=== PATIENT | female | born 1940 | race Caucasian/White ===

== ENCOUNTER 2018-07-08 19:24 | Inpatient (IN) | payer MEDICARE, BC ==
[2018-07-08 20:25] LABS: Anisocytosis Slight; Basophils % (A) 0 %; Eosinophils # (A) 0.2 k/uL (0-0.7); Eosinophils % (A) 2 %; HCT 32.2 % (34.0-46.0); HGB 9.9 gm/dL (11.4-16.0); Hypochromasia Moderate; Lymphocytes # (A) 1.4 k/uL (1.0-4.8); Lymphocytes % (A) 12 %; MCH 24.7 pg (25.0-35.0); MCHC 30.8 g/dL (31.0-37.0); MCV 80.1 fL (80.0-100.0); Mean Platelet Volume 6.8; Microcytosis Slight; Monocytes # (A) 0.5 k/uL (0-1.0); Monocytes % (A) 4 %; Neutrophils # (A) 9.6 k/uL (1.3-7.7); Neutrophils % (A) 81 %; Platelet Count 276 k/uL (150-450); RBC 4.02 m/uL (3.80-5.40); RDW 19.3 % (11.5-15.5); WBC 11.9 k/uL (3.8-10.6)
[2018-07-08] MEDS ORDERED: MORPHINE SULFATE 4 MG/ML SYRINGE IV PRN (20:37)
[2018-07-08] MEDS ORDERED: ONDANSETRON 4 MG/2 ML VIAL IVP PRN (20:37)
[2018-07-08] MEDS ORDERED: NALOXONE 0.4 MG/ML 1 ML VIAL IV PRN (20:37)
[2018-07-08] MEDS ORDERED: ACETAMINOPHEN TAB 325 MG TAB PO PRN (20:37)
--- NOTE | 2018-07-08 20:44 | ED ---
General Adult HPI - General Chief complaint: GI Bleed Stated complaint: GI Bleed Source: patient Mode of arrival: ambulatory Limitations: no limitations - History of Present Illness Initial comments: Dictation was produced using Be[employer] dictation software. please excuse any grammatical, word or spelling errors. Chief Complaint: 78-year-old female with past medical history of CVA TIA presents via EMS as a transfer from [facility] for GI bleed and hypokalemia. History of Present Illness: Patient is a 78-year-old female who was at her primary care physician's office today. She was sent to the emergency room by her PCP for generalized weakness and laboratory evaluation. She was seen [facility] ED where she was guaiac positive with anemia and hemoglobin of 9.4. She is also found to have hypokalemia of 2.7. Patient otherwise feels well. She noted some blood in her stool today. She was admitted to [facility] for CVA and was discharge recently. She started taking Xarelto. The ROS documented in this emergency department record has been reviewed and confirmed by me. Those systems with pertinent positive or negative responses have been documented in the HPI. All other systems are other negative and/or noncontributory. - Related Data Home Medications Medication Instructions Recorded Confirmed ALPRAZolam [Xanax] 0.5 mg PO HS PRN 07/08/18 07/08/18 Allopurinol [Zyloprim] 300 mg PO DAILY 07/08/18 07/08/18 Atorvastatin [Lipitor] 20 mg PO HS 07/08/18 07/08/18 Cholecalciferol [Vitamin D3] 400 unit PO DAILY 07/08/18 07/08/18 Digoxin [Lanoxin] 125 mcg PO DAILY 07/08/18 07/08/18 Diltiazem HCl [Diltiazem ER] 240 mg PO BID 07/08/18 07/08/18 Furosemide [Lasix] 40 mg PO BID 07/08/18 07/08/18 Ipratropium-Albuterol Nebulize 3 ml INHALATION RT-DAILY 07/08/18 07/08/18 [Duoneb 0.5 mg-3 mg/3 ml Soln] Levothyroxine Sodium [Synthroid] 112 mcg PO DAILY 07/08/18 07/08/18 Magnesium Oxide [Mag-Oxide] 200 mg PO DAILY 07/08/18 07/08/18 Nitroglycerin Sl Tabs [Nitrostat] 0.4 mg SUBLINGUAL Q5M PRN 07/08/18 07/08/18 Potassium Chloride ER [K-Dur 20] 20 meq PO BID 07/08/18 07/08/18 Thiamine [Vitamin B-1] 50 mg PO DAILY 07/08/18 07/08/18 Xarelto Unknwon Dose 1 tab PO HS 07/08/18 07/08/18 traZODone HCL 50 - 100 mg PO HS 07/08/18 07/08/18 Allergies Allergy/AdvReac Type Severity Reaction Status Date / Time Penicillins AdvReac Unknown Verified 07/08/18 20:09 Review of Systems ROS Statement: Those systems with pertinent positive or pertinent negative responses have been documented in the HPI. ROS Other: All systems not noted in ROS Statement are negative. Past Medical History Past Medical History: CVA/TIA History of Any Multi-Drug Resistant Organisms: None Reported Additional Past Surgical History / Comment(s): vericose veins. Past Psychological History: No Psychological Hx Reported Smoking Status: Never smoker Past Alcohol Use History: None Reported Past Drug Use History: None Reported General Exam - General Exam Comments Initial Comments: PHYSICAL EXAM: General Impression: Alert and oriented x3, not in acute distress HEENT: Normocephalic atraumatic, extra-ocular movements intact, pupils equal and reactive to light bilaterally, mucous membranes moist. Cardiovascular: Heart regular rate and rhythm, S1&S2 audible, no murmurs, rubs or gallops Chest: Lungs clear to auscultation bilaterally, no rhonchi, no wheeze, no rales Abdomen: Bowel sounds present, abdomen soft, non-tender, non-distended, no organomegaly Musculoskeletal: Pulses present and equal in all extremities, no peripheral edema Motor: Power 5/5 bilaterally, no focal deficits noted Neurological: CN II-XII grossly intact, no focal motor or sensory deficits noted Skin: Intact with no visualized rashes Psych: Normal affect and mood Limitations: no limitations Course Vital Signs 07/08/18 19:42 Temperature 98.2 F Pulse Rate 85 Respiratory 16 Rate Blood Pressure 122/75 O2 Sat by Pulse 96 Oximetry Medical Decision Making - Medical Decision Making ED course: transferred for higher level of care. She did have potassium level II.7. She also had stool guaiac positive blood. Clinical presentation consistent with GI bleeding allegedly derangement. She is on Xarelto. At this point it is unclear whether patient symptoms are secondary to hypokalemia or GI bleed/anemia. We will hold Xarelto. Vital signs upon arrival are within normal limits. Patient next seemed was DC'd. She started on Protonix. We will plan to have patient admitted for potassium replacement and GI consult. - Lab Data Result diagrams: 07/08/18 20:06 Lab Results 07/08/18 Range/Units 20:06 WBC 11.9 H (3.8-10.6) k/uL RBC 4.02 (3.80-5.40) m/uL Hgb 9.9 L (11.4-16.0) gm/dL Hct 32.2 L (34.0-46.0) % MCV 80.1 (80.0-100.0) fL MCH 24.7 L (25.0-35.0) pg MCHC 30.8 L (31.0-37.0) g/dL RDW 19.3 H (11.5-15.5) % Plt Count 276 (150-450) k/uL Neutrophils % 81 % Lymphocytes % 12 % Monocytes % 4 % Eosinophils % 2 % Basophils % 0 % Neutrophils # 9.6 H (1.3-7.7) k/uL Lymphocytes # 1.4 (1.0-4.8) k/uL Monocytes # 0.5 (0-1.0) k/uL Eosinophils # 0.2 (0-0.7) k/uL Basophils # 0.0 (0-0.2) k/uL Hypochromasia Moderate Anisocytosis Slight Microcytosis Slight Disposition Referrals: Hailee Villar, NPC [Primary Care Provider] - 1-2 days
[2018-07-08] MEDS ORDERED: cloNIDine 0.1 MG/24HR PATCH TRANSDERM SCH (20:45)
[2018-07-08 21:10] LABS: Calcium 9.3 mg/dL (8.4-10.2); Potassium 2.9 mmol/L (3.5-5.1)
[2018-07-08 23:51] VITALS: BMI 26.5
[2018-07-09] MEDS: SODIUM CHLORIDE 0.9% 1,000 ML IV SCH ×2 (01:07→09:05)
[2018-07-09] MEDS: PANTOPRAZOLE 40 MG/10 ML VIAL IVP SCH ×3 (02:10→22:09)
[2018-07-09] MEDS: DILTIAZEM CD 240 MG CAP.ER.24H PO SCH ×2 (02:10→09:04)
[2018-07-09 07:17] LABS: Albumin 3.3 g/dL (3.5-5.0); Calcium 8.9 mg/dL (8.4-10.2); Total Bilirubin 0.7 mg/dL (0.2-1.3); Total Protein 6.6 g/dL (6.3-8.2)
[2018-07-09] MEDS: LEVOTHYROXINE 112 MCG TAB PO SCH (09:02)
[2018-07-09] MEDS: DIGOXIN 125 MCG TAB PO SCH (09:04)
[2018-07-09 09:30] LABS: Anisocytosis Slight; Basophils % (A) 0 %; Eosinophils # (A) 0.3 k/uL (0-0.7); Eosinophils % (A) 2 %; HCT 30.3 % (34.0-46.0); HGB 9.2 gm/dL (11.4-16.0); Hypochromasia Marked; Lymphocytes # (A) 1.7 k/uL (1.0-4.8); Lymphocytes % (A) 15 %; MCH 24.8 pg (25.0-35.0); MCHC 30.3 g/dL (31.0-37.0); MCV 81.7 fL (80.0-100.0); Mean Platelet Volume 7.9; Microcytosis Slight; Monocytes # (A) 0.5 k/uL (0-1.0); Monocytes % (A) 4 %; Neutrophils # (A) 8.8 k/uL (1.3-7.7); Neutrophils % (A) 77 %; Platelet Count 283 k/uL (150-450); RBC 3.71 m/uL (3.80-5.40); RDW 19.1 % (11.5-15.5); WBC 11.4 k/uL (3.8-10.6)
[2018-07-09] MEDS ORDERED: NITROGLYCERIN SL TABS 0.4 MG TAB SUBLINGUAL PRN (10:59)
[2018-07-09] MEDS ORDERED: POTASSIUM CHLORIDE ER 20 MEQ TAB.ER PO STA (11:00)
[2018-07-09] MEDS ORDERED: SENNOSIDES-DOCUSATE SODIUM 1 EACH TAB PO STA (11:03)
[2018-07-09] MEDS ORDERED: POLYETHYLENE GLYCOL 3350 17 GM POWD.PACK PO PRN (11:03)
--- NOTE | 2018-07-09 12:42 | XR ---
EXAMINATION TYPE: XR chest 1V DATE OF EXAM: 07/09/2018 COMPARISON: 11/07/2010 HISTORY: Shortness of breath TECHNIQUE: Single frontal view of the chest is obtained. FINDINGS: There is left-sided consolidation and pleural effusion in the heart is enlarged. Interstit ial pattern is noted and there is no pneumothorax. Arthropathy of the shoulders and diffuse osteopeni a. Atherosclerotic change of the aorta. Hyperinflation suggests COPD. IMPRESSION: 1. New left perihilar and lower lobe area of consolidation with pleural effusion. 2. Cardiomegaly with findings suggestive of chronic interstitial lung disease. Interstitial pneumonit is or congestion in the differential diagnosis. Correlate clinically.
--- NOTE | 2018-07-09 12:42 | P.HPIM ---
History of Present Illness 78-year-old pleasant female with history of atrial fibrillation on the anticoagulation with Xarelto came in with complaints of blood in the stools about 3-4 episodes yesterday. Patient had a normal bowel movement yesterday night and no bowel movement today. Patient is admitted for possible GI bleed patient is also found to be hypokalemic secondary to Lasix. Patient was never admitted for CHF exacerbation her ejection fraction is unknown but was told he may have CHF. Patient has mild crackles on exam because of which I'm obtaining a chest x-ray today and stents since Lasix is being held and patient is on IV fluids although one of the chest x-ray tomorrow morning make sure patient is not retaining fluid. Patient's hemoglobin yesterday was around 9.9 and now 9.2 does not appear to have any present active bleed. Patient's creatinine has went up from 1-1.2. Patient was recently started on anticoagulation for chronic atrial fibrillation. Which is being held at this time. Patient denied any hemoptysis.stools. Denied any abdominal pain diarrhea Review of Systems REVIEW OF SYSTEMS: CONSTITUTIONAL: No fever, no malaise, no fatigue. HEENT: No recent visual problems or hearing problems. Denied any sore throat. CARDIOVASCULAR: No chest pain, orthopnea, PND, no palpitations, no syncope. PULMONARY: No shortness of breath, no cough, no hemoptysis. GASTROINTESTINAL: No diarrhea, no nausea, no vomiting, no abdominal pain. NEUROLOGICAL: No headaches, no weakness, no numbness. HEMATOLOGICAL: Denies any bleeding or petechiae. GENITOURINARY: Denies any burning micturition, frequency, or urgency. MUSCULOSKELETAL/RHEUMATOLOGICAL: Denies any joint pain, swelling, or any muscle pain. ENDOCRINE: Denies any polyuria or polydipsia. The rest of the 14-point review of systems is negative. Past Medical History Past Medical History: CVA/TIA History of Any Multi-Drug Resistant Organisms: None Reported Additional Past Surgical History / Comment(s): vericose veins. Past Psychological History: No Psychological Hx Reported Smoking Status: Never smoker Past Alcohol Use History: None Reported Past Drug Use History: None Reported - Past Family History Father Family Medical History: Cancer Mother Additional Family Medical History / Comment(s): "heart problems" Medications and Allergies Home Medications Medication Instructions Recorded Confirmed Type ALPRAZolam [Xanax] 0.5 mg PO HS PRN 07/08/18 07/08/18 History Allopurinol [Zyloprim] 300 mg PO DAILY 07/08/18 07/08/18 History Atorvastatin [Lipitor] 20 mg PO HS 07/08/18 07/08/18 History Cholecalciferol [Vitamin D3] 400 unit PO DAILY 07/08/18 07/08/18 History Digoxin [Lanoxin] 125 mcg PO DAILY 07/08/18 07/08/18 History Diltiazem HCl [Diltiazem ER] 240 mg PO BID 07/08/18 07/08/18 History Furosemide [Lasix] 40 mg PO BID 07/08/18 07/08/18 History Ipratropium-Albuterol Nebulize 3 ml INHALATION RT-DAILY 07/08/18 07/08/18 History [Duoneb 0.5 mg-3 mg/3 ml Soln] Levothyroxine Sodium [Synthroid] 112 mcg PO DAILY 07/08/18 07/08/18 History Magnesium Oxide [Mag-Oxide] 200 mg PO DAILY 07/08/18 07/08/18 History Nitroglycerin Sl Tabs [Nitrostat] 0.4 mg SUBLINGUAL Q5M PRN 07/08/18 07/08/18 History Potassium Chloride ER [K-Dur 20] 20 meq PO BID 07/08/18 07/08/18 History Thiamine [Vitamin B-1] 50 mg PO DAILY 07/08/18 07/08/18 History Xarelto Unknwon Dose 1 tab PO HS 07/08/18 07/08/18 History traZODone HCL 50 - 100 mg PO HS 07/08/18 07/08/18 History Allergies Allergy/AdvReac Type Severity Reaction Status Date / Time Penicillins AdvReac Unknown Verified 07/08/18 20:09 Physical Exam Vitals: Vital Signs Temp Pulse Pulse Resp BP BP Pulse Ox 07/09/18 07:00 98.2 F 80 18 128/70 07/08/18 21:45 98.2 F 16 137/65 92 L 07/08/18 21:36 98.6 F 84 16 117/65 96 07/08/18 20:30 80 16 120/68 98 07/08/18 19:42 98.2 F 85 16 122/75 96 Intake and Output 07/08/18 07/09/18 07/09/18 22:59 06:59 14:59 Other: # Voids 1 3 Weight 68.039 kg 68.039 kg PHYSICAL EXAMINATION: GENERAL: The patient is alert and oriented x3, not in any acute distress. Well developed, well nourished. HEENT: Pupils are round and equally reacting to light. EOMI. No scleral icterus. No conjunctival pallor. Normocephalic, atraumatic. No pharyngeal erythema. No thyromegaly. CARDIOVASCULAR: S1 and S2 present. No murmurs, rubs, or gallops. PULMONARY: Chest is clear to auscultation, no wheezing or crackles. ABDOMEN: Soft, nontender, nondistended, normoactive bowel sounds. No palpable organomegaly. MUSCULOSKELETAL: No joint swelling or deformity. EXTREMITIES: No cyanosis, clubbing, or pedal edema. NEUROLOGICAL: Gross neurological examination did not reveal any focal deficits. SKIN: No rashes. Results CBC & Chem 7: 07/09/18 06:36 07/09/18 06:36 Labs: Abnormal Lab Results - Last 24 Hours (Table) 07/08/18 07/08/18 07/09/18 Range/Units 20:06 20:06 06:36 WBC 11.9 H (3.8-10.6) k/uL RBC (3.80-5.40) m/uL Hgb 9.9 L (11.4-16.0) gm/dL Hct 32.2 L (34.0-46.0) % MCH 24.7 L (25.0-35.0) pg MCHC 30.8 L (31.0-37.0) g/dL RDW 19.3 H (11.5-15.5) % Neutrophils # 9.6 H (1.3-7.7) k/uL Potassium 2.9 L 3.0 L (3.5-5.1) mmol/L Chloride 91 L 94 L (98-107) mmol/L Carbon Dioxide 34 H 37 H (22-30) mmol/L BUN 39 H 37 H (7-17) mg/dL Creatinine 1.21 H (0.52-1.04) mg/dL Glucose 145 H 172 H (74-99) mg/dL AST 44 H (14-36) U/L Alkaline Phosphatase 181 H (38-126) U/L Albumin 3.3 L (3.5-5.0) g/dL 07/09/18 Range/Units 06:36 WBC 11.4 H (3.8-10.6) k/uL RBC 3.71 L (3.80-5.40) m/uL Hgb 9.2 L (11.4-16.0) gm/dL Hct 30.3 L (34.0-46.0) % MCH 24.8 L (25.0-35.0) pg MCHC 30.3 L (31.0-37.0) g/dL RDW 19.1 H (11.5-15.5) % Neutrophils # 8.8 H (1.3-7.7) k/uL Potassium (3.5-5.1) mmol/L Chloride (98-107) mmol/L Carbon Dioxide (22-30) mmol/L BUN (7-17) mg/dL Creatinine (0.52-1.04) mg/dL Glucose (74-99) mg/dL AST (14-36) U/L Alkaline Phosphatase (38-126) U/L Albumin (3.5-5.0) g/dL Thrombosis Risk Factor Assmnt - Choose All That Apply Any of the Below Risk Factors Present?: No Assessment and Plan Plan: Possible lower GI bleed: Secondary to possibly hemorrhoids gastroenterology was consulted. Patient will be continued on IV fluids. -Mild acute renal failure: Secondary to diuretic therapy which will be held I don't have any evidence of CHF on her. She will be continued on IV fluids Lasix will be held -Hypokalemia secondary to diuretic therapy will be replaced -Atrial fibrillation chronic presently rate controlled anti-coagulation is on hold because of above-mentioned reasons -CVA TIA in the past -Hyperlipidemia -Hypothyroidism
[2018-07-09] MEDS ORDERED: PROPOFOL 10 MG/ML 20 ML VIAL IV ONE (19:36)
[2018-07-09] MEDS ORDERED: LIDOCAINE 1% INJ 10MG/ML (20 ML MDV) ONE (19:36)
[2018-07-09] MEDS ORDERED: IV FLUID CONTINUATION 300 ML IV ONE (19:37)
[2018-07-09] MEDS: ATORVASTATIN 20 MG TAB PO SCH (22:08)
[2018-07-09] MEDS: POTASSIUM CHLORIDE ER 20 MEQ TAB.ER PO SCH (22:08)
[2018-07-10] MEDS: DILTIAZEM CD 240 MG CAP.ER.24H PO SCH ×3 (00:02→21:30)
[2018-07-10] MEDS: traZODone HCL 50 MG TAB PO SCH ×2 (00:05→21:31)
--- NOTE | 2018-07-10 06:40 | XR ---
EXAMINATION TYPE: XR chest 1V DATE OF EXAM: 07/10/2018 HISTORY: CHF. REFERENCE: Previous study dated 07/09/2018. FINDINGS: Lung volumes are prominent. The heart is enlarged. There is vascular congestion and mild ed gian. There is a left-sided effusion. IMPRESSION: NO SIGNIFICANT INTERVAL CHANGE IN APPEARANCE OF THE CHEST.
[2018-07-10 08:06] LABS: Anisocytosis Slight; HCT 26.5 % (34.0-46.0); Hypochromasia Marked; MCH 24.8 pg (25.0-35.0); MCHC 30.2 g/dL (31.0-37.0); MCV 82.1 fL (80.0-100.0); Mean Platelet Volume 7.4; Microcytosis Slight; Platelet Count 224 k/uL (150-450); RBC 3.23 m/uL (3.80-5.40); RDW 19.4 % (11.5-15.5); WBC 8.3 k/uL (3.8-10.6)
[2018-07-10 08:32] LABS: Calcium 8.5 mg/dL (8.4-10.2); Potassium 3.3 mmol/L (3.5-5.1)
[2018-07-10] MEDS: IPRATROPIUM-ALBUTEROL 3 ML NEB INHALATION SCH (08:33)
[2018-07-10] MEDS: DIGOXIN 125 MCG TAB PO SCH (08:57)
[2018-07-10] MEDS: PANTOPRAZOLE 40 MG/10 ML VIAL IVP SCH ×2 (08:57→21:31)
[2018-07-10] MEDS: POTASSIUM CHLORIDE ER 20 MEQ TAB.ER PO SCH ×2 (08:58→21:31)
[2018-07-10] MEDS: LEVOTHYROXINE 112 MCG TAB PO SCH (09:43)
[2018-07-10] MEDS ORDERED: POTASSIUM CHLORIDE ER 20 MEQ TAB.ER PO STA (12:06)
[2018-07-10] MEDS: MAGNESIUM OXIDE 400 MG TAB PO SCH (12:27)
--- NOTE | 2018-07-10 14:18 | P.PN ---
Subjective 78-year-old pleasant female with history of atrial fibrillation on the anticoagulation with Xarelto came in with complaints of blood in the stools about 3-4 episodes yesterday. Patient had a normal bowel movement yesterday night and no bowel movement today. Patient is admitted for possible GI bleed patient is also found to be hypokalemic secondary to Lasix. Patient was never admitted for CHF exacerbation her ejection fraction is unknown but was told he may have CHF. Patient has mild crackles on exam because of which I'm obtaining a chest x-ray today and stents since Lasix is being held and patient is on IV fluids although one of the chest x-ray tomorrow morning make sure patient is not retaining fluid. Patient's hemoglobin yesterday was around 9.9 and now 9.2 does not appear to have any present active bleed. Patient's creatinine has went up from 1-1.2. Patient was recently started on anticoagulation for chronic atrial fibrillation. Which is being held at this time. Patient denied any hemoptysis.stools. Denied any abdominal pain diarrhea 07/10/2018 patient underwent upper GI endoscopy which showed gastric ulcer. Patient complained that she had couple.stools today because of which will monitor her overnight today continue to hold off on anticoagulation for now if she is not bleeding tomorrow patient will be discharged after resuming anticoagulation. Chest x-ray is read as pulmonary edema although clinically patient does not have any JVD clinically patient doesn't appear to be in CHF exacerbation BNP is marginally elevated IV fluids will be discontinued patient will remain off Lasix. Potassium is low which was supplemented. Mild leukocytosis which improved hemoglobin is 8.0 today compared to 9.9 on admission Constitutional: Denied any fatigue denied any fever. Cardio vascular: denied any chest pain, palpitations Gastrointestinal denied any nausea vomiting Pulmonary: Denied any shortness of breath cough Neurologic denied any new focal deficits Objective - Vital Signs Vital signs: Vital Signs Temp 97.9 F 07/10/18 07:00 Pulse 76 07/10/18 08:45 Resp 17 07/10/18 07:00 BP 94/57 07/10/18 07:00 Pulse Ox 90 L 07/10/18 08:40 Intake & Output 07/09/18 07/10/18 07/10/18 18:59 06:59 18:59 Intake Total 1640 1350 Balance 1640 1350 Weight 68.039 kg Intake: Intake, IV Titration 600 Amount Sodium Chloride 0.9% 1, 600 000 ml @ 80 mls/hr IV . [id number] COUNTS INCLUDE 234 BEDS AT THE [facility] Rx#:[id number] Oral 1040 1350 Other: Voiding Method Toilet # Voids 2 3 1 - Exam PHYSICAL EXAMINATION: GENERAL: The patient is alert and oriented x3, not in any acute distress. Well developed, well nourished. HEENT: Pupils are round and equally reacting to light. EOMI. No scleral icterus. No conjunctival pallor. Normocephalic, atraumatic. No pharyngeal erythema. No thyromegaly. CARDIOVASCULAR: S1 and S2 present. No murmurs, rubs, or gallops. PULMONARY: Chest is clear to auscultation, no wheezing or crackles. ABDOMEN: Soft, nontender, nondistended, normoactive bowel sounds. No palpable organomegaly. MUSCULOSKELETAL: No joint swelling or deformity. EXTREMITIES: No cyanosis, clubbing, or pedal edema. NEUROLOGICAL: Gross neurological examination did not reveal any focal deficits. SKIN: No rashes. - Labs CBC & Chem 7: 07/10/18 07:05 07/10/18 07:05 Labs: Abnormal Lab Results - Last 24 Hours (Table) 07/10/18 07/10/18 Range/Units 07:05 07:05 RBC 3.23 L (3.80-5.40) m/uL Hgb 8.0 L (11.4-16.0) gm/dL Hct 26.5 L (34.0-46.0) % MCH 24.8 L (25.0-35.0) pg MCHC 30.2 L (31.0-37.0) g/dL RDW 19.4 H (11.5-15.5) % Sodium 136 L (137-145) mmol/L Potassium 3.3 L (3.5-5.1) mmol/L BUN 27 H (7-17) mg/dL Glucose 139 H (74-99) mg/dL Assessment and Plan Plan: acute blood loss anemia: Secondary to upper GI bleed from peptic ulcer disease, continue to hold on anticoagulation. -Mild acute renal failure: Secondary to diuretic therapy which will be held I don't have any evidence of CHF on her. proved renal failure with IV fluids, which will be held continue to hold on diuretic therapy -Hypokalemia secondary to diuretic therapy will be replaced -Atrial fibrillation chronic presently rate controlled anti-coagulation is on hold because of above-mentioned reasons -CVA TIA in the past -Hyperlipidemia -Hypothyroidism
--- NOTE | 2018-07-10 17:12 | P.PCN ---
Date of Procedure: 07/09/18 Description of Procedure: Procedure performed on 07/09/2018 BRIEF HISTORY: Patient is a 78-year-old, pleasant, patient with a medical history significant for prior CVA/TIA who presented with complaints of weakness from her primary care physician's office and was found to be anemic at a hemoglobin of 9.4 which remained stable at 9.2 on repeat. The patient originally had reported some blood per rectum however on further discussion with the patient she had been having melanotic stool for approximate 4-5 days. On admission therapy given her medical history. She reports that her last colonoscopy was approximately 4-5 years ago and believes it was normal she does take Aleve daily and uses a generic PPI which she states is for gas. PROCEDURE PERFORMED: Esophagogastroduodenoscopy with biopsy. PREOPERATIVE DIAGNOSIS: Melena, anemia of acute blood loss. ESTIMATED BLOOD LOSS: Minimal. IV sedation per anesthesia. PROCEDURE: After informed consent was obtained, the patient was brought into the endoscopy unit. IV sedation was administered by Anesthesia under continuous monitoring. Initially the Olympus GIF-190 video endoscope was inserted into the mouth. Esophagus intubated without any difficulty. It was gradually advanced into the stomach and duodenum and carefully examined. The bulb and the second part of the duodenum appeared normal. The scope at this time was withdrawn to the stomach, adequately insufflated with air, and upon careful examination, mucosa of the antrum, body, cardia and the fundus appeared normal except for 2 superficial nonbleeding ulcers without any high risk stigmata or bleeding which were noted in the antrum. The scope was then withdrawn into the esophagus. The GE junction was located at 38 cm from the incisors. The esophagus appeared normal. There were no erosions or ulcerations seen and the patient tolerated the procedure well. IMPRESSION: 1. Nonbleeding gastric ulcers, biopsied. 2. No signs of active bleeding. RECOMMENDATIONS: The findings of this examination were discussed with the patient and her son. Continue Protonix twice daily. Okay for liquid and advance as tolerated. Continue to monitor hemoglobin and transfuse as needed.
--- NOTE | 2018-07-10 17:21 | P.CONS ---
History of Present Illness - Reason for Consult Consult date: 07/09/18 GI bleed Requesting physician: Brandon E Sheet - History of Present Illness 78-year-old female with a medical history significant for prior CVA and TIA, reflux disease on home PPI therapy and osteoarthritis for which she takes Aleve daily, who presented after being seen by her primary care physician for weakness and was found to be anemic for further evaluation. The patient initially reported bright red blood per rectum but upon questioning she reports dark black stool for 3-4 days. She reports that this previously happened in 2013 after she had a stroke and was at a nursing facility. She says at that time stool was black with coffee-ground appearance. She has been having similar dark stool 2-3 times a day for 3 days as mentioned. Her last colonoscopy was 4-5 years ago in [place] with a local provider and she believes it was normal at that time. She does use daily Aleve therapy for treatment of osteoarthritis and is on Xarelto therapy as well. She reports use of generic omeprazole for treatment of reflux symptoms and gas. She denies any abdominal pain at this time. No nausea or vomiting. Review of Systems REVIEW OF SYSTEMS: CONSTITUTIONAL: Denies any fevers, chills, weight change or fatigue. CARDIOVASCULAR: Denies any chest pain, palpitations high or low blood pressures RESPIRATORY: Denies any shortness of breath, hemoptysis or cough. GENITOURINARY: No dysuria or hematuria. MUSCULOSKELETAL: No weakness reported. SKIN: Denies any new rashes or lesions, jaundice or pallor. PSYCHIATRIC: Denies any depression or anxiety. NEUROLOGY: Denies headache, denies any new focal deficits. EARS/NOSE/THROAT: No recent hearing change, congestion, nasal discharge or sore throat. EYES: No pain in eyes, discharge or change in vision. GASTROINTESTINAL: As per HPI. Past Medical History Past Medical History: CVA/TIA History of Any Multi-Drug Resistant Organisms: None Reported Additional Past Surgical History / Comment(s): vericose veins. Past Psychological History: No Psychological Hx Reported Smoking Status: Never smoker Past Alcohol Use History: None Reported Past Drug Use History: None Reported - Past Family History Father Family Medical History: Cancer Mother Additional Family Medical History / Comment(s): "heart problems" Medications and Allergies Home Medications Medication Instructions Recorded Confirmed Type ALPRAZolam [Xanax] 0.5 mg PO HS PRN 07/08/18 07/08/18 History Allopurinol [Zyloprim] 300 mg PO DAILY 07/08/18 07/08/18 History Atorvastatin [Lipitor] 20 mg PO HS 07/08/18 07/08/18 History Cholecalciferol [Vitamin D3] 400 unit PO DAILY 07/08/18 07/08/18 History Digoxin [Lanoxin] 125 mcg PO DAILY 07/08/18 07/08/18 History Diltiazem HCl [Diltiazem ER] 240 mg PO BID 07/08/18 07/08/18 History Furosemide [Lasix] 40 mg PO BID 07/08/18 07/08/18 History Ipratropium-Albuterol Nebulize 3 ml INHALATION RT-DAILY 07/08/18 07/08/18 History [Duoneb 0.5 mg-3 mg/3 ml Soln] Levothyroxine Sodium [Synthroid] 112 mcg PO DAILY 07/08/18 07/08/18 History Magnesium Oxide [Mag-Oxide] 200 mg PO DAILY 07/08/18 07/08/18 History Nitroglycerin Sl Tabs [Nitrostat] 0.4 mg SUBLINGUAL Q5M PRN 07/08/18 07/08/18 History Potassium Chloride ER [K-Dur 20] 20 meq PO BID 07/08/18 07/08/18 History Thiamine [Vitamin B-1] 50 mg PO DAILY 07/08/18 07/08/18 History Xarelto Unknwon Dose 1 tab PO HS 07/08/18 07/08/18 History traZODone HCL 50 - 100 mg PO HS 07/08/18 07/08/18 History Allergies Allergy/AdvReac Type Severity Reaction Status Date / Time Penicillins AdvReac Unknown Verified 07/08/18 20:09 Physical Exam Vitals: Vital Signs Temp Pulse Pulse Resp BP BP Pulse Ox 07/09/18 22:30 61 98/66 07/09/18 22:15 71 95/42 07/09/18 22:00 66 96/53 07/09/18 21:45 93 18 106/68 07/09/18 21:30 93 18 79/46 07/09/18 21:15 92 18 80/52 07/09/18 20:28 98.0 F 65 18 105/57 11/02/18 20:15 98.0 F 91 18 102/57 07/09/18 15:00 97.7 F 75 16 128/51 92 L 07/09/18 07:00 98.2 F 80 18 128/70 Intake and Output 07/09/18 07/09/18 07/10/18 14:59 22:59 06:59 Other: # Voids 2 Weight 68.039 kg On physical examination, patient appears comfortable in no apparent distress. HEAD: Normocephalic, atraumatic. EYES: No scleral icterus. No conjunctival injection. MOUTH: No lesions, tongue midline. NECK: Trachea midline, no gross abnormalities. CHEST: Clear to auscultation with no wheezing or rhonchi appreciated. HEART: Regular rate and rhythm. ABDOMEN: Soft, obese. Bowel sounds are positive. No organomegaly. No guarding or rigidity. EXTREMITIES: No pedal edema. SKIN: No rashes, no jaundice. NEUROLOGIC: Alert and oriented x3. Results CBC & Chem 7: 07/10/18 07:05 07/10/18 07:05 Labs: Abnormal Lab Results - Last 24 Hours (Table) 07/09/18 07/09/18 Range/Units 06:36 06:36 WBC 11.4 H (3.8-10.6) k/uL RBC 3.71 L (3.80-5.40) m/uL Hgb 9.2 L (11.4-16.0) gm/dL Hct 30.3 L (34.0-46.0) % MCH 24.8 L (25.0-35.0) pg MCHC 30.3 L (31.0-37.0) g/dL RDW 19.1 H (11.5-15.5) % Neutrophils # 8.8 H (1.3-7.7) k/uL Potassium 3.0 L (3.5-5.1) mmol/L Chloride 94 L (98-107) mmol/L Carbon Dioxide 37 H (22-30) mmol/L BUN 37 H (7-17) mg/dL Creatinine 1.21 H (0.52-1.04) mg/dL Glucose 172 H (74-99) mg/dL AST 44 H (14-36) U/L Alkaline Phosphatase 181 H (38-126) U/L Albumin 3.3 L (3.5-5.0) g/dL Assessment and Plan (1) Gastrointestinal bleed Narrative/Plan: 78-year-old female on NSAID therapy as well as Xarelto who presented with complaints of weakness and dark stool and subsequently found to be anemic. Patient was taken for urgent EGD yesterday which was significant for 2 gastric ulcers without evidence of high risk stigmata. Current Visit: Yes Status: Acute Code(s): K92.2 - GASTROINTESTINAL HEMORRHAGE, UNSPECIFIED SNOMED Code(s): 93844543 (2) Anemia associated with acute blood loss Narrative/Plan: As above. Current Visit: Yes Status: Acute Code(s): D62 - ACUTE POSTHEMORRHAGIC ANEMIA SNOMED Code(s): 350607300 Plan: Supportive care Advance diet as tolerated Monitor hemoglobin and transfuse as needed Continue twice daily Protonix therapy If patient remains clinically stable and hemoglobin remained stable okay for discharge for follow-up with gastroenterology service in the outpatient setting and discussion over possible colonoscopy, if further signs or symptoms emerge or hemoglobin drops patient may benefit from inpatient colonoscopy Thank you for allowing us to participate in the care of this patient
[2018-07-10] MEDS: ATORVASTATIN 20 MG TAB PO SCH (21:31)
[2018-07-11 07:47] VITALS: BP 122/59; RESP 18; TEMP 97.5
[2018-07-11 07:50] LABS: Anisocytosis Slight; HCT 26.1 % (34.0-46.0); Hypochromasia Marked; MCH 25.7 pg (25.0-35.0); MCHC 30.6 g/dL (31.0-37.0); MCV 83.7 fL (80.0-100.0); Mean Platelet Volume 7.6; Platelet Count 192 k/uL (150-450); Poikilocytosis Slight; RBC 3.12 m/uL (3.80-5.40); RDW 19.3 % (11.5-15.5); WBC 8.9 k/uL (3.8-10.6)
[2018-07-11 08:08] LABS: Calcium 8.8 mg/dL (8.4-10.2)
[2018-07-11] MEDS: DIGOXIN 125 MCG TAB PO SCH ×2 (09:40→10:44)
[2018-07-11] MEDS: POTASSIUM CHLORIDE ER 20 MEQ TAB.ER PO SCH (09:40)
[2018-07-11] MEDS: PANTOPRAZOLE 40 MG/10 ML VIAL IVP SCH (09:40)
[2018-07-11] MEDS: DILTIAZEM CD 240 MG CAP.ER.24H PO SCH (09:40)
[2018-07-11] MEDS: MAGNESIUM OXIDE 400 MG TAB PO SCH (09:40)
[2018-07-11] MEDS: IPRATROPIUM-ALBUTEROL 3 ML NEB INHALATION SCH (11:17)
[2018-07-11 11:28] VITALS: PULSE 78
[2018-07-11] MEDS ORDERED: FUROSEMIDE 10 MG/ML 2 ML VIAL IV ONE (11:36)
--- NOTE | 2018-07-11 11:48 | P.DS ---
Providers Date of admission: 07/08/18 20:38 Attending physician: Brandon Veliz MD Consults: 07/08/18 19:41 Consult Physician Routine Consulting Provider: Annie Dang Consult Reason/Comments: GI bleed Do you want consulting provider notified?: Yes Primary care physician: Hailee Waterbury Hospital Course: 78-year-old pleasant female with history of atrial fibrillation on the anticoagulation with Xarelto came in with complaints of blood in the stools about 3-4 episodes yesterday. Patient had a normal bowel movement yesterday night and no bowel movement today. Patient is admitted for possible GI bleed patient is also found to be hypokalemic secondary to Lasix. Patient was never admitted for CHF exacerbation her ejection fraction is unknown but was told he may have CHF. Patient has mild crackles on exam because of which I'm obtaining a chest x-ray today and stents since Lasix is being held and patient is on IV fluids although one of the chest x-ray tomorrow morning make sure patient is not retaining fluid. Patient's hemoglobin yesterday was around 9.9 and now 9.2 does not appear to have any present active bleed. Patient's creatinine has went up from 1-1.2. Patient was recently started on anticoagulation for chronic atrial fibrillation. Which is being held at this time. Patient denied any hemoptysis.stools. Denied any abdominal pain diarrhea 07/10/2018 patient underwent upper GI endoscopy which showed gastric ulcer. Patient complained that she had couple.stools today because of which will monitor her overnight today continue to hold off on anticoagulation for now if she is not bleeding tomorrow patient will be discharged after resuming anticoagulation. Chest x-ray is read as pulmonary edema although clinically patient does not have any JVD clinically patient doesn't appear to be in CHF exacerbation BNP is marginally elevated IV fluids will be discontinued patient will remain off Lasix. Potassium is low which was supplemented. Mild leukocytosis which improved hemoglobin is 8.0 today compared to 9.9 on admission 07/11/2018 No more GI bleed and patient's hemoglobin remained stable patient will be resumed on anticoagulation for atrial fibrillation patient will be discharged today. Patient is euvolemic creatinine improved with discontinuation of Lasix. Lasix will be resumed at a lower dose and will also cut down the dose of potassium. PHYSICAL EXAMINATION: GENERAL: The patient is alert and oriented x3, not in any acute distress. Well developed, well nourished. HEENT: Pupils are round and equally reacting to light. EOMI. No scleral icterus. No conjunctival pallor. Normocephalic, atraumatic. No pharyngeal erythema. No thyromegaly. CARDIOVASCULAR: S1 and S2 present. No murmurs, rubs, or gallops. PULMONARY: Chest is clear to auscultation, no wheezing or crackles. ABDOMEN: Soft, nontender, nondistended, normoactive bowel sounds. No palpable organomegaly. MUSCULOSKELETAL: No joint swelling or deformity. EXTREMITIES: No cyanosis, clubbing, or pedal edema. NEUROLOGICAL: Gross neurological examination did not reveal any focal deficits. SKIN: No rashes. Assessment and Plan Plan: acute blood loss anemia: Secondary to upper GI bleed from peptic ulcer disease, patient can resume her anticoagulation, will be discharged on 14 days of Prilosec -Mild acute renal failure: Secondary to diuretic therapy which was held here improved creatinine cutting down the dose of potassium and diuretics. -Hypokalemia secondary to diuretic therapy was replaced -Atrial fibrillation chronic presently rate controlled -CVA TIA in the past -Hyperlipidemia -Hypothyroidism Plan - Discharge Summary Discharge Rx Participant: No New Discharge Prescriptions: New Omeprazole [PriLOSEC] 40 mg [facility] capsule. Continue traZODone HCL 50 - 100 mg PO HS Diltiazem HCl [Diltiazem 24Hr ER] 240 mg PO BID Thiamine [Vitamin B-1] 50 mg PO DAILY Levothyroxine Sodium [Synthroid] 112 mcg PO DAILY Cholecalciferol [Vitamin D3] 400 unit PO DAILY Nitroglycerin Sl Tabs [Nitrostat] 0.4 mg SUBLINGUAL Q5M PRN PRN Reason: Chest Pain Magnesium Oxide [Mag-Oxide] 200 mg PO DAILY Ipratropium-Albuterol Nebulize [Duoneb 0.5 mg-3 mg/3 ml Soln] 3 ml INHALATION RT-DAILY Digoxin [Lanoxin] 125 mcg PO DAILY Xarelto Unknwon Dose 1 tab PO HS Atorvastatin [Lipitor] 20 mg PO HS Allopurinol [Zyloprim] 300 mg PO DAILY Changed Furosemide [Lasix] 20 mg PO DAILY #0 Potassium Chloride ER [K-Dur 20] 10 meq PO DAILY #0 Discontinued ALPRAZolam [Xanax] 0.5 mg PO HS PRN PRN Reason: Insomnia Discharge Medication List Allopurinol [Zyloprim] 300 mg PO DAILY 07/08/18 [History] Atorvastatin [Lipitor] 20 mg PO HS 07/08/18 [History] Cholecalciferol [Vitamin D3] 400 unit PO DAILY 07/08/18 [History] Digoxin [Lanoxin] 125 mcg PO DAILY 07/08/18 [History] Diltiazem HCl [Diltiazem 24Hr ER] 240 mg PO BID 07/08/18 [History] Ipratropium-Albuterol Nebulize [Duoneb 0.5 mg-3 mg/3 ml Soln] 3 ml INHALATION RT -DAILY 07/08/18 [History] Levothyroxine Sodium [Synthroid] 112 mcg PO DAILY 07/08/18 [History] Magnesium Oxide [Mag-Oxide] 200 mg PO DAILY 07/08/18 [History] Nitroglycerin Sl Tabs [Nitrostat] 0.4 mg SUBLINGUAL Q5M PRN 07/08/18 [History] Thiamine [Vitamin B-1] 50 mg PO DAILY 07/08/18 [History] Xarelto Unknwon Dose 1 tab PO HS 07/08/18 [History] traZODone HCL 50 - 100 mg PO HS 07/08/18 [History] Furosemide [Lasix] 20 mg PO DAILY #0 07/11/18 [Rx] Omeprazole [PriLOSEC] 40 mg PO [id number] #14 capsule. 07/11/18 [Rx] Potassium Chloride ER [K-Dur 20] 10 meq PO DAILY #0 07/11/18 [Rx] Follow up Appointment(s)/Referral(s): Hailee Villar NPC [Primary Care Provider] - 3 Days Ahsan Carty MD [STAFF PHYSICIAN] - 2 Weeks Activity/Diet/Wound Care/Special Instructions: [facility]: #[phone] Discharge Disposition: HOME WITH HOME HEALTH SERVICES
[2018-07-11] MEDS: LEVOTHYROXINE 112 MCG TAB PO SCH (12:48)
== END 2018-07-11 13:35 | disposition home health service (06) | DRG 378 ==
LOC: EC 19:24 → 4SSUR 20:38
PROVIDERS: ADMIT Internal Medicine; ATTEND Internal Medicine
PROC: 0DB78ZX Excision of Stomach, Pylorus, Via Natural or Artificial Opening Endoscopic, Diagnostic (ICD-10-PCS; principal; 2018-07-09 19:00)
DX: K25.4 Chronic or unspecified gastric ulcer with hemorrhage (principal); D62 Acute posthemorrhagic anemia; N17.9 Acute kidney failure, unspecified; D72.829 Elevated white blood cell count, unspecified; E03.9 Hypothyroidism, unspecified; E78.5 Hyperlipidemia, unspecified; E87.6 Hypokalemia; I48.2 Chronic atrial fibrillation; I50.9 Heart failure, unspecified; K21.9 Gastro-esophageal reflux disease without esophagitis; M19.011 Primary osteoarthritis, right shoulder; M19.012 Primary osteoarthritis, left shoulder; T50.1X5A Adverse effect of loop [high-ceiling] diuretics, initial encounter; Z79.01 Long term (current) use of anticoagulants; Z86.73 Personal history of transient ischemic attack (TIA), and cerebral infarction without residual deficits; Z79.890 Hormone replacement therapy; Z79.899 Other long term (current) drug therapy; Z80.9 Family history of malignant neoplasm, unspecified; Z82.49 Family history of ischemic heart disease and other diseases of the circulatory system; Z88.0 Allergy status to penicillin
CPT/HCPCS: 36415; 43239; 71045; 80048; 80053; 83880; 85025; 85027; 88305; 94640; 94760; 99285

== ENCOUNTER 2020-07-31 00:10 | Inpatient (IN) | payer MEDICARE, BC ==
[2020-07-31] MEDS ORDERED: ONDANSETRON 4 MG/2 ML VIAL IVP PRN (00:23)
[2020-07-31] MEDS ORDERED: NALOXONE 0.4 MG/ML 1 ML VIAL IV PRN (00:23)
[2020-07-31] MEDS ORDERED: MORPHINE SULFATE 4 MG/ML SYRINGE IV PRN (00:23)
--- NOTE | 2020-07-31 00:27 | ED ---
Recheck HPI - General Stated Complaint: Weakness Time Seen by Provider: 07/31/20 00:12 Source: RN notes reviewed, old records reviewed Mode of arrival: EMS Limitations: no limitations - History of Present Illness Initial Comments: This is an 78-year-old female presented today for evaluation of anemia as accepted in transfer. Patient alsoin A. fib with RVR patient states otherwise she presents feels well she was given a bolus of fluid states that improved her symptoms. She has no pain no headache chest pain or shortness of breath. No recent fevers cough or congestion. No recent change in medications. Multiple hospital admissions as well as recent stent placement and lower leg. No active bleeding MD Complaint: abnormal lab (low Hgb) -: unknown Returns Today for: Called Because of Abnormal Lab/Test Symptoms Since Prior Visit: no new symptoms Context: called for abnormal lab result Associated Symptoms: shortness of breath, malaise Treatments Prior to Arrival: other (none) - Related Data Home Medications Medication Instructions Recorded Confirmed Atorvastatin [Lipitor] 20 mg PO HS 07/08/18 07/08/18 Cholecalciferol [Vitamin D3] 400 unit PO DAILY 07/08/18 07/08/18 Digoxin [Lanoxin] 125 mcg PO DAILY 07/08/18 07/08/18 Diltiazem HCl [Diltiazem HCl 24Hr 240 mg PO BID 07/08/18 07/08/18 ER] Ipratropium-Albuterol Nebulize 3 ml INHALATION RT-DAILY 07/08/18 07/08/18 [Duoneb 0.5 mg-3 mg/3 ml Soln] Levothyroxine Sodium [Synthroid] 112 mcg PO DAILY 07/08/18 07/08/18 Magnesium Oxide [Mag-Oxide] 200 mg PO DAILY 07/08/18 07/08/18 Nitroglycerin Sl Tabs [Nitrostat] 0.4 mg SUBLINGUAL Q5M PRN 07/08/18 07/08/18 Thiamine [Vitamin B-1] 50 mg PO DAILY 07/08/18 07/08/18 Xarelto Unknwon Dose 1 tab PO HS 07/08/18 07/08/18 allopurinoL [Zyloprim] 300 mg PO DAILY 07/08/18 07/08/18 traZODone HCL 50 - 100 mg PO HS 07/08/18 07/08/18 Previous Rx's Medication Instructions Recorded Furosemide [Lasix] 20 mg PO DAILY #0 07/11/18 Omeprazole [PriLOSEC] 40 mg PO [facility] #14 nathalie. 07/11/18 Potassium Chloride ER [K-Dur 20] 10 meq PO DAILY #0 07/11/18 Allergies Allergy/AdvReac Type Severity Reaction Status Date / Time Penicillins AdvReac Unknown Verified 07/08/18 20:09 Review of Systems ROS Statement: Those systems with pertinent positive or pertinent negative responses have been documented in the HPI. ROS Other: All systems not noted in ROS Statement are negative. Past Medical History Past Medical History: CVA/TIA History of Any Multi-Drug Resistant Organisms: None Reported Additional Past Surgical History / Comment(s): vericose veins. Past Psychological History: No Psychological Hx Reported Past Alcohol Use History: None Reported Past Drug Use History: None Reported - Past Family History Father Family Medical History: Cancer Mother Additional Family Medical History / Comment(s): "heart problems" General Exam General appearance: alert, in no apparent distress, anxious Head exam: Present: atraumatic, normocephalic, normal inspection Eye exam: Present: normal appearance, PERRL, EOMI. Absent: scleral icterus, conjunctival injection, periorbital swelling ENT exam: Present: normal exam, mucous membranes moist Neck exam: Present: normal inspection. Absent: tenderness, meningismus, ly mphadenopathy Respiratory exam: Present: normal lung sounds bilaterally. Absent: respiratory distress, wheezes, rales, rhonchi, stridor Cardiovascular Exam: Present: tachycardia, irregular rhythm, normal heart sounds. Absent: systolic murmur, diastolic murmur, rubs, gallop, clicks GI/Abdominal exam: Present: soft, normal bowel sounds. Absent: distended, tenderness, guarding, rebound, rigid Extremities exam: Present: normal inspection, full ROM, normal capillary refill. Absent: tenderness, pedal edema, joint swelling, calf tenderness Back exam: Present: normal inspection Neurological exam: Present: alert, oriented X3, CN II-XII intact Psychiatric exam: Present: normal affect, normal mood Skin exam: Present: warm, dry, intact, normal color. Absent: rash Course Vital Signs 07/31/20 07/31/20 07/31/20 00:28 00:30 00:54 Temperature 98.1 F Pulse Rate 122 H 138 H Pulse Rate [ 132 H Mainframe Software Developer ] Respiratory 17 16 Rate Blood Pressure 116/79 109/88 O2 Sat by Pulse 100 100 Oximetry 07/31/20 07/31/20 07/31/20 01:10 01:20 01:42 Temperature 98.0 F Pulse Rate 120 H 105 H 108 H Pulse Rate [ Mainframe Software Developer ] Respiratory 16 16 16 Rate Blood Pressure 91/62 98/70 83/63 O2 Sat by Pulse 96 97 96 Oximetry - Reevaluation(s) Reevaluation #1: 07/31/20 02:06 Medical records reviewed 07/31/20 02:06 of course transferring paperwork has been reviewed as well as taking the transferring physician, accepted transfer Reevaluation #2: 07/31/20 02:06 Patient showing mild heart rate improvement state hemodynamic stable despite A. fib with RVR and severe anemia Medical Decision Making - Medical Decision Making 78 female DF for evaluation patient resents today as a transfer for anemia with history of GI bleeding chronic anemia. Patient will be admitted for transfusion and monitoring. Patient also to be in A. fib with RVR - Lab Data Result diagrams: 07/31/20 00:31 - EKG Data -: EKG Interpreted by Me (EKG shows A. fib with RVR 133 QRS 142 QTC 473) Critical Care Time Critical Care Time: Yes Total Critical Care Time: 31 Disposition Clinical Impression: Weakness, Gastrointestinal bleed, Anemia associated with acute blood loss, Anemia Disposition: ADMITTED IP TO THIS HOSP Condition: Fair Is patient prescribed a controlled substance at d/c from ED?: No
[2020-07-31] MEDS ORDERED: DILTIAZEM DRIP BOLUS FROM BAG 1 MG SOLN IV ONE (00:33)
[2020-07-31] MEDS: SODIUM CHLORIDE 0.9% 1,000 ML IV SCH (00:54)
[2020-07-31 01:00] LABS: INR 1.2 (<1.2); Partial Thromboplastin Time 25.8 sec (22.0-30.0); Prothrombin Time 12.4 sec (9.0-12.0)
[2020-07-31] MEDS ORDERED: DILTIAZEM 125 MG in SODIUM CHLORIDE 0.9% 100 ML IV SCH (01:00)
[2020-07-31 01:05] LABS: Anisocytosis Slight; Basophils % (A) 1 %; Eosinophils # (A) 0.2 k/uL (0-0.7); Eosinophils % (A) 2 %; HCT 24.8 % (34.0-46.0); HGB 7.4 gm/dL (11.4-16.0); Hypochromasia Marked; Lymphocytes % (A) 13 %; MCH 24.3 pg (25.0-35.0); MCHC 29.7 g/dL (31.0-37.0); MCV 81.8 fL (80.0-100.0); Mean Platelet Volume 8.4; Microcytosis Slight; Monocytes # (A) 0.4 k/uL (0-1.0); Monocytes % (A) 6 %; Neutrophils % (A) 77 %; Platelet Count 281 k/uL (150-450); Poikilocytosis Slight; RBC 3.04 m/uL (3.80-5.40); RDW 19.6 % (11.5-15.5); WBC 7.8 k/uL (3.8-10.6)
[2020-07-31] MEDS ORDERED: METOPROLOL TARTRATE 25 MG TAB PO STA (04:18)
[2020-07-31 06:09] LABS: Glucose,Whole Blood 120 mg/dL (75-99)
[2020-07-31] MEDS: INSULIN ASPART (NovoLOG) 100 UNIT/ML VIAL SQ SCH ×4 (06:11→20:18)
[2020-07-31] MEDS: PANTOPRAZOLE 40 MG/10 ML VIAL IV SCH (08:23)
[2020-07-31] MEDS ORDERED: NITROGLYCERIN SL TABS 0.4 MG TAB SUBLINGUAL PRN (09:30)
--- NOTE | 2020-07-31 09:38 | P.HPIM ---
History of Present Illness 78-year-old pleasant female with history of atrial fibrillation on the anticoagulation with Xarelto, previous history of GI bleed and gastric ulcer, CVA/TIA. Patient follow-up with Dr. Birch who is recently retired at [place] and she is looking for a new PCP now. She went to [facility] for right leg pain were stent was placed, she was discharged home 3 days ago, last Thursday, at [facility] Hayes catheter was placed and states it was bloody at that time. She was sent home with a Hayes catheter, however she started feeling uncomfortable in her bladder where the Hayes felt like hurting but she denies any abdominal pain, she felt that she has to P old time and there was blood in the urine catheter so she decided to come to the hospital. She denies any nausea vomiting. No chest pain or dyspnea. She is on 2 L oxygen via nasal cannula at home, it was bumped up to 4 L at signal as per patient, she has chronic hypoxic respiratory failure related to her COPD. She denies chest pain or headache or weakness. Originally she was on aspirin daily however she states the last of added to her and [place]. Patient was noted to be on Plavix 75 mg and aspirin 81 mg at home. She denies smoking, she drinks couple cups of wine every week. No illicit drugs On admission her blood pressure was 101/88, this morning was 83/63. However repeat blood pressure went up to 101/59, heart rate on admission was 138, cu rrently is 108, she is saturating 95% on 4 L oxygen via nasal cannula Labs on admission showed hemoglobin of 7.4, rest of the CBC is unremarkable. INR is 1.2. EKG showing atrial fibrillation's with RVR at 133. Review of Systems CONSTITUTIONAL: No fever, no malaise, no fatigue. HEENT: No recent visual problems or hearing problems. Denied any sore throat. CARDIOVASCULAR: No orthopnea, PND, no palpitations, no syncope. PULMONARY: No shortness of breath, no cough, no hemoptysis. GASTROINTESTINAL: No diarrhea, no nausea, no vomiting, no abdominal pain. Normoactive bowel sounds. NEUROLOGICAL: No headaches, no weakness, no numbness. HEMATOLOGICAL: Denies any bleeding or petechiae. -GENITOURINARY: As above MUSCULOSKELETAL/RHEUMATOLOGICAL: Denies any joint pain, swelling, or any muscle pain. ENDOCRINE: Denies any polyuria or polydipsia. Past Medical History Past Medical History: CVA/TIA Additional Past Medical History / Comment(s): anemia History of Any Multi-Drug Resistant Organisms: None Reported Additional Past Surgical History / Comment(s): vericose veins. Past Anesthesia/Blood Transfusion Reactions: No Reported Reaction Past Psychological History: No Psychological Hx Reported Past Alcohol Use History: None Reported Past Drug Use History: None Reported - Past Family History Father Family Medical History: Cancer Additional Family Medical History / Comment(s): lung ca Mother Additional Family Medical History / Comment(s): "heart problems" Medications and Allergies Home Medications Medication Instructions Recorded Confirmed Type Cholecalciferol [Vitamin D3] 400 unit PO DAILY 07/08/18 07/31/20 History Levothyroxine Sodium [Synthroid] 112 mcg PO DAILY 07/08/18 07/31/20 History Magnesium Oxide [Mag-Oxide] 200 mg PO DAILY 07/08/18 07/31/20 History Nitroglycerin Sl Tabs [Nitrostat] 0.4 mg SUBLINGUAL Q5M PRN 07/08/18 07/31/20 History Thiamine [Vitamin B-1] 50 mg PO DAILY 07/08/18 07/31/20 History allopurinoL [Zyloprim] 300 mg PO DAILY 07/08/18 07/31/20 History traZODone HCL 50 mg PO HS PRN 07/08/18 07/31/20 History ALPRAZolam [Xanax] 0.5 mg PO BID 07/31/20 07/31/20 History Aspirin EC [Ecotrin Low Dose] 81 mg PO DAILY 07/31/20 07/31/20 History Atorvastatin [Lipitor] 40 mg PO HS 07/31/20 07/31/20 History Clopidogrel [Plavix] 75 mg PO DAILY 07/31/20 07/31/20 History Diltiazem HCl [Cartia Xt] 180 mg PO DAILY 07/31/20 07/31/20 History Furosemide [Lasix] 40 mg PO BID 07/31/20 07/31/20 History Omeprazole 20 mg PO DAILY 07/31/20 07/31/20 History Potassium Chloride ER [K-Dur 20] 20 meq PO DAILY 07/31/20 07/31/20 History Potassium Chloride ER [K-Dur 20] 40 meq PO HS 07/31/20 07/31/20 History metFORMIN HCL [metFORMIN HCL ER] 750 mg PO DAILY 07/31/20 07/31/20 History metOLazone [Zaroxolyn] 5 mg PO DAILY PRN 07/31/20 07/31/20 History Allergies Allergy/AdvReac Type Severity Reaction Status Date / Time Penicillins AdvReac Unknown Verified 07/08/18 20:09 Physical Exam Vitals: Vital Signs Temp Pulse Pulse Resp BP BP Pulse Ox 07/31/20 03:45 101/59 07/31/20 03:39 97.8 F 108 H 18 82/53 95 07/31/20 02:00 97.7 F 125 H 18 115/72 96 07/31/20 01:42 108 H 16 83/63 96 07/31/20 01:20 98.0 F 105 H 16 98/70 97 07/31/20 01:10 120 H 16 91/62 96 07/31/20 00:54 138 H 16 109/88 100 07/31/20 00:30 132 H 07/31/20 00:28 98.1 F 122 H 17 116/79 100 Intake and Output 07/30/20 07/31/20 07/31/20 22:59 06:59 14:59 Intake Total 544.917 Output Total 475 Balance 69.917 Intake: Intake, IV Titration 4.917 Amount Diltiazem 125 mg In 4.917 Sodium Chloride 0.9% 100 ml @ 5 MG/HR 5 mls/hr IV .Q24H [facility] Rx#:[id number] Oral 540 Output: Urine 475 Other: Voiding Method Indwelling Catheter Weight 72 kg GENERAL: The patient is alert and oriented x3, not in any acute distress. Well developed, well nourished. HEENT: Pupils are round and equally reacting to light. EOMI. No scleral icterus. No conjunctival pallor. Normocephalic, atraumatic. No pharyngeal erythema. No thyromegaly. CARDIOVASCULAR: S1 and S2 present. No murmurs, rubs, or gallops. PULMONARY: Chest is clear to auscultation, no wheezing or crackles. -ABDOMEN: Soft, nontender, nondistended, normoactive bowel sounds. No palpable organomegaly. Hayes catheter is in place with blood-colored urine MUSCULOSKELETAL: No joint swelling or deformity. EXTREMITIES: No cyanosis, clubbing, or pedal edema. NEUROLOGICAL: Gross neurological examination did not reveal any focal deficits. SKIN: No rashes. No petechiae Results CBC & Chem 7: 07/31/20 00:31 Labs: Abnormal Lab Results - Last 24 Hours (Table) 07/31/20 07/31/20 07/31/20 Range/Units 00:31 00:31 00:31 RBC 3.04 L (3.80-5.40) m/uL Hgb 7.4 L (11.4-16.0) gm/dL Hct 24.8 L (34.0-46.0) % MCH 24.3 L (25.0-35.0) pg MCHC 29.7 L (31.0-37.0) g/dL RDW 19.6 H (11.5-15.5) % PT 12.4 H (9.0-12.0) sec INR 1.2 H (<1.2) POC Glucose (mg/dL) (75-99) mg/dL Crossmatch See Detail 07/31/20 Range/Units 06:08 RBC (3.80-5.40) m/uL Hgb (11.4-16.0) gm/dL Hct (34.0-46.0) % MCH (25.0-35.0) pg MCHC (31.0-37.0) g/dL RDW (11.5-15.5) % PT (9.0-12.0) sec INR (<1.2) POC Glucose (mg/dL) 120 H (75-99) mg/dL Crossmatch Thrombosis Risk Factor Assmnt - Choose All That Apply Each Risk Factor Represents 3 Points: Age 75 years or older Thrombosis Risk Factor Assessment Total Risk Factor Score: 3 Thrombosis Risk Factor Assessment Level: Moderate Risk Assessment and Plan Assessment: Acute hematuria, could to be related to recent Hayes catheter Acute blood loss anemia Paroxysmal atrial fibrillation with RVR, was on Xarelto History of gastric ulcer in 2018 History of CVA/TIA Plan: This is a pleasant 80 years old female who presents with A. fib and low hemoglobin suspicious for blood in urine and Hayes catheter. Send urine analysis. Check renal ultrasound and consult urology service. Continue with Hayes catheter. Continue with Cardizem drip. Restart oral Cardizem. Continue with Protonix IV, monitor hemoglobin. Hold aspirin. Follow-up recommendation by urology and cardiology team. Pain management. Labs and medication were reviewed.. Continue same treatment. Continue with symptomatic treatment. Resume home medication. Monitor lytes and vitals. DVT and GI prophylaxis. Further recommendationsas per clinical course of the raymundo ent DVT prophylaxis: Hold anticoagulation in view of blood in urine GI Prophylaxis: Ppi PT/OT: Pending Prognosis is guarded
[2020-07-31] MEDS ORDERED: bisacodyL 10 MG SUPP RECTAL STA (09:42)
[2020-07-31 10:21] LABS: Calcium 8.3 mg/dL (8.4-10.2); Potassium 4.8 mmol/L (3.5-5.1)
[2020-07-31 10:24] LABS: Reticulocyte % 5.8 % (0.5-2.0)
[2020-07-31] MEDS: CLOPIDOGREL 75 MG TAB PO SCH (10:56)
--- NOTE | 2020-07-31 11:15 | XR ---
EXAMINATION TYPE: XR chest 1V portable DATE OF EXAM: 07/31/2020 CLINICAL HISTORY: sob. TECHNIQUE: Portable frontal view of the chest. COMPARISON: 07/10/2018 chest radiograph FINDINGS: Prominent lung volumes and interstitial coarsening. Cardiomegaly. Small left pleural effus ion redemonstrated. Patchy airspace opacities over the right lung base. No pneumothorax. IMPRESSION: 1. Patchy airspace opacity over the right lung base. 2. Small left pleural effusion redemonstrated. 3. Cardiomegaly and emphysematous changes. Coarsened interstitial lung markings may represent congest ion, pneumonitis, or chronic interstitial lung disease.
--- NOTE | 2020-07-31 11:48 | P.CRDCN ---
History of Present Illness History of present illness: HISTORY OF PRESENTING ILLNESS This is a pleasant 80-year-old female past medical history significant for coronary artery disease s/p PCI exact details unavailable, peripheral vascu lar disease s/p left iliac stenting July 26, chronic anemia, hypertension, chronic persistent atrial fibrillation, diabetes mellitus, chronic heart failure and dyslipidemia. She used to follow in the office with Dr. Correa until his fci and has not re-established care with a skiver counter. We have been asked to see in consultation for a-fib with RVR. According to the patient she initially presented to [facility] with symptoms of abdominal pain and blood in her catheter bag. She underwent stenting to the left iliac via the right femoral artery last week. Initially the concern was for possible retroperioneal bleed, however CT of the abdomen/pelvis at [place] was unremarkable. The patient is unsure why she has a Hayes catheter in place. She states she left the hospital last week with it. She complains of mild shortness of breath mostly with activity. She also states she had noticed 2 instances of bright red blood in her stool over the weekend. She has no symptoms of chest pain, dizziness or palpitations. On arrival she was initiated on IV Cardizem however through the night her blood pressures were not tolerating and it has been discontinued. DIAGNOSTICS EKG reveals atrial fibrillation heart rate of 133 with right bundle branch block. Chest xray patchy airspace opacity over the right lung base, emphysema, coarsened interstitial markings and cardiomegaly. Laboratory reviewed, WBC 7.8, hemoglobin 7.4, platelets 281, INR 1.2, sodium 130, potassium 4.8, creatinine 1.73, NTproBNP 2550. Current cardiac medications include aspirin 81 mg daily, atorvastatin 40 mg daily, diltiazem 180 mg daily, Lasix 40 mg twice a day and Plavix 75 mg daily. REVIEW OF SYSTEMS At the time of my exam: CONSTITUTIONAL: Denies fever or chills. CARDIOVASCULAR: Denies chest pain, shortness of breath, orthopnea, PND or palpitations. RESPIRATORY: Denies cough. GASTROINTESTINAL: Denies abdominal pain, diarrhea, constipation, nausea or vomiting. MUSCULOSKELETAL: Denies myalgias. NEUROLOGIC: Denies numbness, tingling or weakness. ENDOCRINE: Denies fatigue, weight change, polydipsia or polyurina. GENITOURINARY: Denies burning, hematuria or urgency with micturation. HEMATOLOGIC: Denies history of anemia or bleeding. PHYSICAL EXAMINATION Blood pressure 109/64 heart rate 90 afebrile and maintaining oxygen saturation on nasal cannula. CONSTITUTIONAL: No apparent distress. HEENT: Head is normocephalic. Pupils are equal, round. Sclerae anicteric. Mucous membranes of the mouth are moist. No JVD. No carotid bruit. CHEST EXAMINATION: Fine bibasilar rales, no wheezes or rhonchi. No chest wall tenderness is noted on palpation or with deep breathing. HEART EXAMINATION: Irregular rate and rhythm. S1, S2 heard. No murmurs, gallops or rub. ABDOMEN: Soft, mildly distended and mildly tender. Positive bowel sounds. Hayes catheter drainage bag with bright red blood. EXTREMITIES: 2+ peripheral pulses, no lower extremity edema and no calf tenderness. Right femoral access site with no bleeding, ecchymosis or tenderness. NEUROLOGIC EXAMINATION: Patient is awake, alert and oriented x3. ASSESSMENT Chronic persistent atrial fibrillation with rapid ventricular response. Not on anti-coagulation, unknown reason. Peripheral vascular disease s/p iliac stenting 07/26/2020 Chronic heart failure, unknown type. Echo pending. Hematuria Anemia Acute kidney injury Hypertension Dyslipidemia Diabetes mellitus Coronary artery disease PLAN Resume plavix and hold aspirin pending GI and urology evaluation. Discontinue cardizem infusion and resume oral if her blood pressure will tolerate. Obtain 2D echocardiogram and doppler study to assess cardiac structure and func tion. Further recommendations to follow based on clinical course. Thank you kindly for this consultation. Nurse Practitioner note has been reviewed, I agree with a documented findings and plan of care. Patient was seen and examined. Past Medical History Past Medical History: CVA/TIA Additional Past Medical History / Comment(s): anemia History of Any Multi-Drug Resistant Organisms: None Reported Additional Past Surgical History / Comment(s): vericose veins. Past Anesthesia/Blood Transfusion Reactions: No Reported Reaction Past Psychological History: No Psychological Hx Reported Past Alcohol Use History: None Reported Past Drug Use History: None Reported - Past Family History Father Family Medical History: Cancer Additional Family Medical History / Comment(s): lung ca Mother Additional Family Medical History / Comment(s): "heart problems" Medications and Allergies Home Medications Medication Instructions Recorded Confirmed Type Cholecalciferol [Vitamin D3] 400 unit PO DAILY 07/08/18 07/31/20 History Levothyroxine Sodium [Synthroid] 112 mcg PO DAILY 07/08/18 07/31/20 History Magnesium Oxide [Mag-Oxide] 200 mg PO DAILY 07/08/18 07/31/20 History Nitroglycerin Sl Tabs [Nitrostat] 0.4 mg SUBLINGUAL Q5M PRN 07/08/18 07/31/20 History Thiamine [Vitamin B-1] 50 mg PO DAILY 07/08/18 07/31/20 History allopurinoL [Zyloprim] 300 mg PO DAILY 07/08/18 07/31/20 History traZODone HCL 50 mg PO HS PRN 07/08/18 07/31/20 History ALPRAZolam [Xanax] 0.5 mg PO BID 07/31/20 07/31/20 History Aspirin EC [Ecotrin Low Dose] 81 mg PO DAILY 07/31/20 07/31/20 History Atorvastatin [Lipitor] 40 mg PO HS 07/31/20 07/31/20 History Clopidogrel [Plavix] 75 mg PO DAILY 07/31/20 07/31/20 History Diltiazem HCl [Cartia Xt] 180 mg PO DAILY 07/31/20 07/31/20 History Furosemide [Lasix] 40 mg PO BID 07/31/20 07/31/20 History Omeprazole 20 mg PO DAILY 07/31/20 07/31/20 History Potassium Chloride ER [K-Dur 20] 20 meq PO DAILY 07/31/20 07/31/20 History Potassium Chloride ER [K-Dur 20] 40 meq PO HS 07/31/20 07/31/20 History metFORMIN HCL [metFORMIN HCL ER] 750 mg PO DAILY 07/31/20 07/31/20 History metOLazone [Zaroxolyn] 5 mg PO DAILY PRN 07/31/20 07/31/20 History Allergies Allergy/AdvReac Type Severity Reaction Status Date / Time Penicillins AdvReac Unknown Verified 07/08/18 20:09 Physical Exam Vitals: Vital Signs Temp Pulse Pulse Resp BP BP Pulse Ox 07/31/20 08:20 98.1 F 96 16 91/60 97 07/31/20 03:45 101/59 07/31/20 03:39 97.8 F 108 H 18 82/53 95 07/31/20 02:00 97.7 F 125 H 18 115/72 96 07/31/20 01:42 108 H 16 83/63 96 07/31/20 01:20 98.0 F 105 H 16 98/70 97 07/31/20 01:10 120 H 16 91/62 96 07/31/20 00:54 138 H 16 109/88 100 07/31/20 00:30 132 H 07/31/20 00:28 98.1 F 122 H 17 116/79 100 Intake and Output 07/30/20 07/31/20 07/31/20 22:59 06:59 14:59 Intake Total 544.917 Output Total 475 Balance 69.917 Intake: Intake, IV Titration 4.917 Amount Diltiazem 125 mg In 4.917 Sodium Chloride 0.9% 100 ml @ 5 MG/HR 5 mls/hr IV .Q24H [facility] Rx#:[id number] Oral 540 Output: Urine 475 Other: Voiding Method Indwelling Catheter Weight 72 kg Results 07/31/20 00:31 07/31/20 09:10 Coagulation 07/31/20 Range/Units 00:31 PT 12.4 H (9.0-12.0) sec APTT 25.8 (22.0-30.0) sec CBC 07/31/20 Range/Units 00:31 WBC 7.8 (3.8-10.6) k/uL RBC 3.04 L (3.80-5.40) m/uL Hgb 7.4 L (11.4-16.0) gm/dL Hct 24.8 L (34.0-46.0) % Plt Count 281 (150-450) k/uL Current Medications Generic Name Dose Route Start Last Admin Trade Name Freq PRN Reason Stop Dose Admin Sodium Chloride 1,000 mls @ 20 mls/hr 07/31/20 00:30 07/31/20 00:54 Saline 0.9% IV 20 mls/hr .Q24H [facility] Administration Diltiazem HCl 125 mg/ Sodium 125 mls @ 5 mls/hr 07/31/20 01:00 07/31/20 01:55 Chloride IV 0 mg/hr .Q24H [facility] 0 mls/hr Infusion 5 MG/HR Insulin Aspart 0 unit 07/31/20 07:30 07/31/20 06:11 Insulin Aspart (Novolog) 100 Unit/Ml Vial SQ Not Given ACHS [facility] Protocol Morphine Sulfate 4 mg 07/31/20 00:23 Morphine Sulfate 4 Mg/Ml Syringe IV Q4HR PRN Severe Pain Naloxone HCl 0.2 mg 07/31/20 00:23 Naloxone 0.4 Mg/Ml 1 Ml Vial IV Q2M PRN Opioid Reversal Ondansetron HCl 4 mg 07/31/20 00:23 Ondansetron 4 Mg/2 Ml Vial IVP Q8HR PRN Nausea And Vomiting Pantoprazole Sodium 40 mg 07/31/20 09:00 07/31/20 08:23 Pantoprazole 40 Mg/10 Ml Vial IV 40 mg DAILY [facility] Administration Intake and Output 07/30/20 07/31/20 07/31/20 22:59 06:59 14:59 Intake Total 544.917 Output Total 475 Balance 69.917 Intake: Intake, IV Titration 4.917 Amount Diltiazem 125 mg In 4.917 Sodium Chloride 0.9% 100 ml @ 5 MG/HR 5 mls/hr IV .Q24H [facility] Rx#:[id number] Oral 540 Output: Urine 475 Other: Voiding Method Indwelling Catheter Weight 72 kg 07/31/20 00:31
[2020-07-31 12:03] LABS: Glucose,Whole Blood 105 mg/dL (75-99)
[2020-07-31] MEDS: polyethylene glycoL 3350 17 GM POWD.PACK PO SCH (12:17)
[2020-07-31] MEDS: metFORMIN 500 MG TAB PO SCH (12:17)
[2020-07-31] MEDS: DILTIAZEM CD 180 MG CAP.ER.24H PO SCH (12:17)
[2020-07-31] MEDS: allopurinoL 300 MG TAB PO SCH (12:18)
[2020-07-31] MEDS: CHOLECALCIFEROL 400 UNIT TAB PO SCH (12:18)
[2020-07-31] MEDS: ACETAMINOPHEN TAB 325 MG TAB PO PRN (13:52)
[2020-07-31] MEDS: ALPRAZolam 0.5 MG TAB PO PRN (13:52)
[2020-07-31] MEDS ORDERED: MAGNESIUM CITRATE 296 ML BOTTLE PO ONE (14:03)
--- NOTE | 2020-07-31 15:25 | US ---
EXAMINATION TYPE: US renals and bladder DATE OF EXAM: 07/31/2020 COMPARISON: NONE CLINICAL HISTORY: Hematuria. EXAM MEASUREMENTS: Right Kidney: 9.0 x 4.9 x 4.6 cm Left Kidney: 9.4 x 4.8 x 4.3 cm Right Kidney: Normal Left Kidney: Normal Bladder: Nondistended with Hayes catheter Trace amount of free fluid seen in Morison's pouch of right upper quadrant. IMPRESSION: 1. Normal appearance of the bilateral kidneys. 2. Nondistended urinary bladder with Hayes catheter.
--- NOTE | 2020-07-31 15:46 | P.GSCN ---
History of Present Illness Consult date: 07/31/20 History of present illness: This is an 80-year-old female in the hospital for anemia. He has a recent peripheral vascular history requiring stents in [place].The patient apparently has had multiple hospitalizations relating to this problem. His a history of a GI bleed. She was anemic in [place] and transferred here to [facility] because of this problem. Hemoglobin was 7.4. He has an indwelling catheter for bloody urine. For this reason I was asked to see the patient. I interviewed the patient in the bedside. Her history appears to be appropriate. According the nursing appears to be oriented. She states that she had a vascular stent procedure on her right leg up. Postoperatively in [place] the nursing staff placed a Hayes catheter with significant difficulty. She had bleeding and discomfort ever since. He denies previous problems urinating. She denies urologic issues. She denies hematuria in the past. She denies infections. There is no history kidney stones or other issues. She has been on anticoagulation prior to the hospital in the form of Plavix and aspirin. She had an Ultrasound of the bladder and kidneys were normal. that was normal. There is no urinalysis on the chart. Review of Systems All systems: negative - Constitutional Denies fever, Denies weight loss - EENT Eyes: denies blurred vision Ears, nose, mouth and throat: Denies dysphagia - Cardiovascular Denies chest pain, Denies shortness of breath - Respiratory Denies cough, Denies 7 - Gastrointestinal Reports as per HPI - Genitourinary Genitourinary: Denies dysuria, Denies hematuria - Integumentary Denies rash, Denies unusual bruising - Neurological Denies headaches, Denies syncope - Hematologic/Lymphatic Denies easy bleeding, Denies easy bruising Past Medical History Past Medical History: CVA/TIA Additional Past Medical History / Comment(s): anemia History of Any Multi-Drug Resistant Organisms: None Reported Additional Past Surgical History / Comment(s): vericose veins. Past Anesthesia/Blood Transfusion Reactions: No Reported Reaction Past Psychological History: No Psychological Hx Reported Past Alcohol Use History: None Reported Past Drug Use History: None Reported - Past Family History Father Family Medical History: Cancer Additional Family Medical History / Comment(s): lung ca Mother Additional Family Medical History / Comment(s): "heart problems" Medications and Allergies Home Medications Medication Instructions Recorded Confirmed Type Cholecalciferol [Vitamin D3] 400 unit PO DAILY 07/08/18 07/31/20 History Levothyroxine Sodium [Synthroid] 112 mcg PO DAILY 07/08/18 07/31/20 History Magnesium Oxide [Mag-Oxide] 200 mg PO DAILY 07/08/18 07/31/20 History Nitroglycerin Sl Tabs [Nitrostat] 0.4 mg SUBLINGUAL Q5M PRN 07/08/18 07/31/20 History Thiamine [Vitamin B-1] 50 mg PO DAILY 07/08/18 07/31/20 History allopurinoL [Zyloprim] 300 mg PO DAILY 07/08/18 07/31/20 History traZODone HCL 50 mg PO HS PRN 07/08/18 07/31/20 History ALPRAZolam [Xanax] 0.5 mg PO BID 07/31/20 07/31/20 History Aspirin EC [Ecotrin Low Dose] 81 mg PO DAILY 07/31/20 07/31/20 History Atorvastatin [Lipitor] 40 mg PO HS 07/31/20 07/31/20 History Clopidogrel [Plavix] 75 mg PO DAILY 07/31/20 07/31/20 History Diltiazem HCl [Cartia Xt] 180 mg PO DAILY 07/31/20 07/31/20 History Furosemide [Lasix] 40 mg PO BID 07/31/20 07/31/20 History Omeprazole 20 mg PO DAILY 07/31/20 07/31/20 History Potassium Chloride ER [K-Dur 20] 20 meq PO DAILY 07/31/20 07/31/20 History Potassium Chloride ER [K-Dur 20] 40 meq PO HS 07/31/20 07/31/20 History metFORMIN HCL [metFORMIN HCL ER] 750 mg PO DAILY 07/31/20 07/31/20 History metOLazone [Zaroxolyn] 5 mg PO DAILY PRN 07/31/20 07/31/20 History Allergies Allergy/AdvReac Type Severity Reaction Status Date / Time Penicillins AdvReac Unknown Verified 07/08/18 20:09 Surgical - Exam Vital Signs Temp Pulse Resp BP Pulse Ox 98.1 F 122 H 17 116/79 100 07/31/20 00:28 07/31/20 00:28 07/31/20 00:28 07/31/20 00:28 07/31/20 00:28 - General well developed, well nourished, no distress - Eyes PERRL - ENT no hearing loss - Neck trachea midline - Respiratory normal expansion, normal respiratory effort - Cardiovascular Rhythm: irregularly irregular - Abdomen Abdomen: soft, non tender - Genitourinary There is an indwelling catheter with old blood in the catheter. A bimanual examination does not identify any palpable abnormalities. The bladder catheter appears to be in appropriate place. - Integumentary no rash, no growths - Neurologic normal sensation - Musculoskeletal normal posture - Psychiatric oriented to time, oriented to person, oriented to place, speech is normal, memory intact Results - Labs 07/31/20 00:31 07/31/20 09:10 Abnormal Lab Results - Last 24 Hours (Table) 07/31/20 07/31/20 07/31/20 Range/Units 00:31 00:31 00:31 RBC 3.04 L (3.80-5.40) m/uL Hgb 7.4 L (11.4-16.0) gm/dL Hct 24.8 L (34.0-46.0) % MCH 24.3 L (25.0-35.0) pg MCHC 29.7 L (31.0-37.0) g/dL RDW 19.6 H (11.5-15.5) % Retic Count (0.5-2.0) % PT 12.4 H (9.0-12.0) sec INR 1.2 H (<1.2) Sodium (137-145) mmol/L Chloride (98-107) mmol/L Carbon Dioxide (22-30) mmol/L BUN (7-17) mg/dL Creatinine (0.52-1.04) mg/dL POC Glucose (mg/dL) (75-99) mg/dL Calcium (8.4-10.2) mg/dL Crossmatch See Detail 07/31/20 07/31/20 07/31/20 Range/Units 06:08 09:10 09:47 RBC (3.80-5.40) m/uL Hgb (11.4-16.0) gm/dL Hct (34.0-46.0) % MCH (25.0-35.0) pg MCHC (31.0-37.0) g/dL RDW (11.5-15.5) % Retic Count 5.8 H (0.5-2.0) % PT (9.0-12.0) sec INR (<1.2) Sodium 130 L (137-145) mmol/L Chloride 96 L (98-107) mmol/L Carbon Dioxide 20 L (22-30) mmol/L BUN 49 H (7-17) mg/dL Creatinine 1.73 H (0.52-1.04) mg/dL POC Glucose (mg/dL) 120 H (75-99) mg/dL Calcium 8.3 L (8.4-10.2) mg/dL Crossmatch 07/31/20 Range/Units 11:50 RBC (3.80-5.40) m/uL Hgb (11.4-16.0) gm/dL Hct (34.0-46.0) % MCH (25.0-35.0) pg MCHC (31.0-37.0) g/dL RDW (11.5-15.5) % Retic Count (0.5-2.0) % PT (9.0-12.0) sec INR (<1.2) Sodium (137-145) mmol/L Chloride (98-107) mmol/L Carbon Dioxide (22-30) mmol/L BUN (7-17) mg/dL Creatinine (0.52-1.04) mg/dL POC Glucose (mg/dL) 105 H (75-99) mg/dL Calcium (8.4-10.2) mg/dL Crossmatch Diabetes panel 07/31/20 Range/Units 09:10 Sodium 130 L (137-145) mmol/L Potassium 4.8 (3.5-5.1) mmol/L Chloride 96 L (98-107) mmol/L Carbon Dioxide 20 L (22-30) mmol/L BUN 49 H (7-17) mg/dL Creatinine 1.73 H (0.52-1.04) mg/dL Glucose 91 (74-99) mg/dL Calcium 8.3 L (8.4-10.2) mg/dL Calcium panel 07/31/20 Range/Units 09:10 Calcium 8.3 L (8.4-10.2) mg/dL Pituitary panel 07/31/20 Range/Units 09:10 Sodium 130 L (137-145) mmol/L Potassium 4.8 (3.5-5.1) mmol/L Chloride 96 L (98-107) mmol/L Carbon Dioxide 20 L (22-30) mmol/L BUN 49 H (7-17) mg/dL Creatinine 1.73 H (0.52-1.04) mg/dL Glucose 91 (74-99) mg/dL Calcium 8.3 L (8.4-10.2) mg/dL Adrenal panel 07/31/20 Range/Units 09:10 Sodium 130 L (137-145) mmol/L Potassium 4.8 (3.5-5.1) mmol/L Chloride 96 L (98-107) mmol/L Carbon Dioxide 20 L (22-30) mmol/L BUN 49 H (7-17) mg/dL Creatinine 1.73 H (0.52-1.04) mg/dL Glucose 91 (74-99) mg/dL Calcium 8.3 L (8.4-10.2) mg/dL - Imaging US - kidney/bladder: report reviewed, image reviewed Assessment and Plan Assessment: Impression: The patient has gross hematuria that appears to be traumatic hematuria. Cannot explain why the catheter is in. Sounds as if the hematuria came after the catheter. A urologic standpoint I would remove the Hayes catheter in the morning and see how she voids. A urinalysis should be obtained at some point in time. I'll follow this patient with you. She'll probably need an outpatient cystoscopy in the future.
[2020-07-31] MEDS ORDERED: FUROSEMIDE 40 MG TAB PO SCH (16:00)
[2020-07-31 16:25] LABS: Hemoglobin A1C 6.4 % (4.0-6.0)
[2020-07-31 16:51] LABS: Glucose,Whole Blood 119 mg/dL (75-99)
[2020-07-31 18:59] LABS: Ferritin 45.5 ng/mL (10.0-291.0)
[2020-07-31 19:05] LABS: % Iron Saturation 5.29 (12.00-45.00); Folate, Serum 22.1 ng/mL
[2020-07-31 20:13] LABS: Glucose,Whole Blood 157 mg/dL (75-99)
[2020-07-31] MEDS: ATORVASTATIN 40 MG TAB PO SCH (20:18)
[2020-07-31 22:53] LABS: Appearance,Urine Turbid (Clear); Color,Urine Dark Red
[2020-07-31 22:54] LABS: RBC,Urine >182 /hpf (0-5); WBC,Urine >182 /hpf (0-5)
[2020-08-01] MEDS: SODIUM CHLORIDE 0.9% 1,000 ML IV SCH (01:39)
[2020-08-01 06:56] LABS: Glucose,Whole Blood 122 mg/dL (75-99)
[2020-08-01] MEDS: INSULIN ASPART (NovoLOG) 100 UNIT/ML VIAL SQ SCH ×4 (06:58→20:45)
[2020-08-01] MEDS: LEVOTHYROXINE 112 MCG TAB PO SCH (06:59)
[2020-08-01] MEDS ORDERED: FUROSEMIDE 10 MG/ML 4 ML VIAL IV SCH (09:00)
--- NOTE | 2020-08-01 09:15 | P.PN ---
Subjective 78-year-old pleasant female with history of atrial fibrillation on the anticoagulation with Xarelto, previous history of GI bleed and gastric ulcer, CVA/TIA. Patient follow-up with Dr. Birch who is recently retired at [place] and she is looking for a new PCP now. She went to [facility] for right leg pain were stent was placed, she was discharged home 3 days ago, last Thursday, at [facility] Hayes catheter was placed and states it was bloody at that time. She was sent home with a Hayes catheter, however she started feeling uncomfortable in her bladder where the Hayes felt like hurting but she denies any abdominal pain, she felt that she has to P old time and there was blood in the urine catheter so she decided to come to the hospital. She denies any nausea vomiting. No chest pain or dyspnea. She is on 2 L oxygen via nasal cannula at home, it was bumped up to 4 L at [facility] as per patient, she has chronic hypoxic respiratory failure related to her COPD. She denies chest pain or headache or weakness. Originally she was on aspirin daily however she states the last of added to her and [place]. Patient was noted to be on Plavix 75 mg and aspirin 81 mg at home. She denies smoking, she drinks couple cups of wine every week. No illicit drugs On admission her blood pressure was 101/88, this morning was 83/63. However repeat blood pressure went up to 101/59, heart rate on admission was 138, currently is 108, she is saturating 95% on 4 L oxygen via nasal cannula Labs on admission showed hemoglobin of 7.4, rest of the CBC is unremarkable. INR is 1.2. EKG showing atrial fibrillation's with RVR at 133. 08/01/2020 Patient is lying in bed comfortable. No distress. She is not tachypneic. However she still on 4 L oxygen via nasal cannula compared to his doctor at home. No coughing or chest pain but she has bilateral basal crepitation.. Patient feels generally better today, she was admitted mainly for discomfort in her urinary bladder area which is improved today She is hemodynamically stable other than that. Labs from today are still pending. Sugars controlled. Iron study showing iron deficiency anemia with iron low at 21, normal TIBC at 397 and low iron saturation at 5.2%. And normal ferritin at 45. Patient was started on iron pills Although patient was admitted for possible GI bleed, patient denies any blood in stool, no vomiting blood, she had a bowel movement roller stainer which was brown as per patient. No abdominal pain. And she tolerates diet. She is on Protonix IV daily. Occult blood in stool still pending There is blood in the urine. Urinalysis showing urine RBC more than 182, urine WBC of more than 182. Urine culture is ordered and is pending, patient will be started on Levaquin empirically for possible UTI pending UC, patient is ALLERGIC to penicillin Dr. Elias evaluated the patient and recommended to discontinue Hayes catheter and check PVR. Also recommended to follow up as an outpatient for possible cystoscopy. Patient informed and she agrees. Risks including but not limited to cancer explained to him and she verbalized understanding. Also she has acute kidney injury from yesterday with creatinine 1.7, could be related to her CHF exacerbation in view of basal crepitation and more oxygen requirement. Chest x-ray also was abnormal. We changed her Lasix from 40 mg orally to intravenously today. Echocardiogram is still pending. Heart rate is controlled on oral medication. Xarelto is on hold for hematuria Review of Systems CONSTITUTIONAL: No fever, no malaise, no fatigue. HEENT: No recent visual problems or hearing problems. Denied any sore throat. CARDIOVASCULAR: No orthopnea, PND, no palpitations, no syncope. PULMONARY: No shortness of breath, no cough, no hemoptysis. GASTROINTESTINAL: No diarrhea, no nausea, no vomiting, no abdominal pain. Normoactive bowel sounds. NEUROLOGICAL: No headaches, no weakness, no numbness. HEMATOLOGICAL: Denies any bleeding or petechiae. Active Medications Generic Name Dose Route Start Last Admin Trade Name Freq PRN Reason Stop Dose Admin Acetaminophen 325 mg 07/31/20 09:28 07/31/20 13:52 Acetaminophen Tab 325 Mg Tab PO 325 mg Q6HR PRN Administration Fever and/ or Pain Allopurinol 300 mg 07/31/20 10:00 07/31/20 12:18 Allopurinol 300 Mg Tab PO 300 mg DAILY [facility]ERRICK Administration Alprazolam 0.25 mg 07/31/20 09:30 07/31/20 13:52 Alprazolam 0.5 Mg Tab PO 0.25 mg BID PRN Administration Anxiety Atorvastatin Calcium 40 mg 07/31/20 21:00 07/31/20 20:18 Atorvastatin 40 Mg Tab PO 40 mg HS MERRICK Administration Cholecalciferol 400 unit 07/31/20 10:00 07/31/20 12:18 Cholecalciferol 400 Unit Tab PO 400 unit DAILY [facility]ERRICK Administration Clopidogrel Bisulfate 75 mg 07/31/20 09:00 07/31/20 10:56 Clopidogrel 75 Mg Tab PO 75 mg DAILY [facility]ERRICK Administration Diltiazem HCl 180 mg 07/31/20 10:00 07/31/20 12:17 Diltiazem Cd 180 Mg Cap.Er.24h PO 180 mg DAILY [facility] Administration Ferrous Sulfate 325 mg 08/01/20 08:15 Ferrous Sulfate 325 Mg Tab PO BID-W/MEALS [facility]ERRICK Furosemide 40 mg 08/01/20 09:00 Furosemide 10 Mg/Ml 4 Ml Vial IV Q12HR [facility] Sodium Chloride 1,000 mls @ 20 mls/hr 07/31/20 00:30 08/01/20 01:39 Saline 0.9% IV Not Given .Q24H [facility] Insulin Aspart 0 unit 07/31/20 07:30 08/01/20 06:58 Insulin Aspart (Novolog) 100 Unit/Ml Vial SQ Not Given ACHS [facility] Protocol Levothyroxine Sodium 112 mcg 08/01/20 06:30 08/01/20 06:59 Levothyroxine 112 Mcg Tab PO 112 mcg 0630 [facility] Administration Metformin HCl 500 mg 07/31/20 10:00 07/31/20 12:17 Metformin 500 Mg Tab PO 500 mg BID [facility] Administration Morphine Sulfate 4 mg 07/31/20 00:23 07/31/20 15:41 Morphine Sulfate 4 Mg/Ml Syringe IV 4 mg Q4HR PRN Administration Severe Pain Naloxone HCl 0.2 mg 07/31/20 00:23 Naloxone 0.4 Mg/Ml 1 Ml Vial IV Q2M PRN Opioid Reversal Nitroglycerin 0.4 mg 07/31/20 09:30 Nitroglycerin Sl Tabs 0.4 Mg Tab SUBLINGUAL Q5M PRN Chest Pain Ondansetron HCl 4 mg 07/31/20 00:23 Ondansetron 4 Mg/2 Ml Vial IVP Q8HR PRN Nausea And Vomiting Pantoprazole Sodium 40 mg 07/31/20 09:00 07/31/20 08:23 Pantoprazole 40 Mg/10 Ml Vial IV 40 mg DAILY [facility] Administration Polyethylene Glycol 17 gm 07/31/20 09:45 07/31/20 12:17 Polyethylene Glycol 3350 17 Gm Powd.Pack PO 17 gm DAILY [facility] Administration Trazodone HCl 50 mg 07/31/20 09:30 Trazodone Hcl 50 Mg Tab PO HS PRN Insomnia Objective - Vital Signs Vital signs: Vital Signs Temp 97.6 F 08/01/20 03:57 Pulse 67 08/01/20 03:57 Resp 18 08/01/20 03:57 BP 113/66 08/01/20 03:57 Pulse Ox 93 L 08/01/20 03:57 Intake & Output 07/31/20 08/01/20 08/01/20 18:59 06:59 18:59 Intake Total 980 600 Output Total 80 Balance 980 520 Weight 71.5 kg Intake: Oral 360 600 Blood Product 620 Rc As-1 Unit 310 [id number] Rc Pheresis 2 As3 Unit 310 [id number] Output: Urine 80 Other: Voiding Method Indwelling Catheter Indwelling Catheter # Voids 0 1 # Bowel Movements 0 - Exam GENERAL: The patient is alert and oriented x3, not in any acute distress. Well developed, well nourished. HEENT: Pupils are round and equally reacting to light. EOMI. No scleral icterus. No conjunctival pallor. Normocephalic, atraumatic. No pharyngeal erythema. No thyromegaly. CARDIOVASCULAR: S1 and S2 present. No murmurs, rubs, or gallops. -PULMONARY: Chest is clear to auscultation, no wheezing or crackles. Bilateral basal crepitation -ABDOMEN: Soft, nontender, nondistended, normoactive bowel sounds. No palpable organomegaly. Hayes catheter is in place with blood-colored urine MUSCULOSKELETAL: No joint swelling or deformity. EXTREMITIES: No cyanosis, clubbing, or pedal edema. NEUROLOGICAL: Gross neurological examination did not reveal any focal deficits. SKIN: No rashes. No petechiae - Labs CBC & Chem 7: 07/31/20 00:31 07/31/20 09:10 Labs: Abnormal Lab Results - Last 24 Hours (Table) 07/31/20 07/31/20 07/31/20 Range/Units 00:31 06:46 09:10 Retic Count (0.5-2.0) % Sodium 130 L (137-145) mmol/L Chloride 96 L (98-107) mmol/L Carbon Dioxide 20 L (22-30) mmol/L BUN 49 H (7-17) mg/dL Creatinine 1.73 H (0.52-1.04) mg/dL POC Glucose (mg/dL) (75-99) mg/dL Hemoglobin A1c 6.4 H (4.0-6.0) % Calcium 8.3 L (8.4-10.2) mg/dL Iron 21 L (50-170) ug/dL % Saturation 5.29 L (12.00-45.00) Vitamin B12 1990.0 H (200.0-944.0) pg/mL Urine Appearance (Clear) Urine RBC (0-5) /hpf Urine WBC (0-5) /hpf Crossmatch See Detail 07/31/20 07/31/20 07/31/20 Range/Units 09:47 11:50 16:39 Retic Count 5.8 H (0.5-2.0) % Sodium (137-145) mmol/L Chloride (98-107) mmol/L Carbon Dioxide (22-30) mmol/L BUN (7-17) mg/dL Creatinine (0.52-1.04) mg/dL POC Glucose (mg/dL) 105 H 119 H (75-99) mg/dL Hemoglobin A1c (4.0-6.0) % Calcium (8.4-10.2) mg/dL Iron (50-170) ug/dL % Saturation (12.00-45.00) Vitamin B12 (200.0-944.0) pg/mL Urine Appearance (Clear) Urine RBC (0-5) /hpf Urine WBC (0-5) /hpf Crossmatch 07/31/20 07/31/20 08/01/20 Range/Units 20:12 22:15 06:55 Retic Count (0.5-2.0) % Sodium (137-145) mmol/L Chloride (98-107) mmol/L Carbon Dioxide (22-30) mmol/L BUN (7-17) mg/dL Creatinine (0.52-1.04) mg/dL POC Glucose (mg/dL) 157 H 122 H (75-99) mg/dL Hemoglobin A1c (4.0-6.0) % Calcium (8.4-10.2) mg/dL Iron (50-170) ug/dL % Saturation (12.00-45.00) Vitamin B12 (200.0-944.0) pg/mL Urine Appearance Turbid H (Clear) Urine RBC >182 H (0-5) /hpf Urine WBC >182 H (0-5) /hpf Crossmatch Assessment and Plan Assessment: Acute hematuria, could to be related to recent Hayes catheter. Rule out UTI, continue with Levaquin empirically Acute blood loss anemia Possible acute CHF, unknown ejection fraction Acute and chronic hypoxic respiratory failure secondary to above Paroxysmal atrial fibrillation with RVR, was on Xarelto Anemia, Rule out GI bleed History of gastric ulcer in 2018 History of CVA/TIA Plan: This is a pleasant 80 years old female who presents with A. fib and low hemoglobin suspicious for blood in urine and Hayes catheter. At [facility], follow-up urine culture. Follow-up recommendation by urologist who recommended to discontinue Hayes catheter. Check bladder scan. Check occult blood in stool. Continue with iron pills. Continue with Protonix. Continue holding aspirin and Xarelto Change Lasix 40 mg IV twice daily. Echocardiogram. Continue holding Xarelto and resume as per GI/urology services. Continue Cardizem and monitor heart rate. Continue with Plavix Follow-up recommendation by urology, GI team and cardiology team. Pain management. Labs and medication were reviewed.. Continue same treatment. Continue with symptomatic treatment. Resume home medication. Monitor lytes and vitals. DVT and GI prophylaxis. Further recommendationsas per clinical course of the patie nt DVT prophylaxis: Hold anticoagulation in view of blood in urine GI Prophylaxis: Ppi PT/OT: Pending Prognosis is guarded
[2020-08-01] MEDS: PANTOPRAZOLE 40 MG/10 ML VIAL IV SCH (09:27)
[2020-08-01] MEDS: polyethylene glycoL 3350 17 GM POWD.PACK PO SCH (09:28)
[2020-08-01] MEDS: allopurinoL 300 MG TAB PO SCH (09:28)
[2020-08-01] MEDS: DILTIAZEM CD 180 MG CAP.ER.24H PO SCH (09:28)
[2020-08-01] MEDS: CHOLECALCIFEROL 400 UNIT TAB PO SCH (09:28)
[2020-08-01 09:29] LABS: Anisocytosis Slight; Basophils # (A) 0.1 k/uL (0-0.2); Basophils % (A) 1 %; Eosinophils # (A) 0.1 k/uL (0-0.7); Eosinophils % (A) 1 %; Hypochromasia Marked; Lymphocytes # (A) 1.2 k/uL (1.0-4.8); Lymphocytes % (A) 17 %; MCH 25.7 pg (25.0-35.0); MCHC 30.9 g/dL (31.0-37.0); MCV 83.2 fL (80.0-100.0); Mean Platelet Volume 8.6; Microcytosis Slight; Monocytes # (A) 0.4 k/uL (0-1.0); Monocytes % (A) 5 %; Neutrophils # (A) 5.4 k/uL (1.3-7.7); Neutrophils % (A) 75 %; Platelet Count 299 k/uL (150-450); Poikilocytosis Moderate; RBC 3.73 m/uL (3.80-5.40); RDW 19.2 % (11.5-15.5); WBC 7.2 k/uL (3.8-10.6)
[2020-08-01] MEDS: FERROUS SULFATE 325 MG TAB PO SCH ×2 (09:29→17:06)
[2020-08-01 09:44] LABS: HGB 9.6 gm/dL (11.4-16.0)
[2020-08-01 09:48] LABS: Calcium 8.5 mg/dL (8.4-10.2); Magnesium 3.5 mg/dL (1.6-2.3); Phosphorus 5.9 mg/dL (2.5-4.5); Potassium 4.2 mmol/L (3.5-5.1)
[2020-08-01] MEDS ORDERED: LEVOFLOXACIN 750MG-D5W PMX 750 MG in DEXTROSE/WATER 1 150ML.BAG IVPB ONE (10:00)
[2020-08-01] MEDS: CLOPIDOGREL 75 MG TAB PO SCH (10:09)
--- NOTE | 2020-08-01 10:22 | ECHOF ---
Referral Reason:afib MEASUREMENTS -------- HEIGHT: 160.0 cm WEIGHT: 71.7 kg BP: 91/60 IVSd: 1.0 cm (0.6 - 1.1) LVIDd: 3.3 cm (3.9 - 5.3) LVPWd: 1.2 cm (0.6 - 1.1) EDV(Teich): 43 ml IVSs: 1.6 cm LVIDs: 2.1 cm LVPWs: 1.9 cm %IVS Thck: 70 % ESV(Teich): 15 ml EF(Teich): 65 % %FS: 35 % SV(Teich): 28 ml LA Diam: 4.2 cm (2.7 - 3.8) RVIDd: 4.0 cm (< 3.3) IVC: 30.07 mm LALs A4C: 6.3 cm LAAs A4C: 23.0 cm LAESV A-L A4C: 71 ml LAESV MOD A4C: 70 ml LALs A2C: 5.9 cm LAAs A2C: 18.6 cm LAESV A-L A2C: 50 ml LAESV MOD A2C: 47 ml LAESV(A-L): 61 ml LAESV Index (A-L): 35.08 ml/m Ao Diam: 3.0 cm (2.0 - 3.7) AV Cusp: 1.8 cm (1.5 - 2.6) EPSS: 0.3 cm MV DecT: 140 ms MV PHT: 47 ms MVA By PHT: 4.7 cm AV Vmax: 1.11 m/s AV maxP.95 mmHg TR Vmax: 2.88 m/s TR maxP.09 mmHg RAP: 15.00 mmHg RVSP: 48.09 mmHg MV EF SLOPE: 132.50 mm/s (70 - 150) MV EXCURSION: 21.15 mm (> 18.000) FINDINGS -------- Atrial fibrillation. This was a technically good study. The left ventricular size is normal. There is borderline concentric left ventricular hypertrophy. Overall left ventricular systolic function is mild-moderately impaired with, an EF between 40 - 45 % . There is septal flattening in diastole and systole which is consistent with right ventricular pre ssure and volume overload. Can not exclude mass in LA The right ventricle is moderately enlarged. LA is moderately dilated 34-39 ml/m2 The right atrium is normal in size. Interatrial and interventricular septum intact. There is mild aortic valve sclerosis. The mitral valve leaflets are mildly thickened. Mild mitral annular calcification present. Modera te mitral regurgitation is present. Severe tricuspid regurgitation present. There is moderate pulmonary hypertension. The right ventr icular systolic pressure, as measured by Doppler, is 48.09mmHg. Trace/mild (physiologic) pulmonic regurgitation. The aortic root size is normal. The inferior vena cava is dilated with no significant inspiratory collapse which is consistent estima alycia right atrial pressure of >15 mmHg. There is no pericardial effusion. CONCLUSIONS -------- 1. The left ventricular size is normal. 2. There is borderline concentric left ventricular hypertrophy. 3. Overall left ventricular systolic function is mild-moderately impaired with, an EF between 40 - 45 %. 4. There is septal flattening in diastole and systole which is consistent with right ventricular pres sure and volume overload. 5. Can not exclude mass in LA 6. The right ventricle is moderately enlarged. 7. LA is moderately dilated 34-39 ml/m2 8. There is mild aortic valve sclerosis. 9. The mitral valve leaflets are mildly thickened. 10. Mild mitral annular calcification present. 11. Moderate mitral regurgitation is present. 12. Severe tricuspid regurgitation present. 13. There is moderate pulmonary hypertension. 14. The right ventricular systolic pressure, as measured by Doppler, is 48.09mmHg. 15. Trace/mild (physiologic) pulmonic regurgitation. 16. The inferior vena cava is dilated with no significant inspiratory collapse which is consistent es timated right atrial pressure of >15 mmHg. 17. There is no pericardial effusion. DIRECTOR OF STRATEGIC PARTNERSHIPS: Hanny Mccord RDCS
--- NOTE | 2020-08-01 11:25 | P.CONS ---
History of Present Illness - Reason for Consult Consult date: 07/31/20 GI bleed Requesting physician: Brandon E Sheet - Chief Complaint Weakness - History of Present Illness 80-year-old female with a medical history significant for atrial fibrillation on anticoagulation therapy, prior history of peptic ulcer disease diagnosed in 07/2018, and prior CVA/TIA who presented to the hospital due to weakness and hematuria. Patient had been experiencing weakness with associated shortness of breath. Patient was noted to have bloody output from her Hayes catheter. Currently she is been seen by the urology service with plan for possible outpatient cystoscopy, hematuria is felt to be traumatic in nature. Patient previously had a GI bleed diagnosed in 08/06/2018 when EGD performed for GI bleed was significant for a nonbleeding gastric ulcer. No globin 7.4 on presentation. She denies any signs or symptoms of GI bleeding at this time with no hematemesis, hematochezia or melena. No abdominal pain reported. Review of Systems REVIEW OF SYSTEMS: CONSTITUTIONAL: Denies any fevers, chills, weight change but she does report fatigue. CARDIOVASCULAR: Denies any chest pain, palpitations high or low blood pressures RESPIRATORY: Denies any hemoptysis or cough but did report some shortness of b reath. GENITOURINARY: Patient did report dysuria and hematuria. MUSCULOSKELETAL: No focal weakness reported. SKIN: Denies any new rashes or lesions, jaundice or pallor. PSYCHIATRIC: Denies any depression or anxiety. NEUROLOGY: Denies headache, denies any new focal deficits. EARS/NOSE/THROAT: No recent hearing change, congestion, nasal discharge or sore throat. EYES: No pain in eyes, discharge or change in vision. GASTROINTESTINAL: As per HPI. Past Medical History Past Medical History: CVA/TIA Additional Past Medical History / Comment(s): anemia History of Any Multi-Drug Resistant Organisms: None Reported Additional Past Surgical History / Comment(s): vericose veins. Past Anesthesia/Blood Transfusion Reactions: No Reported Reaction Past Psychological History: No Psychological Hx Reported Past Alcohol Use History: None Reported Past Drug Use History: None Reported - Past Family History Father Family Medical History: Cancer Additional Family Medical History / Comment(s): lung ca Mother Additional Family Medical History / Comment(s): "heart problems" Medications and Allergies Home Medications Medication Instructions Recorded Confirmed Type Cholecalciferol [Vitamin D3] 400 unit PO DAILY 07/08/18 07/31/20 History Levothyroxine Sodium [Synthroid] 112 mcg PO DAILY 07/08/18 07/31/20 History Magnesium Oxide [Mag-Oxide] 200 mg PO DAILY 07/08/18 07/31/20 History Nitroglycerin Sl Tabs [Nitrostat] 0.4 mg SUBLINGUAL Q5M PRN 07/08/18 07/31/20 History Thiamine [Vitamin B-1] 50 mg PO DAILY 07/08/18 07/31/20 History allopurinoL [Zyloprim] 300 mg PO DAILY 07/08/18 07/31/20 History traZODone HCL 50 mg PO HS PRN 07/08/18 07/31/20 History ALPRAZolam [Xanax] 0.5 mg PO BID 07/31/20 07/31/20 History Aspirin EC [Ecotrin Low Dose] 81 mg PO DAILY 07/31/20 07/31/20 History Atorvastatin [Lipitor] 40 mg PO HS 07/31/20 07/31/20 History Clopidogrel [Plavix] 75 mg PO DAILY 07/31/20 07/31/20 History Diltiazem HCl [Cartia Xt] 180 mg PO DAILY 07/31/20 07/31/20 History Furosemide [Lasix] 40 mg PO BID 07/31/20 07/31/20 History Omeprazole 20 mg PO DAILY 07/31/20 07/31/20 History Potassium Chloride ER [K-Dur 20] 20 meq PO DAILY 07/31/20 07/31/20 History Potassium Chloride ER [K-Dur 20] 40 meq PO HS 07/31/20 07/31/20 History metFORMIN HCL [metFORMIN HCL ER] 750 mg PO DAILY 07/31/20 07/31/20 History metOLazone [Zaroxolyn] 5 mg PO DAILY PRN 07/31/20 07/31/20 History Allergies Allergy/AdvReac Type Severity Reaction Status Date / Time Penicillins AdvReac Unknown Verified 07/08/18 20:09 Physical Exam Vitals: Vital Signs Temp Pulse Pulse Resp BP BP Pulse Ox 07/31/20 11:23 97.4 F L 118 H 20 113/70 94 L 07/31/20 10:53 97.3 F L 90 88 18 109/64 109/64 97 07/31/20 10:43 97.7 F 96 20 101/55 92 L 07/31/20 08:20 98.1 F 96 20 91/60 97 07/31/20 03:45 101/59 07/31/20 03:39 97.8 F 108 H 18 82/53 95 07/31/20 02:00 97.7 F 125 H 18 115/72 96 07/31/20 01:42 108 H 16 83/63 96 07/31/20 01:20 98.0 F 105 H 16 98/70 97 07/31/20 01:10 120 H 16 91/62 96 07/31/20 00:54 138 H 16 109/88 100 07/31/20 00:30 132 H 07/31/20 00:28 98.1 F 122 H 17 116/79 100 Intake and Output 07/30/20 07/31/20 07/31/20 22:59 06:59 14:59 Intake Total 544.917 120 Output Total 475 Balance 69.917 120 Intake: Intake, IV Titration 4.917 Amount Diltiazem 125 mg In 4.917 Sodium Chloride 0.9% 100 ml @ 5 MG/HR 5 mls/hr IV .Q24H [facility] Rx#:[id number] Oral 540 120 Blood Product 0 Rc As-1 Unit 0 [id number] Output: Urine 475 Other: Voiding Method Indwelling Catheter Indwelling Catheter Weight 72 kg On physical examination, patient appears comfortable in no apparent distress. HEAD: Normocephalic, atraumatic. EYES: No scleral icterus. No conjunctival injection. MOUTH: No lesions, tongue midline. NECK: Trachea midline, no gross abnormalities. CHEST: Clear to auscultation with no wheezing or rhonchi appreciated. HEART: S1-S2 appreciated, regularly irregular. ABDOMEN: Soft, obese and nontender. Bowel sounds are positive. No organomegaly. No guarding or rigidity. EXTREMITIES: No pedal edema. SKIN: No rashes, no jaundice. NEUROLOGIC: Alert and oriented x3. No focal deficits. Results CBC & Chem 7: 08/01/20 07:18 08/01/20 07:18 Labs: Abnormal Lab Results - Last 24 Hours (Table) 07/31/20 07/31/20 07/31/20 Range/Units 00:31 00:31 00:31 RBC 3.04 L (3.80-5.40) m/uL Hgb 7.4 L (11.4-16.0) gm/dL Hct 24.8 L (34.0-46.0) % MCH 24.3 L (25.0-35.0) pg MCHC 29.7 L (31.0-37.0) g/dL RDW 19.6 H (11.5-15.5) % Retic Count (0.5-2.0) % PT 12.4 H (9.0-12.0) sec INR 1.2 H (<1.2) Sodium (137-145) mmol/L Chloride (98-107) mmol/L Carbon Dioxide (22-30) mmol/L BUN (7-17) mg/dL Creatinine (0.52-1.04) mg/dL POC Glucose (mg/dL) (75-99) mg/dL Calcium (8.4-10.2) mg/dL Crossmatch See Detail 07/31/20 07/31/20 07/31/20 Range/Units 06:08 09:10 09:47 RBC (3.80-5.40) m/uL Hgb (11.4-16.0) gm/dL Hct (34.0-46.0) % MCH (25.0-35.0) pg MCHC (31.0-37.0) g/dL RDW (11.5-15.5) % Retic Count 5.8 H (0.5-2.0) % PT (9.0-12.0) sec INR (<1.2) Sodium 130 L (137-145) mmol/L Chloride 96 L (98-107) mmol/L Carbon Dioxide 20 L (22-30) mmol/L BUN 49 H (7-17) mg/dL Creatinine 1.73 H (0.52-1.04) mg/dL POC Glucose (mg/dL) 120 H (75-99) mg/dL Calcium 8.3 L (8.4-10.2) mg/dL Crossmatch 07/31/20 Range/Units 11:50 RBC (3.80-5.40) m/uL Hgb (11.4-16.0) gm/dL Hct (34.0-46.0) % MCH (25.0-35.0) pg MCHC (31.0-37.0) g/dL RDW (11.5-15.5) % Retic Count (0.5-2.0) % PT (9.0-12.0) sec INR (<1.2) Sodium (137-145) mmol/L Chloride (98-107) mmol/L Carbon Dioxide (22-30) mmol/L BUN (7-17) mg/dL Creatinine (0.52-1.04) mg/dL POC Glucose (mg/dL) 105 H (75-99) mg/dL Calcium (8.4-10.2) mg/dL Crossmatch Chest x-ray: report reviewed Assessment and Plan (1) Anemia associated with acute blood loss Narrative/Plan: 80-year-old female with multiple medical comorbidities including atrial fibr illation on anticoagulation therapy as well as prior history of peptic ulcer disease. She presented to the hospital with weakness and hematuria. She has been evaluated by the urology service with suspected atraumatic hematuria and plan for possible outpatient cystoscopy. Previously patient had gastric ulcer in 2018 but denies any signs or symptoms of GI bleeding at this time. Current Visit: Yes Status: Acute Code(s): D62 - ACUTE POSTHEMORRHAGIC ANEMIA SNOMED Code(s): 893793357 (2) Weakness Current Visit: Yes Status: Acute Code(s): R53.1 - WEAKNESS SNOMED Code(s): 59794578 Plan: Supportive care Okay for diet No plans for endoscopy at this time Continue Protonix daily Continue to hold anticoagulation therapy as per recommendations by urology and primary team, from a GI perspective patient is okay to resume anticoagulation therapy when hematuria resolves as there is no evidence of a GI bleed at this time Thank you for allowing us to participate in the care of the patient, the GI service will stand by
[2020-08-01 12:12] LABS: Glucose,Whole Blood 164 mg/dL (75-99)
--- NOTE | 2020-08-01 13:14 | P.PN ---
Subjective Progress Note Date: 08/01/20 HISTORY OF PRESENT ILLNESS: 07/31/2020: This is a pleasant 80-year-old female past medical history significant for coronary artery disease s/p PCI exact details unavailable, peripheral vascular disease s/p left iliac stenting July 26, chronic anemia, hypertension, chronic persistent atrial fibrillation, diabetes mellitus, chronic heart failure and dyslipidemia. She used to follow in the office with Dr. Correa until his senior living and has not re-established care with a pulp grinder and blender. We have been asked to see in consultation for a-fib with RVR. According to the patient she initially presented to [facility] with symptoms of abdominal pain and blood in her catheter bag. She underwent stenting to the left iliac via the right femoral artery last week. Initially the concern was for possible retroperioneal bleed, however CT of the abdomen/pelvis at [facility] was unremarkable. The patient is unsure why she has a Hayes catheter in place. She states she left the hospital last week with it. She complains of mild shortness of breath mostly with activity. She also states she had noticed 2 instances of bright red blood in her stool over the weekend. She has no symptoms of chest pain, dizziness or palpitations. On arrival she was initiated on IV Cardizem however through the night her blood pressures were not tolerating and it has been discontinued. 08/01/2020: Patient examined this morning at the bedside. Patient continues to have hematuria. Her Hayes was discontinued this morning. She has been evaluated by urology. She remains on IV Lasix. Creatinine increased today to 2.28, up from 1.73 yesterday. She remains in atrial fibrillation with controlled ventricular rate. Echocardiogram reveals ejection fraction 40-45%, moderate mitral regurgitation, severe tricuspid regurgitation, moderate pulmonary hypertension. PHYSICAL EXAM: VITAL SIGNS: Reviewed. GENERAL: Well-developed in no acute distress. NECK: Supple. No JVD or thyromegaly LUNGS: Respirations even and unlabored. Lungs essentially clear to auscultation bilaterally. HEART: Irregular rate and rhythm. S1 and S2 heard. Systolic murmur. EXTREMITIES: Normal range of motion. No clubbing or cyanosis. Peripheral pulses intact. No lower extremity edema ASSESSMENT: Chronic persistent atrial fibrillation with rapid ventricular response. Not on anti-coagulation, unknown reason. Peripheral vascular disease s/p iliac stenting 07/26/2020 Chronic systolic heart failure, EF 40-45% Hematuria Anemia Acute kidney injury Hypertension Dyslipidemia Diabetes mellitus Coronary artery disease PLAN: Urology following for hematuria Transition patient to oral lasix secondary to worsening FLOYD Monitor kidney function Check post void residual to ensure urinary retention is not contributing to FLOYD Continue plavix. Aspirin remains on hold. Continue oral Cardizem. Continue telemetry monitoring Nurse practitioner note has been reviewed by physician. Signing provider agrees with the documented findings, assessment, and plan of care. Objective - Vital Signs Vital signs: Vital Signs Temp 97.7 F 08/01/20 09:29 Pulse 99 08/01/20 09:29 Resp 18 08/01/20 09:29 BP 104/66 08/01/20 09:29 Pulse Ox 92 L 08/01/20 09:29 Intake & Output 07/31/20 08/01/20 08/01/20 18:59 06:59 18:59 Intake Total 980 600 240 Output Total 80 600 Balance 980 520 -360 Weight 71.5 kg Intake: Oral 360 600 240 Blood Product 620 Rc As-1 Unit 310 [id number] Rc Pheresis 2 As3 Unit 310 [id number] Output: Urine 80 600 Other: Voiding Method Indwelling Catheter Indwelling Catheter Indwelling Catheter # Voids 0 1 0 # Bowel Movements 0 2 - Labs CBC & Chem 7: 08/01/20 07:18 08/01/20 07:18 Labs: Abnormal Lab Results - Last 24 Hours (Table) 07/31/20 07/31/20 07/31/20 Range/Units 00:31 06:46 09:10 RBC (3.80-5.40) m/uL Hgb (11.4-16.0) gm/dL Hct (34.0-46.0) % MCHC (31.0-37.0) g/dL RDW (11.5-15.5) % Sodium (137-145) mmol/L Chloride (98-107) mmol/L BUN (7-17) mg/dL Creatinine (0.52-1.04) mg/dL POC Glucose (mg/dL) (75-99) mg/dL Hemoglobin A1c 6.4 H (4.0-6.0) % Phosphorus (2.5-4.5) mg/dL Magnesium (1.6-2.3) mg/dL Iron 21 L (50-170) ug/dL % Saturation 5.29 L (12.00-45.00) Vitamin B12 1990.0 H (200.0-944.0) pg/mL Urine Appearance (Clear) Urine RBC (0-5) /hpf Urine WBC (0-5) /hpf Crossmatch See Detail 07/31/20 07/31/20 07/31/20 Range/Units 11:50 16:39 20:12 RBC (3.80-5.40) m/uL Hgb (11.4-16.0) gm/dL Hct (34.0-46.0) % MCHC (31.0-37.0) g/dL RDW (11.5-15.5) % Sodium (137-145) mmol/L Chloride (98-107) mmol/L BUN (7-17) mg/dL Creatinine (0.52-1.04) mg/dL POC Glucose (mg/dL) 105 H 119 H 157 H (75-99) mg/dL Hemoglobin A1c (4.0-6.0) % Phosphorus (2.5-4.5) mg/dL Magnesium (1.6-2.3) mg/dL Iron (50-170) ug/dL % Saturation (12.00-45.00) Vitamin B12 (200.0-944.0) pg/mL Urine Appearance (Clear) Urine RBC (0-5) /hpf Urine WBC (0-5) /hpf Crossmatch 07/31/20 08/01/20 08/01/20 Range/Units 22:15 06:55 07:18 RBC 3.73 L (3.80-5.40) m/uL Hgb 9.6 L D (11.4-16.0) gm/dL Hct 31.0 L (34.0-46.0) % MCHC 30.9 L (31.0-37.0) g/dL RDW 19.2 H (11.5-15.5) % Sodium (137-145) mmol/L Chloride (98-107) mmol/L BUN (7-17) mg/dL Creatinine (0.52-1.04) mg/dL POC Glucose (mg/dL) 122 H (75-99) mg/dL Hemoglobin A1c (4.0-6.0) % Phosphorus (2.5-4.5) mg/dL Magnesium (1.6-2.3) mg/dL Iron (50-170) ug/dL % Saturation (12.00-45.00) Vitamin B12 (200.0-944.0) pg/mL Urine Appearance Turbid H (Clear) Urine RBC >182 H (0-5) /hpf Urine WBC >182 H (0-5) /hpf Crossmatch 08/01/20 Range/Units 07:18 RBC (3.80-5.40) m/uL Hgb (11.4-16.0) gm/dL Hct (34.0-46.0) % MCHC (31.0-37.0) g/dL RDW (11.5-15.5) % Sodium 130 L (137-145) mmol/L Chloride 94 L (98-107) mmol/L BUN 60 H (7-17) mg/dL Creatinine 2.28 H (0.52-1.04) mg/dL POC Glucose (mg/dL) (75-99) mg/dL Hemoglobin A1c (4.0-6.0) % Phosphorus 5.9 H (2.5-4.5) mg/dL Magnesium 3.5 H (1.6-2.3) mg/dL Iron (50-170) ug/dL % Saturation (12.00-45.00) Vitamin B12 (200.0-944.0) pg/mL Urine Appearance (Clear) Urine RBC (0-5) /hpf Urine WBC (0-5) /hpf Crossmatch Microbiology - Last 24 Hours (Table) 07/31/20 22:15 Urine Culture - Preliminary Urine,Voided
[2020-08-01] MEDS: FUROSEMIDE 40 MG TAB PO SCH (15:28)
[2020-08-01 17:07] LABS: Glucose,Whole Blood 79 mg/dL (75-99)
[2020-08-01 17:51] LABS: Anisocytosis Slight; Hypochromasia Marked; MCH 26.4 pg (25.0-35.0); MCV 82.5 fL (80.0-100.0); Mean Platelet Volume 8.1; Microcytosis Slight; Platelet Count 250 k/uL (150-450); Poikilocytosis Moderate; RBC 3.39 m/uL (3.80-5.40); RDW 19.1 % (11.5-15.5); WBC 8.5 k/uL (3.8-10.6)
[2020-08-01 20:36] LABS: Glucose,Whole Blood 225 mg/dL (75-99)
[2020-08-01] MEDS: ATORVASTATIN 40 MG TAB PO SCH (20:45)
[2020-08-01] MEDS: traZODone HCL 50 MG TAB PO PRN (20:52)
[2020-08-01] MEDS: ALPRAZolam 0.5 MG TAB PO PRN (22:49)
[2020-08-02] MEDS: SODIUM CHLORIDE 0.9% 1,000 ML IV SCH ×2 (01:47→12:38)
[2020-08-02 06:24] LABS: Glucose,Whole Blood 151 mg/dL (75-99)
[2020-08-02] MEDS: LEVOTHYROXINE 112 MCG TAB PO SCH (06:40)
[2020-08-02] MEDS: FERROUS SULFATE 325 MG TAB PO SCH ×2 (06:40→18:56)
[2020-08-02] MEDS: INSULIN ASPART (NovoLOG) 100 UNIT/ML VIAL SQ SCH ×4 (06:40→20:31)
[2020-08-02] MEDS: PANTOPRAZOLE 40 MG TABLET PO SCH (06:40)
[2020-08-02] MEDS: FUROSEMIDE 40 MG TAB PO SCH (07:19)
[2020-08-02 08:08] LABS: Anisocytosis Slight; Basophils % (A) 1 %; Eosinophils # (A) 0.1 k/uL (0-0.7); Eosinophils % (A) 1 %; HCT 28.5 % (34.0-46.0); HGB 9.1 gm/dL (11.4-16.0); Hypochromasia Marked; Lymphocytes # (A) 0.8 k/uL (1.0-4.8); Lymphocytes % (A) 12 %; MCH 26.5 pg (25.0-35.0); MCHC 31.9 g/dL (31.0-37.0); Mean Platelet Volume 7.9; Microcytosis Slight; Monocytes # (A) 0.4 k/uL (0-1.0); Monocytes % (A) 6 %; Neutrophils # (A) 5.1 k/uL (1.3-7.7); Neutrophils % (A) 80 %; Platelet Count 255 k/uL (150-450); Poikilocytosis Moderate; RBC 3.43 m/uL (3.80-5.40); RDW 19.3 % (11.5-15.5); WBC 6.5 k/uL (3.8-10.6)
[2020-08-02 08:24] LABS: Calcium 8.3 mg/dL (8.4-10.2)
[2020-08-02 08:28] LABS: Potassium 2.4 mmol/L (3.5-5.1)
[2020-08-02] MEDS: CLOPIDOGREL 75 MG TAB PO SCH (09:06)
[2020-08-02] MEDS: polyethylene glycoL 3350 17 GM POWD.PACK PO SCH (09:06)
[2020-08-02] MEDS: CHOLECALCIFEROL 400 UNIT TAB PO SCH (09:06)
[2020-08-02] MEDS: DILTIAZEM CD 180 MG CAP.ER.24H PO SCH (09:06)
[2020-08-02] MEDS: allopurinoL 100 MG TAB PO SCH (09:06)
[2020-08-02] MEDS: POTASSIUM CHLORIDE ER 20 MEQ TAB.ER PO SCH ×4 (09:15→14:15)
--- NOTE | 2020-08-02 09:37 | P.PN ---
Subjective Progress Note Date: 08/02/20 The patient was given a voiding trial yesterday but was unable to urinate. She had clots in her bladder. Whether this was clot retention or a hypotonic bladder is indeterminate. The patient cannot clarify this for me. I will leave the catheter until urine is perfectly clear and then give her one more chance for a voiding trial. If she cannot void she'll need urodynamics and cystoscopy as an outpatient. If she can void she'll just need cystoscopy as outpatient. Objective - Vital Signs Vital signs: Vital Signs Temp 97.7 F 08/02/20 08:00 Pulse 90 08/02/20 08:00 Resp 16 08/02/20 08:00 BP 102/67 08/02/20 08:00 Pulse Ox 98 08/02/20 08:00 Intake & Output 08/01/20 08/02/20 08/02/20 18:59 06:59 18:59 Intake Total 970 Output Total 1425 2300 Balance -455 -2300 Weight 72 kg Intake: Intake, IV Titration 370 Amount Levofloxacin 750Mg-D5w 150 Pmx 750 mg In Dextrose/ Water 1 150ml.bag @ 100 mls/hr IVPB ONCE ONE Rx#: [id number] Sodium Chloride 0.9% 1, 220 000 ml @ 20 mls/hr IV . Q24H [facility] Rx#:[id number] Oral 600 Output: Urine 1425 2300 Other: Voiding Method Indwelling Catheter Indwelling Catheter # Voids 0 # Bowel Movements 0 - Labs CBC & Chem 7: 08/02/20 07:35 08/02/20 07:35 Labs: Abnormal Lab Results - Last 24 Hours (Table) 08/01/20 08/01/20 08/01/20 Range/Units 07:18 07:18 12:06 RBC 3.73 L (3.80-5.40) m/uL Hgb 9.6 L D (11.4-16.0) gm/dL Hct 31.0 L (34.0-46.0) % MCHC 30.9 L (31.0-37.0) g/dL RDW 19.2 H (11.5-15.5) % Lymphocytes # (1.0-4.8) k/uL Sodium 130 L (137-145) mmol/L Potassium (3.5-5.1) mmol/L Chloride 94 L (98-107) mmol/L BUN 60 H (7-17) mg/dL Creatinine 2.28 H (0.52-1.04) mg/dL Glucose (74-99) mg/dL POC Glucose (mg/dL) 164 H (75-99) mg/dL Calcium (8.4-10.2) mg/dL Phosphorus 5.9 H (2.5-4.5) mg/dL Magnesium 3.5 H (1.6-2.3) mg/dL 08/01/20 08/01/20 08/02/20 Range/Units 17:32 20:35 06:23 RBC 3.39 L (3.80-5.40) m/uL Hgb 9.0 L (11.4-16.0) gm/dL Hct 28.0 L (34.0-46.0) % MCHC (31.0-37.0) g/dL RDW 19.1 H (11.5-15.5) % Lymphocytes # (1.0-4.8) k/uL Sodium (137-145) mmol/L Potassium (3.5-5.1) mmol/L Chloride (98-107) mmol/L BUN (7-17) mg/dL Creatinine (0.52-1.04) mg/dL Glucose (74-99) mg/dL POC Glucose (mg/dL) 225 H 151 H (75-99) mg/dL Calcium (8.4-10.2) mg/dL Phosphorus (2.5-4.5) mg/dL Magnesium (1.6-2.3) mg/dL 08/02/20 08/02/20 Range/Units 07:35 07:35 RBC 3.43 L (3.80-5.40) m/uL Hgb 9.1 L (11.4-16.0) gm/dL Hct 28.5 L (34.0-46.0) % MCHC (31.0-37.0) g/dL RDW 19.3 H (11.5-15.5) % Lymphocytes # 0.8 L (1.0-4.8) k/uL Sodium 131 L (137-145) mmol/L Potassium 2.4 L* (3.5-5.1) mmol/L Chloride 93 L (98-107) mmol/L BUN 52 H (7-17) mg/dL Creatinine 1.87 H (0.52-1.04) mg/dL Glucose 100 H (74-99) mg/dL POC Glucose (mg/dL) (75-99) mg/dL Calcium 8.3 L (8.4-10.2) mg/dL Phosphorus (2.5-4.5) mg/dL Magnesium (1.6-2.3) mg/dL Microbiology - Last 24 Hours (Table) 07/31/20 22:15 Urine Culture - Preliminary Urine,Voided
[2020-08-02] MEDS ORDERED: Potassium Replacement Protocol 1 EACH MISC MISCELLANE PRN (09:47)
--- NOTE | 2020-08-02 09:53 | P.PN ---
Subjective 78-year-old pleasant female with history of atrial fibrillation on the anticoagulation with Xarelto, previous history of GI bleed and gastric ulcer, CVA/TIA. Patient follow-up with Dr. Birch who is recently retired at [employer] and she is looking for a new PCP now. She went to [facility] for right leg pain were stent was placed, she was discharged home 3 days ago, last Thursday, at [facility] Hayes catheter was placed and states it was bloody at that time. She was sent home with a Hayes catheter, however she started feeling uncomfortable in her bladder where the Hayes felt like hurting but she denies any abdominal pain, she felt that she has to P old time and there was blood in the urine catheter so she decided to come to the hospital. She denies any nausea vomiting. No chest pain or dyspnea. She is on 2 L oxygen via nasal cannula at home, it was bumped up to 4 L at [facility] as per patient, she has chronic hypoxic respiratory failure related to her COPD. She denies chest pain or headache or weakness. Originally she was on aspirin daily however she states the last of added to her and [place]. Patient was noted to be on Plavix 75 mg and aspirin 81 mg at home. She denies smoking, she drinks couple cups of wine every week. No illicit drugs On admission her blood pressure was 101/88, this morning was 83/63. However repeat blood pressure went up to 101/59, heart rate on admission was 138, currently is 108, she is saturating 95% on 4 L oxygen via nasal cannula Labs on admission showed hemoglobin of 7.4, rest of the CBC is unremarkable. INR is 1.2. EKG showing atrial fibrillation's with RVR at 133. 08/01/2020 Patient is lying in bed comfortable. No distress. She is not tachypneic. However she still on 4 L oxygen via nasal cannula compared to his doctor at home. No coughing or chest pain but she has bilateral basal crepitation.. Patient feels generally better today, she was admitted mainly for discomfort in her urinary bladder area which is improved today She is hemodynamically stable other than that. Labs from today are still pending. Sugars controlled. Iron study showing iron deficiency anemia with iron low at 21, normal TIBC at 397 and low iron saturation at 5.2%. And normal ferritin at 45. 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 No abdominal pain. And she tolerates diet. She is on Protonix IV daily. Occult blood in stool still pending There is blood in the urine. Urinalysis showing urine RBC more than 182, urine WBC of more than 182. Urine culture is ordered and is pending, patient will be started on Levaquin empirically for possible UTI pending UC, patient is ALLERGIC to penicillin Dr. Elias evaluated the patient and recommended to discontinue Hayes catheter and check PVR. Also recommended to follow up as an outpatient for possible cystoscopy. Patient informed and she agrees. Risks including but not limited to cancer explained to him and she verbalized understanding. Also she has acute kidney injury from yesterday with creatinine 1.7, could be related to her CHF exacerbation in view of basal crepitation and more oxygen requirement. Chest x-ray also was abnormal. We changed her Lasix from 40 mg orally to intravenously today. Echocardiogram is still pending. Heart rate is controlled on oral medication. Xarelto is on hold for hematuria 08/02/2020 Patient still feels generally weak. She still have hematuria through the Hayes catheter. No chest pain or significant dyspnea at rest. She saturating 98% 4 L oxygen via nasal cannula. Her creatinine is down to 1.8 today however her potassium is 2.4 and his been replaced, morning dose of Lasix is been held because of the significantly low potassium. Sodium 131. Blood pressure is a stable, is chronically low while the patient is asymptomatic.Occult blood in the stool is negative. Xarelto still on hold. Patient still on Plavix but aspirin is still on hold as well. Hemoglobin stable at 9.1 She continue on Levaquin for possible UTI, urine cultures pending. Review of Systems CONSTITUTIONAL: No fever, no malaise, no fatigue. HEENT: No recent visual problems or hearing problems. Denied any sore throat. CARDIOVASCULAR: No orthopnea, PND, no palpitations, no syncope. PULMONARY: No shortness of breath, no cough, no hemoptysis. GASTROINTESTINAL: No diarrhea, no nausea, no vomiting, no abdominal pain. Normoa ctive bowel sounds. NEUROLOGICAL: No headaches, no weakness, no numbness. HEMATOLOGICAL: Denies any bleeding or petechiae. Active Medications Generic Name Dose Route Start Last Admin Trade Name Freq PRN Reason Stop Dose Admin Acetaminophen 325 mg 07/31/20 09:28 07/31/20 13:52 Acetaminophen Tab 325 Mg Tab PO 325 mg Q6HR PRN Administration Fever and/ or Pain Allopurinol 100 mg 08/02/20 09:00 08/02/20 09:06 Allopurinol 100 Mg Tab PO 100 mg DAILY MERRICK Administration Alprazolam 0.25 mg 07/31/20 09:30 08/01/20 22:49 Alprazolam 0.5 Mg Tab PO 0.25 mg BID PRN Administration Anxiety Atorvastatin Calcium 40 mg 07/31/20 21:00 08/01/20 20:45 Atorvastatin 40 Mg Tab PO 40 mg HS MERRICK Administration Cholecalciferol 400 unit 07/31/20 10:00 08/02/20 09:06 Cholecalciferol 400 Unit Tab PO 400 unit DAILY MERRICK Administration Clopidogrel Bisulfate 75 mg 07/31/20 09:00 08/02/20 09:06 Clopidogrel 75 Mg Tab PO 75 mg DAILY MERRICK Administration Diltiazem HCl 180 mg 07/31/20 10:00 08/02/20 09:06 Diltiazem Cd 180 Mg Cap.Er.24h PO 180 mg DAILY MRERICK Administration Ferrous Sulfate 325 mg 08/01/20 08:15 08/02/20 06:40 Ferrous Sulfate 325 Mg Tab PO 325 mg BID-W/MEALS MERRICK Administration Furosemide 40 mg 08/01/20 16:00 08/02/20 07:19 Furosemide 40 Mg Tab PO Not Given BID@0900,1600 MERRICK Sodium Chloride 1,000 mls @ 20 mls/hr 07/31/20 00:30 08/02/20 01:47 Saline 0.9% IV Not Given .Q24H MERRICK Levofloxacin 500 mg/ IV 100 mls @ 100 mls/hr 08/03/20 10:00 Solution IVPB Q48H MERRICK Insulin Aspart 0 unit 07/31/20 07:30 08/02/20 06:40 Insulin Aspart (Novolog) 100 Unit/Ml Vial SQ 1 unit ACHS MERRICK Administration Protocol Levothyroxine Sodium 112 mcg 08/01/20 06:30 08/02/20 06:40 Levothyroxine 112 Mcg Tab PO 112 mcg 0630 MERRICK Administration Metformin HCl 500 mg 07/31/20 10:00 07/31/20 12:17 Metformin 500 Mg Tab PO 500 mg BID MERRICK Administration Miscellaneous Information 1 each 08/02/20 09:47 Potassium Replacement Protocol 1 Each Misc MISCELLANE DAILY PRN Per Protocol Protocol Morphine Sulfate 2 mg 08/01/20 17:29 Morphine Sulfate 2 Mg/Ml Syringe IV Q4HR PRN Severe Pain Naloxone HCl 0.2 mg 07/31/20 00:23 Naloxone 0.4 Mg/Ml 1 Ml Vial IV Q2M PRN Opioid Reversal Nitroglycerin 0.4 mg 07/31/20 09:30 Nitroglycerin Sl Tabs 0.4 Mg Tab SUBLINGUAL Q5M PRN Chest Pain Pantoprazole Sodium 40 mg 08/02/20 07:30 08/02/20 06:40 Pantoprazole 40 Mg Tablet PO 40 mg [id number] MERRICK Administration Polyethylene Glycol 17 gm 07/31/20 09:45 08/02/20 09:06 Polyethylene Glycol 3350 17 Gm Powd.Pack PO 17 gm DAILY MERRICK Administration Potassium Chloride 20 meq 08/02/20 10:00 08/02/20 09:15 Potassium Chloride Er 20 Meq Tab.Er PO 08/02/20 13:01 20 meq Q1HR MERRICK Administration Trazodone HCl 50 mg 07/31/20 09:30 08/01/20 20:52 Trazodone Hcl 50 Mg Tab PO 50 mg HS PRN Administration Insomnia Objective - Vital Signs Vital signs: Vital Signs Temp 97.7 F 08/02/20 08:00 Pulse 90 08/02/20 08:00 Resp 16 08/02/20 08:00 BP 102/67 08/02/20 08:00 Pulse Ox 98 08/02/20 08:00 Intake & Output 08/01/20 08/02/20 08/02/20 18:59 06:59 18:59 Intake Total 970 Output Total 1425 2300 Balance -455 -2300 Weight 72 kg Intake: Intake, IV Titration 370 Amount Levofloxacin 750Mg-D5w 150 Pmx 750 mg In Dextrose/ Water 1 150ml.bag @ 100 mls/hr IVPB ONCE ONE Rx#: [id number] Sodium Chloride 0.9% 1, 220 000 ml @ 20 mls/hr IV . Q24H MERRICK Rx#:[id number] Oral 600 Output: Urine 1425 2300 Other: Voiding Method Indwelling Catheter Indwelling Catheter Indwelling Catheter # Voids 0 # Bowel Movements 0 - Exam GENERAL: The patient is alert and oriented x3, not in any acute distress. Well developed, well nourished. HEENT: Pupils are round and equally reacting to light. EOMI. No scleral icterus. No conjunctival pallor. Normocephalic, atraumatic. No pharyngeal erythema. No thyromegaly. CARDIOVASCULAR: S1 and S2 present. No murmurs, rubs, or gallops. -PULMONARY: Chest is clear to auscultation, no wheezing or crackles. Bilateral basal crepitation -ABDOMEN: Soft, nontender, nondistended, normoactive bowel sounds. No palpable organomegaly. Hayes catheter is in place with blood-colored urine MUSCULOSKELETAL: No joint swelling or deformity. EXTREMITIES: No cyanosis, clubbing, or pedal edema. NEUROLOGICAL: Gross neurological examination did not reveal any focal deficits. SKIN: No rashes. No petechiae - Labs CBC & Chem 7: 08/02/20 07:35 08/02/20 07:35 Labs: Abnormal Lab Results - Last 24 Hours (Table) 08/01/20 08/01/20 08/01/20 Range/Units 07:18 12:06 17:32 RBC 3.39 L (3.80-5.40) m/uL Hgb 9.0 L (11.4-16.0) gm/dL Hct 28.0 L (34.0-46.0) % RDW 19.1 H (11.5-15.5) % Lymphocytes # (1.0-4.8) k/uL Sodium 130 L (137-145) mmol/L Potassium (3.5-5.1) mmol/L Chloride 94 L (98-107) mmol/L BUN 60 H (7-17) mg/dL Creatinine 2.28 H (0.52-1.04) mg/dL Glucose (74-99) mg/dL POC Glucose (mg/dL) 164 H (75-99) mg/dL Calcium (8.4-10.2) mg/dL Phosphorus 5.9 H (2.5-4.5) mg/dL Magnesium 3.5 H (1.6-2.3) mg/dL 08/01/20 08/02/20 08/02/20 Range/Units 20:35 06:23 07:35 RBC 3.43 L (3.80-5.40) m/uL Hgb 9.1 L (11.4-16.0) gm/dL Hct 28.5 L (34.0-46.0) % RDW 19.3 H (11.5-15.5) % Lymphocytes # 0.8 L (1.0-4.8) k/uL Sodium (137-145) mmol/L Potassium (3.5-5.1) mmol/L Chloride (98-107) mmol/L BUN (7-17) mg/dL Creatinine (0.52-1.04) mg/dL Glucose (74-99) mg/dL POC Glucose (mg/dL) 225 H 151 H (75-99) mg/dL Calcium (8.4-10.2) mg/dL Phosphorus (2.5-4.5) mg/dL Magnesium (1.6-2.3) mg/dL 08/02/20 Range/Units 07:35 RBC (3.80-5.40) m/uL Hgb (11.4-16.0) gm/dL Hct (34.0-46.0) % RDW (11.5-15.5) % Lymphocytes # (1.0-4.8) k/uL Sodium 131 L (137-145) mmol/L Potassium 2.4 L* (3.5-5.1) mmol/L Chloride 93 L (98-107) mmol/L BUN 52 H (7-17) mg/dL Creatinine 1.87 H (0.52-1.04) mg/dL Glucose 100 H (74-99) mg/dL POC Glucose (mg/dL) (75-99) mg/dL Calcium 8.3 L (8.4-10.2) mg/dL Phosphorus (2.5-4.5) mg/dL Magnesium (1.6-2.3) mg/dL Microbiology - Last 24 Hours (Table) 07/31/20 22:15 Urine Culture - Preliminary Urine,Voided Assessment and Plan Assessment: Acute hematuria, could to be related to recent Hayes catheter. Rule out UTI, continue with Levaquin empirically Acute blood loss anemia Possible acute systolic CHF, ejection fraction: 40-45% Acute and chronic hypoxic respiratory failure secondary to above Paroxysmal atrial fibrillation with RVR, was on Xarelto Anemia, Rule out GI bleed History of gastric ulcer in 2018 History of CVA/TIA Plan: This is a pleasant 80 years old female who presents with A. fib and low hemoglobin suspicious for blood in urine and Hayes catheter. At [facility], follow-up urine culture. Follow-up recommendation by urologist who recommended to discontinue Hayes catheter. However we will keep Hayes catheter as patient has persistent hematuria Continue with iron pills. Continue with Protonix. Continue holding aspirin and Xarelto Continue with Lasix. Continue holding Xarelto and resume as per GI/urology services. Continue Cardizem and monitor heart rate. Continue with Plavix Follow-up recommendation by urology, GI team and cardiology team. Pain management. Labs and medication were reviewed.. Continue same treatment. Continue with symptomatic treatment. Resume home medication. Monitor lytes and vitals. DVT and GI prophylaxis. Further recommendationsas per clinical course of the patient DVT prophylaxis: Hold anticoagulation in view of blood in urine GI Prophylaxis: Ppi PT/OT: Pending Prognosis is guarded
--- NOTE | 2020-08-02 10:00 | P.PN ---
Subjective Progress Note Date: 08/02/20 HISTORY OF PRESENT ILLNESS: 07/31/2020: This is a pleasant 80-year-old female past medical history significant for coronary artery disease s/p PCI exact details unavailable, peripheral vascular disease s/p left iliac stenting , July 26, chronic anemia, hypertension, chronic persistent atrial fibrillation, diabetes mellitus, chronic heart failure and dyslipidemia. She used to follow in the office with Dr. Correa until his long term and has not re-established care with a production clerk. We have been asked to see in consultation for a-fib with RVR. According to the patient she initially presented to [facility] with symptoms of abdominal pain and blood in her catheter bag. She underwent stenting to the left iliac via the right femoral artery last week. Initially the concern was for possible retroperioneal bleed, however CT of the abdomen/pelvis at [place] was unremarkable. The patient is unsure why she has a Hayes catheter in place. She states she left the hospital last week with it. She complains of mild shortness of breath mostly with activity. She also states she had noticed 2 instances of bright red blood in her stool over the weekend. She has no symptoms of chest pain, dizziness or palpitations. On arrival she was initiated on IV Cardizem however through the night her blood pressures were not tolerating and it has been discontinued. 08/01/2020: Patient examined this morning at the bedside. Patient continues to have hematuria. Her Hayes was discontinued this morning. She has been evaluated by urology. She remains on IV Lasix. Creatinine increased today to 2.28, up from 1.73 yesterday. She remains in atrial fibrillation with controlled ventricular rate. Echocardiogram reveals ejection fraction 40-45%, moderate mitral regurgitation, severe tricuspid regurgitation, moderate pulmonary hypertension. 08/02/2020 Patient examined this morning at the bedside. She denies chest pain or pressure. Denies shortness of breath. Patient was transitioned to oral Lasix yesterday. Her potassium this morning is 2.4. Creatinine has improved. 1.87 this morning. PHYSICAL EXAM: VITAL SIGNS: Reviewed. GENERAL: Well-developed in no acute distress. NECK: Supple. No JVD or thyromegaly LUNGS: Respirations even and unlabored. Lungs essentially clear to auscultation bilaterally. HEART: Irregular rate and rhythm. S1 and S2 heard. Systolic murmur. EXTREMITIES: Normal range of motion. No clubbing or cyanosis. Peripheral pulses intact. No lower extremity edema ASSESSMENT: Chronic persistent atrial fibrillation with rapid ventricular response. Not on anti-coagulation, unknown reason. Peripheral vascular disease s/p iliac stenting 07/26/2020 Chronic systolic heart failure, EF 40-45% Hematuria Anemia Acute kidney injury Hypertension Dyslipidemia Diabetes mellitus Coronary artery disease PLAN: Urology following for hematuria Monitor kidney function Check post void residual to ensure urinary retention is not contributing to FLOYD Continue plavix. Aspirin remains on hold. Continue oral Cardizem. Continue telemetry monitoring Replace potassium. 80meq of Kd[place]. Hold lasix until potassium has been corrected Nurse practitioner note has been reviewed by physician. Signing provider agrees with the documented findings, assessment, and plan of care. Objective - Vital Signs Vital signs: Vital Signs Temp 97.7 F 08/02/20 08:00 Pulse 90 08/02/20 08:00 Resp 16 08/02/20 08:00 BP 102/67 08/02/20 08:00 Pulse Ox 98 08/02/20 08:00 Intake & Output 08/01/20 08/02/20 08/02/20 18:59 06:59 18:59 Intake Total 970 Output Total 1425 2300 Balance -455 -2300 Weight 72 kg Intake: Intake, IV Titration 370 Amount Levofloxacin 750Mg-D5w 150 Pmx 750 mg In Dextrose/ Water 1 150ml.bag @ 100 mls/hr IVPB ONCE ONE Rx#: [id number] Sodium Chloride 0.9% 1, 220 000 ml @ 20 mls/hr IV . Q24H [facility] Rx#:[id number] Oral 600 Output: Urine 1425 2300 Other: Voiding Method Indwelling Catheter Indwelling Catheter Indwelling Catheter # Voids 0 # Bowel Movements 0 - Labs CBC & Chem 7: 08/02/20 07:35 08/02/20 07:35 Labs: Abnormal Lab Results - Last 24 Hours (Table) 08/01/20 08/01/20 08/01/20 Range/Units 12:06 17:32 20:35 RBC 3.39 L (3.80-5.40) m/uL Hgb 9.0 L (11.4-16.0) gm/dL Hct 28.0 L (34.0-46.0) % RDW 19.1 H (11.5-15.5) % Lymphocytes # (1.0-4.8) k/uL Sodium (137-145) mmol/L Potassium (3.5-5.1) mmol/L Chloride (98-107) mmol/L BUN (7-17) mg/dL Creatinine (0.52-1.04) mg/dL Glucose (74-99) mg/dL POC Glucose (mg/dL) 164 H 225 H (75-99) mg/dL Calcium (8.4-10.2) mg/dL 08/02/20 08/02/20 08/02/20 Range/Units 06:23 07:35 07:35 RBC 3.43 L (3.80-5.40) m/uL Hgb 9.1 L (11.4-16.0) gm/dL Hct 28.5 L (34.0-46.0) % RDW 19.3 H (11.5-15.5) % Lymphocytes # 0.8 L (1.0-4.8) k/uL Sodium 131 L (137-145) mmol/L Potassium 2.4 L* (3.5-5.1) mmol/L Chloride 93 L (98-107) mmol/L BUN 52 H (7-17) mg/dL Creatinine 1.87 H (0.52-1.04) mg/dL Glucose 100 H (74-99) mg/dL POC Glucose (mg/dL) 151 H (75-99) mg/dL Calcium 8.3 L (8.4-10.2) mg/dL Microbiology - Last 24 Hours (Table) 07/31/20 22:15 Urine Culture - Preliminary Urine,Voided
[2020-08-02 12:20] LABS: Glucose,Whole Blood 160 mg/dL (75-99)
--- NOTE | 2020-08-02 12:20 | P.NPCON ---
History of Present Illness - Reason for Consult Consult date: 08/02/20 acute renal failure - Chief Complaint Acute kidney injury - History of Present Illness Admitted to the hospital for hematuria. She was recently at [facility] where she had stents placed in her legs and Hayes was placed for urinary retention. She was discharged on Hayes, presented to the hospital with discomfort. Denies any fevers chills or rigors. No nausea vomiting or diarrhea. No NSAID use. She was hypotensive on admission, she was given fluid bolus and 95% on 4 L of oxygen by nasal cannula. Hemoglobin was 7.4. She denies having kidney problems in the past. Baseline creatinine unknown, 0.8 in 2018. She was admitted with a creatinine of 1.7. Increased to 2.2 yesterday and back to 1.8 today. Review of Systems Constitutional: Reports as per HPI Past Medical History Past Medical History: CVA/TIA Additional Past Medical History / Comment(s): anemia History of Any Multi-Drug Resistant Organisms: None Reported Additional Past Surgical History / Comment(s): vericose veins. Past Anesthesia/Blood Transfusion Reactions: No Reported Reaction Past Psychological History: No Psychological Hx Reported Past Alcohol Use History: None Reported Past Drug Use History: None Reported - Past Family History Father Family Medical History: Cancer Additional Family Medical History / Comment(s): lung ca Mother Additional Family Medical History / Comment(s): "heart problems" Medications and Allergies Home Medications Medication Instructions Recorded Confirmed Type Cholecalciferol [Vitamin D3] 400 unit PO DAILY 07/08/18 07/31/20 History Levothyroxine Sodium [Synthroid] 112 mcg PO DAILY 07/08/18 07/31/20 History Magnesium Oxide [Mag-Oxide] 200 mg PO DAILY 07/08/18 07/31/20 History Nitroglycerin Sl Tabs [Nitrostat] 0.4 mg SUBLINGUAL Q5M PRN 07/08/18 07/31/20 History Thiamine [Vitamin B-1] 50 mg PO DAILY 07/08/18 07/31/20 History allopurinoL [Zyloprim] 300 mg PO DAILY 07/08/18 07/31/20 History traZODone HCL 50 mg PO HS PRN 07/08/18 07/31/20 History ALPRAZolam [Xanax] 0.5 mg PO BID 07/31/20 07/31/20 History Aspirin EC [Ecotrin Low Dose] 81 mg PO DAILY 07/31/20 07/31/20 History Atorvastatin [Lipitor] 40 mg PO HS 07/31/20 07/31/20 History Clopidogrel [Plavix] 75 mg PO DAILY 07/31/20 07/31/20 History Diltiazem HCl [Cartia Xt] 180 mg PO DAILY 07/31/20 07/31/20 History Furosemide [Lasix] 40 mg PO BID 07/31/20 07/31/20 History Omeprazole 20 mg PO DAILY 07/31/20 07/31/20 History Potassium Chloride ER [K-Dur 20] 20 meq PO DAILY 07/31/20 07/31/20 History Potassium Chloride ER [K-Dur 20] 40 meq PO HS 07/31/20 07/31/20 History metFORMIN HCL [metFORMIN HCL ER] 750 mg PO DAILY 07/31/20 07/31/20 History metOLazone [Zaroxolyn] 5 mg PO DAILY PRN 07/31/20 07/31/20 History Allergies Allergy/AdvReac Type Severity Reaction Status Date / Time Penicillins AdvReac Unknown Verified 07/08/18 20:09 Physical Exam Vitals: Vital Signs Temp Pulse Resp BP Pulse Ox 08/02/20 11:03 97.5 F L 91 16 105/56 97 08/02/20 08:00 97.7 F 90 16 102/67 98 08/02/20 04:00 98.1 F 77 17 96/52 99 08/02/20 02:00 18 08/02/20 00:00 98.1 F 92 18 93/50 97 08/01/20 20:00 98.2 F 84 18 97/55 99 08/01/20 15:30 97.5 F L 92 16 98 Intake and Output 08/01/20 08/02/20 08/02/20 22:59 06:59 14:59 Intake Total 550 Output Total 825 2300 Balance -275 -2300 Intake: Intake, IV Titration 370 Amount Levofloxacin 750Mg-D5w 150 Pmx 750 mg In Dextrose/ Water 1 150ml.bag @ 100 mls/hr IVPB ONCE ONE Rx#: [id number] Sodium Chloride 0.9% 1, 220 000 ml @ 20 mls/hr IV . Q24H [facility] Rx#:[id number] Oral 180 Output: Urine 825 2300 Other: Voiding Method Indwelling Catheter Indwelling Catheter Indwelling Catheter # Voids 0 # Bowel Movements 0 Weight 72 kg No acute distress S1-S2 heard Diminished breath sounds abdomen soft No edema Results - Lab Results Most recent lab results Calcium 8.3 mg/dL (8.4-10.2) L 08/02/20 07:35 Phosphorus 5.9 mg/dL (2.5-4.5) H 08/01/20 07:18 Magnesium 3.5 mg/dL (1.6-2.3) H 08/01/20 07:18 08/02/20 07:35 08/02/20 07:35 Assessment and Plan Assessment: #1 nonoliguric acute kidney injury secondary to ischemic ATN with low blood pressures. #2 hematuria suspect complicated UTI #3 hyponatremia suspect hypovolemic #4 hypokalemia with alkalosis secondary to diuretics #5 atrial fibrillation #6 recent contrast use Plan: #1 stop Lasix and decrease Cardizem to 120 mg by mouth daily. #2 check urine analysis, urine electrolytes and osmolality including serum osmolality. #3 agree with replacing potassium, check magnesium in the morning #4 gentle hydration with normal saline at 50 ML's an hour. #5 avoid nephrotoxic agents and hypotensive episodes.
[2020-08-02 16:35] LABS: Glucose,Whole Blood 142 mg/dL (75-99)
[2020-08-02 20:28] LABS: Glucose,Whole Blood 216 mg/dL (75-99)
[2020-08-02] MEDS: ATORVASTATIN 40 MG TAB PO SCH (20:31)
[2020-08-02] MEDS: ALPRAZolam 0.5 MG TAB PO PRN (22:33)
[2020-08-03] MEDS: SODIUM CHLORIDE 0.9% 1,000 ML IV SCH ×2 (05:15→09:54)
[2020-08-03 06:07] LABS: Glucose,Whole Blood 155 mg/dL (75-99)
[2020-08-03] MEDS: LEVOTHYROXINE 112 MCG TAB PO SCH (06:24)
[2020-08-03] MEDS: PANTOPRAZOLE 40 MG TABLET PO SCH (06:24)
[2020-08-03] MEDS: FERROUS SULFATE 325 MG TAB PO SCH ×2 (06:24→17:13)
[2020-08-03] MEDS: INSULIN ASPART (NovoLOG) 100 UNIT/ML VIAL SQ SCH ×4 (06:24→20:22)
[2020-08-03 07:39] LABS: Appearance,Urine Cloudy (Clear); Bilirubin,Urine Negative (Negative); Blood,Urine Large (Negative); Color,Urine Light Red; Glucose,Urine (UA) Negative (Negative); Ketones,Urine Negative (Negative); Leukocyte Esterase,Urine Moderate (Negative); Mucus,Urine Rare /hpf; Nitrite,Urine Negative (Negative); Protein,Urine 1+ (Negative); RBC,Urine >182 /hpf (0-5); Specific Gravity,Urine 1.011 (1.001-1.035); Urobilinogen,Urine <2.0 mg/dL (<2.0); WBC,Urine 10 /hpf (0-5)
[2020-08-03 09:41] LABS: Anisocytosis Slight; Basophils % (A) 0 %; Eosinophils # (A) 0.1 k/uL (0-0.7); Eosinophils % (A) 1 %; HCT 28.1 % (34.0-46.0); HGB 8.8 gm/dL (11.4-16.0); Hypochromasia Marked; Lymphocytes # (A) 0.6 k/uL (1.0-4.8); Lymphocytes % (A) 9 %; MCH 26.1 pg (25.0-35.0); MCHC 31.4 g/dL (31.0-37.0); MCV 83.3 fL (80.0-100.0); Mean Platelet Volume 8.6; Microcytosis Slight; Monocytes # (A) 0.4 k/uL (0-1.0); Monocytes % (A) 6 %; Neutrophils # (A) 5.5 k/uL (1.3-7.7); Neutrophils % (A) 82 %; Platelet Count 227 k/uL (150-450); Poikilocytosis Moderate; RBC 3.37 m/uL (3.80-5.40); RDW 19.3 % (11.5-15.5); WBC 6.8 k/uL (3.8-10.6)
[2020-08-03 09:53] LABS: Calcium 8.1 mg/dL (8.4-10.2); Potassium 3.2 mmol/L (3.5-5.1)
[2020-08-03] MEDS: CHOLECALCIFEROL 400 UNIT TAB PO SCH (09:54)
[2020-08-03] MEDS: allopurinoL 100 MG TAB PO SCH (09:54)
[2020-08-03] MEDS: DILTIAZEM CD 120 MG CAP.ER.24H PO SCH (09:54)
[2020-08-03] MEDS: polyethylene glycoL 3350 17 GM POWD.PACK PO SCH (09:54)
[2020-08-03] MEDS: CLOPIDOGREL 75 MG TAB PO SCH (09:54)
[2020-08-03] MEDS ORDERED: LEVOFLOXACIN 500MG-D5W PMX 500 MG in DEXTROSE/WATER 1 100ML.BAG IVPB SCH (10:00)
--- NOTE | 2020-08-03 10:00 | P.PN ---
Subjective Progress Note Date: 08/03/20 This is a pleasant 80-year-old female with past medical history significant for coronary artery disease with prior PCI, prior TIA, peripheral vascular disease with prior left iliac stenting, chronic anemia, hypertension, chronic persistent atrial fibrillation, diabetes, chronic heart failure and hyperlipidemia. Cardiology was requested to see the patient because of atrial fibrillation with a rapid ventricular response. Initially patient presented to [facility] with symptoms of abdominal pain and blood in her catheter bag. She underwent stenting of the left iliac last week. Initially there was concern for possible retroperitoneal bleed however the CT of the abdomen and pelvis at [place] were unremarkable. Patient also had 2 instances of bright red blood in her stool over the weekend. Patient is not currently on oral anticoagulation, she will need to be initiated on oral anticoagulation for stroke prevention. Her Plavix has been resumed, aspirin continues to be on hold pending urology and GI evaluation. White blood cell count 6.8, hemoglobin 8.8, platelet count 227. BMP from this morning are pending. Patient continues to be in atrial fibrillation this morning, heart rate in the 80s. Objective - Vital Signs Vital signs: Vital Signs Temp 97.5 F L 08/03/20 04:00 Pulse 86 08/03/20 04:00 Resp 18 08/03/20 04:00 BP 112/56 08/03/20 04:00 Pulse Ox 95 08/03/20 04:00 Intake & Output 08/02/20 08/03/20 08/03/20 18:59 06:59 18:59 Intake Total 762 180 Output Total 900 800 225 Balance -138 -800 -45 Weight 71.441 kg Intake: IV 50 Sodium Chloride 0.9% 1, 50 000 ml @ 50 mls/hr IV . [facility] Rx#:[id number] Oral 712 180 Output: Urine 900 800 225 Other: Voiding Method Indwelling Catheter Indwelling Catheter # Voids 1 # Bowel Movements 1 0 - Exam PHYSICAL EXAMINATION: GENERAL: 80-year-old female in no acute distress at the time of my examination. HEENT: Head is atraumatic, normocephalic. Pupils equal, round. Sclera anicteric. Conjunctiva are clear. Mucous membranes of the mouth are moist. Neck is supple. There is no elevated jugular venous pressure. No carotid bruit is heard. HEART EXAMINATION: Heart S1, S2 irregularly irregular, systolic murmur heard . CHEST EXAMINATION: Lungs are clear to auscultation and precussion. No chest wall tenderness is noted on palpation or with deep breathing. ABDOMEN: Soft, obese, nontender. Bowel sounds are heard. No organomegaly noted. EXTREMITIES: 2+ peripheral pulses with no evidence of peripheral edema and no calf tenderness noted. NEUROLOGIC patient is awake, alert and oriented 3 . . - Labs CBC & Chem 7: 08/03/20 09:01 08/02/20 13:46 Labs: Abnormal Lab Results - Last 24 Hours (Table) 08/02/20 08/02/20 08/02/20 Range/Units 07:35 12:19 13:46 RBC (3.80-5.40) m/uL Hgb (11.4-16.0) gm/dL Hct (34.0-46.0) % RDW (11.5-15.5) % Lymphocytes # (1.0-4.8) k/uL Potassium 3.0 L (3.5-5.1) mmol/L POC Glucose (mg/dL) 160 H (75-99) mg/dL Procalcitonin 0.42 H (0.02-0.09) ng/mL Urine Appearance (Clear) Urine Protein (Negative) Urine Blood (Negative) Ur Leukocyte Esterase (Negative) Urine RBC (0-5) /hpf Urine WBC (0-5) /hpf Urine Mucus (None) /hpf 08/02/20 08/02/20 08/03/20 Range/Units 16:34 20:27 06:05 RBC (3.80-5.40) m/uL Hgb (11.4-16.0) gm/dL Hct (34.0-46.0) % RDW (11.5-15.5) % Lymphocytes # (1.0-4.8) k/uL Potassium (3.5-5.1) mmol/L POC Glucose (mg/dL) 142 H 216 H 155 H (75-99) mg/dL Procalcitonin (0.02-0.09) ng/mL Urine Appearance (Clear) Urine Protein (Negative) Urine Blood (Negative) Ur Leukocyte Esterase (Negative) Urine RBC (0-5) /hpf Urine WBC (0-5) /hpf Urine Mucus (None) /hpf 08/03/20 08/03/20 Range/Units 07:00 09:01 RBC 3.37 L (3.80-5.40) m/uL Hgb 8.8 L (11.4-16.0) gm/dL Hct 28.1 L (34.0-46.0) % RDW 19.3 H (11.5-15.5) % Lymphocytes # 0.6 L (1.0-4.8) k/uL Potassium (3.5-5.1) mmol/L POC Glucose (mg/dL) (75-99) mg/dL Procalcitonin (0.02-0.09) ng/mL Urine Appearance Cloudy H (Clear) Urine Protein 1+ H (Negative) Urine Blood Large H (Negative) Ur Leukocyte Esterase Moderate H (Negative) Urine RBC >182 H (0-5) /hpf Urine WBC 10 H (0-5) /hpf Urine Mucus Rare H (None) /hpf Microbiology - Last 24 Hours (Table) 07/31/20 22:15 Urine Culture - Final Urine,Voided Assessment and Plan Plan: Assessment and plan #1 chronic persistent atrial fibrillation, not currently on oral anticoagulation #2 peripheral vascular disease, status post iliac stenting in July of this year #3 chronic systolic congestive heart failure #4 hematuria, persistent #5 anemia #6 acute kidney injury #7 hypertension #8 hyperlipidemia #9 diabetes #10 coronary artery disease with prior PCI Plan Patient is currently on Plavix, aspirin remains on hold at this time. Patient will need to be initiated on oral anticoagulation, preferably in the form of Eliquis 2-1/2 mg one tablet by mouth twice a day. We await clearance for this from urology, patient is actually been cleared by GI service to resume oral anticoagulation per their note from August 01. DNP note has been reviewed, I agree with a documented findings and plan of care. Patient was seen and examined.
[2020-08-03] MEDS ORDERED: Potassium Replacement Protocol 1 EACH MISC MISCELLANE PRN ×2 (10:02→15:58)
[2020-08-03] MEDS: POTASSIUM CHLORIDE ER 20 MEQ TAB.ER PO SCH ×4 (10:10→18:35)
--- NOTE | 2020-08-03 10:22 | P.PN ---
Subjective Progress Note Date: 08/03/20 the patient is in the hospital multiple medical problems including blood per Hayes catheter. She had a catheter placed in [place] after vascular procedures. There is questionable urine retention. I remove the catheter yesterday for a voiding trial but she was unable to void probably due to clots as the nursing staff on January replaced it irrigated clot out of the bladder. I recommend leaving the catheter in place until it turns clear. Once it turns clear we'll try one more voiding trial. If she is unable to void then she'll need cystoscopy and urodynamics. This can be done as outpatient. Objective - Vital Signs Vital signs: Vital Signs Temp 97.5 F L 08/03/20 04:00 Pulse 86 08/03/20 04:00 Resp 18 08/03/20 04:00 BP 112/56 08/03/20 04:00 Pulse Ox 95 08/03/20 04:00 Intake & Output 08/02/20 08/03/20 08/03/20 18:59 06:59 18:59 Intake Total 762 180 Output Total 900 800 225 Balance -138 -800 -45 Weight 71.441 kg Intake: IV 50 Sodium Chloride 0.9% 1, 50 000 ml @ 50 mls/hr IV . Q20H [facility] Rx#:[id number] Oral 712 180 Output: Urine 900 800 225 Other: Voiding Method Indwelling Catheter Indwelling Catheter # Voids 1 # Bowel Movements 1 0 - Labs CBC & Chem 7: 08/03/20 09:01 08/03/20 09:19 Labs: Abnormal Lab Results - Last 24 Hours (Table) 08/02/20 08/02/20 08/02/20 Range/Units 07:35 12:19 13:46 RBC (3.80-5.40) m/uL Hgb (11.4-16.0) gm/dL Hct (34.0-46.0) % RDW (11.5-15.5) % Lymphocytes # (1.0-4.8) k/uL Sodium (137-145) mmol/L Potassium 3.0 L (3.5-5.1) mmol/L Chloride (98-107) mmol/L BUN (7-17) mg/dL Creatinine (0.52-1.04) mg/dL Glucose (74-99) mg/dL POC Glucose (mg/dL) 160 H (75-99) mg/dL Calcium (8.4-10.2) mg/dL Procalcitonin 0.42 H (0.02-0.09) ng/mL Urine Appearance (Clear) Urine Protein (Negative) Urine Blood (Negative) Ur Leukocyte Esterase (Negative) Urine RBC (0-5) /hpf Urine WBC (0-5) /hpf Urine Mucus (None) /hpf 08/02/20 08/02/20 08/03/20 Range/Units 16:34 20:27 06:05 RBC (3.80-5.40) m/uL Hgb (11.4-16.0) gm/dL Hct (34.0-46.0) % RDW (11.5-15.5) % Lymphocytes # (1.0-4.8) k/uL Sodium (137-145) mmol/L Potassium (3.5-5.1) mmol/L Chloride (98-107) mmol/L BUN (7-17) mg/dL Creatinine (0.52-1.04) mg/dL Glucose (74-99) mg/dL POC Glucose (mg/dL) 142 H 216 H 155 H (75-99) mg/dL Calcium (8.4-10.2) mg/dL Procalcitonin (0.02-0.09) ng/mL Urine Appearance (Clear) Urine Protein (Negative) Urine Blood (Negative) Ur Leukocyte Esterase (Negative) Urine RBC (0-5) /hpf Urine WBC (0-5) /hpf Urine Mucus (None) /hpf 08/03/20 08/03/20 08/03/20 Range/Units 07:00 09:01 09:19 RBC 3.37 L (3.80-5.40) m/uL Hgb 8.8 L (11.4-16.0) gm/dL Hct 28.1 L (34.0-46.0) % RDW 19.3 H (11.5-15.5) % Lymphocytes # 0.6 L (1.0-4.8) k/uL Sodium 133 L (137-145) mmol/L Potassium 3.2 L (3.5-5.1) mmol/L Chloride 97 L (98-107) mmol/L BUN 39 H (7-17) mg/dL Creatinine 1.60 H (0.52-1.04) mg/dL Glucose 182 H (74-99) mg/dL POC Glucose (mg/dL) (75-99) mg/dL Calcium 8.1 L (8.4-10.2) mg/dL Procalcitonin (0.02-0.09) ng/mL Urine Appearance Cloudy H (Clear) Urine Protein 1+ H (Negative) Urine Blood Large H (Negative) Ur Leukocyte Esterase Moderate H (Negative) Urine RBC >182 H (0-5) /hpf Urine WBC 10 H (0-5) /hpf Urine Mucus Rare H (None) /hpf Microbiology - Last 24 Hours (Table) 07/31/20 22:15 Urine Culture - Final Urine,Voided
--- NOTE | 2020-08-03 12:02 | P.PN ---
Subjective 78-year-old pleasant female with history of atrial fibrillation on the anticoagulation with Xarelto, previous history of GI bleed and gastric ulcer, CVA/TIA. Patient follow-up with Dr. Birch who is recently retired at [facility] and she is looking for a new PCP now. She went to [facility] for right leg pain were stent was placed, she was discharged home 3 days ago, last Thursday, at [facility] Hayes catheter was placed and states it was bloody at that time. She was sent home with a Hayes catheter, however she started feeling uncomfortable in her bladder where the Hayes felt like hurting but she denies any abdominal pain, she felt that she has to P old time and there was blood in the urine catheter so she decided to come to the hospital. She denies any nausea vomiting. No chest pain or dyspnea. She is on 2 L oxygen via nasal cannula at home, it was bumped up to 4 L at [facility] as per patient, she has chronic hypoxic respiratory failure related to her COPD. She denies chest pain or headache or weakness. Originally she was on aspirin daily however she states the last of added to her and [employer]. Patient was noted to be on Plavix 75 mg and aspirin 81 mg at home. She denies smoking, she drinks couple cups of wine every week. No illicit drugs On admission her blood pressure was 101/88, this morning was 83/63. However repeat blood pressure went up to 101/59, heart rate on admission was 138, currently is 108, she is saturating 95% on 4 L oxygen via nasal cannula Labs on admission showed hemoglobin of 7.4, rest of the CBC is unremarkable. INR is 1.2. EKG showing atrial fibrillation's with RVR at 133. 08/01/2020 Patient is lying in bed comfortable. No distress. She is not tachypneic. However she still on 4 L oxygen via nasal cannula compared to his doctor at home. No coughing or chest pain but she has bilateral basal crepitation.. Patient feels generally better today, she was admitted mainly for discomfort in her urinary bladder area which is improved today She is hemodynamically stable other than that. Labs from today are still pending. Sugars controlled. Iron study showing iron deficiency anemia with iron low at 21, normal TIBC at 397 and low iron saturation at 5.2%. And normal ferritin at 45. 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 No abdominal pain. And she tolerates diet. She is on Protonix IV daily. Occult blood in stool still pending There is blood in the urine. Urinalysis showing urine RBC more than 182, urine WBC of more than 182. Urine culture is ordered and is pending, patient will be started on Levaquin empirically for possible UTI pending UC, patient is ALLERGIC to penicillin Dr. Elias evaluated the patient and recommended to discontinue Hayes catheter and check PVR. Also recommended to follow up as an outpatient for possible cystoscopy. Patient informed and she agrees. Risks including but not limited to cancer explained to him and she verbalized understanding. Also she has acute kidney injury from yesterday with creatinine 1.7, could be related to her CHF exacerbation in view of basal crepitation and more oxygen requirement. Chest x-ray also was abnormal. We changed her Lasix from 40 mg orally to intravenously today. Echocardiogram is still pending. Heart rate is controlled on oral medication. Xarelto is on hold for hematuria 08/02/2020 Patient still feels generally weak. She still have hematuria through the Hayes catheter. No chest pain or significant dyspnea at rest. She saturating 98% 4 L oxygen via nasal cannula. Her creatinine is down to 1.8 today however her potassium is 2.4 and his been replaced, morning dose of Lasix is been held because of the significantly low potassium. Sodium 131. Blood pressure is a stable, is chronically low while the patient is asymptomatic.Occult blood in the stool is negative. Xarelto still on hold. Patient still on Plavix but aspirin is still on hold as well. Hemoglobin stable at 9.1 She continue on Levaquin for possible UTI, urine cultures pending. 08/03/2020 Today clinically the same, she feels generally weak, however she is breathing quietly and she saturating 99% and a 3 L oxygen via nasal cannula, no much basal crepitation after she was started on IV fluids. She still have the Hayes catheter with some blood in it although it's less severe compared to yesterday. Hemoglobin only slightly lower than yesterday from 9.1 down to 8.1. Patient is on iron panel added yesterday. Also she is on the Plavix however aspirin is on hold. Urine analysis is suspicious for infection, urine culture has been sent and the result is pending, first urine culture is negative but we are going to repeat it.o OxyContinnin is appreciated and they lowered dose of Cardizem from 180 down to 120. Blood pressure today slightly stable at 103/61. Heart rate is 88. Also normal saline at 50 mL per hour was added and creatinine slightly better today at 1.6. Objective - Vital Signs Vital signs: Vital Signs Temp 97.4 F L 08/03/20 08:00 Pulse 88 08/03/20 08:00 Resp 18 08/03/20 08:00 BP 103/61 08/03/20 08:00 Pulse Ox 99 08/03/20 08:00 Intake & Output 08/02/20 08/03/20 08/03/20 18:59 06:59 18:59 Intake Total 762 180 Output Total 900 800 225 Balance -138 -800 -45 Weight 71.441 kg Intake: IV 50 Sodium Chloride 0.9% 1, 50 000 ml @ 50 mls/hr IV . Q20H [facility] Rx#:[id number] Oral 712 180 Output: Urine 900 800 225 Other: Voiding Method Indwelling Catheter Indwelling Catheter # Voids 1 # Bowel Movements 1 0 - Exam GENERAL: The patient is alert and oriented x3, not in any acute distress. Well developed, well nourished. HEENT: Pupils are round and equally reacting to light. EOMI. No scleral icterus. No conjunctival pallor. Normocephalic, atraumatic. No pharyngeal erythema. No thyromegaly. CARDIOVASCULAR: S1 and S2 present. No murmurs, rubs, or gallops. -PULMONARY: Chest is clear to auscultation, no wheezing or crackles. Bilateral basal crepitation -ABDOMEN: Soft, nontender, nondistended, normoactive bowel sounds. No palpable organomegaly. Hayes catheter is in place with blood-colored urine MUSCULOSKELETAL: No joint swelling or deformity. EXTREMITIES: No cyanosis, clubbing, or pedal edema. NEUROLOGICAL: Gross neurological examination did not reveal any focal deficits. SKIN: No rashes. No petechiae - Labs CBC & Chem 7: 08/03/20 09:01 08/03/20 09:19 Labs: Abnormal Lab Results - Last 24 Hours (Table) 08/02/20 08/02/20 08/02/20 Range/Units 07:35 12:19 13:46 RBC (3.80-5.40) m/uL Hgb (11.4-16.0) gm/dL Hct (34.0-46.0) % RDW (11.5-15.5) % Lymphocytes # (1.0-4.8) k/uL Sodium (137-145) mmol/L Potassium 3.0 L (3.5-5.1) mmol/L Chloride (98-107) mmol/L BUN (7-17) mg/dL Creatinine (0.52-1.04) mg/dL Glucose (74-99) mg/dL POC Glucose (mg/dL) 160 H (75-99) mg/dL Calcium (8.4-10.2) mg/dL Procalcitonin 0.42 H (0.02-0.09) ng/mL Urine Appearance (Clear) Urine Protein (Negative) Urine Blood (Negative) Ur Leukocyte Esterase (Negative) Urine RBC (0-5) /hpf Urine WBC (0-5) /hpf Urine Mucus (None) /hpf 08/02/20 08/02/20 08/03/20 Range/Units 16:34 20:27 06:05 RBC (3.80-5.40) m/uL Hgb (11.4-16.0) gm/dL Hct (34.0-46.0) % RDW (11.5-15.5) % Lymphocytes # (1.0-4.8) k/uL Sodium (137-145) mmol/L Potassium (3.5-5.1) mmol/L Chloride (98-107) mmol/L BUN (7-17) mg/dL Creatinine (0.52-1.04) mg/dL Glucose (74-99) mg/dL POC Glucose (mg/dL) 142 H 216 H 155 H (75-99) mg/dL Calcium (8.4-10.2) mg/dL Procalcitonin (0.02-0.09) ng/mL Urine Appearance (Clear) Urine Protein (Negative) Urine Blood (Negative) Ur Leukocyte Esterase (Negative) Urine RBC (0-5) /hpf Urine WBC (0-5) /hpf Urine Mucus (None) /hpf 08/03/20 08/03/20 08/03/20 Range/Units 07:00 09:01 09:19 RBC 3.37 L (3.80-5.40) m/uL Hgb 8.8 L (11.4-16.0) gm/dL Hct 28.1 L (34.0-46.0) % RDW 19.3 H (11.5-15.5) % Lymphocytes # 0.6 L (1.0-4.8) k/uL Sodium 133 L (137-145) mmol/L Potassium 3.2 L (3.5-5.1) mmol/L Chloride 97 L (98-107) mmol/L BUN 39 H (7-17) mg/dL Creatinine 1.60 H (0.52-1.04) mg/dL Glucose 182 H (74-99) mg/dL POC Glucose (mg/dL) (75-99) mg/dL Calcium 8.1 L (8.4-10.2) mg/dL Procalcitonin (0.02-0.09) ng/mL Urine Appearance Cloudy H (Clear) Urine Protein 1+ H (Negative) Urine Blood Large H (Negative) Ur Leukocyte Esterase Moderate H (Negative) Urine RBC >182 H (0-5) /hpf Urine WBC 10 H (0-5) /hpf Urine Mucus Rare H (None) /hpf Microbiology - Last 24 Hours (Table) 07/31/20 22:15 Urine Culture - Final Urine,Voided Assessment and Plan Assessment: Acute hematuria, could to be related to recent Hayes catheter. Rule out UTI, continue with Levaquin empirically Acute blood loss anemia Possible acute systolic CHF, ejection fraction: 40-45% Acute and chronic hypoxic respiratory failure secondary to above Paroxysmal atrial fibrillation with RVR, was on Xarelto Anemia, Rule out GI bleed History of gastric ulcer in 2018 History of CVA/TIA Plan: This is a pleasant 80 years old female who presents with A. fib and low hemoglobin suspicious for blood in urine and Hayes catheter. At [facility], follow-up urine culture. Follow-up recommendation by urologist who recommended to discontinue Hayes catheter. However we will keep Hayes catheter as patient has persistent hematuria Continue with iron pills. Continue with Protonix. Continue holding aspirin and Xarelto Continue with Lasix. Continue holding Xarelto and resume as per GI/urology services. Continue Cardizem and monitor heart rate. Continue with Plavix Follow-up recommendation by urology, GI team and cardiology team. Pain management. Labs and medication were reviewed.. Continue same treatment. Continue with symptomatic treatment. Resume home medication. Monitor lytes and vitals. DVT and GI prophylaxis. Further recommendationsas per clinical course of the patient DVT prophylaxis: Hold anticoagulation in view of blood in urine GI Prophylaxis: Ppi PT/OT: Pending Prognosis is guarded
[2020-08-03 12:12] LABS: Glucose,Whole Blood 150 mg/dL (75-99)
[2020-08-03] MEDS: METOPROLOL TARTRATE 25 MG TAB PO SCH ×2 (15:18→20:16)
--- NOTE | 2020-08-03 16:31 | P.PN ---
Subjective Progress Note Date: 08/03/20 Follow-up for acute kidney injury. Objective - Vital Signs Vital signs: Vital Signs Temp 97.4 F L 08/03/20 15:13 Pulse 118 H 08/03/20 15:13 Resp 18 08/03/20 15:13 BP 110/69 08/03/20 15:13 Pulse Ox 95 08/03/20 15:13 Intake & Output 08/02/20 08/03/20 08/03/20 18:59 06:59 18:59 Intake Total 762 680 Output Total 900 800 225 Balance -138 -800 455 Weight 71.441 kg Intake: IV 50 500 Levofloxacin 500Mg-D5w 100 Pmx 500 mg In Dextrose/ Water 1 100ml.bag @ 100 mls/hr IVPB Q48H [facility] Rx#: [id number] Sodium Chloride 0.9% 1, 50 400 000 ml @ 50 mls/hr IV . Q20H [facility] Rx#:[id number] Oral 712 180 Output: Urine 900 800 225 Other: Voiding Method Indwelling Catheter Indwelling Catheter Indwelling Catheter # Voids 1 # Bowel Movements 1 0 - Exam No acute distress S1-S2 heard Lungs clear Abdomen soft Hayes, dark bloody urine Trace edema - Labs CBC & Chem 7: 08/03/20 09:01 08/03/20 15:01 Labs: Abnormal Lab Results - Last 24 Hours (Table) 08/02/20 08/02/20 08/03/20 Range/Units 16:34 20:27 06:05 RBC (3.80-5.40) m/uL Hgb (11.4-16.0) gm/dL Hct (34.0-46.0) % RDW (11.5-15.5) % Lymphocytes # (1.0-4.8) k/uL Sodium (137-145) mmol/L Potassium (3.5-5.1) mmol/L Chloride (98-107) mmol/L BUN (7-17) mg/dL Creatinine (0.52-1.04) mg/dL Glucose (74-99) mg/dL POC Glucose (mg/dL) 142 H 216 H 155 H (75-99) mg/dL Calcium (8.4-10.2) mg/dL Urine Appearance (Clear) Urine Protein (Negative) Urine Blood (Negative) Ur Leukocyte Esterase (Negative) Urine RBC (0-5) /hpf Urine WBC (0-5) /hpf Urine Mucus (None) /hpf 08/03/20 08/03/20 08/03/20 Range/Units 07:00 09:01 09:19 RBC 3.37 L (3.80-5.40) m/uL Hgb 8.8 L (11.4-16.0) gm/dL Hct 28.1 L (34.0-46.0) % RDW 19.3 H (11.5-15.5) % Lymphocytes # 0.6 L (1.0-4.8) k/uL Sodium 133 L (137-145) mmol/L Potassium 3.2 L (3.5-5.1) mmol/L Chloride 97 L (98-107) mmol/L BUN 39 H (7-17) mg/dL Creatinine 1.60 H (0.52-1.04) mg/dL Glucose 182 H (74-99) mg/dL POC Glucose (mg/dL) (75-99) mg/dL Calcium 8.1 L (8.4-10.2) mg/dL Urine Appearance Cloudy H (Clear) Urine Protein 1+ H (Negative) Urine Blood Large H (Negative) Ur Leukocyte Esterase Moderate H (Negative) Urine RBC >182 H (0-5) /hpf Urine WBC 10 H (0-5) /hpf Urine Mucus Rare H (None) /hpf 08/03/20 08/03/20 Range/Units 12:09 15:01 RBC (3.80-5.40) m/uL Hgb (11.4-16.0) gm/dL Hct (34.0-46.0) % RDW (11.5-15.5) % Lymphocytes # (1.0-4.8) k/uL Sodium (137-145) mmol/L Potassium 3.4 L (3.5-5.1) mmol/L Chloride (98-107) mmol/L BUN (7-17) mg/dL Creatinine (0.52-1.04) mg/dL Glucose (74-99) mg/dL POC Glucose (mg/dL) 150 H (75-99) mg/dL Calcium (8.4-10.2) mg/dL Urine Appearance (Clear) Urine Protein (Negative) Urine Blood (Negative) Ur Leukocyte Esterase (Negative) Urine RBC (0-5) /hpf Urine WBC (0-5) /hpf Urine Mucus (None) /hpf Microbiology - Last 24 Hours (Table) 08/03/20 10:06 Urine Culture - Preliminary Urine,Catheterized 07/31/20 22:15 Urine Culture - Final Urine,Voided Assessment and Plan Assessment: #1 nonoliguric acute kidney injury secondary to ischemic ATN with low blood pressures. #2 hematuria suspect complicated UTI #3 hyponatremia suspect hypovolemic #4 hypokalemia with alkalosis secondary to diuretics #5 atrial fibrillation #6 recent contrast use Plan: #1 renal function stable. Continue with fluids for today. #2 hypnotics for urinary tract infection. #3 agree with replacing potassium, check magnesium in the morning #4 gentle hydration with normal saline at 50 ML's an hour. #5 avoid nephrotoxic agents and hypotensive episodes.
[2020-08-03 17:00] LABS: Glucose,Whole Blood 116 mg/dL (75-99)
[2020-08-03] MEDS: POTASSIUM CHLORIDE ER 10 MEQ TAB.ER.PRT PO SCH (20:16)
[2020-08-03] MEDS: ATORVASTATIN 40 MG TAB PO SCH (20:16)
[2020-08-03 20:19] LABS: Glucose,Whole Blood 171 mg/dL (75-99)
[2020-08-03] MEDS: ALPRAZolam 0.5 MG TAB PO PRN (20:21)
[2020-08-04] MEDS: SODIUM CHLORIDE 0.9% 1,000 ML IV SCH ×2 (00:12→06:50)
[2020-08-04 06:08] LABS: Glucose,Whole Blood 131 mg/dL (75-99)
[2020-08-04] MEDS: LEVOTHYROXINE 112 MCG TAB PO SCH (06:45)
[2020-08-04] MEDS: FERROUS SULFATE 325 MG TAB PO SCH ×2 (06:45→17:32)
[2020-08-04] MEDS: PANTOPRAZOLE 40 MG TABLET PO SCH (06:45)
[2020-08-04] MEDS: INSULIN ASPART (NovoLOG) 100 UNIT/ML VIAL SQ SCH ×4 (06:46→21:09)
[2020-08-04] MEDS: METOPROLOL TARTRATE 25 MG TAB PO SCH ×2 (09:12→21:07)
[2020-08-04] MEDS: CLOPIDOGREL 75 MG TAB PO SCH (09:12)
[2020-08-04] MEDS: DILTIAZEM CD 120 MG CAP.ER.24H PO SCH (09:12)
[2020-08-04] MEDS: POTASSIUM CHLORIDE ER 10 MEQ TAB.ER.PRT PO SCH (09:12)
[2020-08-04] MEDS: allopurinoL 100 MG TAB PO SCH (09:12)
[2020-08-04] MEDS: polyethylene glycoL 3350 17 GM POWD.PACK PO SCH (09:13)
[2020-08-04 09:25] LABS: Anisocytosis Slight; Basophils % (A) 1 %; Eosinophils # (A) 0.1 k/uL (0-0.7); Eosinophils % (A) 1 %; HCT 30.7 % (34.0-46.0); Hypochromasia Marked; Lymphocytes # (A) 0.8 k/uL (1.0-4.8); Lymphocytes % (A) 12 %; MCH 25.1 pg (25.0-35.0); MCHC 29.5 g/dL (31.0-37.0); MCV 85.3 fL (80.0-100.0); Mean Platelet Volume 8.3; Monocytes # (A) 0.4 k/uL (0-1.0); Monocytes % (A) 5 %; Neutrophils # (A) 5.6 k/uL (1.3-7.7); Neutrophils % (A) 80 %; Platelet Count 266 k/uL (150-450); Poikilocytosis Moderate; RDW 19.1 % (11.5-15.5)
[2020-08-04 09:36] LABS: Calcium 8.2 mg/dL (8.4-10.2); Magnesium 3.2 mg/dL (1.6-2.3); Potassium 4.8 mmol/L (3.5-5.1)
--- NOTE | 2020-08-04 10:28 | P.PN ---
Subjective Progress Note Date: 08/04/20 The patient's hemoglobin remained stable. There is still some old blood dissolving in the bladder. I will not Hayes catheter until urine is perfectly clear signal in that all the old blood clot is gone. At that point in time a voiding trial be appropriate. Objective - Vital Signs Vital signs: Vital Signs Temp 97.7 F 08/04/20 09:12 Pulse 99 08/04/20 09:12 Resp 18 08/04/20 09:12 BP 101/72 08/04/20 09:12 Pulse Ox 97 08/04/20 09:12 Intake & Output 08/03/20 08/04/20 08/04/20 18:59 06:59 18:59 Intake Total 860 Output Total 1325 400 200 Balance -465 -400 -200 Weight 70.6 kg Intake: IV 500 Levofloxacin 500Mg-D5w 100 Pmx 500 mg In Dextrose/ Water 1 100ml.bag @ 100 mls/hr IVPB Q48H [facility] Rx#: [id number] Sodium Chloride 0.9% 1, 400 000 ml @ 50 mls/hr IV . Q20H [facility] Rx#:[id number] Oral 360 Output: Urine 1325 400 200 Uretheral (Hayes) 200 Other: Voiding Method Indwelling Catheter Indwelling Catheter Indwelling Catheter # Voids 1 2 # Bowel Movements 1 1 1 - Labs CBC & Chem 7: 08/04/20 07:55 08/04/20 07:55 Labs: Abnormal Lab Results - Last 24 Hours (Table) 08/03/20 08/03/20 08/03/20 Range/Units 12:09 15:01 16:56 RBC (3.80-5.40) m/uL Hgb (11.4-16.0) gm/dL Hct (34.0-46.0) % MCHC (31.0-37.0) g/dL RDW (11.5-15.5) % Lymphocytes # (1.0-4.8) k/uL Sodium (137-145) mmol/L Potassium 3.4 L (3.5-5.1) mmol/L BUN (7-17) mg/dL Creatinine (0.52-1.04) mg/dL Glucose (74-99) mg/dL POC Glucose (mg/dL) 150 H 116 H (75-99) mg/dL Calcium (8.4-10.2) mg/dL Magnesium (1.6-2.3) mg/dL 08/03/20 08/04/20 08/04/20 Range/Units 20:17 06:07 07:55 RBC 3.60 L (3.80-5.40) m/uL Hgb 9.0 L (11.4-16.0) gm/dL Hct 30.7 L (34.0-46.0) % MCHC 29.5 L (31.0-37.0) g/dL RDW 19.1 H (11.5-15.5) % Lymphocytes # 0.8 L (1.0-4.8) k/uL Sodium (137-145) mmol/L Potassium (3.5-5.1) mmol/L BUN (7-17) mg/dL Creatinine (0.52-1.04) mg/dL Glucose (74-99) mg/dL POC Glucose (mg/dL) 171 H 131 H (75-99) mg/dL Calcium (8.4-10.2) mg/dL Magnesium (1.6-2.3) mg/dL 08/04/20 Range/Units 07:55 RBC (3.80-5.40) m/uL Hgb (11.4-16.0) gm/dL Hct (34.0-46.0) % MCHC (31.0-37.0) g/dL RDW (11.5-15.5) % Lymphocytes # (1.0-4.8) k/uL Sodium 133 L (137-145) mmol/L Potassium (3.5-5.1) mmol/L BUN 37 H (7-17) mg/dL Creatinine 1.56 H (0.52-1.04) mg/dL Glucose 115 H (74-99) mg/dL POC Glucose (mg/dL) (75-99) mg/dL Calcium 8.2 L (8.4-10.2) mg/dL Magnesium 3.2 H (1.6-2.3) mg/dL Microbiology - Last 24 Hours (Table) 08/03/20 10:06 Urine Culture - Preliminary Urine,Catheterized
[2020-08-04] MEDS: CHOLECALCIFEROL 400 UNIT TAB PO SCH (11:16)
[2020-08-04 11:19] LABS: Glucose,Whole Blood 124 mg/dL (75-99)
--- NOTE | 2020-08-04 14:21 | P.PN ---
Subjective Progress Note Date: 08/04/20 Follow-up for acute kidney injury. Objective - Vital Signs Vital signs: Vital Signs Temp 97.4 F L 08/04/20 11:57 Pulse 78 08/04/20 11:57 Resp 16 08/04/20 13:55 BP 96/63 08/04/20 11:57 Pulse Ox 99 08/04/20 11:57 Intake & Output 08/03/20 08/04/20 08/04/20 18:59 06:59 18:59 Intake Total 860 60 Output Total 1325 400 260 Balance -465 -400 -200 Weight 70.6 kg Intake: IV 500 Levofloxacin 500Mg-D5w 100 Pmx 500 mg In Dextrose/ Water 1 100ml.bag @ 100 mls/hr IVPB Q48H [facility] Rx#: [id number] Sodium Chloride 0.9% 1, 400 000 ml @ 50 mls/hr IV . Q20H [facility] Rx#:[id number] Oral 360 60 Output: Urine 1325 400 260 Uretheral (Hayes) 260 Other: Voiding Method Indwelling Catheter Indwelling Catheter Indwelling Catheter # Voids 1 2 # Bowel Movements 1 1 1 - Exam No acute distress S1-S2 heard Lungs clear Abdomen soft Hayes, dark bloody urine Trace edema - Labs CBC & Chem 7: 08/04/20 07:55 08/04/20 07:55 Labs: Abnormal Lab Results - Last 24 Hours (Table) 08/03/20 08/03/20 08/03/20 Range/Units 15:01 16:56 20:17 RBC (3.80-5.40) m/uL Hgb (11.4-16.0) gm/dL Hct (34.0-46.0) % MCHC (31.0-37.0) g/dL RDW (11.5-15.5) % Lymphocytes # (1.0-4.8) k/uL Sodium (137-145) mmol/L Potassium 3.4 L (3.5-5.1) mmol/L BUN (7-17) mg/dL Creatinine (0.52-1.04) mg/dL Glucose (74-99) mg/dL POC Glucose (mg/dL) 116 H 171 H (75-99) mg/dL Calcium (8.4-10.2) mg/dL Magnesium (1.6-2.3) mg/dL 08/04/20 08/04/20 08/04/20 Range/Units 06:07 07:55 07:55 RBC 3.60 L (3.80-5.40) m/uL Hgb 9.0 L (11.4-16.0) gm/dL Hct 30.7 L (34.0-46.0) % MCHC 29.5 L (31.0-37.0) g/dL RDW 19.1 H (11.5-15.5) % Lymphocytes # 0.8 L (1.0-4.8) k/uL Sodium 133 L (137-145) mmol/L Potassium (3.5-5.1) mmol/L BUN 37 H (7-17) mg/dL Creatinine 1.56 H (0.52-1.04) mg/dL Glucose 115 H (74-99) mg/dL POC Glucose (mg/dL) 131 H (75-99) mg/dL Calcium 8.2 L (8.4-10.2) mg/dL Magnesium 3.2 H (1.6-2.3) mg/dL 08/04/20 Range/Units 11:18 RBC (3.80-5.40) m/uL Hgb (11.4-16.0) gm/dL Hct (34.0-46.0) % MCHC (31.0-37.0) g/dL RDW (11.5-15.5) % Lymphocytes # (1.0-4.8) k/uL Sodium (137-145) mmol/L Potassium (3.5-5.1) mmol/L BUN (7-17) mg/dL Creatinine (0.52-1.04) mg/dL Glucose (74-99) mg/dL POC Glucose (mg/dL) 124 H (75-99) mg/dL Calcium (8.4-10.2) mg/dL Magnesium (1.6-2.3) mg/dL Microbiology - Last 24 Hours (Table) 08/03/20 10:06 Urine Culture - Preliminary Urine,Catheterized Group D Enterococcus Assessment and Plan Assessment: #1 nonoliguric acute kidney injury secondary to ischemic ATN with low blood pressures. #2 hematuria suspect complicated UTI #3 hyponatremia suspect hypovolemic #4 hypokalemia with alkalosis secondary to diuretics #5 atrial fibrillation #6 recent contrast use Plan: #1 renal function stable. Stop fluids. #2 antibiotics for urinary tract infection. #3 stop potassium supplements #4 discontinue Hayes and monitor PVRs. #5 avoid nephrotoxic agents and hypotensive episodes.
--- NOTE | 2020-08-04 14:51 | P.PN ---
Subjective Progress Note Date: 08/04/20 HISTORY OF PRESENT ILLNESS: 07/31/2020: This is a pleasant 80-year-old female past medical history significant for coronary artery disease s/p PCI exact details unavailable, peripheral vascular disease s/p left iliac stenting , July 26, chronic anemia, hypertension, chronic persistent atrial fibrillation, diabetes mellitus, chronic heart failure and dyslipidemia. She used to follow in the office with Dr. Correa until his care home and has not re-established care with a threading machine feeder automatic. We have been asked to see in consultation for a-fib with RVR. According to the patient she initially presented to [facility] with symptoms of abdominal pain and blood in her catheter bag. She underwent stenting to the left iliac via the right femoral artery last week. Initially the concern was for possible retroperioneal bleed, however CT of the abdomen/pelvis at [facility] was unremarkable. The patient is unsure why she has a Hayes catheter in place. She states she left the hospital last week with it. She complains of mild shortness of breath mostly with activity. She also states she had noticed 2 instances of bright red blood in her stool over the weekend. She has no symptoms of chest pain, dizziness or palpitations. On arrival she was initiated on IV Cardizem however through the night her blood pressures were not tolerating and it has been discontinued. 08/01/2020: Patient examined this morning at the bedside. Patient continues to have hematuria. Her Hayes was discontinued this morning. She has been evaluated by urology. She remains on IV Lasix. Creatinine increased today to 2.28, up from 1.73 yesterday. She remains in atrial fibrillation with controlled ventricular rate. Echocardiogram reveals ejection fraction 40-45%, moderate mitral regurgitation, severe tricuspid regurgitation, moderate pulmonary hypertension. 08/02/2020 Patient examined this morning at the bedside. She denies chest pain or pressure. Denies shortness of breath. Patient was transitioned to oral Lasix yesterday. Her potassium this morning is 2.4. Creatinine has improved. 1.87 this morning. 08/04/2020 Patient examined this morning at the bedside. She denies chest pain or pressure. Denies shortness of breath. Hemoglobin remains stable. PHYSICAL EXAM: VITAL SIGNS: Reviewed. GENERAL: Well-developed in no acute distress. NECK: Supple. No JVD or thyromegaly LUNGS: Respirations even and unlabored. Lungs essentially clear to auscultation bilaterally. HEART: Irregular rate and rhythm. S1 and S2 heard. Systolic murmur. EXTREMITIES: Normal range of motion. No clubbing or cyanosis. Peripheral pulses intact. No lower extremity edema ASSESSMENT: Chronic persistent atrial fibrillation with rapid ventricular response Peripheral vascular disease s/p iliac stenting 07/26/2020 Chronic systolic heart failure, EF 40-45% Hematuria Anemia Acute kidney injury Hypertension Dyslipidemia Diabetes mellitus Coronary artery disease PLAN: Case discussed with urology. Okay to begin anticoagulation from their standpoint Will initiate Eliquis 2.5 mg twice a day Monitor hemoglobin Further recommendations pending patient's course Nurse practitioner note has been reviewed by physician. Signing provider agrees with the documented findings, assessment, and plan of care. Objective - Vital Signs Vital signs: Vital Signs Temp 97.4 F L 08/04/20 11:57 Pulse 78 08/04/20 11:57 Resp 16 08/04/20 13:55 BP 96/63 08/04/20 11:57 Pulse Ox 99 08/04/20 11:57 Intake & Output 08/03/20 08/04/20 08/04/20 18:59 06:59 18:59 Intake Total 860 60 Output Total 1325 400 260 Balance -465 -400 -200 Weight 70.6 kg Intake: IV 500 Levofloxacin 500Mg-D5w 100 Pmx 500 mg In Dextrose/ Water 1 100ml.bag @ 100 mls/hr IVPB Q48H [facility] Rx#: [id number] Sodium Chloride 0.9% 1, 400 000 ml @ 50 mls/hr IV . Q20H [facility] Rx#:[id number] Oral 360 60 Output: Urine 1325 400 260 Uretheral (Hayes) 260 Other: Voiding Method Indwelling Catheter Indwelling Catheter Indwelling Catheter # Voids 1 2 # Bowel Movements 1 1 1 - Labs CBC & Chem 7: 08/04/20 07:55 08/04/20 07:55 Labs: Abnormal Lab Results - Last 24 Hours (Table) 08/03/20 08/03/20 08/03/20 Range/Units 15:01 16:56 20:17 RBC (3.80-5.40) m/uL Hgb (11.4-16.0) gm/dL Hct (34.0-46.0) % MCHC (31.0-37.0) g/dL RDW (11.5-15.5) % Lymphocytes # (1.0-4.8) k/uL Sodium (137-145) mmol/L Potassium 3.4 L (3.5-5.1) mmol/L BUN (7-17) mg/dL Creatinine (0.52-1.04) mg/dL Glucose (74-99) mg/dL POC Glucose (mg/dL) 116 H 171 H (75-99) mg/dL Calcium (8.4-10.2) mg/dL Magnesium (1.6-2.3) mg/dL 08/04/20 08/04/20 08/04/20 Range/Units 06:07 07:55 07:55 RBC 3.60 L (3.80-5.40) m/uL Hgb 9.0 L (11.4-16.0) gm/dL Hct 30.7 L (34.0-46.0) % MCHC 29.5 L (31.0-37.0) g/dL RDW 19.1 H (11.5-15.5) % Lymphocytes # 0.8 L (1.0-4.8) k/uL Sodium 133 L (137-145) mmol/L Potassium (3.5-5.1) mmol/L BUN 37 H (7-17) mg/dL Creatinine 1.56 H (0.52-1.04) mg/dL Glucose 115 H (74-99) mg/dL POC Glucose (mg/dL) 131 H (75-99) mg/dL Calcium 8.2 L (8.4-10.2) mg/dL Magnesium 3.2 H (1.6-2.3) mg/dL 08/04/20 Range/Units 11:18 RBC (3.80-5.40) m/uL Hgb (11.4-16.0) gm/dL Hct (34.0-46.0) % MCHC (31.0-37.0) g/dL RDW (11.5-15.5) % Lymphocytes # (1.0-4.8) k/uL Sodium (137-145) mmol/L Potassium (3.5-5.1) mmol/L BUN (7-17) mg/dL Creatinine (0.52-1.04) mg/dL Glucose (74-99) mg/dL POC Glucose (mg/dL) 124 H (75-99) mg/dL Calcium (8.4-10.2) mg/dL Magnesium (1.6-2.3) mg/dL Microbiology - Last 24 Hours (Table) 08/03/20 10:06 Urine Culture - Preliminary Urine,Catheterized Group D Enterococcus
[2020-08-04 16:50] LABS: Glucose,Whole Blood 130 mg/dL (75-99)
--- NOTE | 2020-08-04 19:14 | P.PN ---
Subjective 78-year-old pleasant female with history of atrial fibrillation on the anticoagulation with Xarelto, previous history of GI bleed and gastric ulcer, CVA/TIA. Patient follow-up with Dr. Birch who is recently retired at [facility] and she is looking for a new PCP now. She went to [facility] for right leg pain were stent was placed, she was discharged home 3 days ago, last Thursday, at [facility] Hayes catheter was placed and states it was bloody at that time. She was sent home with a Hayes catheter, however she started feeling uncomfortable in her bladder where the Hayes felt like hurting but she denies any abdominal pain, she felt that she has to P old time and there was blood in the urine catheter so she decided to come to the hospital. She denies any nausea vomiting. No chest pain or dyspnea. She is on 2 L oxygen via nasal cannula at home, it was bumped up to 4 L at [facility] as per patient, she has chronic hypoxic respiratory failure related to her COPD. She denies chest pain or headache or weakness. Originally she was on aspirin daily however she states the last of added to her and [place]. Patient was noted to be on Plavix 75 mg and aspirin 81 mg at home. She denies smoking, she drinks couple cups of wine every week. No illicit drugs On admission her blood pressure was 101/88, this morning was 83/63. However repeat blood pressure went up to 101/59, heart rate on admission was 138, currently is 108, she is saturating 95% on 4 L oxygen via nasal cannula Labs on admission showed hemoglobin of 7.4, rest of the CBC is unremarkable. INR is 1.2. EKG showing atrial fibrillation's with RVR at 133. 08/01/2020 Patient is lying in bed comfortable. No distress. She is not tachypneic. However she still on 4 L oxygen via nasal cannula compared to his doctor at home. No coughing or chest pain but she has bilateral basal crepitation.. Patient feels generally better today, she was admitted mainly for discomfort in her urinary bladder area which is improved today She is hemodynamically stable other than that. Labs from today are still pending. Sugars controlled. Iron study showing iron deficiency anemia with iron low at 21, normal TIBC at 397 and low iron saturation at 5.2%. And normal ferritin at 45. 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 No abdominal pain. And she tolerates diet. She is on Protonix IV daily. Occult blood in stool still pending There is blood in the urine. Urinalysis showing urine RBC more than 182, urine WBC of more than 182. Urine culture is ordered and is pending, patient will be started on Levaquin empirically for possible UTI pending UC, patient is ALLERGIC to penicillin Dr. Elias evaluated the patient and recommended to discontinue Hayes catheter and check PVR. Also recommended to follow up as an outpatient for possible cystoscopy. Patient informed and she agrees. Risks including but not limited to cancer explained to him and she verbalized understanding. Also she has acute kidney injury from yesterday with creatinine 1.7, could be related to her CHF exacerbation in view of basal crepitation and more oxygen requirement. Chest x-ray also was abnormal. We changed her Lasix from 40 mg orally to intravenously today. Echocardiogram is still pending. Heart rate is controlled on oral medication. Xarelto is on hold for hematuria 08/02/2020 Patient still feels generally weak. She still have hematuria through the Hayes catheter. No chest pain or significant dyspnea at rest. She saturating 98% 4 L oxygen via nasal cannula. Her creatinine is down to 1.8 today however her potassium is 2.4 and his been replaced, morning dose of Lasix is been held because of the significantly low potassium. Sodium 131. Blood pressure is a stable, is chronically low while the patient is asymptomatic.Occult blood in the stool is negative. Xarelto still on hold. Patient still on Plavix but aspirin is still on hold as well. Hemoglobin stable at 9.1 She continue on Levaquin for possible UTI, urine cultures pending. 08/03/2020 Today clinically the same, she feels generally weak, however she is breathing quietly and she saturating 99% and a 3 L oxygen via nasal cannula, no much basal crepitation after she was started on IV fluids. She still have the Hayes catheter with some blood in it although it's less severe compared to yesterday. Hemoglobin only slightly lower than yesterday from 9.1 down to 8.1. Patient is on iron panel added yesterday. Also she is on the Plavix however aspirin is on hold. Urine analysis is suspicious for infection, urine culture has been sent and the result is pending, first urine culture is negative but we are going to repeat it.o OxyContinnin is appreciated and they lowered dose of Cardizem from 180 down to 120. Blood pressure today slightly stable at 103/61. Heart rate is 88. Also normal saline at 50 mL per hour was added and creatinine slightly better today at 1.6. 08/04/2020 Patient is awake, clinically the same. It looks like her blood pressure is stable and her sodium is improving gradually to 1.5 with initiation of normal saline, sewed it was also improved 133. Oxygen requirement and stabilized 3-4 L/m. No pulmonary congestion on examination. Heart rate is regular to be controlled while on metoprolol. Eliquis was initiated per neurology team recommendation and artist suspect team input. Also nephrology recommended to discontinue Hayes catheter and monitor PVR. Her urine was tea color today today showing improvement. Urine culture is growing group D enterococcus. She remains on Levaquin pending the final sensitivity. Objective - Vital Signs Vital signs: Vital Signs Temp 97.4 F L 08/04/20 11:57 Pulse 78 08/04/20 11:57 Resp 16 08/04/20 11:57 BP 96/63 08/04/20 11:57 Pulse Ox 99 08/04/20 11:57 Intake & Output 08/03/20 08/04/20 08/04/20 18:59 06:59 18:59 Intake Total 860 60 Output Total 1325 400 260 Balance -465 -400 -200 Weight 70.6 kg Intake: IV 500 Levofloxacin 500Mg-D5w 100 Pmx 500 mg In Dextrose/ Water 1 100ml.bag @ 100 mls/hr IVPB Q48H [facility]ICK Rx#: [id number] Sodium Chloride 0.9% 1, 400 000 ml @ 50 mls/hr IV . Q20H [facility]ERRICK Rx#:[id number] Oral 360 60 Output: Urine 1325 400 260 Uretheral (Hayes) 260 Other: Voiding Method Indwelling Catheter Indwelling Catheter Indwelling Catheter # Voids 1 2 # Bowel Movements 1 1 1 - Exam GENERAL: The patient is alert and oriented x3, not in any acute distress. Well developed, well nourished. HEENT: Pupils are round and equally reacting to light. EOMI. No scleral icterus. No conjunctival pallor. Normocephalic, atraumatic. No pharyngeal erythema. No thyromegaly. CARDIOVASCULAR: S1 and S2 present. No murmurs, rubs, or gallops. -PULMONARY: Chest is clear to auscultation, no wheezing or crackles. Bilateral basal crepitation -ABDOMEN: Soft, nontender, nondistended, normoactive bowel sounds. No palpable organomegaly. Hayes catheter is in place with blood-colored urine MUSCULOSKELETAL: No joint swelling or deformity. EXTREMITIES: No cyanosis, clubbing, or pedal edema. NEUROLOGICAL: Gross neurological examination did not reveal any focal deficits. SKIN: No rashes. No petechiae - Labs CBC & Chem 7: 08/04/20 07:55 08/04/20 07:55 Labs: Abnormal Lab Results - Last 24 Hours (Table) 08/03/20 08/03/20 08/03/20 Range/Units 15:01 16:56 20:17 RBC (3.80-5.40) m/uL Hgb (11.4-16.0) gm/dL Hct (34.0-46.0) % MCHC (31.0-37.0) g/dL RDW (11.5-15.5) % Lymphocytes # (1.0-4.8) k/uL Sodium (137-145) mmol/L Potassium 3.4 L (3.5-5.1) mmol/L BUN (7-17) mg/dL Creatinine (0.52-1.04) mg/dL Glucose (74-99) mg/dL POC Glucose (mg/dL) 116 H 171 H (75-99) mg/dL Calcium (8.4-10.2) mg/dL Magnesium (1.6-2.3) mg/dL 08/04/20 08/04/20 08/04/20 Range/Units 06:07 07:55 07:55 RBC 3.60 L (3.80-5.40) m/uL Hgb 9.0 L (11.4-16.0) gm/dL Hct 30.7 L (34.0-46.0) % MCHC 29.5 L (31.0-37.0) g/dL RDW 19.1 H (11.5-15.5) % Lymphocytes # 0.8 L (1.0-4.8) k/uL Sodium 133 L (137-145) mmol/L Potassium (3.5-5.1) mmol/L BUN 37 H (7-17) mg/dL Creatinine 1.56 H (0.52-1.04) mg/dL Glucose 115 H (74-99) mg/dL POC Glucose (mg/dL) 131 H (75-99) mg/dL Calcium 8.2 L (8.4-10.2) mg/dL Magnesium 3.2 H (1.6-2.3) mg/dL 08/04/20 Range/Units 11:18 RBC (3.80-5.40) m/uL Hgb (11.4-16.0) gm/dL Hct (34.0-46.0) % MCHC (31.0-37.0) g/dL RDW (11.5-15.5) % Lymphocytes # (1.0-4.8) k/uL Sodium (137-145) mmol/L Potassium (3.5-5.1) mmol/L BUN (7-17) mg/dL Creatinine (0.52-1.04) mg/dL Glucose (74-99) mg/dL POC Glucose (mg/dL) 124 H (75-99) mg/dL Calcium (8.4-10.2) mg/dL Magnesium (1.6-2.3) mg/dL Microbiology - Last 24 Hours (Table) 08/03/20 10:06 Urine Culture - Preliminary Urine,Catheterized Group D Enterococcus Assessment and Plan Assessment: Acute hematuria, could to be related to recent Hayes catheter. Rule out UTI, continue with Levaquin empirically. Culture growing group D enterococcus Acute blood loss anemia Dehydration, present on admission Patient with chronic rather than acute systolic CHF, ejection fraction: 40-45% Acute and chronic hypoxic respiratory failure secondary to above Paroxysmal atrial fibrillation with RVR, was on Xarelto Anemia, Rule out GI bleed History of gastric ulcer in 2018 History of CVA/TIA Plan: This is a pleasant 80 years old female who presents with A. fib and low hemoglobin suspicious for blood in urine and Hayes catheter. At [facility], follow-up urine culture. Follow-up recommendation by urologist who recommended to discontinue Ahyes catheter. Continue with iron pills. Continue with Protonix. Start Eliquis Continue with Lasix. Continue holding Xarelto and resume as per GI/urology services. Continue Cardizem and monitor heart rate. Continue with Plavix Follow-up recommendation by urology, GI team and cardiology team. Pain management. Labs and medication were reviewed.. Continue same treatment. Continue with symptomatic treatment. Resume home medication. Monitor lytes and vitals. DVT and GI prophylaxis. Further recommendationsas per clinical course of the patient DVT prophylaxis: Hold anticoagulation in view of blood in urine GI Prophylaxis: Ppi PT/OT: Pending Prognosis is guarded
[2020-08-04 20:31] LABS: Glucose,Whole Blood 181 mg/dL (75-99)
[2020-08-04] MEDS: traZODone HCL 50 MG TAB PO PRN (21:07)
[2020-08-04] MEDS: ATORVASTATIN 40 MG TAB PO SCH (21:07)
[2020-08-04] MEDS: APIXABAN 2.5 MG TABLET PO SCH (21:07)
[2020-08-04] MEDS: ALPRAZolam 0.5 MG TAB PO PRN (21:09)
[2020-08-05] MEDS: SODIUM CHLORIDE 0.9% 1,000 ML IV SCH (01:48)
[2020-08-05 06:10] LABS: Glucose,Whole Blood 121 mg/dL (75-99)
[2020-08-05] MEDS: INSULIN ASPART (NovoLOG) 100 UNIT/ML VIAL SQ SCH ×4 (06:25→19:58)
[2020-08-05] MEDS: LEVOTHYROXINE 112 MCG TAB PO SCH (06:28)
[2020-08-05] MEDS: DILTIAZEM CD 120 MG CAP.ER.24H PO SCH (06:28)
[2020-08-05] MEDS: FERROUS SULFATE 325 MG TAB PO SCH ×2 (06:28→17:43)
[2020-08-05] MEDS: METOPROLOL TARTRATE 25 MG TAB PO SCH ×3 (06:28→20:02)
[2020-08-05] MEDS: PANTOPRAZOLE 40 MG TABLET PO SCH (06:30)
[2020-08-05] MEDS ORDERED: METOPROLOL TARTRATE 25 MG TAB PO STA (08:10)
--- NOTE | 2020-08-05 08:21 | XR ---
EXAMINATION TYPE: XR chest 1V DATE OF EXAM: 08/05/2020 CLINICAL HISTORY: Difficulty breathing progress study. TECHNIQUE: Single AP portable upright view of the chest is obtained. COMPARISON: Chest x-ray from 5 days earlier and older studies. FINDINGS: Persistent cardiomegaly with atherosclerotic change aortic knob. Background chronic emphys ematous and pulmonary parenchymal changes with small left pleural effusion and left mid to basilar op acity. Patient remains rotated to the left, some underlying left-sided volume loss is not excluded. S mall right pleural effusion remains present. IMPRESSION: Cardiomegaly with small bilateral pleural effusions and mild interstitial edema. Correlat e for CHF exacerbation. There is background chronic emphysematous and pulmonary fibrotic changes rede monstrated. There is suggestion of more focal left mid to lower lung acute infiltrate and/or atelecta sis. No significant change from x-ray 5 days earlier.
[2020-08-05 08:25] LABS: Calcium 8.5 mg/dL (8.4-10.2); Potassium 4.6 mmol/L (3.5-5.1)
[2020-08-05] MEDS: CHOLECALCIFEROL 400 UNIT TAB PO SCH (08:32)
[2020-08-05] MEDS: polyethylene glycoL 3350 17 GM POWD.PACK PO SCH (08:33)
[2020-08-05] MEDS: APIXABAN 2.5 MG TABLET PO SCH ×2 (08:33→20:02)
[2020-08-05] MEDS: allopurinoL 100 MG TAB PO SCH (08:33)
[2020-08-05] MEDS: CLOPIDOGREL 75 MG TAB PO SCH (08:34)
[2020-08-05 08:36] LABS: Anisocytosis Slight; Basophils % (A) 1 %; Eosinophils # (A) 0.1 k/uL (0-0.7); Eosinophils % (A) 1 %; HCT 31.7 % (34.0-46.0); HGB 9.2 gm/dL (11.4-16.0); Hypochromasia Marked; Lymphocytes # (A) 1.1 k/uL (1.0-4.8); Lymphocytes % (A) 15 %; MCH 24.7 pg (25.0-35.0); MCV 85.1 fL (80.0-100.0); Mean Platelet Volume 8.5; Monocytes # (A) 0.5 k/uL (0-1.0); Monocytes % (A) 6 %; Neutrophils # (A) 5.5 k/uL (1.3-7.7); Neutrophils % (A) 76 %; Platelet Count 271 k/uL (150-450); Poikilocytosis Moderate; RBC 3.73 m/uL (3.80-5.40); RDW 19.1 % (11.5-15.5); WBC 7.2 k/uL (3.8-10.6)
[2020-08-05] MEDS ORDERED: LEVOFLOXACIN 750MG-D5W PMX 750 MG in DEXTROSE/WATER 1 150ML.BAG IVPB SCH (09:00)
[2020-08-05 11:48] LABS: Glucose,Whole Blood 198 mg/dL (75-99)
--- NOTE | 2020-08-05 14:31 | P.PN ---
Subjective Progress Note Date: 08/05/20 HISTORY OF PRESENT ILLNESS: 07/31/2020: This is a pleasant 80-year-old female past medical history significant for coronary artery disease s/p PCI exact details unavailable, peripheral vascular disease s/p left iliac stenting , July 26, chronic anemia, hypertension, chronic persistent atrial fibrillation, diabetes mellitus, chronic heart failure and dyslipidemia. She used to follow in the office with Dr. Correa until his snf and has not re-established care with a manufacturing controller. We have been asked to see in consultation for a-fib with RVR. According to the patient she initially presented to [facility] with symptoms of abdominal pain and blood in her catheter bag. She underwent stenting to the left iliac via the right femoral artery last week. Initially the concern was for possible retroperioneal bleed, however CT of the abdomen/pelvis at [place] was unremarkable. The patient is unsure why she has a Hayes catheter in place. She states she left the hospital last week with it. She complains of mild shortness of breath mostly with activity. She also states she had noticed 2 instances of bright red blood in her stool over the weekend. She has no symptoms of chest pain, dizziness or palpitations. On arrival she was initiated on IV Cardizem however through the night her blood pressures were not tolerating and it has been discontinued. 08/01/2020: Patient examined this morning at the bedside. Patient continues to have hematuria. Her Hayes was discontinued this morning. She has been evaluated by urology. She remains on IV Lasix. Creatinine increased today to 2.28, up from 1.73 yesterday. She remains in atrial fibrillation with controlled ventricular rate. Echocardiogram reveals ejection fraction 40-45%, moderate mitral regurgitation, severe tricuspid regurgitation, moderate pulmonary hypertension. 08/02/2020 Patient examined this morning at the bedside. She denies chest pain or pressure. Denies shortness of breath. Patient was transitioned to oral Lasix yesterday. Her potassium this morning is 2.4. Creatinine has improved. 1.87 this morning. 08/04/2020 Patient examined this morning at the bedside. She denies chest pain or pressure. Denies shortness of breath. Hemoglobin remains stable. 08/05/2020 Patient examined this morning at the bedside. She denies chest pain or pressure. Denies shortness of breath. Hemoglobin remains stable. Heart rate mildly uncontrolled this morning PHYSICAL EXAM: VITAL SIGNS: Reviewed. GENERAL: Well-developed in no acute distress. NECK: Supple. No JVD or thyromegaly LUNGS: Respirations even and unlabored. Lungs essentially clear to auscultation bilaterally. HEART: Irregular rate and rhythm. S1 and S2 heard. Systolic murmur. EXTREMITIES: Normal range of motion. No clubbing or cyanosis. Peripheral pulses intact. No lower extremity edema ASSESSMENT: Chronic persistent atrial fibrillation with rapid ventricular response Peripheral vascular disease s/p iliac stenting 07/26/2020 Chronic systolic heart failure, EF 40-45% Hematuria Anemia Acute kidney injury Hypertension Dyslipidemia Diabetes mellitus Coronary artery disease PLAN: Continue anticoagulation Monitor hemoglobin Increase metoprolol to 25 mg 3 times a day Further recommendations pending patient's course Nurse practitioner note has been reviewed by physician. Signing provider agrees with the documented findings, assessment, and plan of care. Objective - Vital Signs Vital signs: Vital Signs Temp 97.5 F L 08/05/20 12:00 Pulse 106 H 08/05/20 12:00 Resp 18 08/05/20 14:00 BP 105/66 08/05/20 12:00 Pulse Ox 95 08/05/20 12:00 Intake & Output 08/04/20 08/05/20 08/05/20 18:59 06:59 18:59 Intake Total 140 Output Total 340 450 Balance -200 -450 Weight 70.9 kg Intake: Oral 140 Output: Urine 340 450 Uretheral (Hayes) 340 200 Other: Voiding Method Indwelling Catheter Indwelling Catheter Indwelling Catheter # Voids 2 # Bowel Movements 6 3 - Labs CBC & Chem 7: 08/05/20 07:46 08/05/20 07:46 Labs: Abnormal Lab Results - Last 24 Hours (Table) 08/04/20 08/04/20 08/05/20 Range/Units 16:49 20:25 06:09 RBC (3.80-5.40) m/uL Hgb (11.4-16.0) gm/dL Hct (34.0-46.0) % MCH (25.0-35.0) pg MCHC (31.0-37.0) g/dL RDW (11.5-15.5) % Sodium (137-145) mmol/L BUN (7-17) mg/dL Creatinine (0.52-1.04) mg/dL Glucose (74-99) mg/dL POC Glucose (mg/dL) 130 H 181 H 121 H (75-99) mg/dL 08/05/20 08/05/20 08/05/20 Range/Units 07:46 07:46 11:47 RBC 3.73 L (3.80-5.40) m/uL Hgb 9.2 L (11.4-16.0) gm/dL Hct 31.7 L (34.0-46.0) % MCH 24.7 L (25.0-35.0) pg MCHC 29.0 L (31.0-37.0) g/dL RDW 19.1 H (11.5-15.5) % Sodium 132 L (137-145) mmol/L BUN 36 H (7-17) mg/dL Creatinine 1.57 H (0.52-1.04) mg/dL Glucose 118 H (74-99) mg/dL POC Glucose (mg/dL) 198 H (75-99) mg/dL Microbiology - Last 24 Hours (Table) 08/03/20 10:06 Urine Culture - Final Urine,Catheterized Enterococcus faecalis
--- NOTE | 2020-08-05 14:59 | P.PN ---
Subjective Progress Note Date: 08/05/20 Follow-up for acute kidney injury. Objective - Vital Signs Vital signs: Vital Signs Temp 97.5 F L 08/05/20 12:00 Pulse 106 H 08/05/20 12:00 Resp 18 08/05/20 14:00 BP 105/66 08/05/20 12:00 Pulse Ox 95 08/05/20 12:00 Intake & Output 08/04/20 08/05/20 08/05/20 18:59 06:59 18:59 Intake Total 140 Output Total 340 450 Balance -200 -450 Weight 70.9 kg 70.9 kg Intake: Oral 140 Output: Urine 340 450 Uretheral (Hayes) 340 200 Other: Voiding Method Indwelling Catheter Indwelling Catheter Indwelling Catheter # Voids 2 # Bowel Movements 6 3 - Exam No acute distress S1-S2 heard Lungs clear Abdomen soft Hayes, dark bloody urine Trace edema - Labs CBC & Chem 7: 08/05/20 07:46 08/05/20 07:46 Labs: Abnormal Lab Results - Last 24 Hours (Table) 08/04/20 08/04/20 08/05/20 Range/Units 16:49 20:25 06:09 RBC (3.80-5.40) m/uL Hgb (11.4-16.0) gm/dL Hct (34.0-46.0) % MCH (25.0-35.0) pg MCHC (31.0-37.0) g/dL RDW (11.5-15.5) % Sodium (137-145) mmol/L BUN (7-17) mg/dL Creatinine (0.52-1.04) mg/dL Glucose (74-99) mg/dL POC Glucose (mg/dL) 130 H 181 H 121 H (75-99) mg/dL 08/05/20 08/05/20 08/05/20 Range/Units 07:46 07:46 11:47 RBC 3.73 L (3.80-5.40) m/uL Hgb 9.2 L (11.4-16.0) gm/dL Hct 31.7 L (34.0-46.0) % MCH 24.7 L (25.0-35.0) pg MCHC 29.0 L (31.0-37.0) g/dL RDW 19.1 H (11.5-15.5) % Sodium 132 L (137-145) mmol/L BUN 36 H (7-17) mg/dL Creatinine 1.57 H (0.52-1.04) mg/dL Glucose 118 H (74-99) mg/dL POC Glucose (mg/dL) 198 H (75-99) mg/dL Microbiology - Last 24 Hours (Table) 08/03/20 10:06 Urine Culture - Final Urine,Catheterized Enterococcus faecalis Assessment and Plan Assessment: #1 nonoliguric acute kidney injury secondary to ischemic ATN with low blood pressures. #2 hematuria suspect complicated UTI #3 hyponatremia suspect hypovolemic #4 hypokalemia with alkalosis secondary to diuretics #5 atrial fibrillation #6 recent contrast use Plan: #1 renal function stable. #2 antibiotics for urinary tract infection. #3 discontinue Hayes and monitor PVRs. #4 avoid nephrotoxic agents and hypotensive episodes.
[2020-08-05 16:45] LABS: Glucose,Whole Blood 109 mg/dL (75-99)
--- NOTE | 2020-08-05 18:19 | P.PN ---
Subjective 78-year-old pleasant female with history of atrial fibrillation on the anticoagulation with Xarelto, previous history of GI bleed and gastric ulcer, CVA/TIA. Patient follow-up with Dr. Birch who is recently retired at [employer] and she is looking for a new PCP now. She went to [facility] for right leg pain were stent was placed, she was discharged home 3 days ago, last Thursday, at [facility] Zayas catheter was placed and states it was bloody at that time. She was sent home with a Zayas catheter, however she started feeling uncomfortable in her bladder where the Zayas felt like hurting but she denies any abdominal pain, she felt that she has to P old time and there was blood in the urine catheter so she decided to come to the hospital. She denies any nausea vomiting. No chest pain or dyspnea. She is on 2 L oxygen via nasal cannula at home, it was bumped up to 4 L at [facility] as per patient, she has chronic hypoxic respiratory failure related to her COPD. She denies chest pain or headache or weakness. Originally she was on aspirin daily however she states the last of added to her and [place]. Patient was noted to be on Plavix 75 mg and aspirin 81 mg at home. She denies smoking, she drinks couple cups of wine every week. No illicit drugs On admission her blood pressure was 101/88, this morning was 83/63. However repeat blood pressure went up to 101/59, heart rate on admission was 138, currently is 108, she is saturating 95% on 4 L oxygen via nasal cannula Labs on admission showed hemoglobin of 7.4, rest of the CBC is unremarkable. INR is 1.2. EKG showing atrial fibrillation's with RVR at 133. 08/01/2020 Patient is lying in bed comfortable. No distress. She is not tachypneic. However she still on 4 L oxygen via nasal cannula compared to his doctor at home. No coughing or chest pain but she has bilateral basal crepitation.. Patient feels generally better today, she was admitted mainly for discomfort in her urinary bladder area which is improved today She is hemodynamically stable other than that. Labs from today are still pending. Sugars controlled. Iron study showing iron deficiency anemia with iron low at 21, normal TIBC at 397 and low iron saturation at 5.2%. And normal ferritin at 45. 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 No abdominal pain. And she tolerates diet. She is on Protonix IV daily. Occult blood in stool still pending There is blood in the urine. Urinalysis showing urine RBC more than 182, urine WBC of more than 182. Urine culture is ordered and is pending, patient will be started on Levaquin empirically for possible UTI pending UC, patient is ALLERGIC to penicillin Dr. Elias evaluated the patient and recommended to discontinue Zayas catheter and check PVR. Also recommended to follow up as an outpatient for possible cystoscopy. Patient informed and she agrees. Risks including but not limited to cancer explained to him and she verbalized understanding. Also she has acute kidney injury from yesterday with creatinine 1.7, could be related to her CHF exacerbation in view of basal crepitation and more oxygen requirement. Chest x-ray also was abnormal. We changed her Lasix from 40 mg orally to intravenously today. Echocardiogram is still pending. Heart rate is controlled on oral medication. Xarelto is on hold for hematuria 08/02/2020 Patient still feels generally weak. She still have hematuria through the Zayas catheter. No chest pain or significant dyspnea at rest. She saturating 98% 4 L oxygen via nasal cannula. Her creatinine is down to 1.8 today however her potassium is 2.4 and his been replaced, morning dose of Lasix is been held because of the significantly low potassium. Sodium 131. Blood pressure is a stable, is chronically low while the patient is asymptomatic.Occult blood in the stool is negative. Xarelto still on hold. Patient still on Plavix but aspirin is still on hold as well. Hemoglobin stable at 9.1 She continue on Levaquin for possible UTI, urine cultures pending. 08/03/2020 Today clinically the same, she feels generally weak, however she is breathing quietly and she saturating 99% and a 3 L oxygen via nasal cannula, no much basal crepitation after she was started on IV fluids. She still have the Zayas catheter with some blood in it although it's less severe compared to yesterday. Hemoglobin only slightly lower than yesterday from 9.1 down to 8.1. Patient is on iron panel added yesterday. Also she is on the Plavix however aspirin is on hold. Urine analysis is suspicious for infection, urine culture has been sent and the result is pending, first urine culture is negative but we are going to repeat it.o OxyContinnin is appreciated and they lowered dose of Cardizem from 180 down to 120. Blood pressure today slightly stable at 103/61. Heart rate is 88. Also normal saline at 50 mL per hour was added and creatinine slightly better today at 1.6. 08/04/2020 Patient is awake, clinically the same. It looks like her blood pressure is stable and her sodium is improving gradually to 1.5 with initiation of normal saline, sewed it was also improved 133. Oxygen requirement and stabilized 3-4 L/m. No pulmonary congestion on examination. Heart rate is regular to be controlled while on metoprolol. Eliquis was initiated per neurology team recommendation and railway switchman team input. Also nephrology recommended to discontinue Zayas catheter and monitor PVR. Her urine was tea color today today showing improvement. Urine culture is growing group D enterococcus. She remains on Levaquin pending the final sensitivity. 08/05/2020 pt is still clinically with weakness, zayas catheter is in place with tea colored urine, urine culture is growing enterococcus resistant to Levaquin which is a stopped, it is sensitive to vancomycin, linezolid and other medication. Patient was started on linezolid and lipase are consult for infectious disease team for further recommendation. Nephrology team recommended to discontinue Zayas catheter however due to resistant bacteria and undergoing infection we will keep it for now total sensitive to antibiotic is started. Chest x-ray is suspicious for CHF versus some chronic or fibrotic changes (similar to 5 days ago ) with no worsening despite IV fluids for more than 48 hours but clinically patient does not behave slightly CHF however she stated bed most of the time. Director Of Collections recommended to increase metoprolol to 3 times a day. Creatinine is stable at 1.5, blood pressure is a stable Objective - Vital Signs Vital signs: Vital Signs Temp 98 F 08/05/20 15:45 Pulse 112 H 08/05/20 15:45 Resp 18 08/05/20 15:45 BP 109/70 08/05/20 15:45 Pulse Ox 98 08/05/20 15:45 Intake & Output 08/04/20 08/05/20 08/05/20 18:59 06:59 18:59 Intake Total 140 790 Output Total 340 450 Balance -200 -450 790 Weight 70.9 kg 70.9 kg Intake: Intake, IV Titration 250 Amount Levofloxacin 750Mg-D5w 250 Pmx 750 mg In Dextrose/ Water 1 150ml.bag @ 100 mls/hr IVPB Q48H [facility] Rx#: [id number] Oral 140 540 Output: Urine 340 450 Uretheral (Zayas) 340 200 Other: Voiding Method Indwelling Catheter Indwelling Catheter Indwelling Catheter # Voids 2 6 # Bowel Movements 6 3 10 - Exam GENERAL: The patient is alert and oriented x3, not in any acute distress. Well developed, well nourished. HEENT: Pupils are round and equally reacting to light. EOMI. No scleral icterus. No conjunctival pallor. Normocephalic, atraumatic. No pharyngeal erythema. No thyromegaly. CARDIOVASCULAR: S1 and S2 present. No murmurs, rubs, or gallops. -PULMONARY: Chest is clear to auscultation, no wheezing or crackles. Bilateral basal crepitation -ABDOMEN: Soft, nontender, nondistended, normoactive bowel sounds. No palpable organomegaly. Zayas catheter is in place with blood-colored urine MUSCULOSKELETAL: No joint swelling or deformity. EXTREMITIES: No cyanosis, clubbing, or pedal edema. NEUROLOGICAL: Gross neurological examination did not reveal any focal deficits. SKIN: No rashes. No petechiae - Labs CBC & Chem 7: 08/05/20 07:46 08/05/20 07:46 Labs: Abnormal Lab Results - Last 24 Hours (Table) 08/04/20 08/05/20 08/05/20 Range/Units 20:25 06:09 07:46 RBC 3.73 L (3.80-5.40) m/uL Hgb 9.2 L (11.4-16.0) gm/dL Hct 31.7 L (34.0-46.0) % MCH 24.7 L (25.0-35.0) pg MCHC 29.0 L (31.0-37.0) g/dL RDW 19.1 H (11.5-15.5) % Sodium (137-145) mmol/L BUN (7-17) mg/dL Creatinine (0.52-1.04) mg/dL Glucose (74-99) mg/dL POC Glucose (mg/dL) 181 H 121 H (75-99) mg/dL 08/05/20 08/05/20 08/05/20 Range/Units 07:46 11:47 16:44 RBC (3.80-5.40) m/uL Hgb (11.4-16.0) gm/dL Hct (34.0-46.0) % MCH (25.0-35.0) pg MCHC (31.0-37.0) g/dL RDW (11.5-15.5) % Sodium 132 L (137-145) mmol/L BUN 36 H (7-17) mg/dL Creatinine 1.57 H (0.52-1.04) mg/dL Glucose 118 H (74-99) mg/dL POC Glucose (mg/dL) 198 H 109 H (75-99) mg/dL Microbiology - Last 24 Hours (Table) 08/03/20 10:06 Urine Culture - Final Urine,Catheterized Enterococcus faecalis Assessment and Plan Assessment: Acute hematuria, could to be related to recent Zayas catheter. Rule out UTI, continue with Levaquin empirically. Culture growing group D enterococcus Acute blood loss anemia Dehydration, present on admission Patient with chronic rather than acute systolic CHF, ejection fraction: 40-45% Acute and chronic hypoxic respiratory failure secondary to above Paroxysmal atrial fibrillation with RVR, was on Xarelto Anemia, Rule out GI bleed History of gastric ulcer in 2018 History of CVA/TIA Plan: This is a pleasant 80 years old female who presents with A. fib and low hemoglobin suspicious for blood in urine and Zayas catheter. At [facility], follow-up urine culture. Follow-up recommendation by urologist who recommended to discontinue Zayas catheter. Continue with iron pills. Continue with Protonix. Start Eliquis Continue with Lasix. Continue holding Xarelto and resume as per GI/urology services. Continue Cardizem and monitor heart rate. Continue with Plavix Follow-up recommendation by urology, GI team and cardiology team. Pain management. Labs and medication were reviewed.. Continue same treatment. Continue with symptomatic treatment. Resume home medication. Monitor lytes and vitals. DVT and GI prophylaxis. Further recommendationsas per clinical course of the patient DVT prophylaxis: Hold anticoagulation in view of blood in urine GI Prophylaxis: Ppi PT/OT: Pending Prognosis is guarded
[2020-08-05 19:57] LABS: Glucose,Whole Blood 127 mg/dL (75-99)
[2020-08-05] MEDS: ATORVASTATIN 40 MG TAB PO SCH (20:02)
[2020-08-05] MEDS: ALPRAZolam 0.5 MG TAB PO PRN (20:02)
[2020-08-05] MEDS: traZODone HCL 50 MG TAB PO PRN (20:02)
[2020-08-05] MEDS: metFORMIN 500 MG TAB PO SCH (20:07)
[2020-08-05] MEDS ORDERED: LINEZOLID 600 MG in DEXTROSE/WATER 1 300ML.BAG IVPB SCH (21:00)
[2020-08-05] MEDS ORDERED: METOPROLOL TARTRATE 50 MG TAB PO SCH (21:00)
[2020-08-05] MEDS: ACETAMINOPHEN TAB 325 MG TAB PO PRN (23:05)
[2020-08-06 06:31] LABS: Glucose,Whole Blood 203 mg/dL (75-99)
[2020-08-06] MEDS: FERROUS SULFATE 325 MG TAB PO SCH ×2 (06:50→17:02)
[2020-08-06] MEDS: PANTOPRAZOLE 40 MG TABLET PO SCH (06:50)
[2020-08-06] MEDS: INSULIN ASPART (NovoLOG) 100 UNIT/ML VIAL SQ SCH ×4 (06:51→21:02)
[2020-08-06] MEDS: SODIUM CHLORIDE 0.9% 1,000 ML IV SCH (06:52)
[2020-08-06] MEDS: DILTIAZEM CD 120 MG CAP.ER.24H PO SCH (08:17)
[2020-08-06] MEDS: CLOPIDOGREL 75 MG TAB PO SCH (08:18)
[2020-08-06] MEDS: metFORMIN 500 MG TAB PO SCH (08:18)
[2020-08-06] MEDS: METOPROLOL TARTRATE 25 MG TAB PO SCH ×3 (08:18→19:59)
[2020-08-06] MEDS: allopurinoL 100 MG TAB PO SCH (08:18)
[2020-08-06] MEDS: polyethylene glycoL 3350 17 GM POWD.PACK PO SCH (08:18)
[2020-08-06] MEDS: APIXABAN 2.5 MG TABLET PO SCH ×2 (08:18→19:59)
[2020-08-06 09:09] LABS: Anisocytosis Slight; Basophils # (A) 0.1 k/uL (0-0.2); Basophils % (A) 1 %; Eosinophils # (A) 0.1 k/uL (0-0.7); Eosinophils % (A) 1 %; HCT 28.2 % (34.0-46.0); HGB 8.7 gm/dL (11.4-16.0); Hypochromasia Marked; Lymphocytes % (A) 14 %; MCH 26.1 pg (25.0-35.0); MCHC 30.8 g/dL (31.0-37.0); MCV 84.8 fL (80.0-100.0); Mean Platelet Volume 8.6; Monocytes # (A) 0.5 k/uL (0-1.0); Monocytes % (A) 7 %; Neutrophils # (A) 5.4 k/uL (1.3-7.7); Neutrophils % (A) 76 %; Platelet Count 238 k/uL (150-450); Poikilocytosis Slight; RBC 3.32 m/uL (3.80-5.40); RDW 19.3 % (11.5-15.5); WBC 7.1 k/uL (3.8-10.6)
[2020-08-06 09:29] LABS: Calcium 8.3 mg/dL (8.4-10.2); Potassium 4.4 mmol/L (3.5-5.1)
[2020-08-06 12:08] LABS: Glucose,Whole Blood 113 mg/dL (75-99)
[2020-08-06] MEDS: CHOLECALCIFEROL 400 UNIT TAB PO SCH (13:29)
--- NOTE | 2020-08-06 14:43 | P.CONS ---
History of Present Illness - Reason for Consult Consult date: 08/06/20 Resistant enterococcus with, complicated UTI - History of Present Illness History of present illness: This is an 80-year-old female that gives history that she was recently in [facility] and had iliac stent placed on the right lower extremity. During that hospitalization, a Hayes catheter was placed on June 25. Patient states she does not know why it was placed and states that she was able to urinate on her own. She stated that she had significant pressure since the Hayes catheter was placed and also that there was blood in the catheter. She was discharged home with Hayes catheter in place. She states that she was so weak and she continued to have bladder pressure and her brought her in the hospital and she was subsequently transferred to [facility] and admitted on July 31 at which time she's been treated for acute kidney injury, acute hematuria acute blood loss anemia, dehydration. Regarding concerns for UTI, patient was placed on Levaquin and subsequently once culture was resulted, switched to Zyvox yesterday at 600 mg IV piggyback twice daily. Patient has been afebrile since admission, initial mild leukocytosis of 11.9 currently at 7.1. BUN 37 creatinine 1.74. She has been seen by urology and Hayes catheter was removed this morning and as of the time of this evaluation, patient had not voided on her own. Urine culture is positive for Enterococcus faecalis susceptible to vancomycin, Zyvox and daptomycin. Patient denies having previous urinary tract infections. Review Of Systems: Constitutional: No fever, no chills. Reports weakness, reports fatigue. EENT: No headache. No dizziness. Lungs: No shortness of breath, cough, no sputum production. No wheezing. Cardiovascular: No chest pain, no lower extremity edema. No palpitations. No paroxysmal nocturnal dyspnea. No orthopnea. No lightheadedness or dizziness. No syncopal episodes. Abdominal: No abdominal pain. No nausea, vomiting. No diarrhea. No constipation. No bloody or tarry stools. No loss of appetite. Genitourinary: No dysuria. No urinary retention-patient denies. Positive hematuria, resolved Musculoskeletal: No myalgias. Reports muscle weakness, no gait dysfunction, no frequent falls. No back pain. No neck pain. Integumentary: No wounds, no lesions. No rash or pruritus. No unusual bruising. Neurologic: No aphasia. No facial droop. No change in mentation. No head injury. No headache. No paralysis. No paresthesia. Psychiatric: No depression. No anxiety. Endocrine: No abnormal blood sugars. Physical examination: Gen: This is an 80-year-old female. Patient is resting bed and appears to be comfortable and in no acute distress. HEENT: Head is atraumatic, normocephalic. Pupils equal, round. Sclerae is anicteric. Oral mucous members slightly dry. NECK: Supple. No JVD. No lymphadenopathy. No thyromegaly. LUNGS: Clear to auscultation. No wheezes or rhonchi. No intercostal retractions. HEART: Irregular rate and rhythm. Systolic murmur. ABDOMEN: Soft. Bowel sounds are present. No masses. No tenderness. EXTREMITIES: No pedal edema. No calf tenderness. Dorsalis pedis +1 bilaterally. NEUROLOGICAL: Patient is awake, alert and oriented x3. Cranial nerves 2 through 12 are grossly intact. Assessment: Acute enterococcus Hayes catheter associated urinary tract infection Hematuria secondary to traumatic Hayes insertion Acute kidney injury secondary to ischemic ATN from low blood pressure Chronic atrial fibrillation, started on eliquis Plan: Patient is currently on Zyvox Oral Zyvox coverage checked with pharmacy for 2 week course- $69 co-pay Monitor for urinary retention Further recommendations to follow based upon clinical course Thank you kindly for this consultation. The above dictated assessment and findings were discussed with Dr. Shafer. The impression and plan of care have been directed as dictated. Coreen Dorsey nurse practitioner acting as scribe for Dr. Shafer. Past Medical History Past Medical History: CVA/TIA Additional Past Medical History / Comment(s): anemia History of Any Multi-Drug Resistant Organisms: None Reported Additional Past Surgical History / Comment(s): vericose veins. Past Anesthesia/Blood Transfusion Reactions: No Reported Reaction Past Psychological History: No Psychological Hx Reported Past Alcohol Use History: None Reported Past Drug Use History: None Reported - Past Family History Father Family Medical History: Cancer Additional Family Medical History / Comment(s): lung ca Mother Additional Family Medical History / Comment(s): "heart problems" Medications and Allergies Home Medications Medication Instructions Recorded Confirmed Type Cholecalciferol [Vitamin D3] 400 unit PO DAILY 07/08/18 07/31/20 History Levothyroxine Sodium [Synthroid] 112 mcg PO DAILY 07/08/18 07/31/20 History Magnesium Oxide [Mag-Oxide] 200 mg PO DAILY 07/08/18 07/31/20 History Nitroglycerin Sl Tabs [Nitrostat] 0.4 mg SUBLINGUAL Q5M PRN 07/08/18 07/31/20 History Thiamine [Vitamin B-1] 50 mg PO DAILY 07/08/18 07/31/20 History allopurinoL [Zyloprim] 300 mg PO DAILY 07/08/18 07/31/20 History traZODone HCL 50 mg PO HS PRN 07/08/18 07/31/20 History ALPRAZolam [Xanax] 0.5 mg PO BID 07/31/20 07/31/20 History Aspirin EC [Ecotrin Low Dose] 81 mg PO DAILY 07/31/20 07/31/20 History Atorvastatin [Lipitor] 40 mg PO HS 07/31/20 07/31/20 History Clopidogrel [Plavix] 75 mg PO DAILY 07/31/20 07/31/20 History Diltiazem HCl [Cartia Xt] 180 mg PO DAILY 07/31/20 07/31/20 History Furosemide [Lasix] 40 mg PO BID 07/31/20 07/31/20 History Omeprazole 20 mg PO DAILY 07/31/20 07/31/20 History Potassium Chloride ER [K-Dur 20] 20 meq PO DAILY 07/31/20 07/31/20 History Potassium Chloride ER [K-Dur 20] 40 meq PO HS 07/31/20 07/31/20 History metFORMIN HCL [metFORMIN HCL ER] 750 mg PO DAILY 07/31/20 07/31/20 History metOLazone [Zaroxolyn] 5 mg PO DAILY PRN 07/31/20 07/31/20 History Allergies Allergy/AdvReac Type Severity Reaction Status Date / Time Penicillins AdvReac Unknown Verified 07/08/18 20:09 Physical Exam Vitals: Vital Signs Temp Pulse Resp BP BP Pulse Ox 08/06/20 12:10 92 18 08/06/20 11:48 97.6 F 92 18 105/67 93 L 08/06/20 08:09 97.4 F L 85 18 97/60 96 08/06/20 08:00 85 18 08/06/20 04:00 97.3 F L 70 18 88/52 96 08/06/20 02:00 70 18 08/06/20 00:00 95 18 93/62 94 L 08/05/20 20:00 98.1 F 101 H 18 86/62 97 08/05/20 15:45 98 F 112 H 18 109/70 98 Intake and Output 08/05/20 08/06/20 08/06/20 22:59 06:59 14:59 Intake Total 0 Output Total 520 310 200 Balance -520 -310 -200 Intake: Oral 0 Output: Urine 520 310 200 Uretheral (Hayes) 200 200 Other: Voiding Method Indwelling Catheter Indwelling Catheter Toilet # Voids 10 Weight 72.3 kg Results CBC & Chem 7: 08/06/20 08:11 08/06/20 08:11 Labs: Abnormal Lab Results - Last 24 Hours (Table) 08/05/20 08/05/20 08/06/20 Range/Units 16:44 19:55 06:29 RBC (3.80-5.40) m/uL Hgb (11.4-16.0) gm/dL Hct (34.0-46.0) % MCHC (31.0-37.0) g/dL RDW (11.5-15.5) % Sodium (137-145) mmol/L Chloride (98-107) mmol/L BUN (7-17) mg/dL Creatinine (0.52-1.04) mg/dL Glucose (74-99) mg/dL POC Glucose (mg/dL) 109 H 127 H 203 H (75-99) mg/dL Calcium (8.4-10.2) mg/dL 08/06/20 08/06/20 08/06/20 Range/Units 08:11 08:11 12:01 RBC 3.32 L (3.80-5.40) m/uL Hgb 8.7 L (11.4-16.0) gm/dL Hct 28.2 L (34.0-46.0) % MCHC 30.8 L (31.0-37.0) g/dL RDW 19.3 H (11.5-15.5) % Sodium 130 L (137-145) mmol/L Chloride 97 L (98-107) mmol/L BUN 37 H (7-17) mg/dL Creatinine 1.74 H (0.52-1.04) mg/dL Glucose 161 H (74-99) mg/dL POC Glucose (mg/dL) 113 H (75-99) mg/dL Calcium 8.3 L (8.4-10.2) mg/dL Microbiology - Last 24 Hours (Table) 08/03/20 10:06 Urine Culture - Final Urine,Catheterized Enterococcus faecalis
--- NOTE | 2020-08-06 15:03 | P.PN ---
Subjective Patient is seen in follow-up for acute kidney injury. Renal function slightly worse. Hayes catheter removed this morning. She hasn't voided yet on her own. No chest pain or shortness of breath. No edema. Vital signs are stable. General: The patient appeared well nourished and normally developed. HEENT: Head exam is unremarkable. Neck is without jugular venous distension. LUNGS: Breath sounds decreased. HEART: Rate and Rhythm are regular. ABDOMEN: Soft, nontender. EXTREMITITES: No edema. Objective - Vital Signs Vital signs: Vital Signs Temp 97.6 F 08/06/20 11:48 Pulse 92 08/06/20 12:10 Resp 18 08/06/20 12:10 BP 105/67 08/06/20 11:48 Pulse Ox 93 L 08/06/20 11:48 Intake & Output 08/05/20 08/06/20 08/06/20 18:59 06:59 18:59 Intake Total 790 0 Output Total 200 630 200 Balance 590 -630 -200 Weight 70.9 kg 72.3 kg Intake: Intake, IV Titration 250 Amount Levofloxacin 750Mg-D5w 250 Pmx 750 mg In Dextrose/ Water 1 150ml.bag @ 100 mls/hr IVPB Q48H [facility] Rx#: [id number] Oral 540 0 Output: Urine 200 630 200 Uretheral (Hayes) 200 200 Other: Voiding Method Indwelling Catheter Indwelling Catheter Toilet # Voids 10 # Bowel Movements 10 - Labs CBC & Chem 7: 08/06/20 08:11 08/06/20 08:11 Labs: Abnormal Lab Results - Last 24 Hours (Table) 08/05/20 08/05/20 08/06/20 Range/Units 16:44 19:55 06:29 RBC (3.80-5.40) m/uL Hgb (11.4-16.0) gm/dL Hct (34.0-46.0) % MCHC (31.0-37.0) g/dL RDW (11.5-15.5) % Sodium (137-145) mmol/L Chloride (98-107) mmol/L BUN (7-17) mg/dL Creatinine (0.52-1.04) mg/dL Glucose (74-99) mg/dL POC Glucose (mg/dL) 109 H 127 H 203 H (75-99) mg/dL Calcium (8.4-10.2) mg/dL 08/06/20 08/06/20 08/06/20 Range/Units 08:11 08:11 12:01 RBC 3.32 L (3.80-5.40) m/uL Hgb 8.7 L (11.4-16.0) gm/dL Hct 28.2 L (34.0-46.0) % MCHC 30.8 L (31.0-37.0) g/dL RDW 19.3 H (11.5-15.5) % Sodium 130 L (137-145) mmol/L Chloride 97 L (98-107) mmol/L BUN 37 H (7-17) mg/dL Creatinine 1.74 H (0.52-1.04) mg/dL Glucose 161 H (74-99) mg/dL POC Glucose (mg/dL) 113 H (75-99) mg/dL Calcium 8.3 L (8.4-10.2) mg/dL Microbiology - Last 24 Hours (Table) 08/03/20 10:06 Urine Culture - Final Urine,Catheterized Enterococcus faecalis Assessment and Plan Plan: Assessment: 1. Acute kidney injury secondary to ATN secondary to hypotension. Monitor for urinary retention. Creatinine 1.74 today. No hydronephrosis noted on kidney ultrasound. 2. Enterococcus UTI maintained on antibiotics. 3. Hyponatremia secondary to acute kidney injury and poor solute intake. 4. A. fib maintained on Cardizem and anticoagulation. Plan: Monitor bladder scans closely to make sure no urinary retention. Encourage oral intake, particularly protein. 1500 mL fluid restriction. Repeat electrolytes in the morning.
[2020-08-06] MEDS: LINEZOLID 600 MG in DEXTROSE/WATER 1 300ML.BAG IVPB SCH (16:17)
[2020-08-06 16:37] LABS: Glucose,Whole Blood 167 mg/dL (75-99)
[2020-08-06] MEDS: traZODone HCL 50 MG TAB PO PRN (19:59)
[2020-08-06] MEDS: ALPRAZolam 0.5 MG TAB PO PRN (19:59)
[2020-08-06] MEDS: ATORVASTATIN 40 MG TAB PO SCH (19:59)
--- NOTE | 2020-08-06 20:14 | P.PN ---
Subjective 78-year-old pleasant female with history of atrial fibrillation on the anticoagulation with Xarelto, previous history of GI bleed and gastric ulcer, CVA/TIA. Patient follow-up with Dr. Birch who is recently retired at [employer] and she is looking for a new PCP now. She went to [facility] for right leg pain were stent was placed, she was discharged home 3 days ago, last Thursday, at [facility] Zayas catheter was placed and states it was bloody at that time. She was sent home with a Zayas catheter, however she started feeling uncomfortable in her bladder where the Zayas felt like hurting but she denies any abdominal pain, she felt that she has to P old time and there was blood in the urine catheter so she decided to come to the hospital. She denies any nausea vomiting. No chest pain or dyspnea. She is on 2 L oxygen via nasal cannula at home, it was bumped up to 4 L at [facility] as per patient, she has chronic hypoxic respiratory failure related to her COPD. She denies chest pain or headache or weakness. Originally she was on aspirin daily however she states the last of added to her and [facility]. Patient was noted to be on Plavix 75 mg and aspirin 81 mg at home. She denies smoking, she drinks couple cups of wine every week. No illicit drugs On admission her blood pressure was 101/88, this morning was 83/63. However repeat blood pressure went up to 101/59, heart rate on admission was 138, currently is 108, she is saturating 95% on 4 L oxygen via nasal cannula Labs on admission showed hemoglobin of 7.4, rest of the CBC is unremarkable. INR is 1.2. EKG showing atrial fibrillation's with RVR at 133. 08/01/2020 Patient is lying in bed comfortable. No distress. She is not tachypneic. However she still on 4 L oxygen via nasal cannula compared to his doctor at home. No coughing or chest pain but she has bilateral basal crepitation.. Patient feels generally better today, she was admitted mainly for discomfort in her urinary bladder area which is improved today She is hemodynamically stable other than that. Labs from today are still pending. Sugars controlled. Iron study showing iron deficiency anemia with iron low at 21, normal TIBC at 397 and low iron saturation at 5.2%. And normal ferritin at 45. Patient was started on iron pills Although patient was admitted for possible GI bleed, patient denies any blood in stool, no vomiting blood, she had a bowel movement pharmacy specialist which was brown as per patient. No abdominal pain. And she tolerates diet. She is on Protonix IV daily. Occult blood in stool still pending There is blood in the urine. Urinalysis showing urine RBC more than 182, urine WBC of more than 182. Urine culture is ordered and is pending, patient will be started on Levaquin empirically for possible UTI pending UC, patient is ALLERGIC to penicillin Dr. Elias evaluated the patient and recommended to discontinue Zayas catheter and check PVR. Also recommended to follow up as an outpatient for possible cystoscopy. Patient informed and she agrees. Risks including but not limited to cancer explained to him and she verbalized understanding. Also she has acute kidney injury from yesterday with creatinine 1.7, could be related to her CHF exacerbation in view of basal crepitation and more oxygen requirement. Chest x-ray also was abnormal. We changed her Lasix from 40 mg orally to intravenously today. Echocardiogram is still pending. Heart rate is controlled on oral medication. Xarelto is on hold for hematuria 08/02/2020 Patient still feels generally weak. She still have hematuria through the Zayas catheter. No chest pain or significant dyspnea at rest. She saturating 98% 4 L oxygen via nasal cannula. Her creatinine is down to 1.8 today however her potassium is 2.4 and his been replaced, morning dose of Lasix is been held because of the significantly low potassium. Sodium 131. Blood pressure is a stable, is chronically low while the patient is asymptomatic.Occult blood in the stool is negative. Xarelto still on hold. Patient still on Plavix but aspirin is still on hold as well. Hemoglobin stable at 9.1 She continue on Levaquin for possible UTI, urine cultures pending. 08/03/2020 Today clinically the same, she feels generally weak, however she is breathing quietly and she saturating 99% and a 3 L oxygen via nasal cannula, no much basal crepitation after she was started on IV fluids. She still have the Zayas catheter with some blood in it although it's less severe compared to yesterday. Hemoglobin only slightly lower than yesterday from 9.1 down to 8.1. Patient is on iron panel added yesterday. Also she is on the Plavix however aspirin is on hold. Urine analysis is suspicious for infection, urine culture has been sent and the result is pending, first urine culture is negative but we are going to repeat it.o OxyContinnin is appreciated and they lowered dose of Cardizem from 180 down to 120. Blood pressure today slightly stable at 103/61. Heart rate is 88. Also normal saline at 50 mL per hour was added and creatinine slightly better today at 1.6. 08/04/2020 Patient is awake, clinically the same. It looks like her blood pressure is stable and her sodium is improving gradually to 1.5 with initiation of normal saline, sewed it was also improved 133. Oxygen requirement and stabilized 3-4 L/m. No pulmonary congestion on examination. Heart rate is regular to be controlled while on metoprolol. Eliquis was initiated per neurology team recommendation and land mobile radio technician team input. Also nephrology recommended to discontinue Zayas catheter and monitor PVR. Her urine was tea color today today showing improvement. Urine culture is growing group D enterococcus. She remains on Levaquin pending the final sensitivity. 08/05/2020 pt is still clinically with weakness, zayas catheter is in place with tea colored urine, urine culture is growing enterococcus resistant to Levaquin which is a stopped, it is sensitive to vancomycin, linezolid and other medication. Patient was started on linezolid and lipase are consult for infectious disease team for further recommendation. Nephrology team recommended to discontinue Zayas catheter however due to resistant bacteria and undergoing infection we will keep it for now total sensitive to antibiotic is started. Chest x-ray is suspicious for CHF versus some chronic or fibrotic changes (similar to 5 days ago ) with no worsening despite IV fluids for more than 48 hours but clinically patient does not behave slightly CHF however she stated bed most of the time. [employer] [employer] recommended to increase metoprolol to 3 times a day. Creatinine is stable at 1.5, blood pressure is a stable 08/06/2020 Patient is generally weak, yesterday patient was started on Zyvox for enterococcus in the urine based on culture and sensitivity. Vancomycin is try to be avoided cause of her hematuria and risk of nephrotoxicity. Infectious disease were consulted and they recommended to continue with Zyvox for 2 weeks upon discharge. Zayas catheter was removed today, we will keep monitoring for bladder scan. Patient is on fluid restriction 1500 mL per day. Patient creatinine is slightly up to 1.7, sodium is stable at 1:30, oxygen requirement came down to 50 L/m which is her baseline, blood pressure slightly on the low normal side at 90/52 after metoprolol was increased to 3 times daily per cardiology recommendation. Patient remains on Eliquis for her history of A. fib with RVR, currently her heart rate is controlled. She remains on Zyvox and Eliquis as above Prognosis is guarded PT/OT recommended home health care Objective - Vital Signs Vital signs: Vital Signs Temp 97.6 F 08/06/20 15:47 Pulse 107 H 08/06/20 15:47 Resp 18 08/06/20 15:47 BP 90/52 08/06/20 15:47 Pulse Ox 94 L 08/06/20 15:47 Intake & Output 08/06/20 08/06/20 08/07/20 06:59 18:59 06:59 Intake Total 236 120 Output Total 630 200 Balance -630 36 120 Weight 72.3 kg Intake: Oral 236 120 Output: Urine 630 200 Uretheral (Zayas) 200 Other: Voiding Method Indwelling Catheter Toilet # Voids 0 # Bowel Movements 1 - Exam GENERAL: The patient is alert and oriented x3, not in any acute distress. Well d eveloped, well nourished. HEENT: Pupils are round and equally reacting to light. EOMI. No scleral icterus. No conjunctival pallor. Normocephalic, atraumatic. No pharyngeal erythema. No thyromegaly. CARDIOVASCULAR: S1 and S2 present. No murmurs, rubs, or gallops. -PULMONARY: Chest is clear to auscultation, no wheezing or crackles. Bilateral basal crepitation -ABDOMEN: Soft, nontender, nondistended, normoactive bowel sounds. No palpable organomegaly. Zayas catheter is in place with blood-colored urine MUSCULOSKELETAL: No joint swelling or deformity. EXTREMITIES: No cyanosis, clubbing, or pedal edema. NEUROLOGICAL: Gross neurological examination did not reveal any focal deficits. SKIN: No rashes. No petechiae - Labs CBC & Chem 7: 08/06/20 08:11 08/06/20 08:11 Labs: Abnormal Lab Results - Last 24 Hours (Table) 08/05/20 08/06/20 08/06/20 Range/Units 19:55 06:29 08:11 RBC 3.32 L (3.80-5.40) m/uL Hgb 8.7 L (11.4-16.0) gm/dL Hct 28.2 L (34.0-46.0) % MCHC 30.8 L (31.0-37.0) g/dL RDW 19.3 H (11.5-15.5) % Sodium (137-145) mmol/L Chloride (98-107) mmol/L BUN (7-17) mg/dL Creatinine (0.52-1.04) mg/dL Glucose (74-99) mg/dL POC Glucose (mg/dL) 127 H 203 H (75-99) mg/dL Calcium (8.4-10.2) mg/dL 08/06/20 08/06/20 08/06/20 Range/Units 08:11 12:01 16:36 RBC (3.80-5.40) m/uL Hgb (11.4-16.0) gm/dL Hct (34.0-46.0) % MCHC (31.0-37.0) g/dL RDW (11.5-15.5) % Sodium 130 L (137-145) mmol/L Chloride 97 L (98-107) mmol/L BUN 37 H (7-17) mg/dL Creatinine 1.74 H (0.52-1.04) mg/dL Glucose 161 H (74-99) mg/dL POC Glucose (mg/dL) 113 H 167 H (75-99) mg/dL Calcium 8.3 L (8.4-10.2) mg/dL Assessment and Plan Assessment: Acute hematuria, could to be related to recent Zayas catheter. Rule out UTI, c ontinue with Levaquin empirically. Culture growing group D enterococcus Acute blood loss anemia Dehydration, present on admission Patient with chronic rather than acute systolic CHF, ejection fraction: 40-45% Acute and chronic hypoxic respiratory failure secondary to above Paroxysmal atrial fibrillation with RVR, was on Xarelto Anemia, Rule out GI bleed History of gastric ulcer in 2018 History of CVA/TIA Plan: This is a pleasant 80 years old female who presents with A. fib and low hemoglobin suspicious for blood in urine and Zayas catheter. At [facility] w-up urine culture. Follow-up recommendation by urologist who recommended to discontinue Zayas catheter. Continue with iron pills. Continue with Protonix. Start Eliquis Continue with Lasix. Continue holding Xarelto and resume as per GI/urology services. Continue Cardizem and monitor heart rate. Continue with Plavix Follow-up recommendation by urology, GI team and cardiology team. Pain management. Labs and medication were reviewed.. Continue same treatment. Continue with symptomatic treatment. Resume home medication. Monitor lytes and vitals. DVT and GI prophylaxis. Further recommendationsas per clinical course of the patient DVT prophylaxis: Hold anticoagulation in view of blood in urine GI Prophylaxis: Ppi PT/OT: Pending Prognosis is guarded
[2020-08-06 20:29] LABS: Glucose,Whole Blood 137 mg/dL (75-99)
[2020-08-06] MEDS: ACETAMINOPHEN TAB 325 MG TAB PO PRN (23:13)
[2020-08-07 00:10] LABS: Appearance,Urine Cloudy (Clear); Bacteria,Urine Rare /hpf; Bilirubin,Urine Negative (Negative); Blood,Urine Large (Negative); Budding Yeast,Urine Many /hpf; Color,Urine Red; Glucose,Urine (UA) Negative (Negative); Ketones,Urine Negative (Negative); Leukocyte Esterase,Urine Small (Negative); Nitrite,Urine Negative (Negative); Protein,Urine 3+ (Negative); RBC,Urine >182 /hpf (0-5); Specific Gravity,Urine 1.019 (1.001-1.035); Urobilinogen,Urine <2.0 mg/dL (<2.0); WBC,Urine 17 /hpf (0-5)
[2020-08-07] MEDS: SODIUM CHLORIDE 0.9% 1,000 ML IV SCH (01:51)
[2020-08-07] MEDS: LINEZOLID 600 MG in DEXTROSE/WATER 1 300ML.BAG IVPB SCH (04:16)
[2020-08-07 06:20] LABS: Glucose,Whole Blood 108 mg/dL (75-99)
[2020-08-07] MEDS: INSULIN ASPART (NovoLOG) 100 UNIT/ML VIAL SQ SCH ×4 (06:45→20:33)
[2020-08-07] MEDS: PANTOPRAZOLE 40 MG TABLET PO SCH (06:50)
[2020-08-07] MEDS: FERROUS SULFATE 325 MG TAB PO SCH ×2 (06:50→17:00)
[2020-08-07 07:59] LABS: Anisocytosis Slight; Basophils # (A) 0.1 k/uL (0-0.2); Basophils % (A) 1 %; Eosinophils # (A) 0.1 k/uL (0-0.7); Eosinophils % (A) 1 %; HCT 28.3 % (34.0-46.0); HGB 8.5 gm/dL (11.4-16.0); Hypochromasia Marked; Lymphocytes % (A) 16 %; MCH 25.5 pg (25.0-35.0); MCHC 30.2 g/dL (31.0-37.0); MCV 84.6 fL (80.0-100.0); Mean Platelet Volume 8.8; Monocytes # (A) 0.5 k/uL (0-1.0); Monocytes % (A) 8 %; Neutrophils # (A) 4.8 k/uL (1.3-7.7); Neutrophils % (A) 73 %; Platelet Count 218 k/uL (150-450); Poikilocytosis Slight; RBC 3.34 m/uL (3.80-5.40); RDW 19.3 % (11.5-15.5); WBC 6.5 k/uL (3.8-10.6)
[2020-08-07] MEDS: METOPROLOL TARTRATE 25 MG TAB PO SCH ×3 (08:07→20:27)
[2020-08-07] MEDS: CHOLECALCIFEROL 400 UNIT TAB PO SCH (08:07)
[2020-08-07] MEDS: allopurinoL 100 MG TAB PO SCH (08:07)
[2020-08-07] MEDS: APIXABAN 2.5 MG TABLET PO SCH ×2 (08:07→20:27)
[2020-08-07] MEDS: DILTIAZEM CD 120 MG CAP.ER.24H PO SCH (08:08)
[2020-08-07] MEDS: CLOPIDOGREL 75 MG TAB PO SCH (08:08)
[2020-08-07] MEDS: polyethylene glycoL 3350 17 GM POWD.PACK PO SCH (08:08)
[2020-08-07 08:16] LABS: Calcium 8.2 mg/dL (8.4-10.2); Magnesium 2.8 mg/dL (1.6-2.3); Potassium 4.6 mmol/L (3.5-5.1)
[2020-08-07] MEDS ORDERED: LEVOFLOXACIN 750 MG TAB PO SCH (09:00)
[2020-08-07] MEDS: ACETAMINOPHEN TAB 325 MG TAB PO PRN (09:02)
--- NOTE | 2020-08-07 11:27 | P.PN ---
Subjective Progress Note Date: 08/07/20 This is a pleasant 80-year-old female with past medical history significant for coronary artery disease with prior PCI, prior TIA, peripheral vascular disease with prior left iliac stenting, chronic anemia, hypertension, chronic persistent atrial fibrillation, diabetes, chronic heart failure and hyperlipidemia. Cardiology was requested to see the patient because of atrial fibrillation with a rapid ventricular response. Initially patient presented to [facility] with symptoms of abdominal pain and blood in her catheter bag. She underwent stenting of the left iliac last week. Initially there was concern for possible retroperitoneal bleed however the CT of the abdomen and pelvis at [facility] were unremarkable. Patient also had 2 instances of bright red blood in her stool over the weekend. Patient is not currently on oral anticoagulation, she will need to be initiated on oral anticoagulation for stroke prevention. Her Plavix has been resumed, aspirin continues to be on hold pending urology and GI evaluation. White blood cell count 6.8, hemoglobin 8.8, platelet count 227. BMP from this morning are pending. Patient continues to be in atrial fibrillation this morning, heart rate in the 80s. 08/07/2020 Patient was seen and examined this morning, blood pressure 93/60 with a heart rate of 90, continues to be in atrial fibrillation. We will discontinue the by mouth Cardizem and continue with the beta stacie. White blood cell count 6.5, hemoglobin 8.5, platelet count 218. Sodium 126, potassium 4.6, BUN 37, creatinine 1.9. Objective - Vital Signs Vital signs: Vital Signs Temp 97.6 F 08/07/20 08:05 Pulse 92 08/07/20 08:05 Resp 18 08/07/20 08:05 BP 93/62 08/07/20 08:05 Pulse Ox 100 08/07/20 08:05 Intake & Output 08/06/20 08/07/20 08/07/20 18:59 06:59 18:59 Intake Total 236 420 Output Total 200 275 Balance 36 145 Weight 73.4 kg Intake: Oral 236 420 Output: Urine 200 275 Straight 275 Other: Voiding Method Toilet Toilet Toilet # Voids 0 # Bowel Movements 1 - Exam PHYSICAL EXAMINATION: GENERAL: 80-year-old female in no acute distress at the time of my examination. HEENT: Head is atraumatic, normocephalic. Pupils equal, round. Sclera anicteric. Conjunctiva are clear. Mucous membranes of the mouth are moist. Neck is supple. There is no elevated jugular venous pressure. No carotid bruit is heard. HEART EXAMINATION: Heart S1, S2 irregularly irregular, systolic murmur heard . CHEST EXAMINATION: Lungs are clear to auscultation and precussion. No chest wall tenderness is noted on palpation or with deep breathing. ABDOMEN: Soft, obese, nontender. Bowel sounds are heard. No organomegaly noted. EXTREMITIES: 2+ peripheral pulses with no evidence of peripheral edema and no calf tenderness noted. NEUROLOGIC patient is awake, alert and oriented 3 . . - Labs CBC & Chem 7: 08/07/20 06:53 08/07/20 06:53 Labs: Abnormal Lab Results - Last 24 Hours (Table) 08/06/20 08/06/20 08/06/20 Range/Units 12: 16:36 20:28 RBC (3.80-5.40) m/uL Hgb (11.4-16.0) gm/dL Hct (34.0-46.0) % MCHC (31.0-37.0) g/dL RDW (11.5-15.5) % Sodium (137-145) mmol/L Chloride (98-107) mmol/L BUN (7-17) mg/dL Creatinine (0.52-1.04) mg/dL Glucose (74-99) mg/dL POC Glucose (mg/dL) 113 H 167 H 137 H (75-99) mg/dL Calcium (8.4-10.2) mg/dL Magnesium (1.6-2.3) mg/dL Urine Appearance (Clear) Urine Protein (Negative) Urine Blood (Negative) Ur Leukocyte Esterase (Negative) Urine RBC (0-5) /hpf Urine WBC (0-5) /hpf Urine Bacteria (None) /hpf Urine Yeast (Budding) (None) /hpf 08/06/20 08/07/20 08/07/20 Range/Units 23:25 06:19 06:53 RBC 3.34 L (3.80-5.40) m/uL Hgb 8.5 L (11.4-16.0) gm/dL Hct 28.3 L (34.0-46.0) % MCHC 30.2 L (31.0-37.0) g/dL RDW 19.3 H (11.5-15.5) % Sodium (137-145) mmol/L Chloride (98-107) mmol/L BUN (7-17) mg/dL Creatinine (0.52-1.04) mg/dL Glucose (74-99) mg/dL POC Glucose (mg/dL) 108 H (75-99) mg/dL Calcium (8.4-10.2) mg/dL Magnesium (1.6-2.3) mg/dL Urine Appearance Cloudy H (Clear) Urine Protein 3+ H (Negative) Urine Blood Large H (Negative) Ur Leukocyte Esterase Small H (Negative) Urine RBC >182 H (0-5) /hpf Urine WBC 17 H (0-5) /hpf Urine Bacteria Rare H (None) /hpf Urine Yeast (Budding) Many H (None) /hpf 08/07/20 Range/Units 06:53 RBC (3.80-5.40) m/uL Hgb (11.4-16.0) gm/dL Hct (34.0-46.0) % MCHC (31.0-37.0) g/dL RDW (11.5-15.5) % Sodium 126 L (137-145) mmol/L Chloride 95 L (98-107) mmol/L BUN 37 H (7-17) mg/dL Creatinine 1.91 H (0.52-1.04) mg/dL Glucose 157 H (74-99) mg/dL POC Glucose (mg/dL) (75-99) mg/dL Calcium 8.2 L (8.4-10.2) mg/dL Magnesium 2.8 H (1.6-2.3) mg/dL Urine Appearance (Clear) Urine Protein (Negative) Urine Blood (Negative) Ur Leukocyte Esterase (Negative) Urine RBC (0-5) /hpf Urine WBC (0-5) /hpf Urine Bacteria (None) /hpf Urine Yeast (Budding) (None) /hpf Microbiology - Last 24 Hours (Table) 08/06/20 23:25 Urine Culture - Preliminary Urine,Voided Assessment and Plan Plan: Assessment and plan #1 chronic persistent atrial fibrillation, not currently on oral anticoagulation #2 peripheral vascular disease, status post iliac stenting in July of this year #3 chronic systolic congestive heart failure #4 hematuria, persistent #5 anemia #6 acute kidney injury #7 hypertension #8 hyperlipidemia #9 diabetes #10 coronary artery disease with prior PCI Plan From cardiology perspective, we will discontinue the Cardizem and continue current dose of beta stacie. We will follow this patient along with you on an as-needed basis only, please of hesitate to call with any questions. DNP note has been reviewed, I agree with a documented findings and plan of care. Patient was seen and examined.
[2020-08-07 11:45] LABS: Glucose,Whole Blood 132 mg/dL (75-99)
[2020-08-07] MEDS ORDERED: FUROSEMIDE 10 MG/ML 4 ML VIAL IV STA (12:31)
--- NOTE | 2020-08-07 12:32 | P.PN ---
Subjective Patient is seen in follow-up for acute kidney injury. Renal function worsening. Required straight catheterization last night but didn't have significant retention. Currently on 2 L nasal cannula. Denies chest pain or shortness of breath. Vital signs are stable. General: The patient appeared well nourished and normally developed. HEENT: Head exam is unremarkable. Neck is without jugular venous distension. LUNGS: Breath sounds decreased. HEART: Rate and Rhythm are regular. ABDOMEN: Soft, nontender. EXTREMITITES: 1+ edema. Objective - Vital Signs Vital signs: Vital Signs Temp 97.6 F 08/07/20 11:36 Pulse 102 H 08/07/20 11:36 Resp 20 08/07/20 11:36 BP 90/54 08/07/20 11:36 Pulse Ox 94 L 08/07/20 11:36 Intake & Output 08/06/20 08/07/20 08/07/20 18:59 06:59 18:59 Intake Total 236 420 Output Total 200 275 500 Balance 36 145 -500 Weight 73.4 kg Intake: Oral 236 420 Output: Urine 200 275 250 Straight 275 250 Post Void Residual 250 Other: Voiding Method Toilet Toilet Toilet # Voids 0 # Bowel Movements 1 - Labs CBC & Chem 7: 08/07/20 06:53 08/07/20 06:53 Labs: Abnormal Lab Results - Last 24 Hours (Table) 08/06/20 08/06/20 08/06/20 Range/Units 16:36 20:28 23:25 RBC (3.80-5.40) m/uL Hgb (11.4-16.0) gm/dL Hct (34.0-46.0) % MCHC (31.0-37.0) g/dL RDW (11.5-15.5) % Sodium (137-145) mmol/L Chloride (98-107) mmol/L BUN (7-17) mg/dL Creatinine (0.52-1.04) mg/dL Glucose (74-99) mg/dL POC Glucose (mg/dL) 167 H 137 H (75-99) mg/dL Calcium (8.4-10.2) mg/dL Magnesium (1.6-2.3) mg/dL Urine Appearance Cloudy H (Clear) Urine Protein 3+ H (Negative) Urine Blood Large H (Negative) Ur Leukocyte Esterase Small H (Negative) Urine RBC >182 H (0-5) /hpf Urine WBC 17 H (0-5) /hpf Urine Bacteria Rare H (None) /hpf Urine Yeast (Budding) Many H (None) /hpf 08/07/20 08/07/20 08/07/20 Range/Units 06:19 06:53 06:53 RBC 3.34 L (3.80-5.40) m/uL Hgb 8.5 L (11.4-16.0) gm/dL Hct 28.3 L (34.0-46.0) % MCHC 30.2 L (31.0-37.0) g/dL RDW 19.3 H (11.5-15.5) % Sodium 126 L (137-145) mmol/L Chloride 95 L (98-107) mmol/L BUN 37 H (7-17) mg/dL Creatinine 1.91 H (0.52-1.04) mg/dL Glucose 157 H (74-99) mg/dL POC Glucose (mg/dL) 108 H (75-99) mg/dL Calcium 8.2 L (8.4-10.2) mg/dL Magnesium 2.8 H (1.6-2.3) mg/dL Urine Appearance (Clear) Urine Protein (Negative) Urine Blood (Negative) Ur Leukocyte Esterase (Negative) Urine RBC (0-5) /hpf Urine WBC (0-5) /hpf Urine Bacteria (None) /hpf Urine Yeast (Budding) (None) /hpf 08/07/20 Range/Units 11:41 RBC (3.80-5.40) m/uL Hgb (11.4-16.0) gm/dL Hct (34.0-46.0) % MCHC (31.0-37.0) g/dL RDW (11.5-15.5) % Sodium (137-145) mmol/L Chloride (98-107) mmol/L BUN (7-17) mg/dL Creatinine (0.52-1.04) mg/dL Glucose (74-99) mg/dL POC Glucose (mg/dL) 132 H (75-99) mg/dL Calcium (8.4-10.2) mg/dL Magnesium (1.6-2.3) mg/dL Urine Appearance (Clear) Urine Protein (Negative) Urine Blood (Negative) Ur Leukocyte Esterase (Negative) Urine RBC (0-5) /hpf Urine WBC (0-5) /hpf Urine Bacteria (None) /hpf Urine Yeast (Budding) (None) /hpf Microbiology - Last 24 Hours (Table) 08/06/20 23:25 Urine Culture - Preliminary Urine,Voided Assessment and Plan Plan: Assessment: 1. Acute kidney injury secondary to ATN secondary to hypotension. No significant urinary retention. Renal function worsening. Creatinine 1.91 today. No hydronephrosis noted on kidney ultrasound. 2. Enterococcus UTI maintained on antibiotics. 3. Hyponatremia secondary to acute kidney injury and poor solute intake. Hypervolemic. 4. A. fib maintained on Cardizem and anticoagulation. 5. Volume overload. Plan: Monitor bladder scans closely to make sure no urinary retention. Encourage oral intake, particularly protein. Add ensure 3 times daily. 1500 mL fluid restriction. Check chest x-ray today. Check urine sodium and urine osmolality. Lasix 40 mg IV once now. Check a.m. cortisol level. Continue to monitor renal function and urine output closely.
--- NOTE | 2020-08-07 13:16 | XR ---
EXAMINATION TYPE: XR chest 1V DATE OF EXAM: 08/07/2020 COMPARISON: Prior chest x-ray 08/05/2020 HISTORY: Shortness of breath TECHNIQUE: Single frontal view of the chest is obtained. FINDINGS: There is some improvement in the interstitium, prominence and central vascularity. Bilater al pleural effusions persist. There is no evident pneumothorax. Cardiac mediastinal silhouette shows a stable abnormal appearance, is likely prominence of the pulmonary artery. Aorta is dense. IMPRESSION: Improvement in patient's volume status, aeration. Persistent bilateral pleural effusions , abnormal cardiomediastinal silhouette
[2020-08-07] MEDS: LINEZOLID 600 MG TAB PO SCH (17:00)
[2020-08-07 17:04] LABS: Glucose,Whole Blood 162 mg/dL (75-99)
--- NOTE | 2020-08-07 18:14 | P.PN ---
Progress Note - Text Progress Note Date: 08/07/20 The patients catheter is out SHe is voiding. I need to see her in the office in two weeks for cystoscopy
--- NOTE | 2020-08-07 20:08 | P.PN ---
Subjective 78-year-old pleasant female with history of atrial fibrillation on the anticoagulation with Xarelto, previous history of GI bleed and gastric ulcer, CVA/TIA. Patient follow-up with Dr. Birch who is recently retired at [employer] and she is looking for a new PCP now. She went to [facility] for right leg pain were stent was placed, she was discharged home 3 days ago, last Thursday, at [facility] Zayas catheter was placed and states it was bloody at that time. She was sent home with a Zayas catheter, however she started feeling uncomfortable in her bladder where the Zayas felt like hurting but she denies any abdominal pain, she felt that she has to P old time and there was blood in the urine catheter so she decided to come to the hospital. She denies any nausea vomiting. No chest pain or dyspnea. She is on 2 L oxygen via nasal cannula at home, it was bumped up to 4 L at [facility] as per patient, she has chronic hypoxic respiratory failure related to her COPD. She denies chest pain or headache or weakness. Originally she was on aspirin daily however she states the last of added to her and [place]. Patient was noted to be on Plavix 75 mg and aspirin 81 mg at home. She denies smoking, she drinks couple cups of wine every week. No illicit drugs On admission her blood pressure was 101/88, this morning was 83/63. However repeat blood pressure went up to 101/59, heart rate on admission was 138, currently is 108, she is saturating 95% on 4 L oxygen via nasal cannula Labs on admission showed hemoglobin of 7.4, rest of the CBC is unremarkable. INR is 1.2. EKG showing atrial fibrillation's with RVR at 133. 08/01/2020 Patient is lying in bed comfortable. No distress. She is not tachypneic. However she still on 4 L oxygen via nasal cannula compared to his doctor at home. No coughing or chest pain but she has bilateral basal crepitation.. Patient feels generally better today, she was admitted mainly for discomfort in her urinary bladder area which is improved today She is hemodynamically stable other than that. Labs from today are still pending. Sugars controlled. Iron study showing iron deficiency anemia with iron low at 21, normal TIBC at 397 and low iron saturation at 5.2%. And normal ferritin at 45. 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 No abdominal pain. And she tolerates diet. She is on Protonix IV daily. Occult blood in stool still pending There is blood in the urine. Urinalysis showing urine RBC more than 182, urine WBC of more than 182. Urine culture is ordered and is pending, patient will be started on Levaquin empirically for possible UTI pending UC, patient is ALLERGIC to penicillin Dr. Elias evaluated the patient and recommended to discontinue Zayas catheter and check PVR. Also recommended to follow up as an outpatient for possible cystoscopy. Patient informed and she agrees. Risks including but not limited to cancer explained to him and she verbalized understanding. Also she has acute kidney injury from yesterday with creatinine 1.7, could be related to her CHF exacerbation in view of basal crepitation and more oxygen requirement. Chest x-ray also was abnormal. We changed her Lasix from 40 mg orally to intravenously today. Echocardiogram is still pending. Heart rate is controlled on oral medication. Xarelto is on hold for hematuria 08/02/2020 Patient still feels generally weak. She still have hematuria through the Zayas catheter. No chest pain or significant dyspnea at rest. She saturating 98% 4 L oxygen via nasal cannula. Her creatinine is down to 1.8 today however her potassium is 2.4 and his been replaced, morning dose of Lasix is been held because of the significantly low potassium. Sodium 131. Blood pressure is a stable, is chronically low while the patient is asymptomatic.Occult blood in the stool is negative. Xarelto still on hold. Patient still on Plavix but aspirin is still on hold as well. Hemoglobin stable at 9.1 She continue on Levaquin for possible UTI, urine cultures pending. 08/03/2020 Today clinically the same, she feels generally weak, however she is breathing quietly and she saturating 99% and a 3 L oxygen via nasal cannula, no much basal crepitation after she was started on IV fluids. She still have the Zayas catheter with some blood in it although it's less severe compared to yesterday. Hemoglobin only slightly lower than yesterday from 9.1 down to 8.1. Patient is on iron panel added yesterday. Also she is on the Plavix however aspirin is on hold. Urine analysis is suspicious for infection, urine culture has been sent and the result is pending, first urine culture is negative but we are going to repeat it.o OxyContinnin is appreciated and they lowered dose of Cardizem from 180 down to 120. Blood pressure today slightly stable at 103/61. Heart rate is 88. Also normal saline at 50 mL per hour was added and creatinine slightly better today at 1.6. 08/04/2020 Patient is awake, clinically the same. It looks like her blood pressure is stable and her sodium is improving gradually to 1.5 with initiation of normal saline, sewed it was also improved 133. Oxygen requirement and stabilized 3-4 L/m. No pulmonary congestion on examination. Heart rate is regular to be controlled while on metoprolol. Eliquis was initiated per neurology team recommendation and animal science professor team input. Also nephrology recommended to discontinue Zayas catheter and monitor PVR. Her urine was tea color today today showing improvement. Urine culture is growing group D enterococcus. She remains on Levaquin pending the final sensitivity. 08/05/2020 pt is still clinically with weakness, zayas catheter is in place with tea colored urine, urine culture is growing enterococcus resistant to Levaquin which is a stopped, it is sensitive to vancomycin, linezolid and other medication. Patient was started on linezolid and lipase are consult for infectious disease team for further recommendation. Nephrology team recommended to discontinue Zayas catheter however due to resistant bacteria and undergoing infection we will keep it for now total sensitive to antibiotic is started. Chest x-ray is suspicious for CHF versus some chronic or fibrotic changes (similar to 5 days ago ) with no worsening despite IV fluids for more than 48 hours but clinically patient does not behave slightly CHF however she stated bed most of the time. Intravenous Therapy Nurse recommended to increase metoprolol to 3 times a day. Creatinine is stable at 1.5, blood pressure is a stable 08/06/2020 Patient is generally weak, yesterday patient was started on Zyvox for enterococcus in the urine based on culture and sensitivity. Vancomycin is try to be avoided cause of her hematuria and risk of nephrotoxicity. Infectious disease were consulted and they recommended to continue with Zyvox for 2 weeks upon discharge. Zayas catheter was removed today, we will keep monitoring for bladder scan. Patient is on fluid restriction 1500 mL per day. Patient creatinine is slightly up to 1.7, sodium is stable at 1:30, oxygen requirement came down to 50 L/m which is her baseline, blood pressure slightly on the low normal side at 90/52 after metoprolol was increased to 3 times daily per cardiology recommendation. Patient remains on Eliquis for her history of A. fib with RVR, currently her heart rate is controlled. She remains on Zyvox and Eliquis as above Prognosis is guarded PT/OT recommended home health care 08/07/2020 Patient weakness improving, this is the first day we see her sitting in the chair. She is being treated in currently with Zyvox for her to deal cocci UTI, his hematuria significantly improved, Zayas catheter was discontinued. We will monitor her PVR very closely. As per documentation of a copy for Zyvox is 69 and I discussed with the patient and she agrees with taking it for up to 2 weeks. Patient instructed to follow up with Dr. Elias in 2 weeks to check for cystoscopy at his office for the patient. Patient also informed and she agrees also showing heparin sodium 2126 and decrease in creatinine to 1.9. 1 dose of Lasix is provided for the patient. Iv fluids are on hold Objective - Vital Signs Vital signs: Vital Signs Temp 96.8 F L 08/07/20 15:56 Pulse 116 H 08/07/20 15:56 Resp 18 08/07/20 15:56 BP 94/72 08/07/20 15:56 Pulse Ox 100 08/07/20 15:56 Intake & Output 08/06/20 08/07/20 08/07/20 18:59 06:59 18:59 Intake Total 236 420 890 Output Total 200 275 860 Balance 36 145 30 Weight 73.4 kg Intake: Oral 236 420 890 Output: Urine 200 275 610 Straight 275 250 Post Void Residual 250 Other: Voiding Method Toilet Toilet Toilet # Voids 0 # Bowel Movements 1 0 - Exam GENERAL: The patient is alert and oriented x3, not in any acute distress. Well developed, well nourished. HEENT: Pupils are round and equally reacting to light. EOMI. No scleral icterus. No conjunctival pallor. Normocephalic, atraumatic. No pharyngeal erythema. No thyromegaly. CARDIOVASCULAR: S1 and S2 present. No murmurs, rubs, or gallops. -PULMONARY: Chest is clear to auscultation, no wheezing or crackles. Bilateral basal crepitation -ABDOMEN: Soft, nontender, nondistended, normoactive bowel sounds. No palpable organomegaly. Zayas catheter is in place with blood-colored urine MUSCULOSKELETAL: No joint swelling or deformity. EXTREMITIES: No cyanosis, clubbing, or pedal edema. NEUROLOGICAL: Gross neurological examination did not reveal any focal deficits. SKIN: No rashes. No petechiae - Labs CBC & Chem 7: 08/07/20 06:53 08/07/20 06:53 Labs: Abnormal Lab Results - Last 24 Hours (Table) 08/06/20 08/06/20 08/07/20 Range/Units 20:28 23:25 06:19 RBC (3.80-5.40) m/uL Hgb (11.4-16.0) gm/dL Hct (34.0-46.0) % MCHC (31.0-37.0) g/dL RDW (11.5-15.5) % Sodium (137-145) mmol/L Chloride (98-107) mmol/L BUN (7-17) mg/dL Creatinine (0.52-1.04) mg/dL Glucose (74-99) mg/dL POC Glucose (mg/dL) 137 H 108 H (75-99) mg/dL Calcium (8.4-10.2) mg/dL Magnesium (1.6-2.3) mg/dL Urine Appearance Cloudy H (Clear) Urine Protein 3+ H (Negative) Urine Blood Large H (Negative) Ur Leukocyte Esterase Small H (Negative) Urine RBC >182 H (0-5) /hpf Urine WBC 17 H (0-5) /hpf Urine Bacteria Rare H (None) /hpf Urine Yeast (Budding) Many H (None) /hpf 08/07/20 08/07/20 08/07/20 Range/Units 06:53 06:53 11:41 RBC 3.34 L (3.80-5.40) m/uL Hgb 8.5 L (11.4-16.0) gm/dL Hct 28.3 L (34.0-46.0) % MCHC 30.2 L (31.0-37.0) g/dL RDW 19.3 H (11.5-15.5) % Sodium 126 L (137-145) mmol/L Chloride 95 L (98-107) mmol/L BUN 37 H (7-17) mg/dL Creatinine 1.91 H (0.52-1.04) mg/dL Glucose 157 H (74-99) mg/dL POC Glucose (mg/dL) 132 H (75-99) mg/dL Calcium 8.2 L (8.4-10.2) mg/dL Magnesium 2.8 H (1.6-2.3) mg/dL Urine Appearance (Clear) Urine Protein (Negative) Urine Blood (Negative) Ur Leukocyte Esterase (Negative) Urine RBC (0-5) /hpf Urine WBC (0-5) /hpf Urine Bacteria (None) /hpf Urine Yeast (Budding) (None) /hpf 08/07/20 Range/Units 16:57 RBC (3.80-5.40) m/uL Hgb (11.4-16.0) gm/dL Hct (34.0-46.0) % MCHC (31.0-37.0) g/dL RDW (11.5-15.5) % Sodium (137-145) mmol/L Chloride (98-107) mmol/L BUN (7-17) mg/dL Creatinine (0.52-1.04) mg/dL Glucose (74-99) mg/dL POC Glucose (mg/dL) 162 H (75-99) mg/dL Calcium (8.4-10.2) mg/dL Magnesium (1.6-2.3) mg/dL Urine Appearance (Clear) Urine Protein (Negative) Urine Blood (Negative) Ur Leukocyte Esterase (Negative) Urine RBC (0-5) /hpf Urine WBC (0-5) /hpf Urine Bacteria (None) /hpf Urine Yeast (Budding) (None) /hpf Microbiology - Last 24 Hours (Table) 08/06/20 23:25 Urine Culture - Preliminary Urine,Voided Assessment and Plan Assessment: Acute hematuria, could to be related to recent Zayas catheter. Rule out UTI, continue with Levaquin empirically. Culture growing group D enterococcus Acute blood loss anemia Dehydration, present on admission Patient with chronic rather than acute systolic CHF, ejection fraction: 40-45% Acute and chronic hypoxic respiratory failure secondary to above Paroxysmal atrial fibrillation with RVR, was on Xarelto Anemia, Rule out GI bleed History of gastric ulcer in 2018 History of CVA/TIA Plan: This is a pleasant 80 years old female who presents with A. fib and low hem oglobin suspicious for blood in urine and Zayas catheter. At [facility], follow- up urine culture. Follow-up recommendation by urologist who recommended to discontinue Zayas catheter. Continue with iron pills. Continue with Protonix. Start Eliquis Continue with Lasix. Continue holding Xarelto and resume as per GI/urology services. Continue Cardizem and monitor heart rate. Continue with Plavix Follow-up recommendation by urology, GI team and cardiology team. Pain management. Labs and medication were reviewed.. Continue same treatment. Continue with symptomatic treatment. Resume home medication. Monitor lytes and vitals. DVT and GI prophylaxis. Further recommendationsas per clinical course of the patient DVT prophylaxis: Hold anticoagulation in view of blood in urine GI Prophylaxis: Ppi PT/OT: Pending Prognosis is guarded
[2020-08-07] MEDS: ATORVASTATIN 40 MG TAB PO SCH (20:27)
[2020-08-07] MEDS: traZODone HCL 50 MG TAB PO PRN (20:29)
[2020-08-07] MEDS: ALPRAZolam 0.5 MG TAB PO PRN (20:29)
[2020-08-07 20:40] LABS: Glucose,Whole Blood 97 mg/dL (75-99)
--- NOTE | 2020-08-08 01:30 | PN ---
PROGRESS NOTE DATE OF SERVICE: 08/07/2020 REASON FOR FOLLOWUP: Enterococcus faecalis urinary tract infection with PENICILLIN allergy. INTERVAL HISTORY: The patient is currently afebrile. The patient is breathing comfortably. Patient denies having any chest pain. No shortness of breath or cough. Did have urinary retention and Hayes catheter has been inserted. No diarrhea. PHYSICAL EXAMINATION: Blood pressure 102/59, pulse of 107, temperature 97.2. She is 96% on 2 L nasal cannula. General description is an elderly female lying in bed in no distress. RESPIRATORY SYSTEM: Unlabored breathing, clear to auscultation anteriorly. HEART: S1, S2. Regular rate and rhythm. ABDOMEN: Soft, no tenderness. LABS: Hemoglobin 8.5, white count 6.5, BUN of 37, creatinine 1.91. DIAGNOSTIC IMPRESSION AND PLAN: Patient with Enterococcus faecalis urinary tract infection in this patient who did have a PENICILLIN allergy. Currently covered with oral Zyvox, continue for a short course and monitor her clinical course closely. MMODL / IJN: [id number] /
[2020-08-08] MEDS: SODIUM CHLORIDE 0.9% 1,000 ML IV SCH (03:20)
[2020-08-08 06:07] LABS: Glucose,Whole Blood 185 mg/dL (75-99)
[2020-08-08] MEDS: INSULIN ASPART (NovoLOG) 100 UNIT/ML VIAL SQ SCH ×4 (06:35→21:52)
[2020-08-08] MEDS: FERROUS SULFATE 325 MG TAB PO SCH ×2 (06:35→17:19)
[2020-08-08] MEDS: PANTOPRAZOLE 40 MG TABLET PO SCH (06:35)
[2020-08-08] MEDS: LINEZOLID 600 MG TAB PO SCH ×2 (06:35→17:20)
[2020-08-08 08:22] LABS: Calcium 8.7 mg/dL (8.4-10.2); Magnesium 2.8 mg/dL (1.6-2.3); Potassium 4.9 mmol/L (3.5-5.1)
[2020-08-08] MEDS: CHOLECALCIFEROL 400 UNIT TAB PO SCH (08:59)
[2020-08-08] MEDS: allopurinoL 100 MG TAB PO SCH (09:00)
[2020-08-08] MEDS: polyethylene glycoL 3350 17 GM POWD.PACK PO SCH (09:00)
[2020-08-08] MEDS: CLOPIDOGREL 75 MG TAB PO SCH (09:00)
[2020-08-08] MEDS: METOPROLOL TARTRATE 25 MG TAB PO SCH ×2 (09:00→20:15)
[2020-08-08] MEDS: APIXABAN 2.5 MG TABLET PO SCH (09:00)
[2020-08-08] MEDS ORDERED: FUROSEMIDE 10 MG/ML 4 ML VIAL IV STA (09:21)
[2020-08-08 09:49] LABS: Anisocytosis Slight; Basophils % (A) 1 %; Eosinophils # (A) 0.1 k/uL (0-0.7); Eosinophils % (A) 1 %; HCT 29.7 % (34.0-46.0); HGB 8.8 gm/dL (11.4-16.0); Hypochromasia Marked; Lymphocytes % (A) 16 %; MCH 25.1 pg (25.0-35.0); MCHC 29.7 g/dL (31.0-37.0); MCV 84.6 fL (80.0-100.0); Mean Platelet Volume 9.6; Monocytes # (A) 0.4 k/uL (0-1.0); Monocytes % (A) 7 %; Neutrophils # (A) 4.7 k/uL (1.3-7.7); Neutrophils % (A) 74 %; Platelet Count 241 k/uL (150-450); Poikilocytosis Slight; RBC 3.51 m/uL (3.80-5.40); RDW 19.5 % (11.5-15.5); WBC 6.3 k/uL (3.8-10.6)
[2020-08-08] MEDS: MIDODRINE 5 MG TAB PO SCH ×3 (09:51→17:19)
--- NOTE | 2020-08-08 10:12 | P.PN ---
Subjective Patient is seen in follow-up for acute kidney injury. Renal function worsening. Required straight catheterization last night but didn't have significant retention. Currently on 2 L nasal cannula. Denies chest pain or shortness of breath. Very weak. Wasn't able to stand for orthostatic vital signs. Blood pressure low. Vital signs: Blood pressure low. Afebrile. Tachycardic. General: The patient appeared well nourished and normally developed. HEENT: Head exam is unremarkable. Neck is without jugular venous distension. LUNGS: Breath sounds decreased. HEART: Rate and Rhythm are regular. ABDOMEN: Soft, nontender. EXTREMITITES: 1+ edema. Objective - Vital Signs Vital signs: Vital Signs Temp 97.3 F L 08/08/20 08:00 Pulse 77 08/08/20 08:00 Resp 18 08/08/20 08:00 BP 89/56 08/08/20 08:00 Pulse Ox 96 08/08/20 08:00 Intake & Output 08/07/20 08/08/20 08/08/20 18:59 06:59 18:59 Intake Total 890 Output Total 860 300 Balance 30 -300 Weight 80.5 kg Intake: Oral 890 Output: Urine 610 300 Straight 250 Post Void Residual 250 Other: Voiding Method Toilet Toilet # Voids 3 # Bowel Movements 0 - Labs CBC & Chem 7: 08/08/20 07:10 08/08/20 07:10 Labs: Abnormal Lab Results - Last 24 Hours (Table) 08/07/20 08/07/20 08/08/20 Range/Units 11:41 16:57 06:06 RBC (3.80-5.40) m/uL Hgb (11.4-16.0) gm/dL Hct (34.0-46.0) % MCHC (31.0-37.0) g/dL RDW (11.5-15.5) % Sodium (137-145) mmol/L Chloride (98-107) mmol/L BUN (7-17) mg/dL Creatinine (0.52-1.04) mg/dL Glucose (74-99) mg/dL POC Glucose (mg/dL) 132 H 162 H 185 H (75-99) mg/dL Magnesium (1.6-2.3) mg/dL 08/08/20 08/08/20 Range/Units 07:10 07:10 RBC 3.51 L (3.80-5.40) m/uL Hgb 8.8 L (11.4-16.0) gm/dL Hct 29.7 L (34.0-46.0) % MCHC 29.7 L (31.0-37.0) g/dL RDW 19.5 H (11.5-15.5) % Sodium 127 L (137-145) mmol/L Chloride 95 L (98-107) mmol/L BUN 44 H (7-17) mg/dL Creatinine 2.22 H (0.52-1.04) mg/dL Glucose 138 H (74-99) mg/dL POC Glucose (mg/dL) (75-99) mg/dL Magnesium 2.8 H (1.6-2.3) mg/dL Microbiology - Last 24 Hours (Table) 08/06/20 23:25 Urine Culture - Preliminary Urine,Voided Assessment and Plan Plan: Assessment: 1. Acute kidney injury secondary to ATN secondary to hypotension. No sign ificant urinary retention. Renal function worsening. Creatinine 2.2 today. No hydronephrosis noted on kidney ultrasound. Urine output about 1 L in the last 24 hours. 2. Enterococcus UTI maintained on antibiotics. 3. Hyponatremia secondary to acute kidney injury and poor solute intake. Hypervolemic. Urine sodium less than 10 and urine osmolality 408 consistent with cardiorenal syndrome. 4. A. fib maintained on Lopressor and anticoagulation. 5. Volume overload. 6. Acute on chronic systolic CHF with ejection fraction of 40-45% with moderate mitral regurgitation and pulmonary hypertension. 7. Hypotension related to underlying cardiac status. Plan: Monitor bladder scans closely to make sure no urinary retention. Encourage oral intake, particularly protein. Ensure 3 times daily. 1500 mL fluid restriction. Check cortisol level. Add midodrine 10 mg 3 times daily. Repeat Lasix 40 mg IV once systolic blood pressure above 110. Cardizem was stopped and Lopressor was decreased by cardiology. Strict I's and O's.
[2020-08-08 10:59] LABS: Polychromasia Present
[2020-08-08 11:43] LABS: Glucose,Whole Blood 123 mg/dL (75-99)
[2020-08-08 15:42] LABS: INR 1.4 (<1.2); Prothrombin Time 14.1 sec (9.0-12.0)
--- NOTE | 2020-08-08 15:58 | PN ---
PROGRESS NOTE DATE OF SERVICE: 08/08/2020 REASON FOR FOLLOWUP: Enterococcus urinary tract infection with PENICILLIN allergy. INTERVAL HISTORY: The patient is currently afebrile. Patient is feeling better, she is complaining of diarrhea after she was given prune juice yesterday. No chest pain. No cough. No abdominal pain. Hayes catheter has been discontinued. PHYSICAL EXAMINATION: Blood pressure 101/69, pulse of 50. temperature 97.3. She is 95% on 2 L nasal cannula. General description is an elderly female, lying in bed in no distress. RESPIRATORY SYSTEM: Unlabored breathing, clear to auscultation anteriorly. HEART S1, S2. Regular rate and rhythm. ABDOMEN: Soft, no tenderness. LABS: Hemoglobin 8.8, white count 6.3, BUN of 44, creatinine is 2.22. DIAGNOSTIC IMPRESSION AND PLAN: Patient with urinary tract infection with PENICILLIN allergy and borderline kidney function, high risk of nephrotoxicity from vancomycin. Patient is currently covered with Levaquin to continue for another day or two. Continue supportive care. MMODL / IJN: [id number] /
[2020-08-08 16:30] LABS: Glucose,Whole Blood 110 mg/dL (75-99)
[2020-08-08] MEDS: ENOXAPARIN 80 MG/0.8 ML SYRINGE SQ SCH (17:21)
[2020-08-08] MEDS ORDERED: WARFARIN 2.5 MG TAB PO SCH (18:00)
--- NOTE | 2020-08-08 18:59 | P.PN ---
Subjective 78-year-old pleasant female with history of atrial fibrillation on the anticoagulation with Xarelto, previous history of GI bleed and gastric ulcer, CVA/TIA. Patient follow-up with Dr. Birch who is recently retired at [employer] and she is looking for a new PCP now. She went to [facility] for right leg pain were stent was placed, she was discharged home 3 days ago, last Thursday, at [facility] Zayas catheter was placed and states it was bloody at that time. She was sent home with a Zayas catheter, however she started feeling uncomfortable in her bladder where the Zayas felt like hurting but she denies any abdominal pain, she felt that she has to P old time and there was blood in the urine catheter so she decided to come to the hospital. She denies any nausea vomiting. No chest pain or dyspnea. She is on 2 L oxygen via nasal cannula at home, it was bumped up to 4 L at [facility] as per patient, she has chronic hypoxic respiratory failure related to her COPD. She denies chest pain or headache or weakness. Originally she was on aspirin daily however she states the last of added to her and [place]. Patient was noted to be on Plavix 75 mg and aspirin 81 mg at home. She denies smoking, she drinks couple cups of wine every week. No illicit drugs On admission her blood pressure was 101/88, this morning was 83/63. However repeat blood pressure went up to 101/59, heart rate on admission was 138, currently is 108, she is saturating 95% on 4 L oxygen via nasal cannula Labs on admission showed hemoglobin of 7.4, rest of the CBC is unremarkable. INR is 1.2. EKG showing atrial fibrillation's with RVR at 133. 08/01/2020 Patient is lying in bed comfortable. No distress. She is not tachypneic. However she still on 4 L oxygen via nasal cannula compared to his doctor at home. No coughing or chest pain but she has bilateral basal crepitation.. Patient feels generally better today, she was admitted mainly for discomfort in her urinary bladder area which is improved today She is hemodynamically stable other than that. Labs from today are still pending. Sugars controlled. Iron study showing iron deficiency anemia with iron low at 21, normal TIBC at 397 and low iron saturation at 5.2%. And normal ferritin at 45. 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 No abdominal pain. And she tolerates diet. She is on Protonix IV daily. Occult blood in stool still pending There is blood in the urine. Urinalysis showing urine RBC more than 182, urine WBC of more than 182. Urine culture is ordered and is pending, patient will be started on Levaquin empirically for possible UTI pending UC, patient is ALLERGIC to penicillin Dr. Elias evaluated the patient and recommended to discontinue Zayas catheter and check PVR. Also recommended to follow up as an outpatient for possible cystoscopy. Patient informed and she agrees. Risks including but not limited to cancer explained to him and she verbalized understanding. Also she has acute kidney injury from yesterday with creatinine 1.7, could be related to her CHF exacerbation in view of basal crepitation and more oxygen requirement. Chest x-ray also was abnormal. We changed her Lasix from 40 mg orally to intravenously today. Echocardiogram is still pending. Heart rate is controlled on oral medication. Xarelto is on hold for hematuria 08/02/2020 Patient still feels generally weak. She still have hematuria through the Zayas catheter. No chest pain or significant dyspnea at rest. She saturating 98% 4 L oxygen via nasal cannula. Her creatinine is down to 1.8 today however her potassium is 2.4 and his been replaced, morning dose of Lasix is been held because of the significantly low potassium. Sodium 131. Blood pressure is a stable, is chronically low while the patient is asymptomatic.Occult blood in the stool is negative. Xarelto still on hold. Patient still on Plavix but aspirin is still on hold as well. Hemoglobin stable at 9.1 She continue on Levaquin for possible UTI, urine cultures pending. 08/03/2020 Today clinically the same, she feels generally weak, however she is breathing quietly and she saturating 99% and a 3 L oxygen via nasal cannula, no much basal crepitation after she was started on IV fluids. She still have the Zayas catheter with some blood in it although it's less severe compared to yesterday. Hemoglobin only slightly lower than yesterday from 9.1 down to 8.1. Patient is on iron panel added yesterday. Also she is on the Plavix however aspirin is on hold. Urine analysis is suspicious for infection, urine culture has been sent and the result is pending, first urine culture is negative but we are going to repeat it.o OxyContinnin is appreciated and they lowered dose of Cardizem from 180 down to 120. Blood pressure today slightly stable at 103/61. Heart rate is 88. Also normal saline at 50 mL per hour was added and creatinine slightly better today at 1.6. 08/04/2020 Patient is awake, clinically the same. It looks like her blood pressure is stable and her sodium is improving gradually to 1.5 with initiation of normal saline, sewed it was also improved 133. Oxygen requirement and stabilized 3-4 L/m. No pulmonary congestion on examination. Heart rate is regular to be controlled while on metoprolol. Eliquis was initiated per neurology team recommendation and tank house operator team input. Also nephrology recommended to discontinue Zayas catheter and monitor PVR. Her urine was tea color today today showing improvement. Urine culture is growing group D enterococcus. She remains on Levaquin pending the final sensitivity. 08/05/2020 pt is still clinically with weakness, zayas catheter is in place with tea colored urine, urine culture is growing enterococcus resistant to Levaquin which is a stopped, it is sensitive to vancomycin, linezolid and other medication. Patient was started on linezolid and lipase are consult for infectious disease team for further recommendation. Nephrology team recommended to discontinue Zayas catheter however due to resistant bacteria and undergoing infection we will keep it for now total sensitive to antibiotic is started. Chest x-ray is suspicious for CHF versus some chronic or fibrotic changes (similar to 5 days ago ) with no worsening despite IV fluids for more than 48 hours but clinically patient does not behave slightly CHF however she stated bed most of the time. Binder Chainstitch recommended to increase metoprolol to 3 times a day. Creatinine is stable at 1.5, blood pressure is a stable 08/06/2020 Patient is generally weak, yesterday patient was started on Zyvox for enterococcus in the urine based on culture and sensitivity. Vancomycin is try to be avoided cause of her hematuria and risk of nephrotoxicity. Infectious disease were consulted and they recommended to continue with Zyvox for 2 weeks upon discharge. Zayas catheter was removed today, we will keep monitoring for bladder scan. Patient is on fluid restriction 1500 mL per day. Patient creatinine is slightly up to 1.7, sodium is stable at 1:30, oxygen requirement came down to 50 L/m which is her baseline, blood pressure slightly on the low normal side at 90/52 after metoprolol was increased to 3 times daily per cardiology recommendation. Patient remains on Eliquis for her history of A. fib with RVR, currently her heart rate is controlled. She remains on Zyvox and Eliquis as above Prognosis is guarded PT/OT recommended home health care 08/07/2020 Patient weakness improving, this is the first day we see her sitting in the chair. She is being treated in currently with Zyvox for her to deal cocci UTI, his hematuria significantly improved, Zayas catheter was discontinued. We will monitor her PVR very closely. As per documentation of a copy for Zyvox is 69 and I discussed with the patient and she agrees with taking it for up to 2 weeks. Patient instructed to follow up with Dr. Elias in 2 weeks to check for cystoscopy at his office for the patient. Patient also informed and she agrees also showing heparin sodium 2126 and decrease in creatinine to 1.9. 1 dose of Lasix is provided for the patient. Iv fluids are on hold 08/08/2020 Patient feels generally more week today with no specific symptoms. She still have difficulty urination. Zayas catheter is out and we checked a bladder scan. Her creatinine trended up to 2.2 today and she was hypotensive last night, metoprolol which was recently increased by cardiology team to 25 mg 3 times a day was lowered back again to twice daily Daycare Director on the case and recommended 1 dose of Lasix. Blood pressure still borderline so we'll keep her in telemetry bed and selective unit Today the Eliquis co-pay was found to be over $450, Eliquis was stopped and started on Coumadin with Lovenox bridgi per pharmacy to dose Prognosis remains guarded Objective - Vital Signs Vital signs: Vital Signs Temp 97.5 F L 08/08/20 16:25 Pulse 65 08/08/20 16:25 Resp 16 08/08/20 16:25 BP 92/59 08/08/20 16:25 Pulse Ox 98 08/08/20 16:25 Intake & Output 08/07/20 08/08/20 08/08/20 18:59 06:59 18:59 Intake Total 890 310 Output Total 860 300 200 Balance 30 -300 110 Weight 80.5 kg Intake: Oral 890 310 Output: Urine 610 300 200 Straight 250 Post Void Residual 250 Other: Voiding Method Toilet Toilet Bedpan # Voids 3 0 # Bowel Movements 0 5 - Exam GENERAL: The patient is alert and oriented x3, not in any acute distress. Well developed, well nourished. HEENT: Pupils are round and equally reacting to light. EOMI. No scleral icterus. No conjunctival pallor. Normocephalic, atraumatic. No pharyngeal erythema. No thyromegaly. CARDIOVASCULAR: S1 and S2 present. No murmurs, rubs, or gallops. -PULMONARY: Chest is clear to auscultation, no wheezing or crackles. Bilateral basal crepitation -ABDOMEN: Soft, nontender, nondistended, normoactive bowel sounds. No palpable organomegaly. Zayas catheter is in place with blood-colored urine MUSCULOSKELETAL: No joint swelling or deformity. EXTREMITIES: No cyanosis, clubbing, or pedal edema. NEUROLOGICAL: Gross neurological examination did not reveal any focal deficits. SKIN: No rashes. No petechiae - Labs CBC & Chem 7: 08/08/20 07:10 08/08/20 07:10 Labs: Abnormal Lab Results - Last 24 Hours (Table) 08/08/20 08/08/20 08/08/20 Range/Units 06:06 07:10 07:10 RBC 3.51 L (3.80-5.40) m/uL Hgb 8.8 L (11.4-16.0) gm/dL Hct 29.7 L (34.0-46.0) % MCHC 29.7 L (31.0-37.0) g/dL RDW 19.5 H (11.5-15.5) % PT (9.0-12.0) sec INR (<1.2) Sodium 127 L (137-145) mmol/L Chloride 95 L (98-107) mmol/L BUN 44 H (7-17) mg/dL Creatinine 2.22 H (0.52-1.04) mg/dL Glucose 138 H (74-99) mg/dL POC Glucose (mg/dL) 185 H (75-99) mg/dL Magnesium 2.8 H (1.6-2.3) mg/dL 08/08/20 08/08/20 08/08/20 Range/Units 07:10 11:42 16:28 RBC (3.80-5.40) m/uL Hgb (11.4-16.0) gm/dL Hct (34.0-46.0) % MCHC (31.0-37.0) g/dL RDW (11.5-15.5) % PT 14.1 H (9.0-12.0) sec INR 1.4 H (<1.2) Sodium (137-145) mmol/L Chloride (98-107) mmol/L BUN (7-17) mg/dL Creatinine (0.52-1.04) mg/dL Glucose (74-99) mg/dL POC Glucose (mg/dL) 123 H 110 H (75-99) mg/dL Magnesium (1.6-2.3) mg/dL Microbiology - Last 24 Hours (Table) 08/06/20 23:25 Urine Culture - Final Urine,Voided Assessment and Plan Assessment: Acute hematuria, could to be related to recent Zayas catheter. Rule out UTI, continue with Levaquin empirically. Culture growing group D enterococcus Acute blood loss anemia Dehydration, present on admission Patient with chronic rather than acute systolic CHF, ejection fraction: 40-45% Acute and chronic hypoxic respiratory failure secondary to above Paroxysmal atrial fibrillation with RVR, was on Xarelto Anemia, Rule out GI bleed History of gastric ulcer in 2018 History of CVA/TIA Plan: This is a pleasant 80 years old female who presents with A. fib and low hemoglobin suspicious for blood in urine and Zayas catheter. At [facility], follow-up urine culture. Follow-up recommendation by urologist who recommended to discontinue Zayas catheter. Continue with iron pills. Continue with Protonix. Start Eliquis Continue with Lasix. Continue holding Xarelto and resume as per GI/urology services. Continue Cardizem and monitor heart rate. Continue with Plavix Follow-up recommendation by urology, GI team and cardiology team. Pain management. Labs and medication were reviewed.. Continue same treatment. Continue with s ymptomatic treatment. Resume home medication. Monitor lytes and vitals. DVT and GI prophylaxis. Further recommendationsas per clinical course of the patient DVT prophylaxis: Hold anticoagulation in view of blood in urine GI Prophylaxis: Ppi PT/OT: Pending Prognosis is guarded
[2020-08-08] MEDS: ATORVASTATIN 40 MG TAB PO SCH (20:15)
[2020-08-08] MEDS: ACETAMINOPHEN TAB 325 MG TAB PO PRN (20:16)
[2020-08-08 20:31] LABS: Glucose,Whole Blood 138 mg/dL (75-99)
[2020-08-09] MEDS: SODIUM CHLORIDE 0.9% 1,000 ML IV SCH (03:42)
[2020-08-09 06:17] LABS: Glucose,Whole Blood 86 mg/dL (75-99)
[2020-08-09] MEDS: INSULIN ASPART (NovoLOG) 100 UNIT/ML VIAL SQ SCH ×4 (06:18→20:23)
[2020-08-09] MEDS: MIDODRINE 5 MG TAB PO SCH ×3 (06:21→17:37)
[2020-08-09] MEDS: LINEZOLID 600 MG TAB PO SCH ×2 (06:21→18:36)
[2020-08-09] MEDS: FERROUS SULFATE 325 MG TAB PO SCH ×2 (06:21→17:37)
[2020-08-09] MEDS: PANTOPRAZOLE 40 MG TABLET PO SCH (06:22)
[2020-08-09] MEDS: METOPROLOL TARTRATE 25 MG TAB PO SCH ×2 (09:40→20:22)
[2020-08-09] MEDS: CHOLECALCIFEROL 400 UNIT TAB PO SCH (09:40)
[2020-08-09] MEDS: allopurinoL 100 MG TAB PO SCH (09:40)
[2020-08-09] MEDS: ENOXAPARIN 80 MG/0.8 ML SYRINGE SQ SCH (09:40)
[2020-08-09] MEDS: polyethylene glycoL 3350 17 GM POWD.PACK PO SCH (09:40)
[2020-08-09] MEDS: CLOPIDOGREL 75 MG TAB PO SCH (09:40)
[2020-08-09 11:11] LABS: INR 1.5 (<1.2); Prothrombin Time 14.9 sec (9.0-12.0)
[2020-08-09 11:24] LABS: Calcium 8.5 mg/dL (8.4-10.2); Magnesium 2.7 mg/dL (1.6-2.3); Potassium 4.6 mmol/L (3.5-5.1)
[2020-08-09 11:47] LABS: Glucose,Whole Blood 98 mg/dL (75-99)
[2020-08-09] MEDS ORDERED: FUROSEMIDE 10 MG/ML 4 ML VIAL IV STA (13:33)
--- NOTE | 2020-08-09 13:33 | P.PN ---
Subjective Patient is seen in follow-up for acute kidney injury. Renal function slightly worsened today. Urine output 700 mL so far today. Blood pressure is improved with Midodrine. Currently on 2 L nasal cannula. No vomiting or diarrhea. Vital signs: Stable. General: The patient appeared well nourished and normally developed. HEENT: Head exam is unremarkable. Neck is without jugular venous distension. LUNGS: Breath sounds decreased. HEART: Rate and Rhythm are regular. ABDOMEN: Soft, nontender. EXTREMITITES: 1+ edema. Objective - Vital Signs Vital signs: Vital Signs Temp 97.3 F L 08/09/20 12:00 Pulse 105 H 08/09/20 12:00 Resp 16 08/09/20 12:00 BP 105/51 08/09/20 12:00 Pulse Ox 98 08/09/20 12:00 Intake & Output 08/08/20 08/09/20 08/09/20 18:59 06:59 18:59 Intake Total 310 240 Output Total 200 500 400 Balance 110 -500 -160 Weight 86.5 kg Intake: Oral 310 240 Output: Urine 200 500 400 Other: Voiding Method Bedpan Bedpan Bedpan # Voids 0 4 0 # Bowel Movements 5 0 - Labs CBC & Chem 7: 08/08/20 07:10 08/09/20 09:02 Labs: Abnormal Lab Results - Last 24 Hours (Table) 08/08/20 08/08/20 08/08/20 Range/Units 07:10 16:28 20:30 PT 14.1 H (9.0-12.0) sec INR 1.4 H (<1.2) Sodium (137-145) mmol/L Chloride (98-107) mmol/L BUN (7-17) mg/dL Creatinine (0.52-1.04) mg/dL POC Glucose (mg/dL) 110 H 138 H (75-99) mg/dL Magnesium (1.6-2.3) mg/dL 08/09/20 08/09/20 Range/Units 09:02 09:02 PT 14.9 H (9.0-12.0) sec INR 1.5 H (<1.2) Sodium 129 L (137-145) mmol/L Chloride 97 L (98-107) mmol/L BUN 42 H (7-17) mg/dL Creatinine 2.37 H (0.52-1.04) mg/dL POC Glucose (mg/dL) (75-99) mg/dL Magnesium 2.7 H (1.6-2.3) mg/dL Microbiology - Last 24 Hours (Table) 08/06/20 23:25 Urine Culture - Final Urine,Voided Assessment and Plan Plan: Assessment: 1. Acute kidney injury secondary to ATN secondary to hypotension. No significant urinary retention. Renal function a little worse today - creatinine 2.37 today. No hydronephrosis noted on kidney ultrasound. Nonoliguric. 2. Enterococcus UTI maintained on antibiotics. 3. Hyponatremia secondary to acute kidney injury and poor solute intake. Hypervolemic. Urine sodium less than 10 and urine osmolality 408 consistent with cardiorenal syndrome. 4. A. fib maintained on Lopressor and anticoagulation. 5. Volume overload. 6. Acute on chronic systolic CHF with ejection fraction of 40-45% with moderate mitral regurgitation and pulmonary hypertension. 7. Hypotension related to underlying cardiac status. Cortisol level normal. 8. Rule out chronic kidney disease. Creatinine in July 2018 was near 1. 9. Diabetes mellitus. Plan: Monitor bladder scans closely to make sure no urinary retention. Encourage oral intake, particularly protein. Ensure 3 times daily. 1500 mL fluid restriction. Maintain midodrine 10 mg 3 times daily. Lasix 40 mg IV once today. Continue to monitor renal function and urine output. Repeat electrolytes in the morning.
[2020-08-09 17:07] LABS: Glucose,Whole Blood 116 mg/dL (75-99)
[2020-08-09] MEDS ORDERED: WARFARIN 2.5 MG TAB PO ONE (18:00)
[2020-08-09 20:17] LABS: Glucose,Whole Blood 148 mg/dL (75-99)
[2020-08-09] MEDS: ATORVASTATIN 40 MG TAB PO SCH (20:22)
--- NOTE | 2020-08-09 22:02 | PN ---
PROGRESS NOTE DATE OF SERVICE: 08/09/2020 REASON FOR FOLLOWUP: Enterococcus faecalis urinary tract infection. INTERVAL HISTORY: The patient is currently afebrile. The patient is breathing comfortably. The patient's Hayes has been discontinued. She is able to urinate. No chest pain or cough. No abdominal pain or diarrhea. PHYSICAL EXAMINATION: Blood pressure 105/51 with a pulse of 105, temperature 97.3. She is 98% on 2 L nasal cannula. General description is an elderly female up in the bed in no distress. RESPIRATORY SYSTEM: Unlabored breathing. Clear to auscultation. HEART: S1, S2. Regular rate and rhythm. ABDOMEN: Soft. No tenderness. LABS: BUN of 42, creatinine 2.37. Repeat urine has been negative so far. DIAGNOSTIC IMPRESSION AND PLAN: Patient with Enterococcus faecalis urinary tract infection, adequately treated. Zyvox can be discontinued on discharge after 5 days of therapy. Continue with supportive care. MMODL / IJN: [id number] /
--- NOTE | 2020-08-09 22:48 | P.PN ---
Subjective 78-year-old pleasant female with history of atrial fibrillation on the anticoagulation with Xarelto, previous history of GI bleed and gastric ulcer, CVA/TIA. Patient follow-up with Dr. Birch who is recently retired at [place] and she is looking for a new PCP now. She went to [facility] for right leg pain were stent was placed, she was discharged home 3 days ago, last Thursday, at [facility] Zayas catheter was placed and states it was bloody at that time. She was sent home with a Zayas catheter, however she started feeling uncomfortable in her bladder where the Zayas felt like hurting but she denies any abdominal pain, she felt that she has to P old time and there was blood in the urine catheter so she decided to come to the hospital. She denies any nausea vomiting. No chest pain or dyspnea. She is on 2 L oxygen via nasal cannula at home, it was bumped up to 4 L at [facility] as per patient, she has chronic hypoxic respiratory failure related to her COPD. She denies chest pain or headache or weakness. Originally she was on aspirin daily however she states the last of added to her and [place]. Patient was noted to be on Plavix 75 mg and aspirin 81 mg at home. She denies smoking, she drinks couple cups of wine every week. No illicit drugs On admission her blood pressure was 101/88, this morning was 83/63. However repeat blood pressure went up to 101/59, heart rate on admission was 138, currently is 108, she is saturating 95% on 4 L oxygen via nasal cannula Labs on admission showed hemoglobin of 7.4, rest of the CBC is unremarkable. INR is 1.2. EKG showing atrial fibrillation's with RVR at 133. 08/01/2020 Patient is lying in bed comfortable. No distress. She is not tachypneic. However she still on 4 L oxygen via nasal cannula compared to his doctor at home. No coughing or chest pain but she has bilateral basal crepitation.. Patient feels generally better today, she was admitted mainly for discomfort in her urinary bladder area which is improved today She is hemodynamically stable other than that. Labs from today are still pending. Sugars controlled. Iron study showing iron deficiency anemia with iron low at 21, normal TIBC at 397 and low iron saturation at 5.2%. And normal ferritin at 45. 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 No abdominal pain. And she tolerates diet. She is on Protonix IV daily. Occult blood in stool still pending There is blood in the urine. Urinalysis showing urine RBC more than 182, urine WBC of more than 182. Urine culture is ordered and is pending, patient will be started on Levaquin empirically for possible UTI pending UC, patient is ALLERGIC to penicillin Dr. Elias evaluated the patient and recommended to discontinue Zayas catheter and check PVR. Also recommended to follow up as an outpatient for possible cystoscopy. Patient informed and she agrees. Risks including but not limited to cancer explained to him and she verbalized understanding. Also she has acute kidney injury from yesterday with creatinine 1.7, could be related to her CHF exacerbation in view of basal crepitation and more oxygen requirement. Chest x-ray also was abnormal. We changed her Lasix from 40 mg orally to intravenously today. Echocardiogram is still pending. Heart rate is controlled on oral medication. Xarelto is on hold for hematuria 08/02/2020 Patient still feels generally weak. She still have hematuria through the Zayas catheter. No chest pain or significant dyspnea at rest. She saturating 98% 4 L oxygen via nasal cannula. Her creatinine is down to 1.8 today however her potassium is 2.4 and his been replaced, morning dose of Lasix is been held because of the significantly low potassium. Sodium 131. Blood pressure is a stable, is chronically low while the patient is asymptomatic.Occult blood in the stool is negative. Xarelto still on hold. Patient still on Plavix but aspirin is still on hold as well. Hemoglobin stable at 9.1 She continue on Levaquin for possible UTI, urine cultures pending. 08/03/2020 Today clinically the same, she feels generally weak, however she is breathing quietly and she saturating 99% and a 3 L oxygen via nasal cannula, no much basal crepitation after she was started on IV fluids. She still have the Zayas catheter with some blood in it although it's less severe compared to yesterday. Hemoglobin only slightly lower than yesterday from 9.1 down to 8.1. Patient is on iron panel added yesterday. Also she is on the Plavix however aspirin is on hold. Urine analysis is suspicious for infection, urine culture has been sent and the result is pending, first urine culture is negative but we are going to repeat it.o OxyContinnin is appreciated and they lowered dose of Cardizem from 180 down to 120. Blood pressure today slightly stable at 103/61. Heart rate is 88. Also normal saline at 50 mL per hour was added and creatinine slightly better today at 1.6. 08/04/2020 Patient is awake, clinically the same. It looks like her blood pressure is stable and her sodium is improving gradually to 1.5 with initiation of normal saline, sewed it was also improved 133. Oxygen requirement and stabilized 3-4 L/m. No pulmonary congestion on examination. Heart rate is regular to be controlled while on metoprolol. Eliquis was initiated per neurology team recommendation and drive worker team input. Also nephrology recommended to discontinue Zayas catheter and monitor PVR. Her urine was tea color today today showing improvement. Urine culture is growing group D enterococcus. She remains on Levaquin pending the final sensitivity. 08/05/2020 pt is still clinically with weakness, zayas catheter is in place with tea colored urine, urine culture is growing enterococcus resistant to Levaquin which is a stopped, it is sensitive to vancomycin, linezolid and other medication. Patient was started on linezolid and lipase are consult for infectious disease team for further recommendation. Nephrology team recommended to discontinue Zayas catheter however due to resistant bacteria and undergoing infection we will keep it for now total sensitive to antibiotic is started. Chest x-ray is suspicious for CHF versus some chronic or fibrotic changes (similar to 5 days ago ) with no worsening despite IV fluids for more than 48 hours but clinically patient does not behave slightly CHF however she stated bed most of the time. Dance Professor recommended to increase metoprolol to 3 times a day. Creatinine is stable at 1.5, blood pressure is a stable 08/06/2020 Patient is generally weak, yesterday patient was started on Zyvox for enterococcus in the urine based on culture and sensitivity. Vancomycin is try to be avoided cause of her hematuria and risk of nephrotoxicity. Infectious disease were consulted and they recommended to continue with Zyvox for 2 weeks upon discharge. Zayas catheter was removed today, we will keep monitoring for bladder scan. Patient is on fluid restriction 1500 mL per day. Patient creatinine is slightly up to 1.7, sodium is stable at 1:30, oxygen requirement came down to 50 L/m which is her baseline, blood pressure slightly on the low normal side at 90/52 after metoprolol was increased to 3 times daily per cardiology recommendation. Patient remains on Eliquis for her history of A. fib with RVR, currently her heart rate is controlled. She remains on Zyvox and Eliquis as above Prognosis is guarded PT/OT recommended home health care 08/07/2020 Patient weakness improving, this is the first day we see her sitting in the chair. She is being treated in currently with Zyvox for her to deal cocci UTI, his hematuria significantly improved, Zayas catheter was discontinued. We will monitor her PVR very closely. As per documentation of a copy for Zyvox is 69 and I discussed with the patient and she agrees with taking it for up to 2 weeks. Patient instructed to follow up with Dr. Elias in 2 weeks to check for cystoscopy at his office for the patient. Patient also informed and she agrees also showing heparin sodium 2126 and decrease in creatinine to 1.9. 1 dose of Lasix is provided for the patient. Iv fluids are on hold 08/08/2020 Patient feels generally more week today with no specific symptoms. She still have difficulty urination. Zayas catheter is out and we checked a bladder scan. Her creatinine trended up to 2.2 today and she was hypotensive last night, metoprolol which was recently increased by cardiology team to 25 mg 3 times a day was lowered back again to twice daily Corn Cutter on the case and recommended 1 dose of Lasix. Blood pressure still borderline so we'll keep her in telemetry bed and selective unit Today the Eliquis co-pay was found to be over $450, Eliquis was stopped and started on Coumadin with Lovenox bridgi per pharmacy to dose Prognosis remains guarded 08/09/2020 Patient feels better today, she states that she is voiding easier than yesterday although she still have some difficulty. No abdominal pain and no other sym ptoms. Her blood pressure is better today, after medial drain has been added. Systolic blood pressure is ranging between 100-105 She has worsening creatinine today to 2.3. Sodium slightly improved at 129. INR is 1.5 after Coumadin started with Lovenox bridging. She remains on Zyvox for enterococcus UTI, also on Coumadin with Lovenox bridging. She continued medial drain and metoprolol 25 mg twice daily. Metformin as an hold and sugars controlled. Objective - Vital Signs Vital signs: Vital Signs Temp 97.3 F L 08/09/20 12:00 Pulse 105 H 08/09/20 12:00 Resp 16 08/09/20 12:00 BP 105/51 08/09/20 12:00 Pulse Ox 98 08/09/20 12:00 Intake & Output 08/08/20 08/09/20 08/09/20 18:59 06:59 18:59 Intake Total 310 240 Output Total 200 500 400 Balance 110 -500 -160 Weight 86.5 kg Intake: Oral 310 240 Output: Urine 200 500 400 Other: Voiding Method Bedpan Bedpan Bedpan # Voids 0 4 0 # Bowel Movements 5 0 - Exam GENERAL: The patient is alert and oriented x3, not in any acute distress. Well developed, well nourished. HEENT: Pupils are round and equally reacting to light. EOMI. No scleral icterus. No conjunctival pallor. Normocephalic, atraumatic. No pharyngeal erythema. No thyromegaly. CARDIOVASCULAR: S1 and S2 present. No murmurs, rubs, or gallops. -PULMONARY: Chest is clear to auscultation, no wheezing or crackles. Bilateral basal crepitation -ABDOMEN: Soft, nontender, nondistended, normoactive bowel sounds. No palpable organomegaly. Zayas catheter is in place with blood-colored urine MUSCULOSKELETAL: No joint swelling or deformity. EXTREMITIES: No cyanosis, clubbing, or pedal edema. NEUROLOGICAL: Gross neurological examination did not reveal any focal deficits. SKIN: No rashes. No petechiae - Labs CBC & Chem 7: 08/08/20 07:10 08/09/20 09:02 Labs: Abnormal Lab Results - Last 24 Hours (Table) 08/08/20 08/08/20 08/08/20 Range/Units 07:10 16:28 20:30 PT 14.1 H (9.0-12.0) sec INR 1.4 H (<1.2) Sodium (137-145) mmol/L Chloride (98-107) mmol/L BUN (7-17) mg/dL Creatinine (0.52-1.04) mg/dL POC Glucose (mg/dL) 110 H 138 H (75-99) mg/dL Magnesium (1.6-2.3) mg/dL 08/09/20 08/09/20 Range/Units 09:02 09:02 PT 14.9 H (9.0-12.0) sec INR 1.5 H (<1.2) Sodium 129 L (137-145) mmol/L Chloride 97 L (98-107) mmol/L BUN 42 H (7-17) mg/dL Creatinine 2.37 H (0.52-1.04) mg/dL POC Glucose (mg/dL) (75-99) mg/dL Magnesium 2.7 H (1.6-2.3) mg/dL Microbiology - Last 24 Hours (Table) 08/06/20 23:25 Urine Culture - Final Urine,Voided Assessment and Plan Assessment: Acute hematuria, secondary to UTI. Culture growing group D enterococcus Acute blood loss anemia Acute kidney injury Hyponatremia Paroxysmal atrial fibrillation with RVR, was on Coumadin Patient with chronic rather than acute systolic CHF, ejection fraction: 40-45% Acute and chronic hypoxic respiratory failure secondary to above. Improved Anemia, Rule out GI bleed History of gastric ulcer in 2018 History of CVA/TIA Plan: This is a pleasant 80 years old female who presents with A. fib and low hemoglobin suspicious for blood in urine and Zayas catheter. Continue with Zyvox, coumadine. Hold metformin. Continue with medodrine and metoprolol. 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 Also drive worker on the case Follow-up recommendation by urology, GI team and cardiology team. Pain management. Labs and medication were reviewed.. Continue same treatment. Continue with symptomatic treatment. Resume home medication. Monitor lytes and vitals. DVT and GI prophylaxis. Further recommendationsas per clinical course of the patient DVT prophylaxis: Coumadine GI Prophylaxis: Ppi PT/OT: Home with home health care
[2020-08-10 06:11] LABS: Glucose,Whole Blood 113 mg/dL (75-99)
[2020-08-10] MEDS: LINEZOLID 600 MG TAB PO SCH ×2 (06:25→17:36)
[2020-08-10] MEDS: MIDODRINE 5 MG TAB PO SCH ×3 (06:25→15:55)
[2020-08-10] MEDS: FERROUS SULFATE 325 MG TAB PO SCH ×2 (06:25→17:33)
[2020-08-10] MEDS: INSULIN ASPART (NovoLOG) 100 UNIT/ML VIAL SQ SCH ×4 (06:25→20:54)
[2020-08-10] MEDS: PANTOPRAZOLE 40 MG TABLET PO SCH (06:25)
[2020-08-10] MEDS: SODIUM CHLORIDE 0.9% 1,000 ML IV SCH (06:27)
[2020-08-10] MEDS: ENOXAPARIN 80 MG/0.8 ML SYRINGE SQ SCH (08:32)
[2020-08-10 09:50] LABS: INR 1.6 (<1.2); Prothrombin Time 15.7 sec (9.0-12.0)
[2020-08-10 10:00] LABS: Albumin 3.5 g/dL (3.5-5.0); Calcium 8.8 mg/dL (8.4-10.2); Magnesium 2.4 mg/dL (1.6-2.3); Potassium 4.4 mmol/L (3.5-5.1); Total Bilirubin 1.6 mg/dL (0.2-1.3); Total Protein 6.8 g/dL (6.3-8.2)
[2020-08-10] MEDS: polyethylene glycoL 3350 17 GM POWD.PACK PO SCH (10:31)
[2020-08-10] MEDS: CLOPIDOGREL 75 MG TAB PO SCH (10:52)
[2020-08-10] MEDS: METOPROLOL TARTRATE 25 MG TAB PO SCH ×2 (10:55→21:19)
[2020-08-10] MEDS: allopurinoL 100 MG TAB PO SCH (10:58)
[2020-08-10] MEDS: CHOLECALCIFEROL 400 UNIT TAB PO SCH (10:58)
--- NOTE | 2020-08-10 10:58 | P.PN ---
Subjective Patient is seen in follow-up for acute kidney injury. Renal function fairly stable. Urine output near 1 L in the last 24 hours. Blood pressure is improved with Midodrine but remains on the lower side. Currently on 2 L nasal cannula. No vomiting or diarrhea. Wants to go home. Vital signs: Stable. General: The patient appeared well nourished and normally developed. HEENT: Head exam is unremarkable. Neck is without jugular venous distension. LUNGS: Breath sounds decreased. HEART: Rate and Rhythm are regular. ABDOMEN: Soft, nontender. EXTREMITITES: 2+ edema. Objective - Vital Signs Vital signs: Vital Signs Temp 97.8 F 08/10/20 08:10 Pulse 100 08/10/20 08:10 Resp 17 08/10/20 08:10 BP 92/66 08/10/20 08:10 Pulse Ox 98 08/10/20 08:10 Intake & Output 08/09/20 08/10/20 08/10/20 18:59 06:59 18:59 Intake Total 480 450 Output Total 400 250 100 Balance 80 200 -100 Weight 85.3 kg Intake: Oral 480 450 Output: Urine 400 250 100 Other: Voiding Method Bedpan Bedpan Diaper Incontinent # Voids 0 1 # Bowel Movements 1 1 - Labs CBC & Chem 7: 08/08/20 07:10 08/10/20 08:54 Labs: Abnormal Lab Results - Last 24 Hours (Table) 08/09/20 08/09/20 08/09/20 Range/Units 09:02 09:02 17:02 PT 14.9 H (9.0-12.0) sec INR 1.5 H (<1.2) Sodium 129 L (137-145) mmol/L Chloride 97 L (98-107) mmol/L Carbon Dioxide (22-30) mmol/L BUN 42 H (7-17) mg/dL Creatinine 2.37 H (0.52-1.04) mg/dL POC Glucose (mg/dL) 116 H (75-99) mg/dL Magnesium 2.7 H (1.6-2.3) mg/dL Total Bilirubin (0.2-1.3) mg/dL AST (14-36) U/L Alkaline Phosphatase (38-126) U/L 08/09/20 08/10/20 08/10/20 Range/Units 20:16 06:10 08:54 PT 15.7 H (9.0-12.0) sec INR 1.6 H (<1.2) Sodium (137-145) mmol/L Chloride (98-107) mmol/L Carbon Dioxide (22-30) mmol/L BUN (7-17) mg/dL Creatinine (0.52-1.04) mg/dL POC Glucose (mg/dL) 148 H 113 H (75-99) mg/dL Magnesium (1.6-2.3) mg/dL Total Bilirubin (0.2-1.3) mg/dL AST (14-36) U/L Alkaline Phosphatase (38-126) U/L 08/10/20 Range/Units 08:54 PT (9.0-12.0) sec INR (<1.2) Sodium 129 L (137-145) mmol/L Chloride (98-107) mmol/L Carbon Dioxide 20 L (22-30) mmol/L BUN 41 H (7-17) mg/dL Creatinine 2.17 H (0.52-1.04) mg/dL POC Glucose (mg/dL) (75-99) mg/dL Magnesium 2.4 H (1.6-2.3) mg/dL Total Bilirubin 1.6 H (0.2-1.3) mg/dL AST 46 H (14-36) U/L Alkaline Phosphatase 259 H (38-126) U/L Assessment and Plan Plan: Assessment: 1. Acute kidney injury secondary to ATN secondary to hypotension. No significant urinary retention. Renal function fairly stable - creatinine 2.17 today. No hydronephrosis noted on kidney ultrasound. Nonoliguric. 2. Enterococcus UTI maintained on antibiotics. 3. Hyponatremia secondary to acute kidney injury and poor solute intake. Hypervolemic. Urine sodium less than 10 and urine osmolality 408 consistent with cardiorenal syndrome. 4. A. fib maintained on Lopressor and anticoagulation. 5. Volume overload. 6. Acute on chronic systolic CHF with ejection fraction of 40-45% with moderate mitral regurgitation and pulmonary hypertension. 7. Hypotension related to underlying cardiac status. Cortisol level normal. 8. Rule out chronic kidney disease. Creatinine in July 2018 was near 1. 9. Diabetes mellitus. Plan: Monitor bladder scans closely to make sure no urinary retention. Encourage oral intake, particularly protein. Ensure 3 times daily. 1500 mL fluid restriction. Maintain midodrine 10 mg 3 times daily. Add Lasix 40 mg IV twice daily. Will transition to oral Demadex upon discharge. Continue to monitor renal function and urine output. Repeat electrolytes in the morning.
[2020-08-10] MEDS: FUROSEMIDE 10 MG/ML 4 ML VIAL IV SCH ×2 (11:09→21:19)
[2020-08-10 12:02] LABS: Glucose,Whole Blood 129 mg/dL (75-99)
[2020-08-10] MEDS: ACETAMINOPHEN TAB 325 MG TAB PO PRN ×2 (15:54→22:17)
[2020-08-10 16:35] LABS: Glucose,Whole Blood 111 mg/dL (75-99)
[2020-08-10] MEDS ORDERED: WARFARIN 5 MG TAB PO ONE (18:00)
[2020-08-10] MEDS: ATORVASTATIN 40 MG TAB PO SCH (20:11)
[2020-08-10 20:30] LABS: Glucose,Whole Blood 129 mg/dL (75-99)
[2020-08-10] MEDS ORDERED: SODIUM CHLORIDE 0.9% 500 ML 200 ML IV ONE (21:20)
[2020-08-10 22:37] LABS: Anisocytosis Slight; Basophils # (A) 0.1 k/uL (0-0.2); Basophils % (A) 2 %; Eosinophils % (A) 0 %; HCT 28.8 % (34.0-46.0); HGB 8.8 gm/dL (11.4-16.0); Hypochromasia Marked; Lymphocytes # (A) 0.5 k/uL (1.0-4.8); Lymphocytes % (A) 14 %; MCH 25.9 pg (25.0-35.0); MCHC 30.5 g/dL (31.0-37.0); MCV 84.9 fL (80.0-100.0); Microcytosis Slight; Monocytes # (A) 0.4 k/uL (0-1.0); Monocytes % (A) 11 %; Neutrophils # (A) 2.5 k/uL (1.3-7.7); Neutrophils % (A) 70 %; Platelet Count 145 k/uL (150-450); Poikilocytosis Slight; RDW 19.9 % (11.5-15.5); WBC 3.6 k/uL (3.8-10.6)
--- NOTE | 2020-08-10 22:52 | PN ---
PROGRESS NOTE DATE OF SERVICE: 08/10/2020 REASON FOR FOLLOWUP: Enterococcus UTI infection. INTERVAL HISTORY: Patient is currently afebrile. The patient is breathing comfortably. Denies any chest pain, shortness of breath. Occasional cough. No abdominal pain. No diarrhea. PHYSICAL EXAMINATION: Blood pressure 198/50. Blood pressure 105/72 with a pulse of 123, temp 97.7. She is 96% on 2 L nasal cannula. General description is an elderly female lying in bed in no distress. Respiratory system: Unlabored breathing. Clear to auscultation anteriorly. Heart S1, S2. Regular rate and rhythm. ABDOMEN: Soft, no tenderness. LABS: BUN of 41, creatinine is 2.17. DIAGNOSTIC IMPRESSION AND PLAN: Patient with Enterococcus secondary to urinary tract infection, adequately treated. The patient had repeat culture came back negative. Zyvox can be safely discontinued. Continue supportive care. MMODL / IJN: [id number] /
[2020-08-11] MEDS: ALPRAZolam 0.5 MG TAB PO PRN (00:56)
[2020-08-11] MEDS: SODIUM CHLORIDE 0.9% 1,000 ML IV SCH (01:02)
[2020-08-11] MEDS: MIDODRINE 5 MG TAB PO SCH ×3 (06:26→18:35)
[2020-08-11] MEDS: LINEZOLID 600 MG TAB PO SCH ×2 (06:26→18:35)
[2020-08-11] MEDS: FERROUS SULFATE 325 MG TAB PO SCH ×3 (06:26→17:08)
[2020-08-11] MEDS: PANTOPRAZOLE 40 MG TABLET PO SCH (06:28)
[2020-08-11] MEDS: INSULIN ASPART (NovoLOG) 100 UNIT/ML VIAL SQ SCH ×4 (06:53→20:27)
[2020-08-11 06:54] LABS: Glucose,Whole Blood 91 mg/dL (75-99)
--- NOTE | 2020-08-11 08:32 | P.PN ---
Subjective 78-year-old pleasant female with history of atrial fibrillation on the anticoagulation with Xarelto, previous history of GI bleed and gastric ulcer, CVA/TIA. Patient follow-up with Dr. Birch who is recently retired at [facility] and she is looking for a new PCP now. She went to [facility] for right leg pain were stent was placed, she was discharged home 3 days ago, last Thursday, at [facility] Zayas catheter was placed and states it was bloody at that time. She was sent home with a Zayas catheter, however she started feeling uncomfortable in her bladder where the Zayas felt like hurting but she denies any abdominal pain, she felt that she has to P old time and there was blood in the urine catheter so she decided to come to the hospital. She denies any nausea vomiting. No chest pain or dyspnea. She is on 2 L oxygen via nasal cannula at home, it was bumped up to 4 L at [facility] as per patient, she has chronic hypoxic respiratory failure related to her COPD. She denies chest pain or headache or weakness. Originally she was on aspirin daily however she states the last of added to her and [place]. Patient was noted to be on Plavix 75 mg and aspirin 81 mg at home. She denies smoking, she drinks couple cups of wine every week. No illicit drugs On admission her blood pressure was 101/88, this morning was 83/63. However repeat blood pressure went up to 101/59, heart rate on admission was 138, currently is 108, she is saturating 95% on 4 L oxygen via nasal cannula Labs on admission showed hemoglobin of 7.4, rest of the CBC is unremarkable. INR is 1.2. EKG showing atrial fibrillation's with RVR at 133. 08/01/2020 Patient is lying in bed comfortable. No distress. She is not tachypneic. However she still on 4 L oxygen via nasal cannula compared to his doctor at home. No coughing or chest pain but she has bilateral basal crepitation.. Patient feels generally better today, she was admitted mainly for discomfort in her urinary bladder area which is improved today She is hemodynamically stable other than that. Labs from today are still pending. Sugars controlled. Iron study showing iron deficiency anemia with iron low at 21, normal TIBC at 397 and low iron saturation at 5.2%. And normal ferritin at 45. Patient was started on iron pills Although patient was admitted for possible GI bleed, patient denies any blood in stool, no vomiting blood, she had a bowel movement toolmaker which was brown as per patient. No abdominal pain. And she tolerates diet. She is on Protonix IV daily. Occult blood in stool still pending There is blood in the urine. Urinalysis showing urine RBC more than 182, urine WBC of more than 182. Urine culture is ordered and is pending, patient will be started on Levaquin empirically for possible UTI pending UC, patient is ALLERGIC to penicillin Dr. Elias evaluated the patient and recommended to discontinue Zayas catheter and check PVR. Also recommended to follow up as an outpatient for possible cystoscopy. Patient informed and she agrees. Risks including but not limited to cancer explained to him and she verbalized understanding. Also she has acute kidney injury from yesterday with creatinine 1.7, could be related to her CHF exacerbation in view of basal crepitation and more oxygen requirement. Chest x-ray also was abnormal. We changed her Lasix from 40 mg orally to intravenously today. Echocardiogram is still pending. Heart rate is controlled on oral medication. Xarelto is on hold for hematuria 08/02/2020 Patient still feels generally weak. She still have hematuria through the Zyaas catheter. No chest pain or significant dyspnea at rest. She saturating 98% 4 L oxygen via nasal cannula. Her creatinine is down to 1.8 today however her potassium is 2.4 and his been replaced, morning dose of Lasix is been held because of the significantly low potassium. Sodium 131. Blood pressure is a stable, is chronically low while the patient is asymptomatic.Occult blood in the stool is negative. Xarelto still on hold. Patient still on Plavix but aspirin is still on hold as well. Hemoglobin stable at 9.1 She continue on Levaquin for possible UTI, urine cultures pending. 08/03/2020 Today clinically the same, she feels generally weak, however she is breathing quietly and she saturating 99% and a 3 L oxygen via nasal cannula, no much basal crepitation after she was started on IV fluids. She still have the Zayas catheter with some blood in it although it's less severe compared to yesterday. Hemoglobin only slightly lower than yesterday from 9.1 down to 8.1. Patient is on iron panel added yesterday. Also she is on the Plavix however aspirin is on hold. Urine analysis is suspicious for infection, urine culture has been sent and the result is pending, first urine culture is negative but we are going to repeat it.o OxyContinnin is appreciated and they lowered dose of Cardizem from 180 down to 120. Blood pressure today slightly stable at 103/61. Heart rate is 88. Also normal saline at 50 mL per hour was added and creatinine slightly better today at 1.6. 08/04/2020 Patient is awake, clinically the same. It looks like her blood pressure is stable and her sodium is improving gradually to 1.5 with initiation of normal saline, sewed it was also improved 133. Oxygen requirement and stabilized 3-4 L/m. No pulmonary congestion on examination. Heart rate is regular to be controlled while on metoprolol. Eliquis was initiated per neurology team recommendation and inclusion special education teacher team input. Also nephrology recommended to discontinue Zayas catheter and monitor PVR. Her urine was tea color today today showing improvement. Urine culture is growing group D enterococcus. She remains on Levaquin pending the final sensitivity. 08/05/2020 pt is still clinically with weakness, zayas catheter is in place with tea colored urine, urine culture is growing enterococcus resistant to Levaquin which is a stopped, it is sensitive to vancomycin, linezolid and other medication. Patient was started on linezolid and lipase are consult for infectious disease team for further recommendation. Nephrology team recommended to discontinue Zayas catheter however due to resistant bacteria and undergoing infection we will keep it for now total sensitive to antibiotic is started. Chest x-ray is suspicious for CHF versus some chronic or fibrotic changes (similar to 5 days ago ) with no worsening despite IV fluids for more than 48 hours but clinically patient does not behave slightly CHF however she stated bed most of the time. County Historian recommended to increase metoprolol to 3 times a day. Creatinine is stable at 1.5, blood pressure is a stable 08/06/2020 Patient is generally weak, yesterday patient was started on Zyvox for enterococcus in the urine based on culture and sensitivity. Vancomycin is try to be avoided cause of her hematuria and risk of nephrotoxicity. Infectious disease were consulted and they recommended to continue with Zyvox for 2 weeks upon discharge. Zayas catheter was removed today, we will keep monitoring for bladder scan. Patient is on fluid restriction 1500 mL per day. Patient creatinine is slightly up to 1.7, sodium is stable at 1:30, oxygen requirement came down to 50 L/m which is her baseline, blood pressure slightly on the low normal side at 90/52 after metoprolol was increased to 3 times daily per cardiology recommendation. Patient remains on Eliquis for her history of A. fib with RVR, currently her heart rate is controlled. She remains on Zyvox and Eliquis as above Prognosis is guarded PT/OT recommended home health care 08/07/2020 Patient weakness improving, this is the first day we see her sitting in the chair. She is being treated in currently with Zyvox for her to deal cocci UTI, his hematuria significantly improved, Zayas catheter was discontinued. We will monitor her PVR very closely. As per documentation of a copy for Zyvox is 69 and I discussed with the patient and she agrees with taking it for up to 2 weeks. Patient instructed to follow up with Dr. Elias in 2 weeks to check for cystoscopy at his office for the patient. Patient also informed and she agrees also showing heparin sodium 2126 and decrease in creatinine to 1.9. 1 dose of Lasix is provided for the patient. Iv fluids are on hold 08/08/2020 Patient feels generally more week today with no specific symptoms. She still have difficulty urination. Zayas catheter is out and we checked a bladder scan. Her creatinine trended up to 2.2 today and she was hypotensive last night, metoprolol which was recently increased by cardiology team to 25 mg 3 times a day was lowered back again to twice daily Rail Engineer on the case and recommended 1 dose of Lasix. Blood pressure still borderline so we'll keep her in telemetry bed and selective unit Today the Eliquis co-pay was found to be over $450, Eliquis was stopped and started on Coumadin with Lovenox bridgi per pharmacy to dose Prognosis remains guarded 08/09/2020 Patient feels better today, she states that she is voiding easier than yesterday although she still have some difficulty. No abdominal pain and no other sym ptoms. Her blood pressure is better today, after medial drain has been added. Systolic blood pressure is ranging between 100-105 She has worsening creatinine today to 2.3. Sodium slightly improved at 129. INR is 1.5 after Coumadin started with Lovenox bridging. She remains on Zyvox for enterococcus UTI, also on Coumadin with Lovenox bridging. She continued medial drain and metoprolol 25 mg twice daily. Metformin as an hold and sugars controlled. 08/10/2020 This is a pleasant 80 years old female who was originally admitted for hematuria and A. fib with RVR. Hematuria secondary to UTI with enterococcus on Zyvox was started, his urinary symptoms were improving, she had a Zayas catheter and Dr. Elias was following her, eventually Zayas catheter was removed and patient continued with bladder scan monitoring. On admission her creatinine was 1.7 start worsening with continuation of home Lasix to 2.2, then IV fluid was started gently and her creatinine started improving to 1.5. At that point cardiology team increased metoprolol dose to 3 times daily for better control of A. fib, with creatinines start trending up again. Then IV fluids were stopped and patient was getting Lasix intravenously for the last few days however creatinine only showing slight improved today to 2.1, also today patient clinically she is in acute CHF as she has more leg swelling more short of breath. Her metoprolol is currently twice daily , medodrain was admitted for better blood pressure control. Metformin is on hold.Her blood pressure this morning was 92/66-110/66. Heart rate around 100. Oxygen saturation 97% on 2 L oxygen nasal cannula. Patient Eliquis co-pay was more than $450, so patient was started on Coumadin with Lovenox bridging. Echocardiogram: Ejection fraction 40-45%. Severe tricuspid regurgitation, moderate pulmonary hypertension, moderate mitral regurgitation Labs showing WBC 3.6K, hemoglobin 8.8, platelets 145k, sodium 129, creatinine 2.1, glucose control.INR is 1.6 all she is on Coumadin reView of systems CONSTITUTIONAL: No fever, no malaise, no fatigue. HEENT: No recent visual problems or hearing problems. Denied any sore throat. CARDIOVASCULAR: No chest pain, no palpitations, no syncope. PULMONARY: No chest wall tenderness, no hemoptysis. GASTROINTESTINAL: No diarrhea, no nausea, no vomiting, no abdominal pain. Normoactive bowel sounds. NEUROLOGICAL: No headaches, no weakness, no numbness. Active Medications Generic Name Dose Route Start Last Admin Trade Name Freq PRN Reason Stop Dose Admin Acetaminophen 325 mg 07/31/20 09:28 08/10/20 22:17 Acetaminophen Tab 325 Mg Tab PO 325 mg Q6HR PRN Administration Fever and/ or Pain Allopurinol 100 mg 08/02/20 09:00 08/10/20 10:58 Allopurinol 100 Mg Tab PO Not Given DAILY [facility] Alprazolam 0.5 mg 08/04/20 20:59 08/11/20 00:56 Alprazolam 0.5 Mg Tab PO 0.5 mg BID PRN Administration Anxiety Atorvastatin Calcium 40 mg 07/31/20 21:00 08/10/20 20:11 Atorvastatin 40 Mg Tab PO 40 mg HS [facility] Administration Cholecalciferol 400 unit 07/31/20 10:00 08/10/20 10:58 Cholecalciferol 400 Unit Tab PO Not Given DAILY [facility] Clopidogrel Bisulfate 75 mg 07/31/20 09:00 08/10/20 10:52 Clopidogrel 75 Mg Tab PO 75 mg DAILY [facility] Administration Enoxaparin Sodium 80 mg 08/08/20 18:00 08/10/20 08:32 Enoxaparin 80 Mg/0.8 Ml Syringe SQ 80 mg DAILY [facility] Administration Ferrous Sulfate 325 mg 08/01/20 08:15 08/11/20 06:37 Ferrous Sulfate 325 Mg Tab PO Not Given BID-W/MEALS [facility] Furosemide 40 mg 08/10/20 11:15 08/10/20 21:19 Furosemide 10 Mg/Ml 4 Ml Vial IV Not Given Q12HR [facility] Sodium Chloride 1,000 mls @ 20 mls/hr 07/31/20 00:30 08/11/20 01:02 Saline 0.9% IV Not Given .Q24H [facility] Insulin Aspart 0 unit 07/31/20 07:30 08/11/20 06:53 Insulin Aspart (Novolog) 100 Unit/Ml Vial SQ Not Given ACHS [facility] Protocol Linezolid 600 mg 08/07/20 18:00 08/11/20 06:26 Linezolid 600 Mg Tab PO 600 mg Q12H [facility] Administration Metformin HCl 500 mg 07/31/20 10:00 08/06/20 08:18 Metformin 500 Mg Tab PO 500 mg BID [facility] Administration Metoprolol Tartrate 25 mg 08/08/20 09:00 08/10/20 21:19 Metoprolol Tartrate 25 Mg Tab PO Not Given BID [facility] Midodrine 10 mg 08/08/20 09:21 08/11/20 06:26 Midodrine 5 Mg Tab PO 10 mg AC-TID MERRICK Administration Miscellaneous Information 1 each 08/03/20 15:58 Potassium Replacement Protocol 1 Each [facility] [place] MISCELLANE DAILY PRN Per Protocol Protocol Miscellaneous Information 0 each 08/08/20 15:05 Warfarin Per Pharmacy MISCELLANE DIRECTED PRN Per protocol Morphine Sulfate 2 mg 08/01/20 17:29 Morphine Sulfate 2 Mg/Ml Syringe IV Q4HR PRN Severe Pain Naloxone HCl 0.2 mg 07/31/20 00:23 Naloxone 0.4 Mg/Ml 1 Ml Vial IV Q2M PRN Opioid Reversal Nitroglycerin 0.4 mg 07/31/20 09:30 Nitroglycerin Sl Tabs 0.4 Mg Tab SUBLINGUAL Q5M PRN Chest Pain Pantoprazole Sodium 40 mg 08/02/20 07:30 08/11/20 06:28 Pantoprazole 40 Mg Tablet PO 40 mg AC-BRKFST MERRICK Administration Polyethylene Glycol 17 gm 07/31/20 09:45 08/10/20 10:31 Polyethylene Glycol 3350 17 Gm Powd.Pack PO Not Given DAILY MERRICK Trazodone HCl 50 mg 07/31/20 09:30 08/07/20 20:29 Trazodone Hcl 50 Mg Tab PO 50 mg HS PRN Administration Insomnia Objective - Vital Signs Vital signs: Vital Signs Temp 97.8 F 08/10/20 08:10 Pulse 123 H 08/10/20 12:10 Resp 17 08/10/20 12:10 BP 105/72 08/10/20 12:10 Pulse Ox 98 08/10/20 12:10 Intake & Output 08/09/20 08/10/20 08/10/20 18:59 06:59 18:59 Intake Total 480 450 210 Output Total 400 250 200 Balance 80 200 10 Weight 85.3 kg Intake: Oral 480 450 210 Output: Urine 400 250 200 Other: Voiding Method Bedpan Bedpan Diaper Incontinent # Voids 0 1 1 # Bowel Movements 1 1 - Exam GENERAL: The patient is alert and oriented x3, not in any acute distress. Well developed, well nourished. HEENT: Pupils are round and equally reacting to light. EOMI. No scleral icterus. No conjunctival pallor. Normocephalic, atraumatic. No pharyngeal erythema. No thyromegaly. CARDIOVASCULAR: S1 and S2 present. No murmurs, rubs, or gallops. -PULMONARY: Chest is clear to auscultation, no wheezing or crackles. Bilateral basal crepitation -ABDOMEN: Soft, nontender, nondistended, normoactive bowel sounds. No palpable organomegaly. Zayas catheter is in place with blood-colored urine MUSCULOSKELETAL: No joint swelling or deformity. -EXTREMITIES: No cyanosis, clubbing, bilateral leg edema. NEUROLOGICAL: Gross neurological examination did not reveal any focal deficits. SKIN: No rashes. No petechiae - Labs CBC & Chem 7: 08/10/20 22:10 08/10/20 08:54 Labs: Abnormal Lab Results - Last 24 Hours (Table) 08/09/20 08/09/20 08/10/20 Range/Units 17:02 20:16 06:10 PT (9.0-12.0) sec INR (<1.2) Sodium (137-145) mmol/L Carbon Dioxide (22-30) mmol/L BUN (7-17) mg/dL Creatinine (0.52-1.04) mg/dL POC Glucose (mg/dL) 116 H 148 H 113 H (75-99) mg/dL Magnesium (1.6-2.3) mg/dL Total Bilirubin (0.2-1.3) mg/dL AST (14-36) U/L Alkaline Phosphatase (38-126) U/L 08/10/20 08/10/20 08/10/20 Range/Units 08:54 08:54 11:52 PT 15.7 H (9.0-12.0) sec INR 1.6 H (<1.2) Sodium 129 L (137-145) mmol/L Carbon Dioxide 20 L (22-30) mmol/L BUN 41 H (7-17) mg/dL Creatinine 2.17 H (0.52-1.04) mg/dL POC Glucose (mg/dL) 129 H (75-99) mg/dL Magnesium 2.4 H (1.6-2.3) mg/dL Total Bilirubin 1.6 H (0.2-1.3) mg/dL AST 46 H (14-36) U/L Alkaline Phosphatase 259 H (38-126) U/L Assessment and Plan Assessment: Acute systolic on chronic CHF with ejection fraction 40-45% Acute hematuria, secondary to UTI. Culture growing group D enterococcus Acute blood loss anemia Acute kidney injury, could be a combination of infection, cardiorenal syndrome, hypotension Hyponatremia Paroxysmal atrial fibrillation with RVR, was on Coumadin Valvular heart disease with severe tricuspid regurgitation and moderate mitral regurgitation Moderate pulmonary hypertension Acute and chronic hypoxic respiratory failure secondary to above. Improved Anemia, Rule out GI bleed History of gastric ulcer in 2018 History of CVA/TIA Plan: This is a pleasant 80 years old female who presents with A. fib and low hemoglobin suspicious for blood in urine and Zayas catheter. Continue with Lasix as per recommended by metal coater and inclusion special education teacher, Continue with Zyvox with infectious disease team on the case , also on coumadine With Lovenox bridging for her A. fib . Hold metformin. Continue with medodrine and metoprolol. Follow-up recommendation by urologist, metal coater and infectious disease. Also continue with heart medication as per inclusion special education teacher on the case and follow the recommendations. Urologist following the patient as well. Labs and medication were reviewed.. Continue same treatment. Continue with symptomatic treatment. Resume home medication. Monitor lytes and vitals. DVT and GI prophylaxis. Further recommendations as per clinical course of the patient DVT prophylaxis: Coumadine GI Prophylaxis: Ppi PT/OT: Home with home health care Prognosis is guarded
[2020-08-11] MEDS: polyethylene glycoL 3350 17 GM POWD.PACK PO SCH (08:45)
[2020-08-11] MEDS: allopurinoL 100 MG TAB PO SCH (08:46)
[2020-08-11] MEDS: CHOLECALCIFEROL 400 UNIT TAB PO SCH (08:46)
[2020-08-11] MEDS: CLOPIDOGREL 75 MG TAB PO SCH (08:46)
[2020-08-11] MEDS: ENOXAPARIN 80 MG/0.8 ML SYRINGE SQ SCH (08:46)
[2020-08-11 09:03] LABS: INR 2.5 (<1.2); Prothrombin Time 24.4 sec (9.0-12.0)
[2020-08-11 09:17] LABS: Calcium 8.5 mg/dL (8.4-10.2); Magnesium 2.3 mg/dL (1.6-2.3); Potassium 4.1 mmol/L (3.5-5.1)
--- NOTE | 2020-08-11 11:01 | P.PN ---
Subjective Patient is seen in follow-up for acute kidney injury. Renal function is a little worse. Urine output not documented accurately. Patient states her urine output has been good. Per the nurse she has already voided twice this morning. No vomiting or diarrhea. She did not receive IV Lasix last night due to low blood pressure. She received 200 mL bolus of normal saline. This morning her blood pressure was 93/63. Vital signs: Stable. General: The patient appeared well nourished and normally developed. HEENT: Head exam is unremarkable. Neck is without jugular venous distension. LUNGS: Breath sounds decreased. HEART: Rate and Rhythm are regular. ABDOMEN: Soft, nontender. EXTREMITITES: 2+ edema. Objective - Vital Signs Vital signs: Vital Signs Temp 97.9 F 08/11/20 08:10 Pulse 121 H 08/11/20 08:10 Resp 19 08/11/20 08:10 BP 93/63 08/11/20 08:10 Pulse Ox 94 L 08/11/20 08:10 Intake & Output 08/10/20 08/11/20 08/11/20 18:59 06:59 18:59 Intake Total 450 1100 Output Total 200 100 Balance 250 1100 -100 Weight 73.2 kg Intake: Intake, IV Titration 200 Amount Sodium Chloride 0.9% 500 200 ml 200 ml @ 999 mls/hr IV .Q13M ONE Rx#:[id number] Oral 450 900 Output: Urine 200 100 Other: Voiding Method Diaper Diaper Bedside Commode Incontinent Incontinent Diaper Incontinent # Voids 1 1 1 # Bowel Movements 1 1 - Labs CBC & Chem 7: 08/10/20 22:10 08/11/20 08:19 Labs: Abnormal Lab Results - Last 24 Hours (Table) 08/10/20 08/10/20 08/10/20 Range/Units 11:52 16:27 20:28 WBC (3.8-10.6) k/uL RBC (3.80-5.40) m/uL Hgb (11.4-16.0) gm/dL Hct (34.0-46.0) % MCHC (31.0-37.0) g/dL RDW (11.5-15.5) % Plt Count (150-450) k/uL Lymphocytes # (1.0-4.8) k/uL PT (9.0-12.0) sec INR (<1.2) Sodium (137-145) mmol/L Chloride (98-107) mmol/L Carbon Dioxide (22-30) mmol/L BUN (7-17) mg/dL Creatinine (0.52-1.04) mg/dL Glucose (74-99) mg/dL POC Glucose (mg/dL) 129 H 111 H 129 H (75-99) mg/dL 08/10/20 08/11/20 08/11/20 Range/Units 22:10 08:19 08:19 WBC 3.6 L (3.8-10.6) k/uL RBC 3.40 L (3.80-5.40) m/uL Hgb 8.8 L (11.4-16.0) gm/dL Hct 28.8 L (34.0-46.0) % MCHC 30.5 L (31.0-37.0) g/dL RDW 19.9 H (11.5-15.5) % Plt Count 145 L (150-450) k/uL Lymphocytes # 0.5 L (1.0-4.8) k/uL PT 24.4 H (9.0-12.0) sec INR 2.5 H (<1.2) Sodium 131 L (137-145) mmol/L Chloride 97 L (98-107) mmol/L Carbon Dioxide 20 L (22-30) mmol/L BUN 43 H (7-17) mg/dL Creatinine 2.42 H (0.52-1.04) mg/dL Glucose 107 H (74-99) mg/dL POC Glucose (mg/dL) (75-99) mg/dL Assessment and Plan Plan: Assessment: 1. Acute kidney injury secondary to ATN secondary to hypotension. No significant urinary retention. Renal function little worse today - creatinine 2.42. No hydronephrosis noted on kidney ultrasound. Nonoliguric. 2. Enterococcus UTI maintained on antibiotics. 3. Hyponatremia secondary to acute kidney injury and poor solute intake. Hypervolemic. Urine sodium less than 10 and urine osmolality 408 consistent with cardiorenal syndrome. 4. A. fib maintained on Lopressor and anticoagulation. 5. Volume overload. 6. Acute on chronic systolic CHF with ejection fraction of 40-45% with moderate mitral regurgitation and pulmonary hypertension. 7. Hypotension related to underlying cardiac status. Cortisol level normal. 8. Rule out chronic kidney disease. Creatinine in July 2018 was near 1. 9. Diabetes mellitus. 10. Metabolic acidosis secondary to acute kidney injury. Plan: Monitor bladder scans closely to make sure no urinary retention. Encourage oral intake, particularly protein. Ensure 3 times daily. 1500 mL fluid restriction. Maintain midodrine 10 mg 3 times daily. Maintain IV Lasix as long as long as systolic blood pressure greater than 90. Transitioned to oral Demadex upon discharge. Continue to monitor renal function and urine output. Repeat electrolytes in the morning. Add oral bicarb. I will also add IV steroids for a day to see if it helps with her blood pressure.
[2020-08-11 11:53] LABS: Glucose,Whole Blood 114 mg/dL (75-99)
[2020-08-11] MEDS: FUROSEMIDE 10 MG/ML 4 ML VIAL IV SCH ×2 (13:26→20:27)
[2020-08-11] MEDS: METOPROLOL TARTRATE 25 MG TAB PO SCH ×2 (13:26→20:27)
[2020-08-11] MEDS: HYDROCORTISONE SUCCINATE 100 MG/2 ML VIAL IV SCH ×2 (14:09→20:27)
[2020-08-11] MEDS: SODIUM BICARBONATE TAB 650 MG TAB PO SCH ×2 (14:09→20:28)
[2020-08-11 16:55] LABS: Glucose,Whole Blood 113 mg/dL (75-99)
[2020-08-11] MEDS ORDERED: WARFARIN 2.5 MG TAB PO ONE (18:00)
[2020-08-11 20:17] LABS: Glucose,Whole Blood 151 mg/dL (75-99)
[2020-08-11] MEDS: ATORVASTATIN 40 MG TAB PO SCH (20:27)
--- NOTE | 2020-08-11 22:05 | PN ---
PROGRESS NOTE DATE OF SERVICE: 08/11/2020 REASON FOR FOLLOWUP: Enterococcus faecalis urinary tract infection. INTERVAL HISTORY: The patient is currently afebrile. The patient is breathing comfortably. The patient denies having any chest pain. No shortness of breath or cough. No nausea, no vomiting. No abdominal pain, no diarrhea. PHYSICAL EXAMINATION: Blood pressure 98/63 with a pulse of 90, temperature 98.4. She is 92% on 2 L nasal cannula. General description is an elderly female up in the chair in no distress. Respiratory system: Unlabored breathing with decreased breath sounds in the base, no wheeze. Heart S1, S2. Regular rate and rhythm. Abdomen soft, no tenderness. LABS: BUN of 43, creatinine is 2.4. DIAGNOSTIC IMPRESSION AND PLAN: Patient with Enterococcus faecalis urinary tract infection, adequately treated. Patient did have antibiotic allergies, treated with Zyvox. Urine culture negative. Antibiotic discontinued/ MMODL / IJN: [id number] /
--- NOTE | 2020-08-11 22:14 | P.PN ---
Subjective Progress Note Date: 08/11/20 Principal diagnosis: UTI, FLOYD, CHF This patient was cared for during of federal and state declared state of emergency secondary to COVID 19. Ms. Hull is an 78-year-old female with a past medical history of atrial fibrillation CVA/TIA, atrial fibrillation on anticoagulation with Xarelto admitted for hematuria. Urology has been consulted. In the interim patient developed acute kidney injury along with CHF exacerbation. Patient's hemoglobin trended down as well, so her aspirin and Plavix were on hold. Patient's urine analysis was suspicious for infection and a urine culture was positive for Enterococcus for which she is on Zyvox as per ID recommendations. Today as per the nursing staff report patient's blood pressure has been running on the lower side, patient was also complaining of generalized weakness. She started to have diarrhea, with 3 watery bowel movements since this morning. Patient denied having any fevers chills or rigors. She states that she feels very weak and tired. She denies having any chest pain or difficulty breathing. No abdominal pain nausea vomiting. She denies having any dysuria or hematuria. On reviewing the patient's vitals blood pressures 80- 90s/ 50 - 60s. Saturating at 92% on 2 L of nasal cannula. Afebrile. On reviewing her labs INR of 2.5. Sodium 131, potassium 4.1, chloride BUN 43, creatinine 2.42. Active Medications Acetaminophen (Acetaminophen Tab 325 Mg Tab) 325 mg PO Q6HR PRN PRN Reason: Fever and/ or Pain Last Admin: 08/10/20 22:17 Dose: 325 mg Documented by: Allopurinol (Allopurinol 100 Mg Tab) 100 mg PO DAILY [facility] Last Admin: 08/11/20 08:46 Dose: 100 mg Documented by: Alprazolam (Alprazolam 0.5 Mg Tab) 0.5 mg PO BID PRN PRN Reason: Anxiety Last Admin: 08/11/20 00:56 Dose: 0.5 mg Documented by: Atorvastatin Calcium (Atorvastatin 40 Mg Tab) 40 mg PO HS [facility] Last Admin: 08/10/20 20:11 Dose: 40 mg Documented by: Cholecalciferol (Cholecalciferol 400 Unit Tab) 400 unit PO DAILY [facility] Last Admin: 08/11/20 08:46 Dose: 400 unit Documented by: Clopidogrel Bisulfate (Clopidogrel 75 Mg Tab) 75 mg PO DAILY [facility] Last Admin: 08/11/20 08:46 Dose: 75 mg Documented by: Enoxaparin Sodium (Enoxaparin 80 Mg/0.8 Ml Syringe) 80 mg SQ DAILY [facility] Last Admin: 08/11/20 08:46 Dose: 80 mg Documented by: Ferrous Sulfate (Ferrous Sulfate 325 Mg Tab) 325 mg PO BID-W/MEALS [facility] Last Admin: 08/11/20 06:37 Dose: Not Given Documented by: Furosemide (Furosemide 10 Mg/Ml 4 Ml Vial) 40 mg IV Q12HR [facility] Last Admin: 08/11/20 13:26 Dose: Not Given Documented by: Hydrocortisone Sodium Succinate (Hydrocortisone Succinate 100 Mg/2 Ml Vial) 50 mg IV Q12HR [facility] Last Admin: 08/11/20 14:09 Dose: 50 mg Documented by: Sodium Chloride (Saline 0.9%) 1,000 mls @ 20 mls/hr IV .Q24H [facility] Last Admin: 08/11/20 01:02 Dose: Not Given Documented by: Insulin Aspart (Insulin Aspart (Novolog) 100 Unit/Ml Vial) 0 unit SQ ACHS [facility]; Protocol Last Admin: 08/11/20 13:27 Dose: Not Given Documented by: Linezolid (Linezolid 600 Mg Tab) 600 mg PO Q12H [facility] Last Admin: 08/11/20 06:26 Dose: 600 mg Documented by: Metformin HCl (Metformin 500 Mg Tab) 500 mg PO BID [facility] Last Admin: 08/06/20 08:18 Dose: 500 mg Documented by: Metoprolol Tartrate (Metoprolol Tartrate 25 Mg Tab) 25 mg PO BID [facility] Last Admin: 08/11/20 13:26 Dose: Not Given Documented by: Midodrine (Midodrine 5 Mg Tab) 10 mg PO AC-TID [facility] Last Admin: 08/11/20 14:09 Dose: 10 mg Documented by: Miscellaneous Information (Potassium Replacement Protocol 1 Each Misc) 1 each MISCELLANE DAILY PRN; Protocol PRN Reason: Per Protocol Miscellaneous Information (Warfarin Per Pharmacy) 0 each MISCELLANE DIRECTED PRN PRN Reason: Per protocol Morphine Sulfate (Morphine Sulfate 2 Mg/Ml Syringe) 2 mg IV Q4HR PRN PRN Reason: Severe Pain Naloxone HCl (Naloxone 0.4 Mg/Ml 1 Ml Vial) 0.2 mg IV Q2M PRN PRN Reason: Opioid Reversal Nitroglycerin (Nitroglycerin Sl Tabs 0.4 Mg Tab) 0.4 mg SUBLINGUAL Q5M PRN PRN Reason: Chest Pain Pantoprazole Sodium (Pantoprazole 40 Mg Tablet) 40 mg PO AC-BRKFST [facility] Last Admin: 08/11/20 06:28 Dose: 40 mg Documented by: Polyethylene Glycol (Polyethylene Glycol 3350 17 Gm Powd.Pack) 17 gm PO DAILY [facility] Last Admin: 08/11/20 08:45 Dose: Not Given Documented by: Sodium Bicarbonate (Sodium Bicarbonate Tab 650 Mg Tab) 650 mg PO BID [facility] Last Admin: 08/11/20 14:09 Dose: 650 mg Documented by: Trazodone HCl (Trazodone Hcl 50 Mg Tab) 50 mg PO HS PRN PRN Reason: Insomnia Last Admin: 08/07/20 20:29 Dose: 50 mg Documented by: Warfarin Sodium (Warfarin 2.5 Mg Tab) 2.5 mg PO ONCE ONE Stop: 08/11/20 18:01 Objective - Vital Signs Vital signs: Vital Signs Temp 97.9 F 08/11/20 08:10 Pulse 121 H 08/11/20 08:10 Resp 19 08/11/20 08:10 BP 93/63 08/11/20 08:10 Pulse Ox 94 L 08/11/20 08:10 Intake & Output 08/10/20 08/11/20 08/11/20 18:59 06:59 18:59 Intake Total 450 1100 Output Total 200 200 Balance 250 1100 -200 Weight 73.2 kg Intake: Intake, IV Titration 200 Amount Sodium Chloride 0.9% 500 200 ml 200 ml @ 999 mls/hr IV .Q13M ONE Rx#:[id number] Oral 450 900 Output: Urine 200 200 Other: Voiding Method Diaper Diaper Bedside Commode Incontinent Incontinent Diaper Incontinent # Voids 1 1 1 # Bowel Movements 1 1 - Exam GENERAL: She appears to be weak , no acute distress HEENT: Pupils are round and equally reacting to light. EOMI. No scleral icterus. No conjunctival pallor. Normocephalic, atraumatic. CARDIOVASCULAR: S1 and S2 present. No murmurs, rubs, or gallops. -PULMONARY: Chest is clear to auscultation, no wheezing or crackles. Bilateral basal crepitation -ABDOMEN: Soft, nontender, nondistended, normoactive bowel sounds. No palpable organomegaly. MUSCULOSKELETAL: No joint swelling or deformity. -EXTREMITIES: No cyanosis, clubbing, bilateral leg edema. NEUROLOGICAL: Gross neurological examination did not reveal any focal deficits. SKIN: No rashes. No petechiae - Labs CBC & Chem 7: 08/10/20 22:10 08/11/20 08:19 Labs: Abnormal Lab Results - Last 24 Hours (Table) 08/10/20 08/10/20 08/10/20 Range/Units 16:27 20:28 22:10 WBC 3.6 L (3.8-10.6) k/uL RBC 3.40 L (3.80-5.40) m/uL Hgb 8.8 L (11.4-16.0) gm/dL Hct 28.8 L (34.0-46.0) % MCHC 30.5 L (31.0-37.0) g/dL RDW 19.9 H (11.5-15.5) % Plt Count 145 L (150-450) k/uL Lymphocytes # 0.5 L (1.0-4.8) k/uL PT (9.0-12.0) sec INR (<1.2) Sodium (137-145) mmol/L Chloride (98-107) mmol/L Carbon Dioxide (22-30) mmol/L BUN (7-17) mg/dL Creatinine (0.52-1.04) mg/dL Glucose (74-99) mg/dL POC Glucose (mg/dL) 111 H 129 H (75-99) mg/dL 08/11/20 08/11/20 08/11/20 Range/Units 08:19 08:19 11:51 WBC (3.8-10.6) k/uL RBC (3.80-5.40) m/uL Hgb (11.4-16.0) gm/dL Hct (34.0-46.0) % MCHC (31.0-37.0) g/dL RDW (11.5-15.5) % Plt Count (150-450) k/uL Lymphocytes # (1.0-4.8) k/uL PT 24.4 H (9.0-12.0) sec INR 2.5 H (<1.2) Sodium 131 L (137-145) mmol/L Chloride 97 L (98-107) mmol/L Carbon Dioxide 20 L (22-30) mmol/L BUN 43 H (7-17) mg/dL Creatinine 2.42 H (0.52-1.04) mg/dL Glucose 107 H (74-99) mg/dL POC Glucose (mg/dL) 114 H (75-99) mg/dL Assessment and Plan Assessment: Assessment: Acute systolic on chronic CHF with ejection fraction 40-45% Acute hematuria, secondary to UTI. Culture growing group D enterococcus- completed Zyvox Acute Diarrhea Acute blood loss anemia Acute kidney injury, could be a combination of infection, cardiorenal syndrome, hypotension Hyponatremia - resolving Paroxysmal atrial fibrillation with RVR, was on Coumadin Valvular heart disease with severe tricuspid regurgitation and moderate mitral regurgitation Moderate pulmonary hypertension Acute and chronic hypoxic respiratory failure secondary to above. Improved Chronic Anemia History of gastric ulcer in 2018 History of CVA/TIA Plan: Patient received 2 units of PRBCs and her hemoglobin has been stable for the past 2 days. Due to her history of atrial fibrillation she is on anticoagulation, being started on Coumadin and bridging with Lovenox. Her INR is 2.5 today. Her Lovenox is discontinued. As per ID Dr. Shafer, Zyvox to be stopped today. Patient's blood pressure has been running on the lower side continue with midodrine. For her acute kidney injury, nephrology Dr. Herbert following the patient. As the patient has diarrhea we will check for C. diffici le and also will get Covid PCR. Overall prognosis is poor. Further recommendations depending on the progress of the patient. Multiple consultants including urology, nephrology, cardiology, ID following the patient closely.
[2020-08-12] MEDS: ACETAMINOPHEN TAB 325 MG TAB PO PRN (00:01)
[2020-08-12] MEDS: ALPRAZolam 0.5 MG TAB PO PRN (00:02)
[2020-08-12] MEDS: MORPHINE SULFATE 2 MG/ML SYRINGE IV PRN (00:40)
[2020-08-12] MEDS: SODIUM CHLORIDE 0.9% 1,000 ML IV SCH ×2 (00:46→20:38)
[2020-08-12] MEDS: FERROUS SULFATE 325 MG TAB PO SCH ×2 (05:28→17:11)
[2020-08-12 06:04] LABS: Glucose,Whole Blood 142 mg/dL (75-99)
[2020-08-12] MEDS: INSULIN ASPART (NovoLOG) 100 UNIT/ML VIAL SQ SCH ×4 (06:14→20:31)
[2020-08-12] MEDS: MIDODRINE 5 MG TAB PO SCH ×3 (06:14→17:40)
[2020-08-12] MEDS: PANTOPRAZOLE 40 MG TABLET PO SCH (06:14)
[2020-08-12 08:31] LABS: Anisocytosis Slight; Basophils % (A) 1 %; Eosinophils % (A) 0 %; HCT 29.7 % (34.0-46.0); HGB 8.8 gm/dL (11.4-16.0); Hypochromasia Marked; Lymphocytes # (A) 0.5 k/uL (1.0-4.8); Lymphocytes % (A) 25 %; MCH 25.5 pg (25.0-35.0); MCHC 29.6 g/dL (31.0-37.0); MCV 85.9 fL (80.0-100.0); Mean Platelet Volume 8.1; Monocytes # (A) 0.1 k/uL (0-1.0); Monocytes % (A) 3 %; Neutrophils # (A) 1.4 k/uL (1.3-7.7); Neutrophils % (A) 70 %; Platelet Count 131 k/uL (150-450); Poikilocytosis Slight; RBC 3.45 m/uL (3.80-5.40); RDW 19.7 % (11.5-15.5)
[2020-08-12 08:46] LABS: Albumin 3.3 g/dL (3.5-5.0); Calcium 8.3 mg/dL (8.4-10.2); Magnesium 2.4 mg/dL (1.6-2.3); Potassium 4.4 mmol/L (3.5-5.1); Total Bilirubin 1.3 mg/dL (0.2-1.3); Total Protein 6.4 g/dL (6.3-8.2)
[2020-08-12 08:53] LABS: Prothrombin Time 72.1 sec (9.0-12.0)
[2020-08-12] MEDS ORDERED: PHYTONADIONE ORAL 5 MG/5 ML ORAL.SYRG PO STA (09:11)
[2020-08-12] MEDS: polyethylene glycoL 3350 17 GM POWD.PACK PO SCH (09:31)
[2020-08-12] MEDS: HYDROCORTISONE SUCCINATE 100 MG/2 ML VIAL IV SCH (09:33)
[2020-08-12] MEDS: METOPROLOL TARTRATE 25 MG TAB PO SCH ×2 (09:34→20:31)
[2020-08-12] MEDS: FUROSEMIDE 10 MG/ML 4 ML VIAL IV SCH (09:34)
[2020-08-12] MEDS: allopurinoL 100 MG TAB PO SCH (09:34)
[2020-08-12] MEDS: CHOLECALCIFEROL 400 UNIT TAB PO SCH (09:34)
[2020-08-12] MEDS: SODIUM BICARBONATE TAB 650 MG TAB PO SCH ×2 (09:34→20:31)
[2020-08-12] MEDS: CLOPIDOGREL 75 MG TAB PO SCH (09:34)
--- NOTE | 2020-08-12 10:12 | P.PN ---
Subjective Patient is seen in follow-up for acute kidney injury. Renal function continues to worsen. Blood pressure remains on the lower side despite midodrine. Urine output not documented accurately and this has been discussed with the nurse multiple times. Patient states she has been voiding No vomiting or diarrhea. Vital signs: Stable. General: The patient appeared well nourished and normally developed. HEENT: Head exam is unremarkable. Neck is without jugular venous distension. LUNGS: Breath sounds decreased. HEART: Rate and Rhythm are regular. ABDOMEN: Soft, nontender. EXTREMITITES: 1+ edema. Objective - Vital Signs Vital signs: Vital Signs Temp 97.6 F 08/12/20 04:00 Pulse 87 08/12/20 04:00 Resp 18 08/12/20 04:00 BP 89/67 08/12/20 04:00 Pulse Ox 94 L 08/12/20 04:00 Intake & Output 08/11/20 08/12/20 08/12/20 18:59 06:59 18:59 Intake Total 120 900 Output Total 200 Balance -80 900 Weight 73.936 kg Intake: Oral 120 900 Output: Urine 200 Other: Voiding Method Bedside Commode Bedside Commode Diaper Diaper Incontinent Incontinent # Voids 2 # Bowel Movements 1 - Labs CBC & Chem 7: 08/12/20 07:41 08/12/20 07:41 Labs: Abnormal Lab Results - Last 24 Hours (Table) 08/11/20 08/11/20 08/11/20 Range/Units 11:51 16:54 20:15 WBC (3.8-10.6) k/uL RBC (3.80-5.40) m/uL Hgb (11.4-16.0) gm/dL Hct (34.0-46.0) % MCHC (31.0-37.0) g/dL RDW (11.5-15.5) % Plt Count (150-450) k/uL Lymphocytes # (1.0-4.8) k/uL PT (9.0-12.0) sec INR (<1.2) Sodium (137-145) mmol/L Chloride (98-107) mmol/L Carbon Dioxide (22-30) mmol/L BUN (7-17) mg/dL Creatinine (0.52-1.04) mg/dL Glucose (74-99) mg/dL POC Glucose (mg/dL) 114 H 113 H 151 H (75-99) mg/dL Calcium (8.4-10.2) mg/dL Magnesium (1.6-2.3) mg/dL AST (14-36) U/L Alkaline Phosphatase (38-126) U/L Albumin (3.5-5.0) g/dL 08/12/20 08/12/20 08/12/20 Range/Units 06:03 07:41 07:41 WBC (3.8-10.6) k/uL RBC (3.80-5.40) m/uL Hgb (11.4-16.0) gm/dL Hct (34.0-46.0) % MCHC (31.0-37.0) g/dL RDW (11.5-15.5) % Plt Count (150-450) k/uL Lymphocytes # (1.0-4.8) k/uL PT 72.1 H (9.0-12.0) sec INR 7.0 H* (<1.2) Sodium 129 L (137-145) mmol/L Chloride 97 L (98-107) mmol/L Carbon Dioxide 21 L (22-30) mmol/L BUN 48 H (7-17) mg/dL Creatinine 2.79 H (0.52-1.04) mg/dL Glucose 124 H (74-99) mg/dL POC Glucose (mg/dL) 142 H (75-99) mg/dL Calcium 8.3 L (8.4-10.2) mg/dL Magnesium 2.4 H (1.6-2.3) mg/dL AST 55 H (14-36) U/L Alkaline Phosphatase 242 H (38-126) U/L Albumin 3.3 L (3.5-5.0) g/dL 08/12/20 Range/Units 07:41 WBC 2.0 L (3.8-10.6) k/uL RBC 3.45 L (3.80-5.40) m/uL Hgb 8.8 L (11.4-16.0) gm/dL Hct 29.7 L (34.0-46.0) % MCHC 29.6 L (31.0-37.0) g/dL RDW 19.7 H (11.5-15.5) % Plt Count 131 L (150-450) k/uL Lymphocytes # 0.5 L (1.0-4.8) k/uL PT (9.0-12.0) sec INR (<1.2) Sodium (137-145) mmol/L Chloride (98-107) mmol/L Carbon Dioxide (22-30) mmol/L BUN (7-17) mg/dL Creatinine (0.52-1.04) mg/dL Glucose (74-99) mg/dL POC Glucose (mg/dL) (75-99) mg/dL Calcium (8.4-10.2) mg/dL Magnesium (1.6-2.3) mg/dL AST (14-36) U/L Alkaline Phosphatase (38-126) U/L Albumin (3.5-5.0) g/dL Assessment and Plan Plan: Assessment: 1. Acute kidney injury secondary to ATN secondary to hypotension. No significant urinary retention. Renal function worsening - creatinine 2.79. No hydronephrosis noted on kidney ultrasound. 2. Enterococcus UTI s/p antibiotics. 3. Hyponatremia secondary to acute kidney injury and poor solute intake. Hypervolemic. Urine sodium less than 10 and urine osmolality 408 consistent with cardiorenal syndrome. 4. A. fib maintained on Lopressor and anticoagulation. 5. Volume overload. Improved. 6. Acute on chronic systolic CHF with ejection fraction of 40-45% with moderate mitral regurgitation and pulmonary hypertension. 7. Hypotension related to underlying cardiac status. Cortisol level normal. Maintained on midodrine. No improvement with IV steroids. 8. Rule out chronic kidney disease. Creatinine in July 2018 was near 1. 9. Diabetes mellitus. 10. Metabolic acidosis secondary to acute kidney injury maintained on oral bicarbonate. Plan: Encourage oral intake, particularly protein. Ensure 3 times daily. 1500 mL fluid restriction. Maintain midodrine 10 mg 3 times daily. I will change IV Lasix to oral Demadex. Repeat chest x-ray today. Continue to monitor renal function and urine output. strict I's and os. This was discussed with the nurse. Repeat electrolytes in the morning. Decrease steroids to once daily and can be stopped altogether tomorrow.
--- NOTE | 2020-08-12 10:47 | XR ---
EXAMINATION TYPE: XR chest 1V DATE OF EXAM: 08/12/2020 COMPARISON: 08/07/2020 HISTORY: 80-year-old female shortness of breath TECHNIQUE: Single frontal view of the chest is obtained. FINDINGS: Heart remains borderline enlarged. PFO device. Small bilateral pleural effusions persist with diffuse interstitial density, increasing in the interval. IMPRESSION: Increasing interstitial density with continued small pleural effusions with adjacent atelectasis and/ or consolidation. Correlate for CHF with worsening and development of interstitial pulmonary edema.
[2020-08-12 12:20] LABS: Glucose,Whole Blood 131 mg/dL (75-99)
[2020-08-12 16:54] LABS: Glucose,Whole Blood 169 mg/dL (75-99)
[2020-08-12] MEDS: TORSEMIDE 20 MG TAB PO SCH ×2 (17:11→20:31)
[2020-08-12] MEDS ORDERED: WARFARIN 0.5 MG TAB PO ONE (18:00)
[2020-08-12 20:08] LABS: Glucose,Whole Blood 168 mg/dL (75-99)
[2020-08-12] MEDS: ATORVASTATIN 40 MG TAB PO SCH (20:31)
--- NOTE | 2020-08-12 20:45 | PN ---
PROGRESS NOTE DATE OF SERVICE: 08/12/2020 REASON FOR FOLLOW UP: Enterococcus faecalis urinary tract infection. INTERVAL HISTORY: Patient is currently afebrile. The patient is breathing comfortably. Denies having any chest pain. No shortness of breath. Minimal cough. No abdominal pain or diarrhea. PHYSICAL EXAMINATION: Blood pressure 136/67, pulse of 78, temperature 97.8. She is 94% 2 L nasal cannula. General description is an elderly female lying in bed in no distress. Respiratory system: Unlabored breathing, decreased breath sounds at bases, no wheeze. Heart S1, S2. Regular rate and rhythm. Abdomen soft, no tenderness. LAB: Hemoglobin 8.8, white 12.0, BUN of 28, creatinine 2.79. DIAGNOSTIC IMPRESSION AND PLAN: Patient with Enterococcus urinary tract infection has been adequately treated. The patient is currently off antibiotic therapy. Repeat urine culture is negative. Continue supportive care. MMODL / IJN: [id number] /
--- NOTE | 2020-08-12 23:36 | P.PN ---
Subjective Progress Note Date: 08/12/20 Principal diagnosis: UTI, FLOYD, CHF This patient was cared for during of federal and state declared state of emergency secondary to COVID 19. Ms. Hull is an 78-year-old female with a past medical history of atrial fibrillation CVA/TIA, atrial fibrillation on anticoagulation with Xarelto admitted for hematuria. Urology has been consulted. In the interim patient developed acute kidney injury along with CHF exacerbation. Patient's hemoglobin trended down as well, so her aspirin and Plavix were on hold. Patient's urine analysis was suspicious for infection and a urine culture was positive for Enterococcus for which she is on Zyvox as per ID recommendations. Today as per the nursing staff report patient's blood pressure has been running on the lower side, patient was also complaining of generalized weakness. She started to have diarrhea, with 3 watery bowel movements since this morning. Patient denied having any fevers chills or rigors. She states that she feels very weak and tired. She denies having any chest pain or difficulty breathing. No abdominal pain nausea vomiting. She denies having any dysuria or hematuria. On reviewing the patient's vitals blood pressures 80- 90s/ 50 - 60s. Saturating at 92% on 2 L of nasal cannula. Afebrile. On reviewing her labs INR of 2.5. Sodium 131, potassium 4.1, chloride BUN 43, creatinine 2.42. On 08/12/2020 patient was seen and examined on the select specialty. Patient is lying in bed comfortably. She states that her breathing is slightly better compared to yesterday. She denies having any chest pain or palpitations. Patient's blood pressure slightly better compared to yesterday. As the patient was having diarrhea, C. difficile and coronavirus has been checked. She is negative for coronavirus. As the patient did not have a bowel movement C. difficile was not done. On reviewing her vitals patient is afebrile blood pressure 90-100 x 50 -60, saturating at 95% on 2 L of nasal cannula. Patient's labs from this morning showed an INR of 7, there is no evidence of any active bleeding. Patient's creatinine is slowly trending up it is 2.79 today. Active Medications Acetaminophen (Acetaminophen Tab 325 Mg Tab) 325 mg PO Q6HR PRN PRN Reason: Fever and/ or Pain Last Admin: 08/12/20 00:01 Dose: 325 mg Documented by: Allopurinol (Allopurinol 100 Mg Tab) 100 mg PO DAILY [facility] Last Admin: 08/12/20 09:34 Dose: 100 mg Documented by: Alprazolam (Alprazolam 0.5 Mg Tab) 0.5 mg PO BID PRN PRN Reason: Anxiety Last Admin: 08/12/20 00:02 Dose: 0.5 mg Documented by: Atorvastatin Calcium (Atorvastatin 40 Mg Tab) 40 mg PO HS [facility] Last Admin: 08/12/20 20:31 Dose: 40 mg Documented by: Cholecalciferol (Cholecalciferol 400 Unit Tab) 400 unit PO DAILY [facility] Last Admin: 08/12/20 09:34 Dose: 400 unit Documented by: Clopidogrel Bisulfate (Clopidogrel 75 Mg Tab) 75 mg PO DAILY [facility] Last Admin: 08/12/20 09:34 Dose: 75 mg Documented by: Ferrous Sulfate (Ferrous Sulfate 325 Mg Tab) 325 mg PO BID-W/MEALS [facility] Last Admin: 08/12/20 17:11 Dose: Not Given Documented by: Hydrocortisone Sodium Succinate (Hydrocortisone Succinate 100 Mg/2 Ml Vial) 50 mg IV DAILY [facility] Sodium Chloride (Saline 0.9%) 1,000 mls @ 20 mls/hr IV .Q24H [facility] Last Admin: 08/12/20 20:38 Dose: Not Given Documented by: Insulin Aspart (Insulin Aspart (Novolog) 100 Unit/Ml Vial) 0 unit SQ ACHS [facility]; Protocol Last Admin: 08/12/20 20:31 Dose: 2 unit Documented by: Metformin HCl (Metformin 500 Mg Tab) 500 mg PO BID [facility] Last Admin: 08/06/20 08:18 Dose: 500 mg Documented by: Metoprolol Tartrate (Metoprolol Tartrate 25 Mg Tab) 25 mg PO BID [facility] Last Admin: 08/12/20 20:31 Dose: 25 mg Documented by: Midodrine (Midodrine 5 Mg Tab) 10 mg PO AC-TID [facility] Last Admin: 08/12/20 17:40 Dose: 10 mg Documented by: Miscellaneous Information (Potassium Replacement Protocol 1 Each Misc) 1 each MISCELLANE DAILY PRN; Protocol PRN Reason: Per Protocol Miscellaneous Information (Warfarin Per Pharmacy) 0 each MISCELLANE DIRECTED PRN PRN Reason: Per protocol Morphine Sulfate (Morphine Sulfate 2 Mg/Ml Syringe) 2 mg IV Q4HR PRN PRN Reason: Severe Pain Last Admin: 08/12/20 00:40 Dose: 2 mg Documented by: Naloxone HCl (Naloxone 0.4 Mg/Ml 1 Ml Vial) 0.2 mg IV Q2M PRN PRN Reason: Opioid Reversal Nitroglycerin (Nitroglycerin Sl Tabs 0.4 Mg Tab) 0.4 mg SUBLINGUAL Q5M PRN PRN Reason: Chest Pain Pantoprazole Sodium (Pantoprazole 40 Mg Tablet) 40 mg PO AC-BRKFST [facility] Last Admin: 08/12/20 06:14 Dose: 40 mg Documented by: Polyethylene Glycol (Polyethylene Glycol 3350 17 Gm Powd.Pack) 17 gm PO DAILY [facility] Last Admin: 08/12/20 09:31 Dose: Not Given Documented by: Sodium Bicarbonate (Sodium Bicarbonate Tab 650 Mg Tab) 650 mg PO BID [facility] Last Admin: 08/12/20 20:31 Dose: 650 mg Documented by: Torsemide (Torsemide 20 Mg Tab) 20 mg PO BID [facility] Last Admin: 08/12/20 20:31 Dose: 20 mg Documented by: Trazodone HCl (Trazodone Hcl 50 Mg Tab) 50 mg PO HS PRN PRN Reason: Insomnia Last Admin: 08/07/20 20:29 Dose: 50 mg Documented by: Objective - Vital Signs Vital signs: Vital Signs Temp 97.8 F 08/12/20 12:00 Pulse 73 08/12/20 12:00 Resp 19 08/12/20 12:00 BP 106/67 08/12/20 12:00 Pulse Ox 94 L 08/12/20 12:00 Intake & Output 08/11/20 08/12/20 08/12/20 18:59 06:59 18:59 Intake Total 120 900 180 Output Total 200 100 Balance -80 900 80 Weight 73.936 kg Intake: Oral 120 900 180 Output: Urine 200 100 Other: Voiding Method Bedside Commode Bedside Commode Bedside Commode Diaper Diaper Diaper Incontinent Incontinent Incontinent # Voids 2 2 # Bowel Movements 1 0 - Exam GENERAL: She appears to be weak , no acute distress HEENT: Pupils are round and equally reacting to light. EOMI. No scleral icterus. CARDIOVASCULAR: S1 and S2 present. No murmurs, rubs, or gallops. -PULMONARY: Chest is clear to auscultation, no wheezing or crackles. Bilateral basal crepitation -ABDOMEN: Soft, nontender, nondistended, normoactive bowel sounds. No palpable organomegaly. MUSCULOSKELETAL: No joint swelling or deformity. -EXTREMITIES: No cyanosis, clubbing, mild bilateral leg edema. NEUROLOGICAL: Gross neurological examination did not reveal any focal deficits. SKIN: No rashes. No petechiae - Labs CBC & Chem 7: 08/12/20 07:41 08/12/20 07:41 Labs: Abnormal Lab Results - Last 24 Hours (Table) 08/11/20 08/11/20 08/12/20 Range/Units 16:54 20:15 06:03 WBC (3.8-10.6) k/uL RBC (3.80-5.40) m/uL Hgb (11.4-16.0) gm/dL Hct (34.0-46.0) % MCHC (31.0-37.0) g/dL RDW (11.5-15.5) % Plt Count (150-450) k/uL Lymphocytes # (1.0-4.8) k/uL PT (9.0-12.0) sec INR (<1.2) Sodium (137-145) mmol/L Chloride (98-107) mmol/L Carbon Dioxide (22-30) mmol/L BUN (7-17) mg/dL Creatinine (0.52-1.04) mg/dL Glucose (74-99) mg/dL POC Glucose (mg/dL) 113 H 151 H 142 H (75-99) mg/dL Calcium (8.4-10.2) mg/dL Magnesium (1.6-2.3) mg/dL AST (14-36) U/L Alkaline Phosphatase (38-126) U/L Albumin (3.5-5.0) g/dL 08/12/20 08/12/20 08/12/20 Range/Units 07:41 07:41 07:41 WBC 2.0 L (3.8-10.6) k/uL RBC 3.45 L (3.80-5.40) m/uL Hgb 8.8 L (11.4-16.0) gm/dL Hct 29.7 L (34.0-46.0) % MCHC 29.6 L (31.0-37.0) g/dL RDW 19.7 H (11.5-15.5) % Plt Count 131 L (150-450) k/uL Lymphocytes # 0.5 L (1.0-4.8) k/uL PT 72.1 H (9.0-12.0) sec INR 7.0 H* (<1.2) Sodium 129 L (137-145) mmol/L Chloride 97 L (98-107) mmol/L Carbon Dioxide 21 L (22-30) mmol/L BUN 48 H (7-17) mg/dL Creatinine 2.79 H (0.52-1.04) mg/dL Glucose 124 H (74-99) mg/dL POC Glucose (mg/dL) (75-99) mg/dL Calcium 8.3 L (8.4-10.2) mg/dL Magnesium 2.4 H (1.6-2.3) mg/dL AST 55 H (14-36) U/L Alkaline Phosphatase 242 H (38-126) U/L Albumin 3.3 L (3.5-5.0) g/dL 08/12/20 Range/Units 12:14 WBC (3.8-10.6) k/uL RBC (3.80-5.40) m/uL Hgb (11.4-16.0) gm/dL Hct (34.0-46.0) % MCHC (31.0-37.0) g/dL RDW (11.5-15.5) % Plt Count (150-450) k/uL Lymphocytes # (1.0-4.8) k/uL PT (9.0-12.0) sec INR (<1.2) Sodium (137-145) mmol/L Chloride (98-107) mmol/L Carbon Dioxide (22-30) mmol/L BUN (7-17) mg/dL Creatinine (0.52-1.04) mg/dL Glucose (74-99) mg/dL POC Glucose (mg/dL) 131 H (75-99) mg/dL Calcium (8.4-10.2) mg/dL Magnesium (1.6-2.3) mg/dL AST (14-36) U/L Alkaline Phosphatase (38-126) U/L Albumin (3.5-5.0) g/dL Assessment and Plan Assessment: Assessment: Acute systolic on chronic CHF with ejection fraction 40-45% Acute hematuria, secondary to UTI. Culture growing group D enterococcus- completed Zyvox Acute Diarrhea Acute blood loss anemia Acute kidney injury, could be a combination of infection, cardiorenal syndrome, hypotension Hyponatremia - resolving Paroxysmal atrial fibrillation with RVR, was on Coumadin Valvular heart disease with severe tricuspid regurgitation and moderate mitral regurgitation Moderate pulmonary hypertension Acute and chronic hypoxic respiratory failure secondary to above. Improved Chronic Anemia History of gastric ulcer in 2018 History of CVA/TIA Plan: Her INR is 7 today. No evidence of any bleeding. She recieved a dose of Vit K. Zyvox was stopped yesterday. Patient's blood pressure has been running on the lower side, to continue with midodrine. For her acute kidney injury, nephrology Dr. Herbert following the patient. Covid PCR- negative and she is not having any more diarrhea. Overall prognosis is poor. Further recommendations depending on the progress of the patient. Multiple consultants including urology, nephrology, cardiology, ID following the patient closely.
[2020-08-13 06:19] LABS: Glucose,Whole Blood 117 mg/dL (75-99)
[2020-08-13] MEDS: INSULIN ASPART (NovoLOG) 100 UNIT/ML VIAL SQ SCH ×4 (06:24→20:32)
[2020-08-13] MEDS: FERROUS SULFATE 325 MG TAB PO SCH ×2 (06:27→17:21)
[2020-08-13] MEDS: MIDODRINE 5 MG TAB PO SCH ×3 (06:29→17:21)
[2020-08-13] MEDS: PANTOPRAZOLE 40 MG TABLET PO SCH (06:29)
[2020-08-13 09:46] LABS: Prothrombin Time 67.3 sec (9.0-12.0)
[2020-08-13 09:56] LABS: Calcium 8.3 mg/dL (8.4-10.2); Magnesium 2.5 mg/dL (1.6-2.3)
[2020-08-13 09:57] LABS: INR 6.6 (<1.2)
[2020-08-13] MEDS: METOPROLOL TARTRATE 25 MG TAB PO SCH ×2 (10:31→21:52)
[2020-08-13] MEDS: allopurinoL 100 MG TAB PO SCH (10:32)
[2020-08-13] MEDS: CHOLECALCIFEROL 400 UNIT TAB PO SCH (10:32)
[2020-08-13] MEDS: TORSEMIDE 20 MG TAB PO SCH ×2 (10:32→20:32)
[2020-08-13] MEDS: SODIUM BICARBONATE TAB 650 MG TAB PO SCH ×2 (10:32→20:43)
[2020-08-13] MEDS: CLOPIDOGREL 75 MG TAB PO SCH (10:32)
[2020-08-13] MEDS: HYDROCORTISONE SUCCINATE 100 MG/2 ML VIAL IV SCH (10:32)
[2020-08-13] MEDS: polyethylene glycoL 3350 17 GM POWD.PACK PO SCH (10:33)
[2020-08-13 11:16] LABS: Glucose,Whole Blood 104 mg/dL (75-99)
[2020-08-13] MEDS: MORPHINE SULFATE 2 MG/ML SYRINGE IV PRN (11:55)
[2020-08-13] MEDS ORDERED: PHYTONADIONE ORAL 5 MG/5 ML ORAL.SYRG PO STA (12:31)
--- NOTE | 2020-08-13 15:08 | PN ---
PROGRESS NOTE DATE OF SERVICE: 08/13/2020 REASON FOR FOLLOWUP: Enterococcus urinary tract infection. INTERVAL HISTORY: The patient is currently afebrile. The patient is generally not feeling well, no chest pain, no shortness of breath or cough. No abdominal pain, no diarrhea. PHYSICAL EXAMINATION: Blood pressure is 156/80, temperature is 97.8, she is 98% on 2 L. General description is an elderly female up in the chair in no distress. RESPIRATORY SYSTEM: Unlabored breathing, clear to auscultation anteriorly. HEART: S1, S2, regular rate and rhythm. ABDOMEN: Soft, no tenderness. EXTREMITIES: No edema of the feet. LABS: Iron is 6.6, creatinine is 3.51. DIAGNOSTIC IMPRESSION AND PLAN: Patient with a urinary tract infection that has been adequately treated. Patient is currently off antibiotic therapy. Will monitor the patient closely off antibiotics. Continue supportive care. MMODL / HALN: [id number] /
--- NOTE | 2020-08-13 15:38 | PN ---
PROGRESS NOTE Patient is seen for followup for acute kidney injury. Her renal function has worsened. Patient has been incontinent. A 24 hour output documented at about 1 L, I am not sure if this is accurate. Systolic blood pressure around 80 mmHg. The patient is maintained on Solu-Cortef. She is also on midodrine 10 mg t.i.d. I do see Glucophage as well on her med list which will be discontinued. PHYSICAL EXAMINATION: Today blood pressure 80/48, heart rate 88 per minute, she is afebrile. Examination of the heart shows heart sounds heard. No murmur or rub. Examination of the lungs, decreased breath sounds at bases. Abdomen is soft, nontender. Examination of lower extremities shows edema 2+. [employer] exam grossly intact. LABS: Show sodium 129, potassium 5.0, chloride 97, CO2 is 16, BUN 58, serum creatinine 3.5, which is up from 2.7 yesterday. ASSESSMENT: 1. Acute kidney injury, ATN nonoliguric associated with hypotension, hypoperfusion. Renal function continues to worsen. Ejection fraction is 40%-45%. Patient received a dose of Lasix yesterday. No evidence of obstruction noted on ultrasound. If renal function continues to worsen, we will need to consider renal replacement therapy. I would also consider adding dobutamine given the low ejection fraction. 2. Enterococcus UTI, status post antibiotics. 3. Hyponatremia which is hypervolemic associated with congestive heart failure. 4. Atrial fibrillation, rate is controlled. 5. Cardiomyopathy, ejection fraction 40% to 45% with moderate mitral regurgitation and pulmonary hypertension. 6. Metabolic acidosis associated with acute kidney injury. Maintained on oral sodium bicarb. PLAN: Continue with oral fluid restriction, continue with midodrine 3 times a day. If renal function continues to worsen, patient will need to consider renal replacement therapy. No nephrotoxic agents on board currently. The Glucophage should be stopped. It is currently on hold. Continue with the sodium bicarb for now. Plan continue sodium bicarb, DC Glucophage. Consider renal replacement therapy if renal function continues to worsen, and I will discuss with Cardiology regarding possible use of dobutamine. MMODL / IJN: [id number] /
[2020-08-13 16:41] LABS: Glucose,Whole Blood 106 mg/dL (75-99)
[2020-08-13] MEDS ORDERED: WARFARIN 0.5 MG TAB PO ONE (18:00)
[2020-08-13] MEDS ORDERED: MIDODRINE 5 MG TAB PO STA (19:52)
[2020-08-13 20:02] LABS: Glucose,Whole Blood 120 mg/dL (75-99)
[2020-08-13] MEDS: ATORVASTATIN 40 MG TAB PO SCH (20:43)
[2020-08-13 20:59] LABS: Anisocytosis Slight; HCT 34.9 % (34.0-46.0); HGB 9.7 gm/dL (11.4-16.0); Hypochromasia Marked; MCH 24.7 pg (25.0-35.0); MCHC 27.7 g/dL (31.0-37.0); MCV 89.2 fL (80.0-100.0); Mean Platelet Volume 12.6; Platelet Count 108 k/uL (150-450); Poikilocytosis Slight; RBC 3.91 m/uL (3.80-5.40); RDW 19.4 % (11.5-15.5)
[2020-08-13 21:18] LABS: Anisocytosis (M) Present; Band Neutrophils % 1 %; Lymphocytes # (M) 0.89 k/uL (1.0-4.8); Neutrophils % (M) 66 %; Nucleated Red Blood Cells 2 /100 WBC (0-0); Polychromasia Present; Target Cells Present; Tear Drop Cells Present; Total Cells Counted 200; WBC 3.3 k/uL (3.8-10.6)
[2020-08-13] MEDS ORDERED: SODIUM BICARB 8.4% 50 ML SYR (1 MEQ/ML) IV STA (21:41)
[2020-08-13] MEDS ORDERED: SODIUM CHLORIDE 0.9% 1,000 ML IV ONE (21:42)
[2020-08-13] MEDS ORDERED: CEFEPIME 1 GM in SODIUM CHLORIDE 0.9% 50 ML IVPB STA (21:44)
[2020-08-13] MEDS ORDERED: CEFEPIME 2 GM in SODIUM CHLORIDE 0.9% 100 ML IVPB SCH (21:45)
[2020-08-13 21:48] LABS: Anisocytosis Slight; HCT 34.8 % (34.0-46.0); HGB 10.2 gm/dL (11.4-16.0); Hypochromasia Marked; MCH 25.9 pg (25.0-35.0); MCHC 29.3 g/dL (31.0-37.0); MCV 88.3 fL (80.0-100.0); Mean Platelet Volume 10.1; Platelet Count 120 k/uL (150-450); Poikilocytosis Slight; RBC 3.94 m/uL (3.80-5.40); RDW 19.5 % (11.5-15.5)
[2020-08-13 22:16] LABS: ABG HCO3 14 mmol/L (21-25); ABG Oxygen Saturation 94.6 % (94-97); ABG PCO2 26 mmHg (35-45); ABG PH 7.34 (7.35-7.45); ABG PO2 73 mmHg (83-108); ABG TCO2 15 mmol/L (19-24); Allen Test Performed? Yes
[2020-08-13 22:20] LABS: Band Neutrophils % 2 %; Monocytes # (M) 0.08 k/uL (0-1.0); Myelocytes # (M) 0.03 k/uL (0); Myelocytes % 1 %; Neutrophils % (M) 77 %; Nucleated Red Blood Cells 3 /100 WBC (0-0); Total Cells Counted 200; WBC 2.8 k/uL (3.8-10.6)
[2020-08-13 22:21] LABS: Crenated RBC Present
--- NOTE | 2020-08-13 22:22 | XR ---
EXAMINATION TYPE: XR chest 1V portable DATE OF EXAM: 08/13/2020 COMPARISON: Today HISTORY: Short of breath TECHNIQUE: Single view FINDINGS: Heart is enlarged. There is pulmonary edema. There is blunting of the costophrenic angles. There are chest leads. Bony thorax is intact. IMPRESSION: There is pulmonary interstitial and airspace edema with pleural effusions. This appears n ot significantly different than yesterday. This is probably due to congestive heart failure.
[2020-08-13] MEDS ORDERED: NOREPINEPHRIN 4 MG-0.9% NS PMX 4 MG/250 ML ML IV ONE (22:46)
--- NOTE | 2020-08-13 22:47 | P.PN ---
Subjective Progress Note Date: 08/13/20 Principal diagnosis: UTI, FLOYD, CHF This patient was cared for during of federal and state declared state of emergency secondary to COVID 19. Ms. Hull is an 78-year-old female with a past medical history of atrial fibrillation CVA/TIA, atrial fibrillation on anticoagulation with Xarelto admitted for hematuria. Urology has been consulted. In the interim patient developed acute kidney injury along with CHF exacerbation. Patient's hemoglobin trended down as well, so her aspirin and Plavix were on hold. Patient's urine analysis was suspicious for infection and a urine culture was positive for Enterococcus for which she is on Zyvox as per ID recommendations. Today as per the nursing staff report patient's blood pressure has been running on the lower side, patient was also complaining of generalized weakness. She started to have diarrhea, with 3 watery bowel movements since this morning. Patient denied having any fevers chills or rigors. She states that she feels very weak and tired. She denies having any chest pain or difficulty breathing. No abdominal pain nausea vomiting. She denies having any dysuria or hematuria. On reviewing the patient's vitals blood pressures 80- 90s/ 50 - 60s. Saturating at 92% on 2 L of nasal cannula. Afebrile. On reviewing her labs INR of 2.5. Sodium 131, potassium 4.1, chloride BUN 43, creatinine 2.42. On 08/12/2020 patient was seen and examined on the [facility]. Patient is lying in bed comfortably. She states that her breathing is slightly better compared to yesterday. She denies having any chest pain or palpitations. Patient's blood pressure slightly better compared to yesterday. As the patient was having diarrhea, C. difficile and coronavirus has been checked. She is negative for coronavirus. As the patient did not have a bowel movement C. difficile was not done. On reviewing her vitals patient is afebrile blood pressure 90-100 x 50 -60, saturating at 95% on 2 L of nasal cannula. Patient's labs from this morning showed an INR of 7, there is no evidence of any active bleeding. Patient's creatinine is slowly trending up it is 2.79 today. On 08/13/2020 -patient was seen and examined in select specialty. She is sitting up in a chair by the bedside. She states that her difficulty breathing is pretty much the same compared to yesterday. She denies having any chest pain or palpitations. On reviewing the vitals patient's blood pressure has been running on the lower side temperature 97.4, 187, respiratory rate 18. On reviewing her labs from this morning white count of 3.3, hemoglobin 9.7, platelets 108. Her INR is elevated at 6.7. Sodium 129, potassium 5, chloride 97, bicarb 16. BUN 58 and creatinine of 3.51. Objective - Vital Signs Vital signs: Vital Signs Temp 97.3 F L 08/13/20 12:14 Pulse 88 08/13/20 12:14 Resp 20 08/13/20 12:14 BP 80/48 08/13/20 12:14 Pulse Ox 98 08/13/20 12:14 Intake & Output 08/12/20 08/13/20 08/13/20 18:59 06:59 18:59 Intake Total 360 Output Total 100 910 Balance 260 -910 Weight 74.1 kg Intake: Oral 360 Output: Urine 100 910 Straight 450 Other: Voiding Method Bedside Commode Bedside Commode Bedside Commode Diaper Diaper Diaper Incontinent Incontinent Incontinent # Voids 2 1 # Bowel Movements 0 1 - Exam Physical Exam GENERAL: She appears to be weak , no acute distress HEENT: Pupils are round and equally reacting to light. EOMI. No scleral icterus. CARDIOVASCULAR: S1 and S2 present. No murmurs, rubs, or gallops. -PULMONARY: Chest is clear to auscultation, no wheezing or crackles. Bilateral basal crepitation -ABDOMEN: Soft, nontender, nondistended, normoactive bowel sounds. MUSCULOSKELETAL: No joint swelling or deformity. -EXTREMITIES: No cyanosis, clubbing, mild bilateral leg edema. NEUROLOGICAL: Gross neurological examination did not reveal any focal deficits. SKIN: No rashes. No petechiae - Labs CBC & Chem 7: 08/13/20 21:33 08/13/20 08:21 Labs: Abnormal Lab Results - Last 24 Hours (Table) 08/12/20 08/12/20 08/13/20 Range/Units 16:53 20:07 06:18 PT (9.0-12.0) sec INR (<1.2) Sodium (137-145) mmol/L Chloride (98-107) mmol/L Carbon Dioxide (22-30) mmol/L BUN (7-17) mg/dL Creatinine (0.52-1.04) mg/dL POC Glucose (mg/dL) 169 H 168 H 117 H (75-99) mg/dL Calcium (8.4-10.2) mg/dL Magnesium (1.6-2.3) mg/dL 08/13/20 08/13/20 08/13/20 Range/Units 08:21 08:21 11:15 PT 67.3 H (9.0-12.0) sec INR 6.6 H* (<1.2) Sodium 129 L (137-145) mmol/L Chloride 97 L (98-107) mmol/L Carbon Dioxide 16 L (22-30) mmol/L BUN 58 H (7-17) mg/dL Creatinine 3.51 H (0.52-1.04) mg/dL POC Glucose (mg/dL) 104 H (75-99) mg/dL Calcium 8.3 L (8.4-10.2) mg/dL Magnesium 2.5 H (1.6-2.3) mg/dL Assessment and Plan Assessment: Assessment: Acute systolic on chronic CHF with ejection fraction 40-45% Acute hematuria, secondary to UTI. Culture growing group D enterococcus- completed Zyvox Acute Diarrhea Acute blood loss anemia Acute kidney injury, could be a combination of infection, cardiorenal syndrome, hypotension Hyponatremia - resolving Paroxysmal atrial fibrillation with RVR, was on Coumadin Valvular heart disease with severe tricuspid regurgitation and moderate mitral regurgitation Moderate pulmonary hypertension Acute and chronic hypoxic respiratory failure secondary to above. Improved Chronic Anemia History of gastric ulcer in 2018 History of CVA/TIA Plan: Her INR is 6.6 today. No evidence of any bleeding. Will give a dose of Vitamin K 5 mg. Patient's blood pressure has been running on the lower side, to continue with midodrine and her Creatinine is trending up, nephrology Dr. Aguilera following the patient. Covid PCR- negative. Overall prognosis is poor. Cardiology signed off, but requested them to evaluate again. Further recommendations depending on the progress of the patient. Multiple consultants including urology, nephrology, ID following the patient closely.
[2020-08-13] MEDS: NOREPINEPHRINE 4 MG in SODIUM CHLORIDE 0.9% 250 ML IV SCH (23:00)
[2020-08-13] MEDS: DEXTROSE 5% IN WATER 1,000 ML with SODIUM BICARB (1 MEQ/ML) 150 ML IV SCH (23:33)
[2020-08-13] MEDS: SODIUM CHLORIDE 0.9% 1,000 ML IV SCH (23:34)
[2020-08-14] MEDS ORDERED: SODIUM CHLORIDE 0.9% 1,000 ML IV ONE (02:00)
[2020-08-14] MEDS ORDERED: AMIODARONE 200 MG TAB PO SCH (03:00)
[2020-08-14 04:10] LABS: Anisocytosis Slight; Basophils # (A) 0.1 k/uL (0-0.2); Basophils % (A) 1 %; Eosinophils % (A) 0 %; HCT 35.2 % (34.0-46.0); HGB 10.2 gm/dL (11.4-16.0); Hypochromasia Marked; Lymphocytes # (A) 0.5 k/uL (1.0-4.8); Lymphocytes % (A) 14 %; MCH 25.1 pg (25.0-35.0); MCV 86.8 fL (80.0-100.0); Mean Platelet Volume 8.4; Monocytes # (A) 0.2 k/uL (0-1.0); Monocytes % (A) 6 %; Neutrophils # (A) 2.8 k/uL (1.3-7.7); Neutrophils % (A) 78 %; Platelet Count 107 k/uL (150-450); Poikilocytosis Slight; RBC 4.05 m/uL (3.80-5.40); RDW 19.8 % (11.5-15.5); WBC 3.6 k/uL (3.8-10.6)
[2020-08-14 04:14] LABS: Prothrombin Time 59.2 sec (9.0-12.0)
[2020-08-14 04:15] LABS: INR 5.9 (<1.2)
[2020-08-14 05:18] LABS: Albumin 3.2 g/dL (3.5-5.0); Calcium 7.3 mg/dL (8.4-10.2); Total Protein 6.3 g/dL (6.3-8.2)
[2020-08-14] MEDS ORDERED: PHYTONADIONE 5 MG in SODIUM CHLORIDE 0.9% 50 ML IVPB ONE (05:30)
[2020-08-14 05:45] LABS: ABG Base Excess -15.7 mmol/L; ABG HCO3 12 mmol/L (21-25); ABG Oxygen Saturation 99.5 % (94-97); ABG PCO2 28 mmHg (35-45); ABG PH 7.24 (7.35-7.45); ABG PO2 245 mmHg (83-108); ABG TCO2 13 mmol/L (19-24); Allen Test Performed? Yes
--- NOTE | 2020-08-14 06:34 | P.CNPUL ---
History of Present Illness Consult date: 08/14/20 Chief complaint: hypotension History of present illness: 80-year-old female patient was having lower blood pressure for quite some time, further this evening and the patient was asked to be seen by intensive care services. She is 80. She has chronic atrial fibrillation. She is chronic systolic heart failure with an ejection fraction of 40-45%. She has also valvular heart disease with moderate MR, CVAs tricuspid regurgitation moderate degree of pulmonary hypertension. She has previous history of CVA. She came in to the hospital and she had a enterococcal group D UTI and the patient was treated with antibiotics and she was getting Zyvox which was subsequently discontinued. During the course of her hospitalization, the patient developed an acute kidney injury. There has been further compromised the patient's renal function got worse and the patient developed also hypotension the patient was started on midodrine. This evening, systolic blood pressures the mid 70s. The patient is hypothermic with temperature 90.3. Blood work shows a component of acute on chronic kidney injury due to creatinine being up to 3.51 and the sodium is down to 129 and the patient has an anion gap of 16 with a serum bicarb of 16. Glucose at 120. INR is at 6.6. She was given 5 of vitamin K to reverse her coagulopathy. The white cell count is at 3.3. Hemoglobin is 9.7. Platelets are 108. She is hypothermic. She is on no antibiotics for now. Chest x-ray from yesterday shows pulmonary vessel congestion and small bilateral pleural eff usion addition to cardiomegaly. The rousseau virus covid 19 evaluation came back negative.the patient overnight became hypotensive. The patient is currently the intensive care unit. Currently she is on norepinephrine infusion running at 0.2 g per KG per minute. She has a Hayes catheter in place and there is bloody output at this point in time. Irrigation was done throughout the night and the patient was producing clots. Her abdomen is distended. There is some urinary retention and the bladder scan showed at least 300cc of material collecting in her bladder. She was given another dose of vitamin K this morning for an INR of 5.9. Morning blood. showed a pH of 7.24 with a pCO2 of 28 and pO2 of 245patient is currently on oxygen at 3 L per minute. Lactic acid level is at 9.4. Overnight, the patient was given IV cefepime. Chest x-ray showing interstitial edema and worsening consolidation of the right lung.the patient was given another bolus of IV fluids and overall 2 L of IV fluids yesterday was given and the patient is currently on a bicarb infusion. She is in atrial fibrillation with rapid ventricular response and she is on amiodarone po Review of Systems Constitutional: No fever, no chills. Reports weakness, reports fatigue. The patient is hypothermic. EENT: No headache. No dizziness. Lungs: No shortness of breath, cough, no sputum production. No wheezing. Cardiovascular: No chest pain, no lower extremity edema. No palpitations. No paroxysmal nocturnal dyspnea. No orthopnea. No lightheadedness or dizziness. No syncopal episodes. Abdominal: No abdominal pain. No nausea, vomiting. No diarrhea. No constipation. No bloody or tarry stools. No loss of appetite. Genitourinary: No dysuria. No urinary retention-patient denies. Positive hematuria, resolved Musculoskeletal: No myalgias. Reports muscle weakness, no gait dysfunction, no frequent falls. No back pain. No neck pain. Integumentary: No wounds, no lesions. No rash or pruritus. No unusual bruising. Neurologic: No aphasia. No facial droop. No change in mentation. No head injury. No headache. No paralysis. No paresthesia. Psychiatric: No depression. No anxiety. Endocrine: No abnormal blood sugars. Past Medical History Past Medical History: CVA/TIA Additional Past Medical History / Comment(s): Chronic anemia, Chronic atrial fibrillation, gastric ulcer, hyperlipidemia, hypothyroidism, diabetes mellitus, peripheral vascular disease insertion of a vascular stent in the right lower extremity that was done and [facility], history of urinary retention History of Any Multi-Drug Resistant Organisms: None Reported Additional Past Surgical History / Comment(s): vericose veins. Past Anesthesia/Blood Transfusion Reactions: No Reported Reaction Past Psychological History: No Psychological Hx Reported Past Alcohol Use History: None Reported Past Drug Use History: None Reported - Past Family History Father Family Medical History: Cancer Additional Family Medical History / Comment(s): lung ca Mother Additional Family Medical History / Comment(s): "heart problems" Medications and Allergies Home Medications Medication Instructions Recorded Confirmed Type Cholecalciferol [Vitamin D3] 400 unit PO DAILY 07/08/18 07/31/20 History Levothyroxine Sodium [Synthroid] 112 mcg PO DAILY 07/08/18 07/31/20 History Magnesium Oxide [Mag-Oxide] 200 mg PO DAILY 07/08/18 07/31/20 History Nitroglycerin Sl Tabs [Nitrostat] 0.4 mg SUBLINGUAL Q5M PRN 07/08/18 07/31/20 History Thiamine [Vitamin B-1] 50 mg PO DAILY 07/08/18 07/31/20 History allopurinoL [Zyloprim] 300 mg PO DAILY 07/08/18 07/31/20 History traZODone HCL 50 mg PO HS PRN 07/08/18 07/31/20 History ALPRAZolam [Xanax] 0.5 mg PO BID 07/31/20 07/31/20 History Aspirin EC [Ecotrin Low Dose] 81 mg PO DAILY 07/31/20 07/31/20 History Atorvastatin [Lipitor] 40 mg PO HS 07/31/20 07/31/20 History Clopidogrel [Plavix] 75 mg PO DAILY 07/31/20 07/31/20 History Diltiazem HCl [Cartia Xt] 180 mg PO DAILY 07/31/20 07/31/20 History Furosemide [Lasix] 40 mg PO BID 07/31/20 07/31/20 History Omeprazole 20 mg PO DAILY 07/31/20 07/31/20 History Potassium Chloride ER [K-Dur 20] 20 meq PO DAILY 07/31/20 07/31/20 History Potassium Chloride ER [K-Dur 20] 40 meq PO HS 07/31/20 07/31/20 History metFORMIN HCL [metFORMIN HCL ER] 750 mg PO DAILY 07/31/20 07/31/20 History metOLazone [Zaroxolyn] 5 mg PO DAILY PRN 07/31/20 07/31/20 History Apixaban [Eliquis] 2.5 mg PO BID 30 Days #60 tab 08/08/20 Rx Allergies Allergy/AdvReac Type Severity Reaction Status Date / Time Penicillins AdvReac Unknown Verified 07/08/18 20:09 Physical Exam Vitals: Vital Signs Temp Pulse Pulse Pulse Resp BP BP 08/14/20 05:00 140 H 21 102/68 08/14/20 04:45 138 H 19 86/61 08/14/20 04:30 138 H 16 119/97 08/14/20 04:15 130 H 20 111/96 08/14/20 04:00 134 H 16 87/65 08/14/20 03:45 123 H 20 114/90 08/14/20 03:30 146 H 16 99/75 08/14/20 03:15 142 H 14 97/83 08/14/20 03:00 95.8 F L 134 H 19 113/82 08/14/20 02:45 125 H 16 112/57 08/14/20 02:30 135 H 17 08/14/20 02:15 135 H 17 113/97 08/14/20 02:00 133 H 14 108/65 08/14/20 01:45 123 H 16 111/92 08/14/20 01:30 129 H 15 108/47 08/14/20 01:15 129 H 17 82/71 08/14/20 01:00 126 H 15 93/64 08/14/20 00:45 115 H 17 71/56 08/14/20 00:30 126 H 15 97/69 08/14/20 00:15 93.6 F L 161 H 15 99/83 08/14/20 00:00 117 H 16 101/68 08/13/20 23:45 13 109/68 08/13/20 23:30 124 H 13 84/74 08/13/20 23:15 122 H 12 08/13/20 23:00 120 H 17 103/39 08/13/20 22:45 128 H 19 86/70 08/13/20 22:38 14 08/13/20 22:19 93.3 F L 08/13/20 22:11 78/48 08/13/20 21:56 87/63 08/13/20 21:54 120 H 94/68 08/13/20 21:45 78/51 08/13/20 21:32 75/55 08/13/20 21:15 66/32 08/13/20 21:09 93.2 F L 73/46 08/13/20 21:02 74/44 08/13/20 20:50 82/46 08/13/20 20:44 73/44 08/13/20 20:39 77/48 08/13/20 20:27 84/52 08/13/20 20:13 88/43 08/13/20 20:09 96/48 08/13/20 20:00 102 H 18 08/13/20 19:55 94.1 F L 08/13/20 19:48 73/44 08/13/20 19:34 102 H 18 76/58 08/13/20 15:52 96.9 F L 91 18 104/55 08/13/20 14:00 20 08/13/20 12:14 97.3 F L 88 20 80/48 08/13/20 10:15 97.4 F L 87 87 18 Pulse Ox 08/14/20 05:00 08/14/20 04:45 08/14/20 04:30 08/14/20 04:15 08/14/20 04:00 08/14/20 03:45 08/14/20 03:30 08/14/20 03:15 08/14/20 03:00 08/14/20 02:45 08/14/20 02:30 08/14/20 02:15 08/14/20 02:00 08/14/20 01:45 08/14/20 01:30 08/14/20 01:15 08/14/20 01:00 08/14/20 00:45 08/14/20 00:30 08/14/20 00:15 08/14/20 00:00 08/13/20 23:45 08/13/20 23:30 08/13/20 23:15 08/13/20 23:00 08/13/20 22:45 08/13/20 22:38 08/13/20 22:19 08/13/20 22:11 08/13/20 21:56 08/13/20 21:54 08/13/20 21:45 08/13/20 21:32 08/13/20 21:15 08/13/20 21:09 08/13/20 21:02 08/13/20 20:50 08/13/20 20:44 08/13/20 20:39 08/13/20 20:27 08/13/20 20:13 08/13/20 20:09 08/13/20 20:00 08/13/20 19:55 08/13/20 19:48 08/13/20 19:34 95 12/07/20 15:52 93 L 08/13/20 14:00 08/13/20 12:14 98 08/13/20 10:15 93 L Intake and Output 08/13/20 08/13/20 08/14/20 14:59 22:59 06:59 Intake Total 70 2607.972 Output Total 20 10 Balance 50 2597.972 Intake: IV 2570 .9 bolus 2000 Dextrose 5% in Water 1, 450 000 ml @ 75 mls/hr IV . [id number] MERRICK with Sodium Bicarb (1 Meq/ml) 150 ml Rx#:[id number] Sodium Chloride 0.9% 1, 120 000 ml @ 20 mls/hr IV . Q24H MERRICK Rx#:[id number] Intake, IV Titration 37.972 Amount Norepinephrine 4 mg In 37.972 Sodium Chloride 0.9% 250 ml @ 0.05 MCG/KG/MIN 14. 116 mls/hr IV .Q18H MERRICK Rx#:[id number] Oral 70 Output: Urine 20 10 Straight 10 Uretheral (Hayes) 0 Other: Voiding Method Bedside Commode Bedside Commode Indwelling Catheter Diaper Diaper Incontinent Incontinent # Voids 1 # Bowel Movements 1 Gen: This is an 80-year-old female. Patient is resting bed and appears to be comfortable and in no acute distress. The patient is hypothermic. The patient is on 5 L of oxygen by nasal cannula. HEENT: Head is atraumatic, normocephalic. Pupils equal, round. Sclerae is anicteric. Oral mucous members slightly dry. NECK: Supple. No JVD. No lymphadenopathy. No thyromegaly. LUNGS: Clear to auscultation. No wheezes or rhonchi. No intercostal retractions. Crackles are present in lung bases bilaterally. HEART: Irregular rate and rhythm. Systolic murmur. ABDOMEN: Soft. Bowel sounds are present. No masses. No tenderness. EXTREMITIES: No pedal edema. No calf tenderness. Dorsalis pedis +1 bilatera lly. NEUROLOGICAL: Patient is awake, alert and oriented x3. Cranial nerves 2 through 12 are grossly intact. Results - Laboratory Findings CBC and BMP: 08/14/20 03:36 08/14/20 04:41 ABG ABG pH 7.24 (7.35-7.45) L 08/14/20 05:44 ABG pCO2 28 mmHg (35-45) L 08/14/20 05:44 ABG pO2 245 mmHg (83-108) H 08/14/20 05:44 ABG O2 Saturation 99.5 % (94-97) H 08/14/20 05:44 PT/INR, D-dimer PT 59.2 sec (9.0-12.0) H 08/14/20 03:36 INR 5.9 (<1.2) H* 08/14/20 03:36 Abnormal lab findings: Abnormal Labs 07/31/20 07/31/20 07/31/20 00:31 00:31 00:31 WBC RBC 3.04 L Hgb 7.4 L Hct 24.8 L MCH 24.3 L MCHC 29.7 L RDW 19.6 H Plt Count Lymphocytes # Lymphocytes # (Manual) Myelocytes # (Manual) Nucleated RBCs Retic Count PT 12.4 H INR 1.2 H ABG pH ABG pCO2 ABG pO2 ABG HCO3 ABG Total CO2 ABG O2 Saturation Sodium Potassium Chloride Carbon Dioxide BUN Creatinine Glucose POC Glucose (mg/dL) Hemoglobin A1c Plasma Lactic Acid Rohit Calcium Phosphorus Magnesium Iron % Saturation Total Bilirubin AST ALT Alkaline Phosphatase Albumin Vitamin B12 Procalcitonin Urine Appearance Urine Protein Urine Blood Ur Leukocyte Esterase Urine RBC Urine WBC Urine Bacteria Urine Mucus Urine Yeast (Budding) Crossmatch See Detail 07/31/20 07/31/20 07/31/20 06:08 06:46 09:10 WBC RBC Hgb Hct MCH MCHC RDW Plt Count Lymphocytes # Lymphocytes # (Manual) Myelocytes # (Manual) Nucleated RBCs Retic Count PT INR ABG pH ABG pCO2 ABG pO2 ABG HCO3 ABG Total CO2 ABG O2 Saturation Sodium 130 L Potassium Chloride 96 L Carbon Dioxide 20 L BUN 49 H Creatinine 1.73 H Glucose POC Glucose (mg/dL) 120 H Hemoglobin A1c 6.4 H Plasma Lactic Acid Rohit Calcium 8.3 L Phosphorus Magnesium Iron 21 L % Saturation 5.29 L Total Bilirubin AST ALT Alkaline Phosphatase Albumin Vitamin B12 1990.0 H Procalcitonin Urine Appearance Urine Protein Urine Blood Ur Leukocyte Esterase Urine RBC Urine WBC Urine Bacteria Urine Mucus Urine Yeast (Budding) Crossmatch 07/31/20 07/31/20 07/31/20 09:47 11:50 16:39 WBC RBC Hgb Hct MCH MCHC RDW Plt Count Lymphocytes # Lymphocytes # (Manual) Myelocytes # (Manual) Nucleated RBCs Retic Count 5.8 H PT INR ABG pH ABG pCO2 ABG pO2 ABG HCO3 ABG Total CO2 ABG O2 Saturation Sodium Potassium Chloride Carbon Dioxide BUN Creatinine Glucose POC Glucose (mg/dL) 105 H 119 H Hemoglobin A1c Plasma Lactic Acid Rohit Calcium Phosphorus Magnesium Iron % Saturation Total Bilirubin AST ALT Alkaline Phosphatase Albumin Vitamin B12 Procalcitonin Urine Appearance Urine Protein Urine Blood Ur Leukocyte Esterase Urine RBC Urine WBC Urine Bacteria Urine Mucus Urine Yeast (Budding) Crossmatch 07/31/20 07/31/20 08/01/20 20:12 22:15 06:55 WBC RBC Hgb Hct MCH MCHC RDW Plt Count Lymphocytes # Lymphocytes # (Manual) Myelocytes # (Manual) Nucleated RBCs Retic Count PT INR ABG pH ABG pCO2 ABG pO2 ABG HCO3 ABG Total CO2 ABG O2 Saturation Sodium Potassium Chloride Carbon Dioxide BUN Creatinine Glucose POC Glucose (mg/dL) 157 H 122 H Hemoglobin A1c Plasma Lactic Acid Rohit Calcium Phosphorus Magnesium Iron % Saturation Total Bilirubin AST ALT Alkaline Phosphatase Albumin Vitamin B12 Procalcitonin Urine Appearance Turbid H Urine Protein Urine Blood Ur Leukocyte Esterase Urine RBC >182 H Urine WBC >182 H Urine Bacteria Urine Mucus Urine Yeast (Budding) Crossmatch 08/01/20 08/01/20 08/01/20 07:18 07:18 12:06 WBC RBC 3.73 L Hgb 9.6 L D Hct 31.0 L MCH MCHC 30.9 L RDW 19.2 H Plt Count Lymphocytes # Lymphocytes # (Manual) Myelocytes # (Manual) Nucleated RBCs Retic Count PT INR ABG pH ABG pCO2 ABG pO2 ABG HCO3 ABG Total CO2 ABG O2 Saturation Sodium 130 L Potassium Chloride 94 L Carbon Dioxide BUN 60 H Creatinine 2.28 H Glucose POC Glucose (mg/dL) 164 H Hemoglobin A1c Plasma Lactic Acid Rohit Calcium Phosphorus 5.9 H Magnesium 3.5 H Iron % Saturation Total Bilirubin AST ALT Alkaline Phosphatase Albumin Vitamin B12 Procalcitonin Urine Appearance Urine Protein Urine Blood Ur Leukocyte Esterase Urine RBC Urine WBC Urine Bacteria Urine Mucus Urine Yeast (Budding) Crossmatch 08/01/20 08/01/20 08/02/20 17:32 20:35 06:23 WBC RBC 3.39 L Hgb 9.0 L Hct 28.0 L MCH MCHC RDW 19.1 H Plt Count Lymphocytes # Lymphocytes # (Manual) Myelocytes # (Manual) Nucleated RBCs Retic Count PT INR ABG pH ABG pCO2 ABG pO2 ABG HCO3 ABG Total CO2 ABG O2 Saturation Sodium Potassium Chloride Carbon Dioxide BUN Creatinine Glucose POC Glucose (mg/dL) 225 H 151 H Hemoglobin A1c Plasma Lactic Acid Rohit Calcium Phosphorus Magnesium Iron % Saturation Total Bilirubin AST ALT Alkaline Phosphatase Albumin Vitamin B12 Procalcitonin Urine Appearance Urine Protein Urine Blood Ur Leukocyte Esterase Urine RBC Urine WBC Urine Bacteria Urine Mucus Urine Yeast (Budding) Crossmatch 08/02/20 08/02/20 08/02/20 07:35 07:35 07:35 WBC RBC 3.43 L Hgb 9.1 L Hct 28.5 L MCH MCHC RDW 19.3 H Plt Count Lymphocytes # 0.8 L Lymphocytes # (Manual) Myelocytes # (Manual) Nucleated RBCs Retic Count PT INR ABG pH ABG pCO2 ABG pO2 ABG HCO3 ABG Total CO2 ABG O2 Saturation Sodium 131 L Potassium 2.4 L* Chloride 93 L Carbon Dioxide BUN 52 H Creatinine 1.87 H Glucose 100 H POC Glucose (mg/dL) Hemoglobin A1c Plasma Lactic Acid Rohit Calcium 8.3 L Phosphorus Magnesium Iron % Saturation Total Bilirubin AST ALT Alkaline Phosphatase Albumin Vitamin B12 Procalcitonin 0.42 H Urine Appearance Urine Protein Urine Blood Ur Leukocyte Esterase Urine RBC Urine WBC Urine Bacteria Urine Mucus Urine Yeast (Budding) Crossmatch 08/02/20 08/02/20 08/02/20 12:19 13:46 16:34 WBC RBC Hgb Hct MCH MCHC RDW Plt Count Lymphocytes # Lymphocytes # (Manual) Myelocytes # (Manual) Nucleated RBCs Retic Count PT INR ABG pH ABG pCO2 ABG pO2 ABG HCO3 ABG Total CO2 ABG O2 Saturation Sodium Potassium 3.0 L Chloride Carbon Dioxide BUN Creatinine Glucose POC Glucose (mg/dL) 160 H 142 H Hemoglobin A1c Plasma Lactic Acid Rohit Calcium Phosphorus Magnesium Iron % Saturation Total Bilirubin AST ALT Alkaline Phosphatase Albumin Vitamin B12 Procalcitonin Urine Appearance Urine Protein Urine Blood Ur Leukocyte Esterase Urine RBC Urine WBC Urine Bacteria Urine Mucus Urine Yeast (Budding) Crossmatch 08/02/20 08/03/20 08/03/20 20:27 06:05 07:00 WBC RBC Hgb Hct MCH MCHC RDW Plt Count Lymphocytes # Lymphocytes # (Manual) Myelocytes # (Manual) Nucleated RBCs Retic Count PT INR ABG pH ABG pCO2 ABG pO2 ABG HCO3 ABG Total CO2 ABG O2 Saturation Sodium Potassium Chloride Carbon Dioxide BUN Creatinine Glucose POC Glucose (mg/dL) 216 H 155 H Hemoglobin A1c Plasma Lactic Acid Rohit Calcium Phosphorus Magnesium Iron % Saturation Total Bilirubin AST ALT Alkaline Phosphatase Albumin Vitamin B12 Procalcitonin Urine Appearance Cloudy H Urine Protein 1+ H Urine Blood Large H Ur Leukocyte Esterase Moderate H Urine RBC >182 H Urine WBC 10 H Urine Bacteria Urine Mucus Rare H Urine Yeast (Budding) Crossmatch 08/03/20 08/03/20 08/03/20 09:01 09:19 12:09 WBC RBC 3.37 L Hgb 8.8 L Hct 28.1 L MCH MCHC RDW 19.3 H Plt Count Lymphocytes # 0.6 L Lymphocytes # (Manual) Myelocytes # (Manual) Nucleated RBCs Retic Count PT INR ABG pH ABG pCO2 ABG pO2 ABG HCO3 ABG Total CO2 ABG O2 Saturation Sodium 133 L Potassium 3.2 L Chloride 97 L Carbon Dioxide BUN 39 H Creatinine 1.60 H Glucose 182 H POC Glucose (mg/dL) 150 H Hemoglobin A1c Plasma Lactic Acid Rohit Calcium 8.1 L Phosphorus Magnesium Iron % Saturation Total Bilirubin AST ALT Alkaline Phosphatase Albumin Vitamin B12 Procalcitonin Urine Appearance Urine Protein Urine Blood Ur Leukocyte Esterase Urine RBC Urine WBC Urine Bacteria Urine Mucus Urine Yeast (Budding) Crossmatch 08/03/20 08/03/20 08/03/20 15:01 16:56 20:17 WBC RBC Hgb Hct MCH MCHC RDW Plt Count Lymphocytes # Lymphocytes # (Manual) Myelocytes # (Manual) Nucleated RBCs Retic Count PT INR ABG pH ABG pCO2 ABG pO2 ABG HCO3 ABG Total CO2 ABG O2 Saturation Sodium Potassium 3.4 L Chloride Carbon Dioxide BUN Creatinine Glucose POC Glucose (mg/dL) 116 H 171 H Hemoglobin A1c Plasma Lactic Acid Rohit Calcium Phosphorus Magnesium Iron % Saturation Total Bilirubin AST ALT Alkaline Phosphatase Albumin Vitamin B12 Procalcitonin Urine Appearance Urine Protein Urine Blood Ur Leukocyte Esterase Urine RBC Urine WBC Urine Bacteria Urine Mucus Urine Yeast (Budding) Crossmatch 08/04/20 08/04/20 08/04/20 06:07 07:55 07:55 WBC RBC 3.60 L Hgb 9.0 L Hct 30.7 L MCH MCHC 29.5 L RDW 19.1 H Plt Count Lymphocytes # 0.8 L Lymphocytes # (Manual) Myelocytes # (Manual) Nucleated RBCs Retic Count PT INR ABG pH ABG pCO2 ABG pO2 ABG HCO3 ABG Total CO2 ABG O2 Saturation Sodium 133 L Potassium Chloride Carbon Dioxide BUN 37 H Creatinine 1.56 H Glucose 115 H POC Glucose (mg/dL) 131 H Hemoglobin A1c Plasma Lactic Acid Rohit Calcium 8.2 L Phosphorus Magnesium 3.2 H Iron % Saturation Total Bilirubin AST ALT Alkaline Phosphatase Albumin Vitamin B12 Procalcitonin Urine Appearance Urine Protein Urine Blood Ur Leukocyte Esterase Urine RBC Urine WBC Urine Bacteria Urine Mucus Urine Yeast (Budding) Crossmatch 08/04/20 08/04/20 08/04/20 11:18 16:49 20:25 WBC RBC Hgb Hct MCH MCHC RDW Plt Count Lymphocytes # Lymphocytes # (Manual) Myelocytes # (Manual) Nucleated RBCs Retic Count PT INR ABG pH ABG pCO2 ABG pO2 ABG HCO3 ABG Total CO2 ABG O2 Saturation Sodium Potassium Chloride Carbon Dioxide BUN Creatinine Glucose POC Glucose (mg/dL) 124 H 130 H 181 H Hemoglobin A1c Plasma Lactic Acid Rohit Calcium Phosphorus Magnesium Iron % Saturation Total Bilirubin AST ALT Alkaline Phosphatase Albumin Vitamin B12 Procalcitonin Urine Appearance Urine Protein Urine Blood Ur Leukocyte Esterase Urine RBC Urine WBC Urine Bacteria Urine Mucus Urine Yeast (Budding) Crossmatch 08/05/20 08/05/20 08/05/20 06:09 07:46 07:46 WBC RBC 3.73 L Hgb 9.2 L Hct 31.7 L MCH 24.7 L MCHC 29.0 L RDW 19.1 H Plt Count Lymphocytes # Lymphocytes # (Manual) Myelocytes # (Manual) Nucleated RBCs Retic Count PT INR ABG pH ABG pCO2 ABG pO2 ABG HCO3 ABG Total CO2 ABG O2 Saturation Sodium 132 L Potassium Chloride Carbon Dioxide BUN 36 H Creatinine 1.57 H Glucose 118 H POC Glucose (mg/dL) 121 H Hemoglobin A1c Plasma Lactic Acid Rohit Calcium Phosphorus Magnesium Iron % Saturation Total Bilirubin AST ALT Alkaline Phosphatase Albumin Vitamin B12 Procalcitonin Urine Appearance Urine Protein Urine Blood Ur Leukocyte Esterase Urine RBC Urine WBC Urine Bacteria Urine Mucus Urine Yeast (Budding) Crossmatch 08/05/20 08/05/20 08/05/20 11:47 16:44 19:55 WBC RBC Hgb Hct MCH MCHC RDW Plt Count Lymphocytes # Lymphocytes # (Manual) Myelocytes # (Manual) Nucleated RBCs Retic Count PT INR ABG pH ABG pCO2 ABG pO2 ABG HCO3 ABG Total CO2 ABG O2 Saturation Sodium Potassium Chloride Carbon Dioxide BUN Creatinine Glucose POC Glucose (mg/dL) 198 H 109 H 127 H Hemoglobin A1c Plasma Lactic Acid Rohit Calcium Phosphorus Magnesium Iron % Saturation Total Bilirubin AST ALT Alkaline Phosphatase Albumin Vitamin B12 Procalcitonin Urine Appearance Urine Protein Urine Blood Ur Leukocyte Esterase Urine RBC Urine WBC Urine Bacteria Urine Mucus Urine Yeast (Budding) Crossmatch 08/06/20 08/06/20 08/06/20 06:29 08:11 08:11 WBC RBC 3.32 L Hgb 8.7 L Hct 28.2 L MCH MCHC 30.8 L RDW 19.3 H Plt Count Lymphocytes # Lymphocytes # (Manual) Myelocytes # (Manual) Nucleated RBCs Retic Count PT INR ABG pH ABG pCO2 ABG pO2 ABG HCO3 ABG Total CO2 ABG O2 Saturation Sodium 130 L Potassium Chloride 97 L Carbon Dioxide BUN 37 H Creatinine 1.74 H Glucose 161 H POC Glucose (mg/dL) 203 H Hemoglobin A1c Plasma Lactic Acid Rohit Calcium 8.3 L Phosphorus Magnesium Iron % Saturation Total Bilirubin AST ALT Alkaline Phosphatase Albumin Vitamin B12 Procalcitonin Urine Appearance Urine Protein Urine Blood Ur Leukocyte Esterase Urine RBC Urine WBC Urine Bacteria Urine Mucus Urine Yeast (Budding) Crossmatch 08/06/20 08/06/20 08/06/20 12:01 16:36 20:28 WBC RBC Hgb Hct MCH MCHC RDW Plt Count Lymphocytes # Lymphocytes # (Manual) Myelocytes # (Manual) Nucleated RBCs Retic Count PT INR ABG pH ABG pCO2 ABG pO2 ABG HCO3 ABG Total CO2 ABG O2 Saturation Sodium Potassium Chloride Carbon Dioxide BUN Creatinine Glucose POC Glucose (mg/dL) 113 H 167 H 137 H Hemoglobin A1c Plasma Lactic Acid Rohit Calcium Phosphorus Magnesium Iron % Saturation Total Bilirubin AST ALT Alkaline Phosphatase Albumin Vitamin B12 Procalcitonin Urine Appearance Urine Protein Urine Blood Ur Leukocyte Esterase Urine RBC Urine WBC Urine Bacteria Urine Mucus Urine Yeast (Budding) Crossmatch 08/06/20 08/07/20 08/07/20 23:25 06:19 06:53 WBC RBC 3.34 L Hgb 8.5 L Hct 28.3 L MCH MCHC 30.2 L RDW 19.3 H Plt Count Lymphocytes # Lymphocytes # (Manual) Myelocytes # (Manual) Nucleated RBCs Retic Count PT INR ABG pH ABG pCO2 ABG pO2 ABG HCO3 ABG Total CO2 ABG O2 Saturation Sodium Potassium Chloride Carbon Dioxide BUN Creatinine Glucose POC Glucose (mg/dL) 108 H Hemoglobin A1c Plasma Lactic Acid Rohit Calcium Phosphorus Magnesium Iron % Saturation Total Bilirubin AST ALT Alkaline Phosphatase Albumin Vitamin B12 Procalcitonin Urine Appearance Cloudy H Urine Protein 3+ H Urine Blood Large H Ur Leukocyte Esterase Small H Urine RBC >182 H Urine WBC 17 H Urine Bacteria Rare H Urine Mucus Urine Yeast (Budding) Many H Crossmatch 08/07/20 08/07/20 08/07/20 06:53 11:41 16:57 WBC RBC Hgb Hct MCH MCHC RDW Plt Count Lymphocytes # Lymphocytes # (Manual) Myelocytes # (Manual) Nucleated RBCs Retic Count PT INR ABG pH ABG pCO2 ABG pO2 ABG HCO3 ABG Total CO2 ABG O2 Saturation Sodium 126 L Potassium Chloride 95 L Carbon Dioxide BUN 37 H Creatinine 1.91 H Glucose 157 H POC Glucose (mg/dL) 132 H 162 H Hemoglobin A1c Plasma Lactic Acid Rohit Calcium 8.2 L Phosphorus Magnesium 2.8 H Iron % Saturation Total Bilirubin AST ALT Alkaline Phosphatase Albumin Vitamin B12 Procalcitonin Urine Appearance Urine Protein Urine Blood Ur Leukocyte Esterase Urine RBC Urine WBC Urine Bacteria Urine Mucus Urine Yeast (Budding) Crossmatch 08/08/20 08/08/20 08/08/20 06:06 07:10 07:10 WBC RBC 3.51 L Hgb 8.8 L Hct 29.7 L MCH MCHC 29.7 L RDW 19.5 H Plt Count Lymphocytes # Lymphocytes # (Manual) Myelocytes # (Manual) Nucleated RBCs Retic Count PT INR ABG pH ABG pCO2 ABG pO2 ABG HCO3 ABG Total CO2 ABG O2 Saturation Sodium 127 L Potassium Chloride 95 L Carbon Dioxide BUN 44 H Creatinine 2.22 H Glucose 138 H POC Glucose (mg/dL) 185 H Hemoglobin A1c Plasma Lactic Acid Rohit Calcium Phosphorus Magnesium 2.8 H Iron % Saturation Total Bilirubin AST ALT Alkaline Phosphatase Albumin Vitamin B12 Procalcitonin Urine Appearance Urine Protein Urine Blood Ur Leukocyte Esterase Urine RBC Urine WBC Urine Bacteria Urine Mucus Urine Yeast (Budding) Crossmatch 08/08/20 08/08/20 08/08/20 07:10 11:42 16:28 WBC RBC Hgb Hct MCH MCHC RDW Plt Count Lymphocytes # Lymphocytes # (Manual) Myelocytes # (Manual) Nucleated RBCs Retic Count PT 14.1 H INR 1.4 H ABG pH ABG pCO2 ABG pO2 ABG HCO3 ABG Total CO2 ABG O2 Saturation Sodium Potassium Chloride Carbon Dioxide BUN Creatinine Glucose POC Glucose (mg/dL) 123 H 110 H Hemoglobin A1c Plasma Lactic Acid Rohit Calcium Phosphorus Magnesium Iron % Saturation Total Bilirubin AST ALT Alkaline Phosphatase Albumin Vitamin B12 Procalcitonin Urine Appearance Urine Protein Urine Blood Ur Leukocyte Esterase Urine RBC Urine WBC Urine Bacteria Urine Mucus Urine Yeast (Budding) Crossmatch 08/08/20 08/09/20 08/09/20 20:30 09:02 09:02 WBC RBC Hgb Hct MCH MCHC RDW Plt Count Lymphocytes # Lymphocytes # (Manual) Myelocytes # (Manual) Nucleated RBCs Retic Count PT 14.9 H INR 1.5 H ABG pH ABG pCO2 ABG pO2 ABG HCO3 ABG Total CO2 ABG O2 Saturation Sodium 129 L Potassium Chloride 97 L Carbon Dioxide BUN 42 H Creatinine 2.37 H Glucose POC Glucose (mg/dL) 138 H Hemoglobin A1c Plasma Lactic Acid Rohit Calcium Phosphorus Magnesium 2.7 H Iron % Saturation Total Bilirubin AST ALT Alkaline Phosphatase Albumin Vitamin B12 Procalcitonin Urine Appearance Urine Protein Urine Blood Ur Leukocyte Esterase Urine RBC Urine WBC Urine Bacteria Urine Mucus Urine Yeast (Budding) Crossmatch 08/09/20 08/09/20 08/10/20 17:02 20:16 06:10 WBC RBC Hgb Hct MCH MCHC RDW Plt Count Lymphocytes # Lymphocytes # (Manual) Myelocytes # (Manual) Nucleated RBCs Retic Count PT INR ABG pH ABG pCO2 ABG pO2 ABG HCO3 ABG Total CO2 ABG O2 Saturation Sodium Potassium Chloride Carbon Dioxide BUN Creatinine Glucose POC Glucose (mg/dL) 116 H 148 H 113 H Hemoglobin A1c Plasma Lactic Acid Rohit Calcium Phosphorus Magnesium Iron % Saturation Total Bilirubin AST ALT Alkaline Phosphatase Albumin Vitamin B12 Procalcitonin Urine Appearance Urine Protein Urine Blood Ur Leukocyte Esterase Urine RBC Urine WBC Urine Bacteria Urine Mucus Urine Yeast (Budding) Crossmatch 08/10/20 08/10/20 08/10/20 08:54 08:54 11:52 WBC RBC Hgb Hct MCH MCHC RDW Plt Count Lymphocytes # Lymphocytes # (Manual) Myelocytes # (Manual) Nucleated RBCs Retic Count PT 15.7 H INR 1.6 H ABG pH ABG pCO2 ABG pO2 ABG HCO3 ABG Total CO2 ABG O2 Saturation Sodium 129 L Potassium Chloride Carbon Dioxide 20 L BUN 41 H Creatinine 2.17 H Glucose POC Glucose (mg/dL) 129 H Hemoglobin A1c Plasma Lactic Acid Rohit Calcium Phosphorus Magnesium 2.4 H Iron % Saturation Total Bilirubin 1.6 H AST 46 H ALT Alkaline Phosphatase 259 H Albumin Vitamin B12 Procalcitonin Urine Appearance Urine Protein Urine Blood Ur Leukocyte Esterase Urine RBC Urine WBC Urine Bacteria Urine Mucus Urine Yeast (Budding) Crossmatch 08/10/20 08/10/20 08/10/20 16:27 20:28 22:10 WBC 3.6 L RBC 3.40 L Hgb 8.8 L Hct 28.8 L MCH MCHC 30.5 L RDW 19.9 H Plt Count 145 L Lymphocytes # 0.5 L Lymphocytes # (Manual) Myelocytes # (Manual) Nucleated RBCs Retic Count PT INR ABG pH ABG pCO2 ABG pO2 ABG HCO3 ABG Total CO2 ABG O2 Saturation Sodium Potassium Chloride Carbon Dioxide BUN Creatinine Glucose POC Glucose (mg/dL) 111 H 129 H Hemoglobin A1c Plasma Lactic Acid Rohit Calcium Phosphorus Magnesium Iron % Saturation Total Bilirubin AST ALT Alkaline Phosphatase Albumin Vitamin B12 Procalcitonin Urine Appearance Urine Protein Urine Blood Ur Leukocyte Esterase Urine RBC Urine WBC Urine Bacteria Urine Mucus Urine Yeast (Budding) Crossmatch 08/11/20 08/11/20 08/11/20 08:19 08:19 11:51 WBC RBC Hgb Hct MCH MCHC RDW Plt Count Lymphocytes # Lymphocytes # (Manual) Myelocytes # (Manual) Nucleated RBCs Retic Count PT 24.4 H INR 2.5 H ABG pH ABG pCO2 ABG pO2 ABG HCO3 ABG Total CO2 ABG O2 Saturation Sodium 131 L Potassium Chloride 97 L Carbon Dioxide 20 L BUN 43 H Creatinine 2.42 H Glucose 107 H POC Glucose (mg/dL) 114 H Hemoglobin A1c Plasma Lactic Acid Rohit Calcium Phosphorus Magnesium Iron % Saturation Total Bilirubin AST ALT Alkaline Phosphatase Albumin Vitamin B12 Procalcitonin Urine Appearance Urine Protein Urine Blood Ur Leukocyte Esterase Urine RBC Urine WBC Urine Bacteria Urine Mucus Urine Yeast (Budding) Crossmatch 08/11/20 08/11/20 08/12/20 16:54 20:15 06:03 WBC RBC Hgb Hct MCH MCHC RDW Plt Count Lymphocytes # Lymphocytes # (Manual) Myelocytes # (Manual) Nucleated RBCs Retic Count PT INR ABG pH ABG pCO2 ABG pO2 ABG HCO3 ABG Total CO2 ABG O2 Saturation Sodium Potassium Chloride Carbon Dioxide BUN Creatinine Glucose POC Glucose (mg/dL) 113 H 151 H 142 H Hemoglobin A1c Plasma Lactic Acid Rohit Calcium Phosphorus Magnesium Iron % Saturation Total Bilirubin AST ALT Alkaline Phosphatase Albumin Vitamin B12 Procalcitonin Urine Appearance Urine Protein Urine Blood Ur Leukocyte Esterase Urine RBC Urine WBC Urine Bacteria Urine Mucus Urine Yeast (Budding) Crossmatch 08/12/20 08/12/20 08/12/20 07:41 07:41 07:41 WBC 2.0 L RBC 3.45 L Hgb 8.8 L Hct 29.7 L MCH MCHC 29.6 L RDW 19.7 H Plt Count 131 L Lymphocytes # 0.5 L Lymphocytes # (Manual) Myelocytes # (Manual) Nucleated RBCs Retic Count PT 72.1 H INR 7.0 H* ABG pH ABG pCO2 ABG pO2 ABG HCO3 ABG Total CO2 ABG O2 Saturation Sodium 129 L Potassium Chloride 97 L Carbon Dioxide 21 L BUN 48 H Creatinine 2.79 H Glucose 124 H POC Glucose (mg/dL) Hemoglobin A1c Plasma Lactic Acid Rohit Calcium 8.3 L Phosphorus Magnesium 2.4 H Iron % Saturation Total Bilirubin AST 55 H ALT Alkaline Phosphatase 242 H Albumin 3.3 L Vitamin B12 Procalcitonin Urine Appearance Urine Protein Urine Blood Ur Leukocyte Esterase Urine RBC Urine WBC Urine Bacteria Urine Mucus Urine Yeast (Budding) Crossmatch 08/12/20 08/12/20 08/12/20 12:14 16:53 20:07 WBC RBC Hgb Hct MCH MCHC RDW Plt Count Lymphocytes # Lymphocytes # (Manual) Myelocytes # (Manual) Nucleated RBCs Retic Count PT INR ABG pH ABG pCO2 ABG pO2 ABG HCO3 ABG Total CO2 ABG O2 Saturation Sodium Potassium Chloride Carbon Dioxide BUN Creatinine Glucose POC Glucose (mg/dL) 131 H 169 H 168 H Hemoglobin A1c Plasma Lactic Acid Rohit Calcium Phosphorus Magnesium Iron % Saturation Total Bilirubin AST ALT Alkaline Phosphatase Albumin Vitamin B12 Procalcitonin Urine Appearance Urine Protein Urine Blood Ur Leukocyte Esterase Urine RBC Urine WBC Urine Bacteria Urine Mucus Urine Yeast (Budding) Crossmatch 08/13/20 08/13/20 08/13/20 06:18 08:21 08:21 WBC RBC Hgb Hct MCH MCHC RDW Plt Count Lymphocytes # Lymphocytes # (Manual) Myelocytes # (Manual) Nucleated RBCs Retic Count PT 67.3 H INR 6.6 H* ABG pH ABG pCO2 ABG pO2 ABG HCO3 ABG Total CO2 ABG O2 Saturation Sodium 129 L Potassium Chloride 97 L Carbon Dioxide 16 L BUN 58 H Creatinine 3.51 H Glucose POC Glucose (mg/dL) 117 H Hemoglobin A1c Plasma Lactic Acid Rohit Calcium 8.3 L Phosphorus Magnesium 2.5 H Iron % Saturation Total Bilirubin AST ALT Alkaline Phosphatase Albumin Vitamin B12 Procalcitonin Urine Appearance Urine Protein Urine Blood Ur Leukocyte Esterase Urine RBC Urine WBC Urine Bacteria Urine Mucus Urine Yeast (Budding) Crossmatch 08/13/20 08/13/20 08/13/20 08:21 11:15 16:39 WBC 3.3 L RBC Hgb 9.7 L Hct MCH 24.7 L MCHC 27.7 L RDW 19.4 H Plt Count 108 L Lymphocytes # Lymphocytes # (Manual) 0.89 L Myelocytes # (Manual) Nucleated RBCs 2 H Retic Count PT INR ABG pH ABG pCO2 ABG pO2 ABG HCO3 ABG Total CO2 ABG O2 Saturation Sodium Potassium Chloride Carbon Dioxide BUN Creatinine Glucose POC Glucose (mg/dL) 104 H 106 H Hemoglobin A1c Plasma Lactic Acid Rohit Calcium Phosphorus Magnesium Iron % Saturation Total Bilirubin AST ALT Alkaline Phosphatase Albumin Vitamin B12 Procalcitonin Urine Appearance Urine Protein Urine Blood Ur Leukocyte Esterase Urine RBC Urine WBC Urine Bacteria Urine Mucus Urine Yeast (Budding) Crossmatch 08/13/20 08/13/20 08/13/20 20:01 21:33 21:38 WBC 2.8 L RBC Hgb 10.2 L Hct MCH MCHC 29.3 L RDW 19.5 H Plt Count 120 L Lymphocytes # Lymphocytes # (Manual) 0.50 L Myelocytes # (Manual) 0.03 H Nucleated RBCs 3 H Retic Count PT INR ABG pH ABG pCO2 ABG pO2 ABG HCO3 ABG Total CO2 ABG O2 Saturation Sodium Potassium Chloride Carbon Dioxide BUN Creatinine Glucose POC Glucose (mg/dL) 120 H Hemoglobin A1c Plasma Lactic Acid Rohit 8.8 H* Calcium Phosphorus Magnesium Iron % Saturation Total Bilirubin AST ALT Alkaline Phosphatase Albumin Vitamin B12 Procalcitonin Urine Appearance Urine Protein Urine Blood Ur Leukocyte Esterase Urine RBC Urine WBC Urine Bacteria Urine Mucus Urine Yeast (Budding) Crossmatch 08/13/20 08/14/20 08/14/20 22:11 00:30 03:36 WBC RBC Hgb Hct MCH MCHC RDW Plt Count Lymphocytes # Lymphocytes # (Manual) Myelocytes # (Manual) Nucleated RBCs Retic Count PT 59.2 H INR 5.9 H* ABG pH 7.34 L ABG pCO2 26 L ABG pO2 73 L ABG HCO3 14 L ABG Total CO2 15 L ABG O2 Saturation Sodium Potassium Chloride Carbon Dioxide BUN Creatinine Glucose POC Glucose (mg/dL) Hemoglobin A1c Plasma Lactic Acid Rohit 10.3 H* Calcium Phosphorus Magnesium Iron % Saturation Total Bilirubin AST ALT Alkaline Phosphatase Albumin Vitamin B12 Procalcitonin Urine Appearance Urine Protein Urine Blood Ur Leukocyte Esterase Urine RBC Urine WBC Urine Bacteria Urine Mucus Urine Yeast (Budding) Crossmatch 08/14/20 08/14/20 08/14/20 03:36 03:36 04:41 WBC 3.6 L RBC Hgb 10.2 L Hct MCH MCHC 29.0 L RDW 19.8 H Plt Count 107 L Lymphocytes # 0.5 L Lymphocytes # (Manual) Myelocytes # (Manual) Nucleated RBCs Retic Count PT INR ABG pH ABG pCO2 ABG pO2 ABG HCO3 ABG Total CO2 ABG O2 Saturation Sodium 130 L Potassium Chloride Carbon Dioxide 10 L BUN 59 H Creatinine 3.96 H Glucose 101 H POC Glucose (mg/dL) Hemoglobin A1c Plasma Lactic Acid Rohit 9.4 H* Calcium 7.3 L Phosphorus Magnesium Iron % Saturation Total Bilirubin 2.0 H AST 125 H ALT 57 H Alkaline Phosphatase 208 H Albumin 3.2 L Vitamin B12 Procalcitonin Urine Appearance Urine Protein Urine Blood Ur Leukocyte Esterase Urine RBC Urine WBC Urine Bacteria Urine Mucus Urine Yeast (Budding) Crossmatch 08/14/20 05:44 WBC RBC Hgb Hct MCH MCHC RDW Plt Count Lymphocytes # Lymphocytes # (Manual) Myelocytes # (Manual) Nucleated RBCs Retic Count PT INR ABG pH 7.24 L ABG pCO2 28 L ABG pO2 245 H ABG HCO3 12 L ABG Total CO2 13 L ABG O2 Saturation 99.5 H Sodium Potassium Chloride Carbon Dioxide BUN Creatinine Glucose POC Glucose (mg/dL) Hemoglobin A1c Plasma Lactic Acid Rohit Calcium Phosphorus Magnesium Iron % Saturation Total Bilirubin AST ALT Alkaline Phosphatase Albumin Vitamin B12 Procalcitonin Urine Appearance Urine Protein Urine Blood Ur Leukocyte Esterase Urine RBC Urine WBC Urine Bacteria Urine Mucus Urine Yeast (Budding) Crossmatch Assessment and Plan Plan: 1 hypotension, subacute, consider septic shock . The patient is hypothermic and local clinic and the patient has also developed an acute kidney injury with a cute anion gap metabolic acidosis.. 2 acute on chronic kidney injury in the creatinine is rising the patient is oliguric at this point in time.creatinine today is up to 3.96. The patient has also hematuria with a Hayes catheter in place with blood clots being constantly irrigated out of the Hayes catheter. 3 chronic systolic congestive heart failure with an ejection fraction of 40-45% 4 UTI secondary to enterococcus group D completed course of Zyvox 5 paroxysmal atrial fibrillation,, currently in atrial fibrillation with rapid ventricular responsemy currently on oral amiodarone and the patient is on anticoagulation 6 Coumadin toxicity,, being reversed 7 valvular heart disease with severe tricuspid regurgitation moderate mitral regurgitation secondary pulmonary hypertension moderate in severity 8 acute on chronic hypoxic respiratory failure currently on 3L of oxygen by nasal cannula with a component of pulmonary vessel congestion and small effusions and cardiomegaly 9 chronic anemia 10 history of gastric ulcers 2017 11 history of CVA/TIA 12 severe lactic acidosis, Currently at 9.4 13 obstructive uropathy and the patient is a Hayes catheter in place and the patient has multiple clots being irrigated from the Hayes catheter with some ongoing urinary retention. Plan continue BiPAP infusion at 75 mL an hour Keep the Hayes irrigated and consult urology Review the patient's units of fresh frozen plasma and vitamin K and repeat PT/INR External warming Check lactic acid level monitor the progress we will insert a triple lumen catheter monitor the CVP once the patient's INR is below 2 Cover the patient adequate IV cefepime 2 g every 12 Obtain blood cultures Echo was noted consults neurology and nephrology again Obviously prognosis poor baseline above-mentioned comorbidities.condition is critical. We'll continue to follow. Time with Patient: Greater than 30
[2020-08-14] MEDS ORDERED: DEXTROSE 5% IN WATER 100 ML with AMIODARONE 150 MG IV ONE (06:56)
[2020-08-14] MEDS ORDERED: AMIODARONE 360 MG in DEXTROSE 5% IN WATER 200 ML IV ONE ×2 (06:56)
[2020-08-14 07:28] LABS: Glucose,Whole Blood 106 mg/dL (75-99)
[2020-08-14] MEDS: INSULIN ASPART (NovoLOG) 100 UNIT/ML VIAL SQ SCH ×5 (07:34→23:42)
--- NOTE | 2020-08-14 07:42 | XR ---
EXAMINATION TYPE: XR KUB portable DATE OF EXAM: 08/14/2020 6:50 AM CLINICAL HISTORY: Abdominal distention. TECHNIQUE: Two supine KUB images of the abdomen are obtained. COMPARISON: None. FINDINGS: Gas prominent small and large bowel loops scattered throughout the abdomen and pelvis. Gas prominent rectum suspected in the pelvis. Underlying scoliosis. Small bilateral pleural effusions wit h left basilar atelectasis and/or infiltrate. Scattered bilateral pelvic phleboliths. Overlying vascu lar calcification. IMPRESSION: Overall nonspecific bowel gas pattern. Favor ileus.
[2020-08-14] MEDS ORDERED: NOREPINEPHRIN 4 MG-0.9% NS PMX 4 MG/250 ML ML IV ONE (07:58)
[2020-08-14] MEDS ORDERED: propofoL 100 ML IV ONE (08:01)
[2020-08-14 08:53] LABS: ABG Base Excess -16.3 mmol/L; ABG HCO3 12 mmol/L (21-25); ABG Oxygen Saturation 99.4 % (94-97); ABG PCO2 32 mmHg (35-45); ABG PO2 148 mmHg (83-108); ABG TCO2 13 mmol/L (19-24)
--- NOTE | 2020-08-14 08:53 | XR ---
EXAMINATION TYPE: XR chest 1V portable DATE OF EXAM: 08/14/2020 COMPARISON: Prior chest x-ray 08/14/2020 HISTORY: Intubated TECHNIQUE: Single frontal view of the chest is obtained. FINDINGS: Endotracheal tube and NG tube are noted, side-port of the NG tube is present overlying the distal thoracic esophagus. Bilateral airspace disease persists, heart size is stable. No evident pne umothorax. Aorta is dense. IMPRESSION: Pleural parenchymal changes are similar to prior exam, correlate for pneumonia, edema, A RDS. NG tube as described.
[2020-08-14 08:56] LABS: ABG PH 7.18 (7.35-7.45); Allen Test Performed? no
[2020-08-14] MEDS ORDERED: CEFEPIME 1 GM in SODIUM CHLORIDE 0.9% 50 ML IVPB SCH (09:00)
--- NOTE | 2020-08-14 09:03 | XR ---
EXAMINATION TYPE: XR chest 1V portable DATE OF EXAM: 08/14/2020 COMPARISON: Prior chest x-ray 08/13/2020 HISTORY: ICU management, abnormal chest x-ray TECHNIQUE: Single frontal view of the chest is obtained. FINDINGS: Bilateral airspace disease is suspected. No evident pneumothorax. Blunting the costophreni c angles is noted, heart is enlarged. Aorta is dense. IMPRESSION: Correlate for pneumonia, edema. Possible small effusions. Cardiomegaly.
[2020-08-14] MEDS: SODIUM BICARB 8.4% 50 ML SYR (1 MEQ/ML) ONE (09:24)
[2020-08-14] MEDS: NOREPINEPHRINE 4 MG in SODIUM CHLORIDE 0.9% 250 ML IV SCH ×3 (09:25→12:14)
[2020-08-14] MEDS: TORSEMIDE 20 MG TAB PO SCH (09:28)
[2020-08-14] MEDS: polyethylene glycoL 3350 17 GM POWD.PACK PO SCH (09:28)
[2020-08-14] MEDS: MIDODRINE 5 MG TAB PO SCH ×3 (09:29→18:17)
[2020-08-14] MEDS: FERROUS SULFATE 325 MG TAB PO SCH ×2 (09:29→18:17)
[2020-08-14] MEDS: PANTOPRAZOLE 40 MG TABLET PO SCH (09:29)
[2020-08-14] MEDS: SODIUM BICARBONATE TAB 650 MG TAB PO SCH ×2 (09:29→21:24)
[2020-08-14] MEDS: CHOLECALCIFEROL 400 UNIT TAB PO SCH (09:30)
[2020-08-14] MEDS: METOPROLOL TARTRATE 25 MG TAB PO SCH ×2 (09:30→21:18)
[2020-08-14] MEDS: CLOPIDOGREL 75 MG TAB PO SCH (09:30)
[2020-08-14] MEDS: allopurinoL 100 MG TAB PO SCH (09:30)
[2020-08-14] MEDS: HYDROCORTISONE SUCCINATE 100 MG/2 ML VIAL IV SCH (10:24)
[2020-08-14] MEDS: LINEZOLID 600 MG in DEXTROSE/WATER 1 300ML.BAG IVPB SCH ×2 (12:10→21:28)
--- NOTE | 2020-08-14 12:52 | PN ---
PROGRESS NOTE Patient is seen for followup for acute kidney injury. Yesterday, patient became significantly hypotensive and was transferred to the ICU. She did receive fluid boluses. This morning, patient's condition deteriorated again and she was eventually intubated. She is maintained on large dose of Levophed. The patient has had significant bleeding from the Hayes catheter as well as all sites when an IV was being placed. No active bleeding noted through the ET tube or NG tube. The patient was also acidotic and is currently maintained on bicarb drip. She does not have any significant urine output. Urine output was about 5-10; however, patient just received Hayes irrigation. Therefore it is difficult to tell her accurate urine output. Barely seems to be distended as compared to yesterday. Lactic acid is elevated up to 12.1. PHYSICAL EXAMINATION: On examination today, blood pressure is 108/68, heart rate 135 per minute, patient is afebrile. Her temperature was actually low yesterday. Examination of the heart S1, S2. Examination of the lungs, bilateral breath sounds are heard. Abdomen is distended. Examination of lower extremities shows trace edema. DIABETES PHYSICIAN exam cannot be performed as patient is medically sedated. LABS: Show lactic acid 12.1, sodium 130, potassium 5.0, CO2 is 10, BUN 59, serum creatinine 3.96, calcium 7.3, albumin 3.2. ASSESSMENT: 1. Acute kidney injury, ATN associated with hypotension, sepsis, currently oliguric. 2. Severe metabolic acidosis and anion gap associated with lactic acidosis, hypotension, sepsis and renal failure, currently maintained on bicarb drip which we will continue. Repeat labs later on this evening and adjust bicarb drip if needed. 3. Hyponatremia associated with renal failure, serum sodium stable at about 130. 4. Hypotension, most likely from sepsis, possible pneumonia. Repeat UA. Patient had an Enterococcus urinary tract infection for which he was maintained on antibiotics. 5. Atrial fibrillation with RVR, currently on amiodarone drip. PLAN: Continue with bicarb drip. Check labs this evening and adjust bicarb drip if needed. Check CAT scan of the abdomen. Patient has received vitamin K and FFP for the coagulopathy, she may need to be dialyzed if there is no improvement in renal function. Family has been informed and the code status will be further discussed. MMODL / IJN: [id number] /
--- NOTE | 2020-08-14 13:13 | P.PN ---
Subjective 78-year-old pleasant female with history of atrial fibrillation on the anticoagulation with Xarelto, previous history of GI bleed and gastric ulcer, CVA/TIA. Patient follow-up with Dr. Birch who is recently retired at [employer] and she is looking for a new PCP now. She went to [facility] for right leg pain were stent was placed, she was discharged home 3 days ago, last Thursday, at [facility] Zayas catheter was placed and states it was bloody at that time. She was sent home with a Zayas catheter, however she started feeling uncomfortable in her bladder where the Zayas felt like hurting but she denies any abdominal pain, she felt that she has to P old time and there was blood in the urine catheter so she decided to come to the hospital. She denies any nausea vomiting. No chest pain or dyspnea. She is on 2 L oxygen via nasal cannula at home, it was bumped up to 4 L at [facility] as per patient, she has chronic hypoxic respiratory failure related to her COPD. She denies chest pain or headache or weakness. Originally she was on aspirin daily however she states the last of added to her and [place]. Patient was noted to be on Plavix 75 mg and aspirin 81 mg at home. She denies smoking, she drinks couple cups of wine every week. No illicit drugs On admission her blood pressure was 101/88, this morning was 83/63. However repeat blood pressure went up to 101/59, heart rate on admission was 138, currently is 108, she is saturating 95% on 4 L oxygen via nasal cannula Labs on admission showed hemoglobin of 7.4, rest of the CBC is unremarkable. INR is 1.2. EKG showing atrial fibrillation's with RVR at 133. 08/01/2020 Patient is lying in bed comfortable. No distress. She is not tachypneic. However she still on 4 L oxygen via nasal cannula compared to his doctor at home. No coughing or chest pain but she has bilateral basal crepitation.. Patient feels generally better today, she was admitted mainly for discomfort in her urinary bladder area which is improved today She is hemodynamically stable other than that. Labs from today are still pending. Sugars controlled. Iron study showing iron deficiency anemia with iron low at 21, normal TIBC at 397 and low iron saturation at 5.2%. And normal ferritin at 45. Patient was started on iron pills Although patient was admitted for possible GI bleed, patient denies any blood in stool, no vomiting blood, she had a bowel movement kitchenwhere maker which was brown as per patient. No abdominal pain. And she tolerates diet. She is on Protonix IV daily. Occult blood in stool still pending There is blood in the urine. Urinalysis showing urine RBC more than 182, urine WBC of more than 182. Urine culture is ordered and is pending, patient will be started on Levaquin empirically for possible UTI pending UC, patient is ALLERGIC to penicillin Dr. Elias evaluated the patient and recommended to discontinue Zayas catheter and check PVR. Also recommended to follow up as an outpatient for possible cystoscopy. Patient informed and she agrees. Risks including but not limited to cancer explained to him and she verbalized understanding. Also she has acute kidney injury from yesterday with creatinine 1.7, could be related to her CHF exacerbation in view of basal crepitation and more oxygen requirement. Chest x-ray also was abnormal. We changed her Lasix from 40 mg orally to intravenously today. Echocardiogram is still pending. Heart rate is controlled on oral medication. Xarelto is on hold for hematuria 08/02/2020 Patient still feels generally weak. She still have hematuria through the Zayas catheter. No chest pain or significant dyspnea at rest. She saturating 98% 4 L oxygen via nasal cannula. Her creatinine is down to 1.8 today however her potassium is 2.4 and his been replaced, morning dose of Lasix is been held because of the significantly low potassium. Sodium 131. Blood pressure is a stable, is chronically low while the patient is asymptomatic.Occult blood in the stool is negative. Xarelto still on hold. Patient still on Plavix but aspirin is still on hold as well. Hemoglobin stable at 9.1 She continue on Levaquin for possible UTI, urine cultures pending. 08/03/2020 Today clinically the same, she feels generally weak, however she is breathing quietly and she saturating 99% and a 3 L oxygen via nasal cannula, no much basal crepitation after she was started on IV fluids. She still have the Zayas catheter with some blood in it although it's less severe compared to yesterday. Hemoglobin only slightly lower than yesterday from 9.1 down to 8.1. Patient is on iron panel added yesterday. Also she is on the Plavix however aspirin is on hold. Urine analysis is suspicious for infection, urine culture has been sent and the result is pending, first urine culture is negative but we are going to repeat it.o OxyContinnin is appreciated and they lowered dose of Cardizem from 180 down to 120. Blood pressure today slightly stable at 103/61. Heart rate is 88. Also normal saline at 50 mL per hour was added and creatinine slightly better today at 1.6. 08/04/2020 Patient is awake, clinically the same. It looks like her blood pressure is stable and her sodium is improving gradually to 1.5 with initiation of normal saline, sewed it was also improved 133. Oxygen requirement and stabilized 3-4 L/m. No pulmonary congestion on examination. Heart rate is regular to be controlled while on metoprolol. Eliquis was initiated per neurology team recommendation and floorleader team input. Also nephrology recommended to discontinue Zayas catheter and monitor PVR. Her urine was tea color today today showing improvement. Urine culture is growing group D enterococcus. She remains on Levaquin pending the final sensitivity. 08/05/2020 pt is still clinically with weakness, zayas catheter is in place with tea colored urine, urine culture is growing enterococcus resistant to Levaquin which is a stopped, it is sensitive to vancomycin, linezolid and other medication. Patient was started on linezolid and lipase are consult for infectious disease team for further recommendation. Nephrology team recommended to discontinue Zayas catheter however due to resistant bacteria and undergoing infection we will keep it for now total sensitive to antibiotic is started. Chest x-ray is suspicious for CHF versus some chronic or fibrotic changes (similar to 5 days ago ) with no worsening despite IV fluids for more than 48 hours but clinically patient does not behave slightly CHF however she stated bed most of the time. Correctional Officer Lieutenant recommended to increase metoprolol to 3 times a day. Creatinine is stable at 1.5, blood pressure is a stable 08/06/2020 Patient is generally weak, yesterday patient was started on Zyvox for enterococcus in the urine based on culture and sensitivity. Vancomycin is try to be avoided cause of her hematuria and risk of nephrotoxicity. Infectious disease were consulted and they recommended to continue with Zyvox for 2 weeks upon discharge. Zayas catheter was removed today, we will keep monitoring for bladder scan. Patient is on fluid restriction 1500 mL per day. Patient creatinine is slightly up to 1.7, sodium is stable at 1:30, oxygen requirement came down to 50 L/m which is her baseline, blood pressure slightly on the low normal side at 90/52 after metoprolol was increased to 3 times daily per cardiology recommendation. Patient remains on Eliquis for her history of A. fib with RVR, currently her heart rate is controlled. She remains on Zyvox and Eliquis as above Prognosis is guarded PT/OT recommended home health care 08/07/2020 Patient weakness improving, this is the first day we see her sitting in the chair. She is being treated in currently with Zyvox for her to deal cocci UTI, his hematuria significantly improved, Zayas catheter was discontinued. We will monitor her PVR very closely. As per documentation of a copy for Zyvox is 69 and I discussed with the patient and she agrees with taking it for up to 2 weeks. Patient instructed to follow up with Dr. Elias in 2 weeks to check for cystoscopy at his office for the patient. Patient also informed and she agrees also showing heparin sodium 2126 and decrease in creatinine to 1.9. 1 dose of Lasix is provided for the patient. Iv fluids are on hold 08/08/2020 Patient feels generally more week today with no specific symptoms. She still have difficulty urination. Zayas catheter is out and we checked a bladder scan. Her creatinine trended up to 2.2 today and she was hypotensive last night, metoprolol which was recently increased by cardiology team to 25 mg 3 times a day was lowered back again to twice daily Drug Abuse Worker on the case and recommended 1 dose of Lasix. Blood pressure still borderline so we'll keep her in telemetry bed and selective unit Today the Eliquis co-pay was found to be over $450, Eliquis was stopped and started on Coumadin with Lovenox bridgi per pharmacy to dose Prognosis remains guarded 08/09/2020 Patient feels better today, she states that she is voiding easier than yesterday although she still have some difficulty. No abdominal pain and no other sym ptoms. Her blood pressure is better today, after medial drain has been added. Systolic blood pressure is ranging between 100-105 She has worsening creatinine today to 2.3. Sodium slightly improved at 129. INR is 1.5 after Coumadin started with Lovenox bridging. She remains on Zyvox for enterococcus UTI, also on Coumadin with Lovenox bridging. She continued medial drain and metoprolol 25 mg twice daily. Metformin as an hold and sugars controlled. 08/10/2020 This is a pleasant 80 years old female who was originally admitted for hematuria and A. fib with RVR. Hematuria secondary to UTI with enterococcus on Zyvox was started, his urinary symptoms were improving, she had a Zayas catheter and Dr. Elias was following her, eventually Zayas catheter was removed and patient continued with bladder scan monitoring. On admission her creatinine was 1.7 start worsening with continuation of home Lasix to 2.2, then IV fluid was started gently and her creatinine started improving to 1.5. At that point cardiology team increased metoprolol dose to 3 times daily for better control of A. fib, with creatinines start trending up again. Then IV fluids were stopped and patient was getting Lasix intravenously for the last few days however creatinine only showing slight improved today to 2.1, also today patient clinically she is in acute CHF as she has more leg swelling more short of breath. Her metoprolol is currently twice daily , medodrain was admitted for better blood pressure control. Metformin is on hold.Her blood pressure this morning was 92/66-110/66. Heart rate around 100. Oxygen saturation 97% on 2 L oxygen nasal cannula. Patient Eliquis co-pay was more than $450, so patient was started on Coumadin with Lovenox bridging. Echocardiogram: Ejection fraction 40-45%. Severe tricuspid regurgitation, moderate pulmonary hypertension, moderate mitral regurgitation Labs showing WBC 3.6K, hemoglobin 8.8, platelets 145k, sodium 129, creatinine 2.1, glucose control.INR is 1.6 all she is on Coumadin 08/13/2020, patient was been followed by my colleague over the last 3 days Yesterday patient became hypotensive and hypothermic and she was transferred to the ICU. And this morning patient was found more lethargic and she got intubated by pulmonary/critical care team, patient could not provide information today. Her temperature yesterday was 93.3, currently is 97.5 on Armand hugger. Also she was hypotensive yesterday like 66/32 currently she is on Levothroid 0.05 g per KG per minute. Her lactic acid was elevated 8.8 and currently 12.1. She is quite acidotic with pH of 7.1, pCO2 low 32 and pO2 of 148. She is on sodium bicarb drip. Also she is on amiodarone drip for A. fib and RVR, metoprolol was stopped. Asked the staff to call cardiology team for further recommendation Abdomen is distended and KUB so suspicious of ileus. Zayas catheter has been changed to reverse arteries and there is hematuria, not much urine output. She was already started on cefepime yesterday, we added Zyvox and Flagyl to cover gram-negative, gram-positive bacteria and anaerobes. Also I talked with the son Mr. Eleno Hull at [phone] and he is aware of his critical condition of his mother and all his questions were answered reView of systems: n/a Active Medications Generic Name Dose Route Start Last Admin Trade Name Freq PRN Reason Stop Dose Admin Acetaminophen 325 mg 07/31/20 09:28 08/12/20 00:01 Acetaminophen Tab 325 Mg Tab PO 325 mg Q6HR PRN Administration Fever and/ or Pain Allopurinol 100 mg 08/02/20 09:00 08/14/20 09:30 Allopurinol 100 Mg Tab PO Not Given DAILY MERRICK Alprazolam 0.5 mg 08/04/20 20:59 08/12/20 00:02 Alprazolam 0.5 Mg Tab PO 0.5 mg BID PRN Administration Anxiety Atorvastatin Calcium 40 mg 07/31/20 21:00 08/13/20 20:43 Atorvastatin 40 Mg Tab PO 40 mg HS MERRICK Administration Chlorhexidine Gluconate 15 ml 08/14/20 21:00 Chlorhexidine Gluconate 15 Ml Cup MUCOUS MEM BID MERRICK Cholecalciferol 400 unit 07/31/20 10:00 08/14/20 09:30 Cholecalciferol 400 Unit Tab PO Not Given DAILY MERRICK Clopidogrel Bisulfate 75 mg 07/31/20 09:00 08/14/20 09:30 Clopidogrel 75 Mg Tab PO Not Given DAILY MERRICK Ferrous Sulfate 325 mg 08/01/20 08:15 08/14/20 09:29 Ferrous Sulfate 325 Mg Tab PO Not Given BID-W/MEALS MERRICK Hydrocortisone Sodium Succinate 50 mg 08/13/20 09:00 08/14/20 10:24 Hydrocortisone Succinate 100 Mg/2 Ml Vial IV 50 mg DAILY MERRICK Administration Sodium Chloride 1,000 mls @ 20 mls/hr 07/31/20 00:30 08/13/20 23:34 Saline 0.9% IV 20 mls/hr .Q24H MERRICK Administration Sodium Bicarbonate 150 ml/ 1,150 mls @ 75 mls/hr 08/13/20 23:00 08/13/20 23:33 Dextrose/Water IV 75 mls/hr .[id number] MERRICK Administration Amiodarone HCl 360 mg/ 200 mls @ 33.333 mls/hr 08/14/20 06:56 08/14/20 07:33 Dextrose/Water IV 08/14/20 12:55 1 mg/min .Q6H ONE 33.333 mls/hr Administration Protocol 1 MG/MIN Amiodarone HCl 300 mg/ 250 mls @ 25 mls/hr 08/14/20 13:00 Dextrose/Water IV 08/15/20 06:59 .Q10H MERRICK Protocol 0.5 MG/MIN Propofol 1,000 mg/ IV Solution 100 mls @ 0 mls/hr 08/14/20 10:15 08/14/20 10:39 IV 50 mcg/kg/min .Q0M MERRICK 22.23 mls/hr Administration Protocol Titrate Linezolid 600 mg/ IV Solution 300 mls @ 150 mls/hr 08/14/20 10:30 08/14/20 12:10 IVPB 150 mls/hr Q12HR MERRICK Administration Protocol Metronidazole 500 mg/ IV 100 mls @ 100 mls/hr 08/14/20 10:30 Solution IVPB Q8HR MERRICK Norepinephrine Bitartrate 32 250 mls @ 1.737 mls/hr 08/14/20 12:45 mg/ Sodium Chloride IV .Q24H MERRICK Protocol 0.05 MCG/KG/MIN Cefepime HCl 1 gm/ Sodium 50 mls @ 12.5 mls/hr 08/15/20 09:00 Chloride IVPB Q24HR MERRICK Insulin Aspart 0 unit 07/31/20 07:30 08/14/20 07:34 Insulin Aspart (Novolog) 100 Unit/Ml Vial SQ Not Given ACHS MERRICK Protocol Metoprolol Tartrate 25 mg 08/08/20 09:00 08/14/20 09:30 Metoprolol Tartrate 25 Mg Tab PO Not Given BID MERRICK Midodrine 10 mg 08/08/20 09:21 08/14/20 09:29 Midodrine 5 Mg Tab PO Not Given AC-TID MERRICK Miscellaneous Information 1 each 08/03/20 15:58 Potassium Replacement Protocol 1 Each Misc MISCELLANE DAILY PRN Per Protocol Protocol Miscellaneous Information 0 each 08/08/20 15:05 Warfarin Per Pharmacy MISCELLANE DIRECTED PRN Per protocol Morphine Sulfate 2 mg 08/01/20 17:29 08/13/20 11:55 Morphine Sulfate 2 Mg/Ml Syringe IV 2 mg Q4HR PRN Administration Severe Pain Naloxone HCl 0.2 mg 07/31/20 00:23 Naloxone 0.4 Mg/Ml 1 Ml Vial IV Q2M PRN Opioid Reversal Nitroglycerin 0.4 mg 07/31/20 09:30 Nitroglycerin Sl Tabs 0.4 Mg Tab SUBLINGUAL Q5M PRN Chest Pain Pantoprazole Sodium 40 mg 08/02/20 07:30 08/14/20 09:29 Pantoprazole 40 Mg Tablet PO Not Given AC-BRKFST [facility] Polyethylene Glycol 17 gm 07/31/20 09:45 08/14/20 09:28 Polyethylene Glycol 3350 17 Gm Powd.Pack PO Not Given DAILY [facility] Sodium Bicarbonate 650 mg 08/11/20 11:00 08/14/20 09:29 Sodium Bicarbonate Tab 650 Mg Tab PO Not Given BID [facility] Trazodone HCl 50 mg 07/31/20 09:30 08/07/20 20:29 Trazodone Hcl 50 Mg Tab PO 50 mg HS PRN Administration Insomnia Warfarin Sodium 0 mg 08/14/20 18:00 Warfarin 0.5 Mg Tab PO 08/14/20 18:01 ONCE@1800 ONE Objective - Vital Signs Vital signs: Vital Signs Temp 97.5 F L 08/14/20 12:06 Pulse 125 H 08/14/20 12:06 Resp 18 08/14/20 12:06 BP 101/61 08/14/20 12:06 Pulse Ox 98 08/14/20 11:55 Intake & Output 08/13/20 08/14/20 08/14/20 18:59 06:59 18:59 Intake Total 20 3064.000 529.138 Output Total 30 0 Balance 20 3034.000 529.138 Intake: IV 2760 95 .9 bolus 2000 Dextrose 5% in Water 1, 600 75 000 ml @ 75 mls/hr IV . [id number] MERRICK with Sodium Bicarb (1 Meq/ml) 150 ml Rx#:[id number] Sodium Chloride 0.9% 1, 160 20 000 ml @ 20 mls/hr IV . Q24H MERRICK Rx#:[id number] Intake, IV Titration 254.000 143.138 Amount Norepinephrine 4 mg In 254.000 143.138 Sodium Chloride 0.9% 250 ml @ 0.05 MCG/KG/MIN 14. 116 mls/hr IV .Q18H MERRICK Rx#:[id number] Oral 20 50 Blood Product 291 Ffp 24 Cpd Unit 291 [id number] Ffp 24 Cpd Unit 0 [id number] Output: Urine 30 0 Straight 10 Uretheral (Zayas) 0 Other: Voiding Method Bedside Commode Indwelling Catheter Diaper Incontinent # Voids 1 # Bowel Movements 1 ABP, PAP, CO, CI - Last Documented Arterial Blood Pressure 105/75 - Exam -GENERAL: The patient is intubated and sedated HEENT: Pupils are round and equally reacting to light. EOMI. No scleral icterus. No conjunctival pallor. Normocephalic, atraumatic. No pharyngeal erythema. No thyromegaly. CARDIOVASCULAR: S1 and S2 present. No murmurs, rubs, or gallops. -PULMONARY: Chest is clear to auscultation, no wheezing or crackles. Bilateral basal crepitation -ABDOMEN: Soft, nontender, nondistended, normoactive bowel sounds. No palpable organomegaly. Zayas catheter is in place with blood-colored urine MUSCULOSKELETAL: No joint swelling or deformity. -EXTREMITIES: No cyanosis, clubbing, bilateral leg edema. NEUROLOGICAL: Gross neurological examination did not reveal any focal deficits. SKIN: No rashes. No petechiae - Labs CBC & Chem 7: 08/14/20 03:36 08/14/20 04:41 Labs: Abnormal Lab Results - Last 24 Hours (Table) 08/13/20 08/13/20 08/13/20 Range/Units 08:21 16:39 20:01 WBC 3.3 L (3.8-10.6) k/uL Hgb 9.7 L (11.4-16.0) gm/dL MCH 24.7 L (25.0-35.0) pg MCHC 27.7 L (31.0-37.0) g/dL RDW 19.4 H (11.5-15.5) % Plt Count 108 L (150-450) k/uL Lymphocytes # (1.0-4.8) k/uL Lymphocytes # (Manual) 0.89 L (1.0-4.8) k/uL Myelocytes # (Manual) (0) k/uL Nucleated RBCs 2 H (0-0) /100 WBC PT (9.0-12.0) sec INR (<1.2) ABG pH (7.35-7.45) ABG pCO2 (35-45) mmHg ABG pO2 (83-108) mmHg ABG HCO3 (21-25) mmol/L ABG Total CO2 (19-24) mmol/L ABG O2 Saturation (94-97) % Sodium (137-145) mmol/L Carbon Dioxide (22-30) mmol/L BUN (7-17) mg/dL Creatinine (0.52-1.04) mg/dL Glucose (74-99) mg/dL POC Glucose (mg/dL) 106 H 120 H (75-99) mg/dL Plasma Lactic Acid Rohit (0.7-2.0) mmol/L Calcium (8.4-10.2) mg/dL Total Bilirubin (0.2-1.3) mg/dL AST (14-36) U/L ALT (4-34) U/L Alkaline Phosphatase (38-126) U/L Albumin (3.5-5.0) g/dL 08/13/20 08/13/20 08/13/20 Range/Units 21:33 21:38 22:11 WBC 2.8 L (3.8-10.6) k/uL Hgb 10.2 L (11.4-16.0) gm/dL MCH (25.0-35.0) pg MCHC 29.3 L (31.0-37.0) g/dL RDW 19.5 H (11.5-15.5) % Plt Count 120 L (150-450) k/uL Lymphocytes # (1.0-4.8) k/uL Lymphocytes # (Manual) 0.50 L (1.0-4.8) k/uL Myelocytes # (Manual) 0.03 H (0) k/uL Nucleated RBCs 3 H (0-0) /100 WBC PT (9.0-12.0) sec INR (<1.2) ABG pH 7.34 L (7.35-7.45) ABG pCO2 26 L (35-45) mmHg ABG pO2 73 L (83-108) mmHg ABG HCO3 14 L (21-25) mmol/L ABG Total CO2 15 L (19-24) mmol/L ABG O2 Saturation (94-97) % Sodium (137-145) mmol/L Carbon Dioxide (22-30) mmol/L BUN (7-17) mg/dL Creatinine (0.52-1.04) mg/dL Glucose (74-99) mg/dL POC Glucose (mg/dL) (75-99) mg/dL Plasma Lactic Acid Rohit 8.8 H* (0.7-2.0) mmol/L Calcium (8.4-10.2) mg/dL Total Bilirubin (0.2-1.3) mg/dL AST (14-36) U/L ALT (4-34) U/L Alkaline Phosphatase (38-126) U/L Albumin (3.5-5.0) g/dL 08/14/20 08/14/20 08/14/20 Range/Units 00:30 03:36 03:36 WBC 3.6 L (3.8-10.6) k/uL Hgb 10.2 L (11.4-16.0) gm/dL MCH (25.0-35.0) pg MCHC 29.0 L (31.0-37.0) g/dL RDW 19.8 H (11.5-15.5) % Plt Count 107 L (150-450) k/uL Lymphocytes # 0.5 L (1.0-4.8) k/uL Lymphocytes # (Manual) (1.0-4.8) k/uL Myelocytes # (Manual) (0) k/uL Nucleated RBCs (0-0) /100 WBC PT 59.2 H (9.0-12.0) sec INR 5.9 H* (<1.2) ABG pH (7.35-7.45) ABG pCO2 (35-45) mmHg ABG pO2 (83-108) mmHg ABG HCO3 (21-25) mmol/L ABG Total CO2 (19-24) mmol/L ABG O2 Saturation (94-97) % Sodium (137-145) mmol/L Carbon Dioxide (22-30) mmol/L BUN (7-17) mg/dL Creatinine (0.52-1.04) mg/dL Glucose (74-99) mg/dL POC Glucose (mg/dL) (75-99) mg/dL Plasma Lactic Acid Rohit 10.3 H* (0.7-2.0) mmol/L Calcium (8.4-10.2) mg/dL Total Bilirubin (0.2-1.3) mg/dL AST (14-36) U/L ALT (4-34) U/L Alkaline Phosphatase (38-126) U/L Albumin (3.5-5.0) g/dL 08/14/20 08/14/20 08/14/20 Range/Units 03:36 04:41 05:44 WBC (3.8-10.6) k/uL Hgb (11.4-16.0) gm/dL MCH (25.0-35.0) pg MCHC (31.0-37.0) g/dL RDW (11.5-15.5) % Plt Count (150-450) k/uL Lymphocytes # (1.0-4.8) k/uL Lymphocytes # (Manual) (1.0-4.8) k/uL Myelocytes # (Manual) (0) k/uL Nucleated RBCs (0-0) /100 WBC PT (9.0-12.0) sec INR (<1.2) ABG pH 7.24 L (7.35-7.45) ABG pCO2 28 L (35-45) mmHg ABG pO2 245 H (83-108) mmHg ABG HCO3 12 L (21-25) mmol/L ABG Total CO2 13 L (19-24) mmol/L ABG O2 Saturation 99.5 H (94-97) % Sodium 130 L (137-145) mmol/L Carbon Dioxide 10 L (22-30) mmol/L BUN 59 H (7-17) mg/dL Creatinine 3.96 H (0.52-1.04) mg/dL Glucose 101 H (74-99) mg/dL POC Glucose (mg/dL) (75-99) mg/dL Plasma Lactic Acid Rohit 9.4 H* (0.7-2.0) mmol/L Calcium 7.3 L (8.4-10.2) mg/dL Total Bilirubin 2.0 H (0.2-1.3) mg/dL AST 125 H (14-36) U/L ALT 57 H (4-34) U/L Alkaline Phosphatase 208 H (38-126) U/L Albumin 3.2 L (3.5-5.0) g/dL 08/14/20 08/14/20 08/14/20 Range/Units 07:27 07:28 08:52 WBC (3.8-10.6) k/uL Hgb (11.4-16.0) gm/dL MCH (25.0-35.0) pg MCHC (31.0-37.0) g/dL RDW (11.5-15.5) % Plt Count (150-450) k/uL Lymphocytes # (1.0-4.8) k/uL Lymphocytes # (Manual) (1.0-4.8) k/uL Myelocytes # (Manual) (0) k/uL Nucleated RBCs (0-0) /100 WBC PT (9.0-12.0) sec INR (<1.2) ABG pH 7.18 L* (7.35-7.45) ABG pCO2 32 L (35-45) mmHg ABG pO2 148 H (83-108) mmHg ABG HCO3 12 L (21-25) mmol/L ABG Total CO2 13 L (19-24) mmol/L ABG O2 Saturation 99.4 H (94-97) % Sodium (137-145) mmol/L Carbon Dioxide (22-30) mmol/L BUN (7-17) mg/dL Creatinine (0.52-1.04) mg/dL Glucose (74-99) mg/dL POC Glucose (mg/dL) 106 H (75-99) mg/dL Plasma Lactic Acid Rohit 12.1 H* (0.7-2.0) mmol/L Calcium (8.4-10.2) mg/dL Total Bilirubin (0.2-1.3) mg/dL AST (14-36) U/L ALT (4-34) U/L Alkaline Phosphatase (38-126) U/L Albumin (3.5-5.0) g/dL Assessment and Plan Assessment: Possible septic shock Acute hypoxic respiratory failure needing intubation and mechanical ventilation Acute systolic on chronic CHF with ejection fraction 40-45% Acute hematuria, secondary to UTI. Culture growing group D enterococcus Acute blood loss anemia Coagulopathy secondary to Coumadin Acute kidney injury, could be a combination of infection, cardiorenal syndrome, hypotension Hyponatremia Paroxysmal atrial fibrillation with RVR, was on Coumadin Valvular heart disease with severe tricuspid regurgitation and moderate mitral regurgitation Moderate pulmonary hypertension Acute and chronic hypoxic respiratory failure secondary to above. Improved Anemia, Rule out GI bleed History of gastric ulcer in 2018 History of CVA/TIA Plan: This is a pleasant 80 years old female who presents with A. fib and low hemoglobin suspicious for blood in urine and Zayas catheter. Currently patient in the ICU needing mechanical ventilation and pressors, sever consultants on the case including pulmonary/critical care team, cardiology, nephrology, infectious disease. Also neurology team. Patient is on cefepime, we added Zyvox and Flagyl. Continue with her orogastric tube under suction for distended abdomen. Continue with Zayas catheter Continue with amiodarone drip. continue to hold Coumadin, hold metformin and beta stacie Labs and medication were reviewed.. Continue same treatment. Continue with symptomatic treatment. Resume home medication. Monitor lytes and vitals. DVT and GI prophylaxis. Further recommendations as per clinical course of the patient DVT prophylaxis: Coumadine with supratherapeutic INR GI Prophylaxis: Ppi Prognosis is guarded
[2020-08-14] MEDS: DEXTROSE 5% IN WATER 1,000 ML with SODIUM BICARB (1 MEQ/ML) 150 ML IV SCH (13:38)
[2020-08-14] MEDS: AMIODARONE 300 MG in DEXTROSE 5% IN WATER 250 ML IV SCH ×4 (13:39→23:42)
[2020-08-14] MEDS: metroNIDAZOLE-NS PMX 500 MG in SALINE 1 100ML.BAG IVPB SCH ×3 (13:42→23:42)
[2020-08-14 13:46] LABS: Glucose,Whole Blood 162 mg/dL (75-99)
[2020-08-14] MEDS: NOREPINEPHRINE 32 MG in SODIUM CHLORIDE 0.9% 218 ML IV SCH (14:32)
[2020-08-14] MEDS: PANTOPRAZOLE 40 MG/10 ML VIAL IVP SCH ×2 (14:57→21:29)
--- NOTE | 2020-08-14 16:10 | P.PCN ---
Date of Procedure: 08/14/20 Preoperative Diagnosis: Acute hypoxic respiratory failure Postoperative Diagnosis: Acute hypoxic respiratory failure Procedure(s) Performed: Intubation, insertion of a central line, insertion of arterial line Anesthesia: MAC Surgeon: Ila Flores Estimated Blood Loss (ml): 0 Pathology: other Condition: critical Disposition: ICU Operative Findings: Intubation Indication: Respiratory compromise. A time-out was completed verifying correct patient, procedure, site, positioning, and implant(s) or special equipment if applicable. The patient was positioned appropriately and a #8 endotracheal tube was placed under direct laryngoscopy. The tube was anchored at 22 cm at the teeth. Correct placement was confirmed by presence of bilateral breath sounds without air sounds in the abdomen on auscultation. An end-tidal CO2 monitor was also used to confirm tracheal placement of the ET tube. A chest x-ray was ordered to assess for pneumothorax and verify endotracheal tube placement. The patient tolerated the procedure well and there were no complications. Central line insertion Indication: Hemodynamic monitoring/Intravenous access. A time-out was completed verifying correct patient, procedure, site, pos itioning, and implant(s) or special equipment if applicable. The patient was placed in a dependent position appropriate for central line placement based on the vein to be cannulated. The patients right groin was prepped and draped in sterile fashion. 1% Lidocaine was used to anesthetize the surrounding skin area. A triple lumen 9F Cordis catheter was introduced into the right femoral vein vein using Seldinger technique. The catheter was threaded smoothly over the guide wire and appropriate blood return was obtained. Each lumen of the catheter was evacuated of air and flushed with sterile saline. The catheter was then sutured in place to the skin and a sterile dressing applied. Perfusion to the extremity distal to the point of catheter insertion was checked and found to be adequate. The patient tolerated the procedure well and there were no complications. Arterial line insertion Indication: Hemodynamic monitoring. A time-out was completed verifying correct patient, procedure, site, positioning, and implant(s) or special equipment if applicable. Allens test was performed to ensure adequate perfusion. The patients right wrist was prepped and draped in sterile fashion. 1% Lidocaine was used to anesthetize the area. An 18G Arrow arterial line was introduced into the radial artery. The catheter was threaded over the guide wire and the needle was removed with appropriate pulsatile blood return. Blood loss was minimal. The catheter was then sutured in place to the skin and a sterile dressing applied. Perfusion to the extremity distal to the point of catheter insertion was checked and found to be adequate. The patient tolerated the procedure well and there were no complications.
--- NOTE | 2020-08-14 17:12 | P.PN ---
Progress Note - Text Progress Note Date: 08/14/20 A Hayes catheter was placed yesterday to allow accurate recording of urine output. However, since that time, there have been problems with catheter clot occlusion. Earlier today, a 22-Cypriot Hayes catheter was placed, but it could not be irrigated adequately. Subsequently, a hematuria catheter was placed. I irrigated multiple clots from the bladder, and after being confident that all clots were removed continuous bladder irrigation was initiated with essentially clear outflow. Unfortunately, the PT and INR levels are 59.2 and 5.9, respectively. The patient is going down for computed tomography scan. Continuous bladder irrigation will be continued.
[2020-08-14 17:36] LABS: INR 2.3 (<1.2); Prothrombin Time 22.7 sec (9.0-12.0)
--- NOTE | 2020-08-14 17:47 | CT ---
EXAMINATION TYPE: CT abdomen pelvis wo con DATE OF EXAM: 08/14/2020 COMPARISON: None HISTORY: Abdominal distention CT DLP: 925.1 mGycm Automated exposure control for dose reduction was used. Images were obtained from the diaphragm to the floor the pelvis with no contrast. There is moderate size right pleural effusion. There is extensive airspace consolidation and atelecta sis in both lower lobes. Heart is enlarged. There is no pericardial effusion. There is moderate-sized hiatal hernia. Liver shows no focal defect. Gallbladder is contracted with high attenuation at could relate to multi ple gallstones. There is nasogastric tube in the distal stomach. The spleen is intact. I see no evidence of pancreatic mass. There is diffuse subcutaneous edema aroun d the abdomen that could relate to anasarca. There is abdominal ascites. There is no evidence of a oh wel obstruction. There is no adrenal mass. Kidneys have normal size. There is no hydronephrosis. There is mild bilater al perinephric fluid. There is no retroperitoneal adenopathy. There is dilated left ovarian vein. The re is Hayes catheter in the bladder. There is small amount of air in the urinary bladder. There is no evidence of bladder mass. There is no pelvic mass. There is multilevel lumbar spondylotic changes with disc space narrowing and spur formation. There i s no compression fracture. There is mild narrowing and spurring at the hip joints. There is mild lumbar levoscoliosis. I see no focal bone destruction. IMPRESSION: Subcutaneous edema. Abdominal ascites. Cardiomegaly with pleural effusions and bilateral lower lobe p ulmonary consolidation or atelectasis. This could all relate to congestive chronic heart failure. No bowel obstruction.
[2020-08-14] MEDS ORDERED: WARFARIN 0.5 MG TAB PO ONE (18:00)
[2020-08-14] MEDS: SODIUM CHLORIDE 0.9% IRRIG 3,000 ML BAG IRRIGATION PRN (18:17)
[2020-08-14 18:47] LABS: Glucose,Whole Blood 201 mg/dL (75-99)
[2020-08-14 19:49] LABS: Potassium 3.3 mmol/L (3.5-5.1); Total Bilirubin 1.9 mg/dL (0.2-1.3); Total Protein 4.4 g/dL (6.3-8.2)
[2020-08-14 19:55] LABS: Calcium 4.6 mg/dL (8.4-10.2)
[2020-08-14 20:20] LABS: Glucose,Whole Blood 216 mg/dL (75-99)
[2020-08-14 20:34] LABS: Anisocytosis Slight; Basophils % (A) 0 %; Eosinophils % (A) 1 %; HCT 31.2 % (34.0-46.0); HGB 8.9 gm/dL (11.4-16.0); Hypochromasia Marked; Lymphocytes # (A) 0.6 k/uL (1.0-4.8); Lymphocytes % (A) 7 %; MCH 25.1 pg (25.0-35.0); MCHC 28.6 g/dL (31.0-37.0); MCV 87.9 fL (80.0-100.0); Mean Platelet Volume 10.6; Monocytes # (A) 0.2 k/uL (0-1.0); Monocytes % (A) 2 %; Neutrophils # (A) 7.5 k/uL (1.3-7.7); Neutrophils % (A) 91 %; Platelet Count 113 k/uL (150-450); Poikilocytosis Moderate; RBC 3.55 m/uL (3.80-5.40); RDW 19.6 % (11.5-15.5); WBC 8.3 k/uL (3.8-10.6)
[2020-08-14] MEDS ORDERED: CALCIUM GLUCONATE 2 GM in SODIUM CHLORIDE 0.9% 100 ML IVPB ONE (21:03)
[2020-08-14] MEDS ORDERED: SODIUM BICARB 8.4% 50 ML SYR (1 MEQ/ML) IV STA (21:04)
[2020-08-14] MEDS: POTASSIUM CHLORIDE 20 MEQ in WATER FOR INJECTION 1 100ML.BAG IVPB SCH ×2 (21:16→23:35)
[2020-08-14] MEDS: ATORVASTATIN 40 MG TAB PO SCH (21:24)
[2020-08-14] MEDS: CHLORHEXIDINE GLUCONATE 15 ML CUP MUCOUS MEM SCH (21:29)
--- NOTE | 2020-08-14 22:49 | PN ---
PROGRESS NOTE DATE OF SERVICE: 08/14/2020 REASON FOR FOLLOWUP: Pneumonia. INTERVAL HISTORY: The patient did have worsening respiratory status this morning. The patient was transferred to the ICU and ended up getting intubated. The patient is hemodynamically stable. No significant purulent secretions in the ET have been reported. Some abdominal distention. No diarrhea. PHYSICAL EXAMINATION: Blood pressure is 123/69, pulse of 102, temperature 98. She is 90% on 75% FiO2. General description is an elderly female intubated on the vent. HEENT EXAMINATION: Pallor. The patient is orally intubated. LUNGS: Unlabored breathing. Decreased breath sounds in the base. No wheeze. HEART: S1, S2. Regular rate and rhythm. ABDOMEN: Soft. distended. No guarding or rigidity. EXTREMITIES: One plus edema of the feet. LABS: Hemoglobin 8.9, white count 8.3. BUN of 46, creatinine 2.89. DIAGNOSTIC IMPRESSION AND PLAN: Patient with acute respiratory failure which is multifactorial with concern for possible aspiration pneumonia. Did have abdominal distention, for which CT of abdomen and pelvis did not show any evidence of any bowel perforation or colitis. The patient is currently broadly covered with cefepime, Zyvox and Flagyl; to continue. Sputum culture has been requested and we will monitor her clinical course closely. MMODL / IJN: [id number] /
[2020-08-14 23:40] LABS: Glucose,Whole Blood 254 mg/dL (75-99)
[2020-08-15] MEDS: SODIUM CHLORIDE 0.9% IRRIG 3,000 ML BAG IRRIGATION PRN ×5 (00:45→18:30)
[2020-08-15 00:55] LABS: Anisocytosis Slight; HCT 28.5 % (34.0-46.0); HGB 8.2 gm/dL (11.4-16.0); Hypochromasia Marked; MCH 24.6 pg (25.0-35.0); MCHC 28.7 g/dL (31.0-37.0); MCV 85.7 fL (80.0-100.0); Mean Platelet Volume 10.3; Poikilocytosis Moderate; RBC 3.33 m/uL (3.80-5.40); RDW 19.8 % (11.5-15.5); WBC 8.6 k/uL (3.8-10.6)
[2020-08-15 01:38] LABS: Platelet Count 95 k/uL (150-450)
[2020-08-15] MEDS: SODIUM CHLORIDE 0.9% 1,000 ML IV SCH (02:38)
[2020-08-15 03:50] LABS: Albumin 2.8 g/dL (3.5-5.0); Potassium 4.4 mmol/L (3.5-5.1); Total Bilirubin 2.9 mg/dL (0.2-1.3); Total Protein 5.6 g/dL (6.3-8.2)
[2020-08-15 03:51] LABS: Anisocytosis Moderate; Basophils % (A) 0 %; Eosinophils % (A) 0 %; HCT 27.3 % (34.0-46.0); HGB 8.2 gm/dL (11.4-16.0); Hypochromasia Marked; Lymphocytes # (A) 0.4 k/uL (1.0-4.8); Lymphocytes % (A) 4 %; MCH 25.1 pg (25.0-35.0); MCHC 29.9 g/dL (31.0-37.0); Mean Platelet Volume 10.2; Microcytosis Slight; Monocytes # (A) 0.2 k/uL (0-1.0); Monocytes % (A) 2 %; Neutrophils # (A) 9.2 k/uL (1.3-7.7); Neutrophils % (A) 93 %; Poikilocytosis Moderate; RBC 3.25 m/uL (3.80-5.40); RDW 20.1 % (11.5-15.5); WBC 9.9 k/uL (3.8-10.6)
[2020-08-15 03:54] LABS: INR 2.1 (<1.2); Prothrombin Time 20.8 sec (9.0-12.0)
[2020-08-15 03:56] LABS: Platelet Count 88 k/uL (150-450)
[2020-08-15 04:26] LABS: Calcium 6.4 mg/dL (8.4-10.2)
[2020-08-15] MEDS ORDERED: CALCIUM GLUCONATE 1 GM in SODIUM CHLORIDE 0.9% 100 ML IVPB ONE (05:15)
[2020-08-15 05:20] LABS: C Reactive Protein 46.5 mg/L (<10.0)
[2020-08-15 05:42] LABS: ABG Base Excess -3.4 mmol/L; ABG HCO3 21 mmol/L (21-25); ABG Oxygen Saturation 96.7 % (94-97); ABG PCO2 35 mmHg (35-45); ABG PO2 87 mmHg (83-108); ABG TCO2 23 mmol/L (19-24); Allen Test Performed? Yes
[2020-08-15] MEDS: DEXTROSE 5% IN WATER 1,000 ML with SODIUM BICARB (1 MEQ/ML) 150 ML IV SCH (05:43)
[2020-08-15 05:50] LABS: Glucose,Whole Blood 197 mg/dL (75-99)
[2020-08-15] MEDS: INSULIN ASPART (NovoLOG) 100 UNIT/ML VIAL SQ SCH ×3 (05:52→17:03)
[2020-08-15] MEDS ORDERED: PHYTONADIONE 5 MG in SODIUM CHLORIDE 0.9% 50 ML IVPB STA (06:44)
--- NOTE | 2020-08-15 06:44 | P.PN ---
Subjective Progress Note Date: 08/15/20 80-year-old female patient was having lower blood pressure for quite some time, further this evening and the patient was asked to be seen by intensive care services. She is 80. She has chronic atrial fibrillation. She is chronic systolic heart failure with an ejection fraction of 40-45%. She has also valvular heart disease with moderate MR, CVAs tricuspid regurgitation moderate degree of pulmonary hypertension. She has previous history of CVA. She came in to the hospital and she had a enterococcal group D UTI and the patient was treated with antibiotics and she was getting Zyvox which was subsequently discontinued. During the course of her hospitalization, the patient developed an acute kidney injury. There has been further compromised the patient's renal function got worse and the patient developed also hypotension the patient was started on midodrine. This evening, systolic blood pressures the mid 70s. The patient is hypothermic with temperature 90.3. Blood work shows a component of acute on chronic kidney injury due to creatinine being up to 3.51 and the sodium is down to 129 and the patient has an anion gap of 16 with a serum bicarb of 16. Glucose at 120. INR is at 6.6. She was given 5 of vitamin K to reverse her coagulopathy. The white cell count is at 3.3. Hemoglobin is 9.7. Platelets are 108. She is hypothermic. She is on no antibiotics for now. Chest x-ray from yesterday shows pulmonary vessel congestion and small bilateral pleural effusion addition to cardiomegaly. The rousseau virus covid 19 evaluation came back negative.the patient overnight became hypotensive. The patient is currently the intensive care unit. Currently she is on norepinephrine infusion running at 0.2 g per KG per minute. She has a Hayes catheter in place and there is bloody output at this point in time. Irrigation was done throughout the night and the patient was producing clots. Her abdomen is distended. There is some urinary retention and the bladder scan showed at least 300cc of material collecting in her bladder. She was given another dose of vitamin K this morning for an INR of 5.9. Morning blood. showed a pH of 7.24 with a pCO2 of 28 and pO2 of 245patient is currently on oxygen at 3 L per minute. Lactic acid level is at 9.4. Overnight, the patient was given IV cefepime. Chest x-ray showing interstitial edema and worsening consolidation of the right lung.the patient was given another bolus of IV fluids and overall 2 L of IV fluids yesterday was given and the patient is currently on a bicarb infusion. She is in atrial fibrillation with rapid ventricular response and she is on amiodarone po on today's evaluation of 08/15/2020, the patient is being seen in follow-up in the intensive care unit. Events from yesterday was noted. The patient was in shock and she was profoundly hypotensive. She was started on IV fluids. Her coagulation profile was being reversed and the patient was having extensive hematuria. Meanwhile, the patient went into respiratory failure. I had to intubate the patient she's been intubated since. She is currently sedated with propofol running at 40 g per KG per minute. She is an assist-control mode at the rate of 80 with a tidal volume of 400 and FiO2 of 65% with a PEEP of 5. The blood gases from today showed a pH of 7.4 with a pCO2 of 35 and a pO2 of 87. His chest x-ray from today is showing adequate positioning of the ET tube and orogastric tube. The patient has bilateral pulmonary infiltrates consistent with interstitial edema. There was some worsening consolidation of the right lung and the right lung is still consolidated both in the lower lobe and the upper lobe. Upper lobe and left consolidated. Left lower lobe infiltrates and airspace disease also suspected. Hemodynamically, the patient is still requiring pressors. The patient is on bicarb infusion which is running at 75 mL an hour and she is on norepinephrine infusion running at 0.34 mcg/kg per minute. Her white cell count was at 9.9. Hemoglobin is at 8.2. The temperature has regulated and the patient's temperature has normalized and the patient received external warming. Her INR is down to 2.1 after being given 2 units of fresh frozen plasma and vitamin K. Her lactic acid level is down to 8.4 with a highest level of 11.7.Creatinine is on the rise. The patient's BUN is up to 63 with a creatinine of 3.7. Sodium is1 30. LFTs are abnormal with a AST of 962, ALT of 340. The patienthad a CAT scan of the abdomen yesterday that showed some anasarca in addition to some ascites. No acute intra-abdominal abnormalities. Lung bases were atelectatic. The gallbladder was contracted. There was bilateral perinephric fluids. No hydronephrosis was seen. There was small amount of air in the urinary bladder. No evidence of any bladder mass. No evidence of any pelvic mass. The patient continues to have a three-way 22- Tamazight Hayes catheter with irrigation. Objective - Vital Signs Vital signs: Vital Signs Temp 99.5 F 08/15/20 06:00 Pulse 137 H 08/15/20 06:00 Resp 18 08/15/20 06:00 BP 105/82 08/14/20 19:00 Pulse Ox 95 08/15/20 06:00 Intake & Output 08/14/20 08/14/20 08/15/20 06:59 18:59 06:59 Intake Total 3064.000 3641.264 2275.674 Output Total 30 140 1600 Balance 3034.000 3501.264 675.674 Weight 84.6 kg Intake: IV 2760 2155 1078 .9 bolus 2000 Dextrose 5% in Water 1, 600 975 825 000 ml @ 75 mls/hr IV . [id number] MERRICK with Sodium Bicarb (1 Meq/ml) 150 ml Rx#:[id number] Sodium Chloride 0.9% 1, 160 1180 220 000 ml @ 20 mls/hr IV . Q24H MERRICK Rx#:[id number] pressure bag' 33 Intake, IV Titration 254.000 006.582 7343.674 Amount Amiodarone 300 mg In 250 Dextrose 5% in Water 250 ml @ 0.5 MG/MIN 25 mls/hr IV .Q10H MERRICK Rx#: [id number] Calcium Gluconate 2 gm In 100 Sodium Chloride 0.9% 100 ml @ 100 mls/hr IVPB ONCE ONE Rx#:[id number] Cefepime 1 gm In Sodium 50 Chloride 0.9% 50 ml @ 12. 5 mls/hr IVPB Q24HR MERRICK Rx#:[id number] Linezolid 600 mg In 300 300 Dextrose/Water 1 300ml. bag @ 150 mls/hr IVPB Q12HR MERRICK Rx#:[id number] Norepinephrine 32 mg In 61.537 110.416 Sodium Chloride 0.9% 218 ml @ 0.05 MCG/KG/MIN 1. 737 mls/hr IV .Q24H MERRICK Rx#:[id number] Norepinephrine 4 mg In 254.000 143.138 Sodium Chloride 0.9% 250 ml @ 0.05 MCG/KG/MIN 14. 116 mls/hr IV .Q18H MERRICK Rx#:[id number] Potassium Chloride 20 meq 200 In Water For Injection 1 100ml.bag @ 50 mls/hr IVPB Q2H MERRICK Rx#: [id number] Sodium Chloride 0.9% 1, 40 000 ml @ 20 mls/hr IV . Q24H MERRICK Rx#:[id number] metroNIDAZOLE-NS PMX 500 200 mg In Saline 1 100ml.bag @ 100 mls/hr IVPB Q8HR MERRICK Rx#:[id number] propofoL 1,000 mg In 95.589 237.258 Empty Bag 1 bag @ Titrate IV .Q0M MERRICK Rx#: [id number] Oral 50 Blood Product 596 Ffp 24 Cpd Unit 291 [id number] Ffp 24 Cpd Unit 305 [id number] Output: Urine 30 140 1600 Straight 10 Uretheral (Hayes) 0 800 Other: Voiding Method Indwelling Catheter Indwelling Catheter Indwelling Catheter # Voids 1 ABP, PAP, CO, CI - Last Documented Arterial Blood Pressure 115/64 - Exam Gen: This is an 80-year-old female. the patient is currently intub ated on mechanical ventilator. The patient is sedated and the patient is calm and comfortable. Head exam was generally normal. There was no scleral icterus or corneal arcus. Mucous membranes were moist. HEENT: Head is atraumatic, normocephalic. Pupils equal, round. Sclerae is anicteric. Oral mucous members slightly dry. NECK: Supple. No JVD. No lymphadenopathy. No thyromegaly. LUNGS: Clear to auscultation. No wheezes or rhonchi. No intercostal retractions. Crackles are present in lung bases bilaterally. HEART: Irregular rate and rhythm. Systolic murmur. ABDOMEN: Soft. Bowel sounds are present. No masses. No tenderness.he abdomen is less distended compared to yesterday. EXTREMITIES: there is bilateral lower extremity edema.. No calf tenderness. Dorsalis pedis +1 bilaterally. NEUROLOGICAL: Patient is awake, alert and oriented x3. Cranial nerves 2 through 12 are grossly intact. Examination of the skin revealed no evidence of significant rashes, suspicious appearing nevi or other concerning lesions. - Labs CBC & Chem 7: 08/15/20 03:05 08/15/20 03:05 Labs: Abnormal Lab Results - Last 24 Hours (Table) 08/14/20 08/14/20 08/14/20 Range/Units 07:27 07:28 08:52 RBC (3.80-5.40) m/uL Hgb (11.4-16.0) gm/dL Hct (34.0-46.0) % MCH (25.0-35.0) pg MCHC (31.0-37.0) g/dL RDW (11.5-15.5) % Plt Count (150-450) k/uL Neutrophils # (1.3-7.7) k/uL Lymphocytes # (1.0-4.8) k/uL PT (9.0-12.0) sec INR (<1.2) ABG pH 7.18 L* (7.35-7.45) ABG pCO2 32 L (35-45) mmHg ABG pO2 148 H (83-108) mmHg ABG HCO3 12 L (21-25) mmol/L ABG Total CO2 13 L (19-24) mmol/L ABG O2 Saturation 99.4 H (94-97) % ABG Lactic Acid (0.5-1.6) mmol/L Sodium (137-145) mmol/L Potassium (3.5-5.1) mmol/L Chloride (98-107) mmol/L Carbon Dioxide (22-30) mmol/L BUN (7-17) mg/dL Creatinine (0.52-1.04) mg/dL Glucose (74-99) mg/dL POC Glucose (mg/dL) 106 H (75-99) mg/dL Plasma Lactic Acid Rohit 12.1 H* (0.7-2.0) mmol/L Calcium (8.4-10.2) mg/dL Ionized Calcium Jennifer (4.5-5.3) mg/dL Total Bilirubin (0.2-1.3) mg/dL AST (14-36) U/L ALT (4-34) U/L Alkaline Phosphatase (38-126) U/L C-Reactive Protein (<10.0) mg/L Total Protein (6.3-8.2) g/dL Albumin (3.5-5.0) g/dL 08/14/20 08/14/20 08/14/20 Range/Units 13:44 16:34 16:34 RBC (3.80-5.40) m/uL Hgb (11.4-16.0) gm/dL Hct (34.0-46.0) % MCH (25.0-35.0) pg MCHC (31.0-37.0) g/dL RDW (11.5-15.5) % Plt Count (150-450) k/uL Neutrophils # (1.3-7.7) k/uL Lymphocytes # (1.0-4.8) k/uL PT 22.7 H (9.0-12.0) sec INR 2.3 H (<1.2) ABG pH (7.35-7.45) ABG pCO2 (35-45) mmHg ABG pO2 (83-108) mmHg ABG HCO3 (21-25) mmol/L ABG Total CO2 (19-24) mmol/L ABG O2 Saturation (94-97) % ABG Lactic Acid 12.4 H* (0.5-1.6) mmol/L Sodium (137-145) mmol/L Potassium (3.5-5.1) mmol/L Chloride (98-107) mmol/L Carbon Dioxide (22-30) mmol/L BUN (7-17) mg/dL Creatinine (0.52-1.04) mg/dL Glucose (74-99) mg/dL POC Glucose (mg/dL) 162 H (75-99) mg/dL Plasma Lactic Acid Rohit (0.7-2.0) mmol/L Calcium (8.4-10.2) mg/dL Ionized Calcium Jennifer (4.5-5.3) mg/dL Total Bilirubin (0.2-1.3) mg/dL AST (14-36) U/L ALT (4-34) U/L Alkaline Phosphatase (38-126) U/L C-Reactive Protein (<10.0) mg/L Total Protein (6.3-8.2) g/dL Albumin (3.5-5.0) g/dL 08/14/20 08/14/20 08/14/20 Range/Units 18:45 18:58 20:07 RBC (3.80-5.40) m/uL Hgb (11.4-16.0) gm/dL Hct (34.0-46.0) % MCH (25.0-35.0) pg MCHC (31.0-37.0) g/dL RDW (11.5-15.5) % Plt Count (150-450) k/uL Neutrophils # (1.3-7.7) k/uL Lymphocytes # (1.0-4.8) k/uL PT (9.0-12.0) sec INR (<1.2) ABG pH (7.35-7.45) ABG pCO2 (35-45) mmHg ABG pO2 (83-108) mmHg ABG HCO3 (21-25) mmol/L ABG Total CO2 (19-24) mmol/L ABG O2 Saturation (94-97) % ABG Lactic Acid (0.5-1.6) mmol/L Sodium 134 L (137-145) mmol/L Potassium 3.3 L (3.5-5.1) mmol/L Chloride 108 H (98-107) mmol/L Carbon Dioxide 8 L* (22-30) mmol/L BUN 46 H (7-17) mg/dL Creatinine 2.89 H (0.52-1.04) mg/dL Glucose 154 H (74-99) mg/dL POC Glucose (mg/dL) 201 H (75-99) mg/dL Plasma Lactic Acid Rohit 11.7 H* (0.7-2.0) mmol/L Calcium 4.6 L* (8.4-10.2) mg/dL Ionized Calcium Jennifer (4.5-5.3) mg/dL Total Bilirubin 1.9 H (0.2-1.3) mg/dL AST 382 H (14-36) U/L ALT 133 H (4-34) U/L Alkaline Phosphatase 139 H (38-126) U/L C-Reactive Protein (<10.0) mg/L Total Protein 4.4 L (6.3-8.2) g/dL Albumin 2.0 L (3.5-5.0) g/dL 08/14/20 08/14/20 08/14/20 Range/Units 20:07 20:07 20:18 RBC 3.55 L (3.80-5.40) m/uL Hgb 8.9 L (11.4-16.0) gm/dL Hct 31.2 L (34.0-46.0) % MCH (25.0-35.0) pg MCHC 28.6 L (31.0-37.0) g/dL RDW 19.6 H (11.5-15.5) % Plt Count 113 L (150-450) k/uL Neutrophils # (1.3-7.7) k/uL Lymphocytes # 0.6 L (1.0-4.8) k/uL PT (9.0-12.0) sec INR (<1.2) ABG pH (7.35-7.45) ABG pCO2 (35-45) mmHg ABG pO2 (83-108) mmHg ABG HCO3 (21-25) mmol/L ABG Total CO2 (19-24) mmol/L ABG O2 Saturation (94-97) % ABG Lactic Acid (0.5-1.6) mmol/L Sodium (137-145) mmol/L Potassium (3.5-5.1) mmol/L Chloride (98-107) mmol/L Carbon Dioxide (22-30) mmol/L BUN (7-17) mg/dL Creatinine (0.52-1.04) mg/dL Glucose (74-99) mg/dL POC Glucose (mg/dL) 216 H (75-99) mg/dL Plasma Lactic Acid Rohit (0.7-2.0) mmol/L Calcium (8.4-10.2) mg/dL Ionized Calcium Jennifer 3.3 L* (4.5-5.3) mg/dL Total Bilirubin (0.2-1.3) mg/dL AST (14-36) U/L ALT (4-34) U/L Alkaline Phosphatase (38-126) U/L C-Reactive Protein (<10.0) mg/L Total Protein (6.3-8.2) g/dL Albumin (3.5-5.0) g/dL 08/14/20 08/15/20 08/15/20 Range/Units 23:38 00:14 00:14 RBC 3.33 L (3.80-5.40) m/uL Hgb 8.2 L (11.4-16.0) gm/dL Hct 28.5 L (34.0-46.0) % MCH 24.6 L (25.0-35.0) pg MCHC 28.7 L (31.0-37.0) g/dL RDW 19.8 H (11.5-15.5) % Plt Count 95 L (150-450) k/uL Neutrophils # (1.3-7.7) k/uL Lymphocytes # (1.0-4.8) k/uL PT (9.0-12.0) sec INR (<1.2) ABG pH (7.35-7.45) ABG pCO2 (35-45) mmHg ABG pO2 (83-108) mmHg ABG HCO3 (21-25) mmol/L ABG Total CO2 (19-24) mmol/L ABG O2 Saturation (94-97) % ABG Lactic Acid 10.0 H* (0.5-1.6) mmol/L Sodium (137-145) mmol/L Potassium (3.5-5.1) mmol/L Chloride (98-107) mmol/L Carbon Dioxide (22-30) mmol/L BUN (7-17) mg/dL Creatinine (0.52-1.04) mg/dL Glucose (74-99) mg/dL POC Glucose (mg/dL) 254 H (75-99) mg/dL Plasma Lactic Acid Rohit (0.7-2.0) mmol/L Calcium (8.4-10.2) mg/dL Ionized Calcium Jennifer (4.5-5.3) mg/dL Total Bilirubin (0.2-1.3) mg/dL AST (14-36) U/L ALT (4-34) U/L Alkaline Phosphatase (38-126) U/L C-Reactive Protein (<10.0) mg/L Total Protein (6.3-8.2) g/dL Albumin (3.5-5.0) g/dL 08/15/20 08/15/20 08/15/20 Range/Units 03:05 03:05 03:05 RBC 3.25 L (3.80-5.40) m/uL Hgb 8.2 L (11.4-16.0) gm/dL Hct 27.3 L (34.0-46.0) % MCH (25.0-35.0) pg MCHC 29.9 L (31.0-37.0) g/dL RDW 20.1 H (11.5-15.5) % Plt Count 88 L (150-450) k/uL Neutrophils # 9.2 H (1.3-7.7) k/uL Lymphocytes # 0.4 L (1.0-4.8) k/uL PT 20.8 H (9.0-12.0) sec INR 2.1 H (<1.2) ABG pH (7.35-7.45) ABG pCO2 (35-45) mmHg ABG pO2 (83-108) mmHg ABG HCO3 (21-25) mmol/L ABG Total CO2 (19-24) mmol/L ABG O2 Saturation (94-97) % ABG Lactic Acid (0.5-1.6) mmol/L Sodium (137-145) mmol/L Potassium (3.5-5.1) mmol/L Chloride (98-107) mmol/L Carbon Dioxide (22-30) mmol/L BUN (7-17) mg/dL Creatinine (0.52-1.04) mg/dL Glucose (74-99) mg/dL POC Glucose (mg/dL) (75-99) mg/dL Plasma Lactic Acid Rohit 8.4 H* (0.7-2.0) mmol/L Calcium (8.4-10.2) mg/dL Ionized Calcium Jennifer (4.5-5.3) mg/dL Total Bilirubin (0.2-1.3) mg/dL AST (14-36) U/L ALT (4-34) U/L Alkaline Phosphatase (38-126) U/L C-Reactive Protein (<10.0) mg/L Total Protein (6.3-8.2) g/dL Albumin (3.5-5.0) g/dL 08/15/20 08/15/20 Range/Units 03:05 05:48 RBC (3.80-5.40) m/uL Hgb (11.4-16.0) gm/dL Hct (34.0-46.0) % MCH (25.0-35.0) pg MCHC (31.0-37.0) g/dL RDW (11.5-15.5) % Plt Count (150-450) k/uL Neutrophils # (1.3-7.7) k/uL Lymphocytes # (1.0-4.8) k/uL PT (9.0-12.0) sec INR (<1.2) ABG pH (7.35-7.45) ABG pCO2 (35-45) mmHg ABG pO2 (83-108) mmHg ABG HCO3 (21-25) mmol/L ABG Total CO2 (19-24) mmol/L ABG O2 Saturation (94-97) % ABG Lactic Acid (0.5-1.6) mmol/L Sodium 130 L (137-145) mmol/L Potassium (3.5-5.1) mmol/L Chloride 94 L (98-107) mmol/L Carbon Dioxide 19 L (22-30) mmol/L BUN 63 H (7-17) mg/dL Creatinine 3.75 H (0.52-1.04) mg/dL Glucose 203 H (74-99) mg/dL POC Glucose (mg/dL) 197 H (75-99) mg/dL Plasma Lactic Acid Rohit (0.7-2.0) mmol/L Calcium 6.4 L* (8.4-10.2) mg/dL Ionized Calcium Jennifer (4.5-5.3) mg/dL Total Bilirubin 2.9 H (0.2-1.3) mg/dL AST 962 H (14-36) U/L ALT 340 H (4-34) U/L Alkaline Phosphatase 172 H (38-126) U/L C-Reactive Protein 46.5 H (<10.0) mg/L Total Protein 5.6 L (6.3-8.2) g/dL Albumin 2.8 L (3.5-5.0) g/dL Microbiology - Last 24 Hours (Table) 08/13/20 22:11 Blood Culture - Preliminary Blood No Growth after 24 hours Assessment and Plan Plan: 1 acute hypoxic respiratory failure due to septic shock and multisystem organ failure. The patient is currently intubated on a mechanical ventilator. 2 shock with secondaryhypotension, subacute, consider septic shock . The patient was hypothermic and local clinic and the patient has also developed an acute kidney injury with acute anion gap metabolic acidosis..patient is currently covered with IV cefepime. The patient was aggressively resuscitated with fluids. The fluid balance has been positive of at least 3 L over the past 24 hours. 2 acute on chronic kidney injury in the creatinine is rising at 3.75. The patient also had extensive immature area causing obstructive uropathy. A three- way irrigation Hayes catheter has been inserted and the patient is receiving continuous bladder irrigation. The patient currently has flattening irrigated and neurology on the case and her coagulopathy has been reversed as much as possible with an INR being down to 2.1. 3 chronic systolic congestive heart failure with an ejection fraction of 40-45% 4 UTI secondary to enterococcus group D completed course of Zyvox 5 chronicatrial fibrillation,, currently in atrial fibrillation with rapid ventricular the patient is currently on amiodarone at 0.5 mg per minute maintenance 6 Coumadin toxicity,, being reversed, reversed and the INR is down to 2.1 7 valvular heart disease with severe tricuspid regurgitation moderate mitral regurgitation secondary pulmonary hypertension moderate in severity 8 massive hematuria with coagulopathy with a 3-way Hayes catheter in place for constant irrigation 9 chronic anemia 10 history of gastric ulcers 2017 11 history of CVA/TIA 12 severe lactic acidosis, Currently at 8.4 in follow-up levels are still pending 13 obstructive uropathy and the patient is a Hayes catheter in place and the patient has multiple clots being irrigated from the Hayes catheter with some ongoing urinary retention. Plan continue vent support and no ventilator changes will be done for today. Chest x-ray was reviewed. Blood gases was reviewed. Keep the Hayes irrigated and consult urology give the patient another 5 of vitamin K and repeat PT/INR. Would like the levels of INR being below 1.80 possible. The patient is already received fresh frozen plasma. temperature has normalized Continue IV cefepime pending cultures Check lactic acid level monitor the progress, and repeat lactic acid levels Echo was was done and the patient has an ejection fraction of 40-45% along with mitral regurgitation. The patient also had a CAT scan of the abdomen that showed some ascites. Otherwise no acute intra-abdominal abnormalities noted. nephrology and neurology on the case Obviously prognosis poor baseline above-mentioned comorbidities.condition is critical. We'll continue to follow.condition remains critical. I'll comes for based on the above-mentioned comorbidities. Family has been updated. We'll continue to follow. Oropharynx sedation the to reverse the coagulopathy further, controlled hematuria, stabilizing hemodynamics, monitor the renal function. Consider dialysis. This is a critically care evaluation was done and more than 30 minutes. Time with Patient: Greater than 30
[2020-08-15] MEDS ORDERED: DILTIAZEM DRIP BOLUS FROM BAG 1 MG SOLN IV ONE (07:06)
[2020-08-15] MEDS: FERROUS SULFATE 325 MG TAB PO SCH ×2 (07:14→15:04)
[2020-08-15] MEDS: MIDODRINE 5 MG TAB PO SCH ×3 (07:15→15:04)
[2020-08-15] MEDS ORDERED: DILTIAZEM 125 MG in SODIUM CHLORIDE 0.9% 100 ML IV SCH (07:15)
[2020-08-15] MEDS: AMIODARONE 300 MG in DEXTROSE 5% IN WATER 250 ML IV SCH ×4 (08:15→17:04)
[2020-08-15] MEDS: NOREPINEPHRINE 32 MG in SODIUM CHLORIDE 0.9% 218 ML IV SCH (08:16)
[2020-08-15] MEDS: CLOPIDOGREL 75 MG TAB PO SCH (08:20)
[2020-08-15] MEDS: allopurinoL 100 MG TAB PO SCH (08:20)
[2020-08-15] MEDS: METOPROLOL TARTRATE 25 MG TAB PO SCH ×2 (08:20→21:57)
[2020-08-15] MEDS: CHOLECALCIFEROL 400 UNIT TAB PO SCH (08:20)
[2020-08-15] MEDS: CEFEPIME 1 GM in SODIUM CHLORIDE 0.9% 50 ML IVPB SCH (08:24)
[2020-08-15] MEDS: HYDROCORTISONE SUCCINATE 100 MG/2 ML VIAL IV SCH (08:24)
[2020-08-15] MEDS: CHLORHEXIDINE GLUCONATE 15 ML CUP MUCOUS MEM SCH ×2 (08:24→21:59)
[2020-08-15] MEDS: metroNIDAZOLE-NS PMX 500 MG in SALINE 1 100ML.BAG IVPB SCH ×3 (08:24→23:26)
[2020-08-15] MEDS: SODIUM BICARBONATE TAB 650 MG TAB PO SCH ×2 (08:25→21:57)
[2020-08-15] MEDS: LINEZOLID 600 MG in DEXTROSE/WATER 1 300ML.BAG IVPB SCH ×2 (08:25→22:16)
[2020-08-15] MEDS: polyethylene glycoL 3350 17 GM POWD.PACK PO SCH (08:25)
[2020-08-15] MEDS: PANTOPRAZOLE 40 MG/10 ML VIAL IVP SCH ×2 (08:25→21:59)
--- NOTE | 2020-08-15 08:27 | XR ---
EXAMINATION TYPE: XR chest 1V portable DATE OF EXAM: 08/15/2020 COMPARISON: 08/14/2020 HISTORY: Tube placement TECHNIQUE: Single frontal view of the chest is obtained. FINDINGS: ET and NG tube stable. Diffuse bilateral infiltrate and small effusion stable. No sizable pneumothorax. Heart size unchanged. Atherosclerotic change aorta. Arthropathy of the shoulders. IMPRESSION: Stable diffuse bilateral infiltrates with small effusions. Correlate for diffuse pneumon ia, pulmonary edema, or ARDS.
--- NOTE | 2020-08-15 09:45 | PN ---
PROGRESS NOTE We were seeing Jackie Hull until about a week ago but yesterday she developed atrial fibrillation which she was having it on a chronic basis, but the rate was quite fast and I was asked to evaluate her. When I saw her yesterday, she was in atrial fib rapid rate. We initiated her on an amiodarone bolus and drip. She is known to have chronic atrial fibrillation with ejection fraction in the 45% range with a mild to moderate pulmonary hypertension. She came in with a lot of bleeding from her urinary catheter and had a drop in hemoglobin and her INR was over 6. She was also quite hypotensive on arrival after transfer from [facility]. She went into acute kidney injury as well. With these comorbid conditions, her rate was under reasonable control, but she has developed this significantly rapid heart rate yesterday. This morning, the rate is still in the range of 130 or 140. She is on Levophed of about 20 mcg for her blood pressure support. However, her INR has come down to 2.1, but the hemoglobin has remained stable. She continues to have some reddish, blood tinged urine through the catheter. She has also increased lactic acid levels as well. The patient has multiple comorbid conditions, but at this time, her blood pressure is fairly decent. Her INR has come down to 2.1. PHYSICAL EXAMINATION: The patient is on a BiPAP, JVD is evident S1-S2 heard normally tachycardia noted irregular rhythm noted lungs revealed bilateral air entry. Abdomen is soft. Lower extremities reveal diminished pulses. Central nervous system assessment was not performed. Prognosis remains a poor overall. I am recommending that we add Cardizem 7.5 mg bolus and drip to optimize rate control. The patient has so many other underlying comorbid conditions that contribute to tachycardia and she has a chronic atrial fibrillation. However, she is currently on a BiPAP and seems to be doing fairly well. Her ejection fraction in the 40%-45% range. Coumadin toxicity has resolved pretty much. INR is 2.1. Her chronic renal failure issue persists and there is an acute on chronic renal failure at this time. Hematuria noted. Prognosis remains guarded. MMODL / IJN: [id number] /
[2020-08-15 11:27] LABS: Glucose,Whole Blood 172 mg/dL (75-99)
--- NOTE | 2020-08-15 11:45 | PN ---
PROGRESS NOTE Patient is seen for followup for acute kidney injury. Patient remains on the vent. Her urine output seems to have picked up. She is having irrigation of the bladder due to clots, but there is an improvement in her urine output. Patient remains on Levophed which is slightly higher than yesterday. She is also on the vent. FiO2 is at 65%. PHYSICAL EXAMINATION: Today, patient is sedated. Heart rate 101 to 130 per minute. She is afebrile. Blood pressure 105/63. Examination of the heart S1, S2. Examination of the lungs, bilateral breath sounds are heard. Abdomen is soft, nontender. Examination of lower extremities shows 1+ edema bilateral lower extremities. RIGGER exam cannot be performed. LABS: Show sodium 130, potassium 4.4, chloride 94, CO2 is 19, BUN 63, serum creatinine 3.75. Lactic acid 8.4, calcium 6.4. ASSESSMENT: 1. Acute kidney injury ATN associated with hypotension, underlying infection currently nonoliguric with improvement in renal in urine output. Serum creatinine is higher than yesterday. However, since urine output has improved. I will hold off on dialysis for now. 2. Metabolic acidosis associated with renal failure, hypotension, hypoperfusion, sepsis, currently improving, maintained on bicarb drip. 3. Acute hypoxic respiratory failure secondary to pneumonia, sepsis. 4. Bilateral pneumonia. 5. Coagulopathy, status post FFPs and vitamin K. 6. Cardiomyopathy, ejection fraction 40% to 45%. 7. Chronic atrial fibrillation with RVR maintained on amiodarone and Cardizem drip. 8. UTI from enterococcus group D, status post Zyvox. 9. Valvular heart disease with severe tricuspid regurgitation and moderate pulmonary hypertension. 10.Severe lactic acidosis associated with hypotension, sepsis. PLAN: Continue with bladder irrigation. Patient is has been evaluated by Urology. Continue with the bicarb drip and repeat labs in a.m. No indication for dialysis today. We will re-evaluate tomorrow. MMODL / IJN: [id number] /
--- NOTE | 2020-08-15 12:21 | P.PN ---
Progress Note - Text Progress Note Date: 08/15/20 The Hayes catheter remains in place. Continuous bladder irrigation is running with clear outflow. I reviewed the patient's computed tomography scan. This shows evidence of fluid within the pelvis, likely due to ascites. It is possible for someone with urinary clot retention to sustain a bladder perforation, though watching the catheter drainage with continuous bladder irrigation running I do not suspect this.
[2020-08-15 16:26] LABS: Albumin 3.1 g/dL (3.5-5.0); Calcium 6.5 mg/dL (8.4-10.2); Total Bilirubin 3.5 mg/dL (0.2-1.3)
[2020-08-15 17:02] LABS: Glucose,Whole Blood 231 mg/dL (75-99)
[2020-08-15 17:03] LABS: INR 1.8 (<1.2); Prothrombin Time 17.2 sec (9.0-12.0)
[2020-08-15] MEDS ORDERED: WARFARIN 0.5 MG TAB PO ONE (18:00)
[2020-08-15] MEDS: POTASSIUM CHLORIDE 20 MEQ in WATER FOR INJECTION 1 100ML.BAG IVPB SCH ×2 (18:04→22:00)
--- NOTE | 2020-08-15 21:12 | P.PN ---
Subjective 78-year-old pleasant female with history of atrial fibrillation on the anticoagulation with Xarelto, previous history of GI bleed and gastric ulcer, CVA/TIA. Patient follow-up with Dr. Birch who is recently retired at [place] and she is looking for a new PCP now. She went to [facility] [place] for right leg pain were stent was placed, she was discharged home 3 days ago, last Thursday, at [facility] [place] Zayas catheter was placed and states it was bloody at that time. She was sent home with a Zayas catheter, however she started feeling uncomfortable in her bladder where the Zayas felt like hurting but she denies any abdominal pain, she felt that she has to P old time and there was blood in the urine catheter so she decided to come to the hospital. She denies any nausea vomiting. No chest pain or dyspnea. She is on 2 L oxygen via nasal cannula at home, it was bumped up to 4 L at [facility] as per patient, she has chronic hypoxic respiratory failure related to her COPD. She denies chest pain or headache or weakness. Originally she was on aspirin daily however she states the last of added to her and [place]. Patient was noted to be on Plavix 75 mg and aspirin 81 mg at home. She denies smoking, she drinks couple cups of wine every week. No illicit drugs On admission her blood pressure was 101/88, this morning was 83/63. However repeat blood pressure went up to 101/59, heart rate on admission was 138, currently is 108, she is saturating 95% on 4 L oxygen via nasal cannula Labs on admission showed hemoglobin of 7.4, rest of the CBC is unremarkable. INR is 1.2. EKG showing atrial fibrillation's with RVR at 133. 08/01/2020 Patient is lying in bed comfortable. No distress. She is not tachypneic. However she still on 4 L oxygen via nasal cannula compared to his doctor at home. No coughing or chest pain but she has bilateral basal crepitation.. Patient feels generally better today, she was admitted mainly for discomfort in her urinary bladder area which is improved today She is hemodynamically stable other than that. Labs from today are still pending. Sugars controlled. Iron study showing iron deficiency anemia with iron low at 21, normal TIBC at 397 and low iron saturation at 5.2%. And normal ferritin at 45. Patient was started on iron pills Although patient was admitted for possible GI bleed, patient denies any blood in stool, no vomiting blood, she had a bowel movement cleaner and dyer which was brown as per patient. No abdominal pain. And she tolerates diet. She is on Protonix IV daily. Occult blood in stool still pending There is blood in the urine. Urinalysis showing urine RBC more than 182, urine WBC of more than 182. Urine culture is ordered and is pending, patient will be started on Levaquin empirically for possible UTI pending UC, patient is ALLERGIC to penicillin Dr. Elias evaluated the patient and recommended to discontinue Zayas catheter and check PVR. Also recommended to follow up as an outpatient for possible cystoscopy. Patient informed and she agrees. Risks including but not limited to cancer explained to him and she verbalized understanding. Also she has acute kidney injury from yesterday with creatinine 1.7, could be related to her CHF exacerbation in view of basal crepitation and more oxygen requirement. Chest x-ray also was abnormal. We changed her Lasix from 40 mg orally to intravenously today. Echocardiogram is still pending. Heart rate is controlled on oral medication. Xarelto is on hold for hematuria 08/02/2020 Patient still feels generally weak. She still have hematuria through the Zayas catheter. No chest pain or significant dyspnea at rest. She saturating 98% 4 L oxygen via nasal cannula. Her creatinine is down to 1.8 today however her potassium is 2.4 and his been replaced, morning dose of Lasix is been held because of the significantly low potassium. Sodium 131. Blood pressure is a stable, is chronically low while the patient is asymptomatic.Occult blood in the stool is negative. Xarelto still on hold. Patient still on Plavix but aspirin is still on hold as well. Hemoglobin stable at 9.1 She continue on Levaquin for possible UTI, urine cultures pending. 08/03/2020 Today clinically the same, she feels generally weak, however she is breathing quietly and she saturating 99% and a 3 L oxygen via nasal cannula, no much basal crepitation after she was started on IV fluids. She still have the Zayas catheter with some blood in it although it's less severe compared to yesterday. Hemoglobin only slightly lower than yesterday from 9.1 down to 8.1. Patient is on iron panel added yesterday. Also she is on the Plavix however aspirin is on hold. Urine analysis is suspicious for infection, urine culture has been sent and the result is pending, first urine culture is negative but we are going to repeat it.o OxyContinnin is appreciated and they lowered dose of Cardizem from 180 down to 120. Blood pressure today slightly stable at 103/61. Heart rate is 88. Also normal saline at 50 mL per hour was added and creatinine slightly better today at 1.6. 08/04/2020 Patient is awake, clinically the same. It looks like her blood pressure is stable and her sodium is improving gradually to 1.5 with initiation of normal saline, sewed it was also improved 133. Oxygen requirement and stabilized 3-4 L/m. No pulmonary congestion on examination. Heart rate is regular to be controlled while on metoprolol. Eliquis was initiated per neurology team recommendation and investment representative team input. Also nephrology recommended to discontinue Zayas catheter and monitor PVR. Her urine was tea color today today showing improvement. Urine culture is growing group D enterococcus. She remains on Levaquin pending the final sensitivity. 08/05/2020 pt is still clinically with weakness, zayas catheter is in place with tea colored urine, urine culture is growing enterococcus resistant to Levaquin which is a stopped, it is sensitive to vancomycin, linezolid and other medication. Patient was started on linezolid and lipase are consult for infectious disease team for further recommendation. Nephrology team recommended to discontinue Zayas catheter however due to resistant bacteria and undergoing infection we will keep it for now total sensitive to antibiotic is started. Chest x-ray is suspicious for CHF versus some chronic or fibrotic changes (similar to 5 days ago ) with no worsening despite IV fluids for more than 48 hours but clinically patient does not behave slightly CHF however she stated bed most of the time. Monorail Helper recommended to increase metoprolol to 3 times a day. Creatinine is stable at 1.5, blood pressure is a stable 08/06/2020 Patient is generally weak, yesterday patient was started on Zyvox for enterococcus in the urine based on culture and sensitivity. Vancomycin is try to be avoided cause of her hematuria and risk of nephrotoxicity. Infectious disease were consulted and they recommended to continue with Zyvox for 2 weeks upon discharge. Zayas catheter was removed today, we will keep monitoring for bladder scan. Patient is on fluid restriction 1500 mL per day. Patient creatinine is slightly up to 1.7, sodium is stable at 1:30, oxygen requirement came down to 50 L/m which is her baseline, blood pressure slightly on the low normal side at 90/52 after metoprolol was increased to 3 times daily per cardiology recommendation. Patient remains on Eliquis for her history of A. fib with RVR, currently her heart rate is controlled. She remains on Zyvox and Eliquis as above Prognosis is guarded PT/OT recommended home health care 08/07/2020 Patient weakness improving, this is the first day we see her sitting in the chair. She is being treated in currently with Zyvox for her to deal cocci UTI, his hematuria significantly improved, Zayas catheter was discontinued. We will monitor her PVR very closely. As per documentation of a copy for Zyvox is 69 and I discussed with the patient and she agrees with taking it for up to 2 weeks. Patient instructed to follow up with Dr. Elias in 2 weeks to check for cystoscopy at his office for the patient. Patient also informed and she agrees also showing heparin sodium 2126 and decrease in creatinine to 1.9. 1 dose of Lasix is provided for the patient. Iv fluids are on hold 08/08/2020 Patient feels generally more week today with no specific symptoms. She still have difficulty urination. Zayas catheter is out and we checked a bladder scan. Her creatinine trended up to 2.2 today and she was hypotensive last night, metoprolol which was recently increased by cardiology team to 25 mg 3 times a day was lowered back again to twice daily Hardware Engineer on the case and recommended 1 dose of Lasix. Blood pressure still borderline so we'll keep her in telemetry bed and selective unit Today the Eliquis co-pay was found to be over $450, Eliquis was stopped and started on Coumadin with Lovenox bridgi per pharmacy to dose Prognosis remains guarded 08/09/2020 Patient feels better today, she states that she is voiding easier than yesterday although she still have some difficulty. No abdominal pain and no other sym ptoms. Her blood pressure is better today, after medial drain has been added. Systolic blood pressure is ranging between 100-105 She has worsening creatinine today to 2.3. Sodium slightly improved at 129. INR is 1.5 after Coumadin started with Lovenox bridging. She remains on Zyvox for enterococcus UTI, also on Coumadin with Lovenox bridging. She continued medial drain and metoprolol 25 mg twice daily. Metformin as an hold and sugars controlled. 08/10/2020 This is a pleasant 80 years old female who was originally admitted for hematuria and A. fib with RVR. Hematuria secondary to UTI with enterococcus on Zyvox was started, his urinary symptoms were improving, she had a Zayas catheter and Dr. Elias was following her, eventually Zayas catheter was removed and patient continued with bladder scan monitoring. On admission her creatinine was 1.7 start worsening with continuation of home Lasix to 2.2, then IV fluid was started gently and her creatinine started improving to 1.5. At that point cardiology team increased metoprolol dose to 3 times daily for better control of A. fib, with creatinines start trending up again. Then IV fluids were stopped and patient was getting Lasix intravenously for the last few days however creatinine only showing slight improved today to 2.1, also today patient clinically she is in acute CHF as she has more leg swelling more short of breath. Her metoprolol is currently twice daily , medodrain was admitted for better blood pressure control. Metformin is on hold.Her blood pressure this morning was 92/66-110/66. Heart rate around 100. Oxygen saturation 97% on 2 L oxygen nasal cannula. Patient Eliquis co-pay was more than $450, so patient was started on Coumadin with Lovenox bridging. Echocardiogram: Ejection fraction 40-45%. Severe tricuspid regurgitation, moderate pulmonary hypertension, moderate mitral regurgitation Labs showing WBC 3.6K, hemoglobin 8.8, platelets 145k, sodium 129, creatinine 2.1, glucose control.INR is 1.6 all she is on Coumadin 08/14/2020, patient was been followed by my colleague over the last 3 days Yesterday patient became hypotensive and hypothermic and she was transferred to the ICU. And this morning patient was found more lethargic and she got intubated by pulmonary/critical care team, patient could not provide information today. Her temperature yesterday was 93.3, currently is 97.5 on Armand hugger. Also she was hypotensive yesterday like 66/32 currently she is on Levothroid 0.05 g per KG per minute. Her lactic acid was elevated 8.8 and currently 12.1. She is quite acidotic with pH of 7.1, pCO2 low 32 and pO2 of 148. She is on sodium bicarb drip. Also she is on amiodarone drip for A. fib and RVR, metoprolol was stopped. Asked the staff to call cardiology team for further recommendation Abdomen is distended and KUB so suspicious of ileus. Zayas catheter has been changed to reverse arteries and there is hematuria, not much urine output. She was already started on cefepime yesterday, we added Zyvox and Flagyl to cover gram-negative, gram-positive bacteria and anaerobes. Also I talked with the son Mr. Eleno Hull at [phone] and he is aware of his critical condition of his mother and all his questions were answered 08/15/2020 Patient is intubated and sedated in the ICU with pulmonary/critical care team are following. Patient remains in critical condition although there is some improvement and some improvement in lab numbers. No plans for weaning trial currently. She still needs pressors for blood pressure support. She remains on broad-spectrum antibiotics with cefepime, Flagyl and Zyvox. Aspiration pneumonia is suspected. Her creatinine is still elevated at 3.4, pickle maker team R following closely. Sodium 132, INR is improving to 1.8. Lactic acid improvement 4.9 but still elevated. Her hyperthermia improved. She still has Zayas catheter with irrigation and decent urine output. Several consultants on the case including pulmonary, nephrology, cardiology and neurology as well as infectious disease. . reView of systems: n/a Active Medications Generic Name Dose Route Start Last Admin Trade Name Freq PRN Reason Stop Dose Admin Acetaminophen 325 mg 07/31/20 09:28 08/12/20 00:01 Acetaminophen Tab 325 Mg Tab PO 325 mg Q6HR PRN Administration Fever and/ or Pain Allopurinol 100 mg 08/02/20 09:00 08/15/20 08:20 Allopurinol 100 Mg Tab PO Not Given DAILY MERRICK Alprazolam 0.5 mg 08/04/20 20:59 08/12/20 00:02 Alprazolam 0.5 Mg Tab PO 0.5 mg BID PRN Administration Anxiety Atorvastatin Calcium 40 mg 07/31/20 21:00 08/14/20 21:24 Atorvastatin 40 Mg Tab PO Not Given HS MERRICK Chlorhexidine Gluconate 15 ml 08/14/20 21:00 08/15/20 08:24 Chlorhexidine Gluconate 15 Ml Cup MUCOUS MEM 15 ml BID MERRICK Administration Cholecalciferol 400 unit 07/31/20 10:00 08/15/20 08:20 Cholecalciferol 400 Unit Tab PO Not Given DAILY MERRICK Clopidogrel Bisulfate 75 mg 07/31/20 09:00 08/15/20 08:20 Clopidogrel 75 Mg Tab PO Not Given DAILY MERRICK Ferrous Sulfate 325 mg 08/01/20 08:15 08/15/20 15:04 Ferrous Sulfate 325 Mg Tab PO Not Given BID-W/MEALS MERRICK Hydrocortisone Sodium Succinate 50 mg 08/13/20 09:00 08/15/20 08:24 Hydrocortisone Succinate 100 Mg/2 Ml Vial IV 50 mg DAILY MERRICK Administration Sodium Chloride 1,000 mls @ 20 mls/hr 07/31/20 00:30 08/15/20 02:38 Saline 0.9% IV 20 mls/hr .Q24H MERRICK Administration Propofol 1,000 mg/ IV Solution 100 mls @ 0 mls/hr 08/14/20 10:15 08/15/20 17:04 IV 40 mcg/kg/min .Q0M MERRICK 20.304 mls/hr Administration Protocol Titrate Linezolid 600 mg/ IV Solution 300 mls @ 150 mls/hr 08/14/20 10:30 08/15/20 08:25 IVPB 150 mls/hr Q12HR MERRICK Administration Protocol Metronidazole 500 mg/ IV 100 mls @ 100 mls/hr 08/14/20 10:30 08/15/20 15:09 Solution IVPB 100 mls/hr Q8HR MERRICK Administration Norepinephrine Bitartrate 32 250 mls @ 1.737 mls/hr 08/14/20 12:45 08/15/20 19:20 mg/ Sodium Chloride IV 0.44 mcg/kg/min .Q24H MERRICK 15.283 mls/hr Titration Protocol 0.05 MCG/KG/MIN Cefepime HCl 1 gm/ Sodium 50 mls @ 12.5 mls/hr 08/15/20 09:00 08/15/20 08:24 Chloride IVPB 12.5 mls/hr Q24HR MERRICK Administration Diltiazem HCl 125 mg/ Sodium 125 mls @ 0 mls/hr 08/15/20 07:15 08/15/20 08:15 Chloride IV 7.5 mg/hr .Q0M MERRICK 7.5 mls/hr Administration Protocol Per Protocol Amiodarone HCl 300 mg/ 250 mls @ 25 mls/hr 08/15/20 08:00 08/15/20 17:04 Dextrose/Water IV 0.5 mg/min .Q10H MERRICK 25 mls/hr Administration 0.5 MG/MIN Potassium Chloride 20 meq/ IV 100 mls @ 50 mls/hr 08/15/20 18:00 08/15/20 18:04 Solution IVPB 08/15/20 21:59 50 mls/hr Q2H MERRICK Administration Protocol Insulin Aspart 0 unit 08/15/20 00:00 08/15/20 17:03 Insulin Aspart (Novolog) 100 Unit/Ml Vial SQ 3 unit Q6H MERRICK Administration Protocol Metoprolol Tartrate 25 mg 08/08/20 09:00 08/15/20 08:20 Metoprolol Tartrate 25 Mg Tab PO Not Given BID MERRICK Midodrine 10 mg 08/08/20 09:21 08/15/20 15:04 Midodrine 5 Mg Tab PO Not Given AC-TID MERRICK Miscellaneous Information 1 each 08/03/20 15:58 Potassium Replacement Protocol 1 Each Misc MISCELLANE DAILY PRN Per Protocol Protocol Miscellaneous Information 0 each 08/08/20 15:05 Warfarin Per Pharmacy MISCELLANE DIRECTED PRN Per protocol Morphine Sulfate 2 mg 08/01/20 17:29 08/13/20 11:55 Morphine Sulfate 2 Mg/Ml Syringe IV 2 mg Q4HR PRN Administration Severe Pain Naloxone HCl 0.2 mg 07/31/20 00:23 Naloxone 0.4 Mg/Ml 1 Ml Vial IV Q2M PRN Opioid Reversal Nitroglycerin 0.4 mg 07/31/20 09:30 Nitroglycerin Sl Tabs 0.4 Mg Tab SUBLINGUAL Q5M PRN Chest Pain Pantoprazole Sodium 40 mg 08/14/20 13:15 08/15/20 08:25 Pantoprazole 40 Mg/10 Ml Vial IVP 40 mg BID MERRICK Administration Polyethylene Glycol 17 gm 07/31/20 09:45 08/15/20 08:25 Polyethylene Glycol 3350 17 Gm Powd.Pack PO Not Given DAILY MERRICK Sodium Bicarbonate 650 mg 08/11/20 11:00 08/15/20 08:25 Sodium Bicarbonate Tab 650 Mg Tab PO Not Given BID MERRICK Sodium Chloride 3,000 ml 08/14/20 17:15 08/15/20 18:30 Sodium Chloride 0.9% Irrig 3,000 Ml Bag IRRIGATION 3,000 ml Q1HR PRN Administration IRRIGATION Trazodone HCl 50 mg 07/31/20 09:30 08/07/20 20:29 Trazodone Hcl 50 Mg Tab PO 50 mg HS PRN Administration Insomnia Objective - Vital Signs Vital signs: Vital Signs Temp 99.5 F 08/15/20 06:00 Pulse 138 H 08/15/20 07:00 Resp 18 08/15/20 07:00 BP 105/82 08/14/20 19:00 Pulse Ox 95 08/15/20 07:00 Intake & Output 08/14/20 08/15/20 08/15/20 18:59 06:59 18:59 Intake Total 3641.264 2275.674 79.588 Output Total 140 1600 Balance 3501.264 675.674 79.588 Weight 84.6 kg Intake: IV 2155 1078 Dextrose 5% in Water 1, 975 825 000 ml @ 75 mls/hr IV . [id number] MERRICK with Sodium Bicarb (1 Meq/ml) 150 ml Rx#:[id number] Sodium Chloride 0.9% 1, 1180 220 000 ml @ 20 mls/hr IV . Q24H [facility] Rx#:[id number] pressure bag' 33 Intake, IV Titration 353.071 6877.674 79.588 Amount Amiodarone 300 mg In 250 Dextrose 5% in Water 250 ml @ 0.5 MG/MIN 25 mls/hr IV .Q10H MERRICK Rx#: [id number] Calcium Gluconate 2 gm In 100 Sodium Chloride 0.9% 100 ml @ 100 mls/hr IVPB ONCE ONE Rx#:[id number] Cefepime 1 gm In Sodium 50 Chloride 0.9% 50 ml @ 12. 5 mls/hr IVPB Q24HR [facility] Rx#:[id number] Linezolid 600 mg In 300 300 Dextrose/Water 1 300ml. bag @ 150 mls/hr IVPB Q12HR MERRICK Rx#:[id number] Norepinephrine 32 mg In 61.537 110.416 36.611 Sodium Chloride 0.9% 218 ml @ 0.05 MCG/KG/MIN 1. 737 mls/hr IV .Q24H MERRICK Rx#:[id number] Norepinephrine 4 mg In 143.138 Sodium Chloride 0.9% 250 ml @ 0.05 MCG/KG/MIN 14. 116 mls/hr IV .Q18H MERRICK Rx#:[id number] Potassium Chloride 20 meq 200 In Water For Injection 1 100ml.bag @ 50 mls/hr IVPB Q2H MERRICK Rx#: [id number] Sodium Chloride 0.9% 1, 40 000 ml @ 20 mls/hr IV . Q24H MERRICK Rx#:[id number] metroNIDAZOLE-NS PMX 500 200 mg In Saline 1 100ml.bag @ 100 mls/hr IVPB Q8HR MERRICK Rx#:[id number] propofoL 1,000 mg In 95.589 237.258 42.977 Empty Bag 1 bag @ Titrate IV .Q0M MERRICK Rx#: [id number] Blood Product 596 Ffp 24 Cpd Unit 291 [id number] Ffp 24 Cpd Unit 305 [id number] Output: Urine 140 1600 Uretheral (Zayas) 800 Other: Voiding Method Indwelling Catheter Indwelling Catheter # Voids 1 ABP, PAP, CO, CI - Last Documented Arterial Blood Pressure 115/62 - Exam -GENERAL: The patient is intubated and sedated HEENT: Pupils are round and equally reacting to light. EOMI. No scleral icterus. No conjunctival pallor. Normocephalic, atraumatic. No pharyngeal erythema. No thyromegaly. CARDIOVASCULAR: S1 and S2 present. No murmurs, rubs, or gallops. -PULMONARY: Chest is clear to auscultation, no wheezing or crackles. Bilateral basal crepitation -ABDOMEN: Soft, nontender, nondistended, normoactive bowel sounds. No palpable organomegaly. Zayas catheter is in place with blood-colored urine MUSCULOSKELETAL: No joint swelling or deformity. -EXTREMITIES: No cyanosis, clubbing, bilateral leg edema. NEUROLOGICAL: Gross neurological examination did not reveal any focal deficits. SKIN: No rashes. No petechiae - Labs CBC & Chem 7: 08/15/20 03:05 08/15/20 15:33 Labs: Abnormal Lab Results - Last 24 Hours (Table) 08/14/20 08/14/20 08/14/20 Range/Units 08:52 13:44 16:34 RBC (3.80-5.40) m/uL Hgb (11.4-16.0) gm/dL Hct (34.0-46.0) % MCH (25.0-35.0) pg MCHC (31.0-37.0) g/dL RDW (11.5-15.5) % Plt Count (150-450) k/uL Neutrophils # (1.3-7.7) k/uL Lymphocytes # (1.0-4.8) k/uL PT 22.7 H (9.0-12.0) sec INR 2.3 H (<1.2) ABG pH 7.18 L* (7.35-7.45) ABG pCO2 32 L (35-45) mmHg ABG pO2 148 H (83-108) mmHg ABG HCO3 12 L (21-25) mmol/L ABG Total CO2 13 L (19-24) mmol/L ABG O2 Saturation 99.4 H (94-97) % ABG Lactic Acid (0.5-1.6) mmol/L Sodium (137-145) mmol/L Potassium (3.5-5.1) mmol/L Chloride (98-107) mmol/L Carbon Dioxide (22-30) mmol/L BUN (7-17) mg/dL Creatinine (0.52-1.04) mg/dL Glucose (74-99) mg/dL POC Glucose (mg/dL) 162 H (75-99) mg/dL Plasma Lactic Acid Rohit (0.7-2.0) mmol/L Calcium (8.4-10.2) mg/dL Ionized Calcium Jennifer (4.5-5.3) mg/dL Total Bilirubin (0.2-1.3) mg/dL AST (14-36) U/L ALT (4-34) U/L Alkaline Phosphatase (38-126) U/L C-Reactive Protein (<10.0) mg/L Total Protein (6.3-8.2) g/dL Albumin (3.5-5.0) g/dL 08/14/20 08/14/2020 Range/Units 16:34 18:45 18:58 RBC (3.80-5.40) m/uL Hgb (11.4-16.0) gm/dL Hct (34.0-46.0) % MCH (25.0-35.0) pg MCHC (31.0-37.0) g/dL RDW (11.5-15.5) % Plt Count (150-450) k/uL Neutrophils # (1.3-7.7) k/uL Lymphocytes # (1.0-4.8) k/uL PT (9.0-12.0) sec INR (<1.2) ABG pH (7.35-7.45) ABG pCO2 (35-45) mmHg ABG pO2 (83-108) mmHg ABG HCO3 (21-25) mmol/L ABG Total CO2 (19-24) mmol/L ABG O2 Saturation (94-97) % ABG Lactic Acid 12.4 H* (0.5-1.6) mmol/L Sodium 134 L (137-145) mmol/L Potassium 3.3 L (3.5-5.1) mmol/L Chloride 108 H (98-107) mmol/L Carbon Dioxide 8 L* (22-30) mmol/L BUN 46 H (7-17) mg/dL Creatinine 2.89 H (0.52-1.04) mg/dL Glucose 154 H (74-99) mg/dL POC Glucose (mg/dL) 201 H (75-99) mg/dL Plasma Lactic Acid Rohit (0.7-2.0) mmol/L Calcium 4.6 L* (8.4-10.2) mg/dL Ionized Calcium Jennifer (4.5-5.3) mg/dL Total Bilirubin 1.9 H (0.2-1.3) mg/dL AST 382 H (14-36) U/L ALT 133 H (4-34) U/L Alkaline Phosphatase 139 H (38-126) U/L C-Reactive Protein (<10.0) mg/L Total Protein 4.4 L (6.3-8.2) g/dL Albumin 2.0 L (3.5-5.0) g/dL 08/14/20 08/14/20 08/14/20 Range/Units 20:07 20:07 20:07 RBC 3.55 L (3.80-5.40) m/uL Hgb 8.9 L (11.4-16.0) gm/dL Hct 31.2 L (34.0-46.0) % MCH (25.0-35.0) pg MCHC 28.6 L (31.0-37.0) g/dL RDW 19.6 H (11.5-15.5) % Plt Count 113 L (150-450) k/uL Neutrophils # (1.3-7.7) k/uL Lymphocytes # 0.6 L (1.0-4.8) k/uL PT (9.0-12.0) sec INR (<1.2) ABG pH (7.35-7.45) ABG pCO2 (35-45) mmHg ABG pO2 (83-108) mmHg ABG HCO3 (21-25) mmol/L ABG Total CO2 (19-24) mmol/L ABG O2 Saturation (94-97) % ABG Lactic Acid (0.5-1.6) mmol/L Sodium (137-145) mmol/L Potassium (3.5-5.1) mmol/L Chloride (98-107) mmol/L Carbon Dioxide (22-30) mmol/L BUN (7-17) mg/dL Creatinine (0.52-1.04) mg/dL Glucose (74-99) mg/dL POC Glucose (mg/dL) (75-99) mg/dL Plasma Lactic Acid Rohit 11.7 H* (0.7-2.0) mmol/L Calcium (8.4-10.2) mg/dL Ionized Calcium Jennifer 3.3 L* (4.5-5.3) mg/dL Total Bilirubin (0.2-1.3) mg/dL AST (14-36) U/L ALT (4-34) U/L Alkaline Phosphatase (38-126) U/L C-Reactive Protein (<10.0) mg/L Total Protein (6.3-8.2) g/dL Albumin (3.5-5.0) g/dL 08/14/20 08/14/20 08/15/20 Range/Units 20:18 23:38 00:14 RBC 3.33 L (3.80-5.40) m/uL Hgb 8.2 L (11.4-16.0) gm/dL Hct 28.5 L (34.0-46.0) % MCH 24.6 L (25.0-35.0) pg MCHC 28.7 L (31.0-37.0) g/dL RDW 19.8 H (11.5-15.5) % Plt Count 95 L (150-450) k/uL Neutrophils # (1.3-7.7) k/uL Lymphocytes # (1.0-4.8) k/uL PT (9.0-12.0) sec INR (<1.2) ABG pH (7.35-7.45) ABG pCO2 (35-45) mmHg ABG pO2 (83-108) mmHg ABG HCO3 (21-25) mmol/L ABG Total CO2 (19-24) mmol/L ABG O2 Saturation (94-97) % ABG Lactic Acid (0.5-1.6) mmol/L Sodium (137-145) mmol/L Potassium (3.5-5.1) mmol/L Chloride (98-107) mmol/L Carbon Dioxide (22-30) mmol/L BUN (7-17) mg/dL Creatinine (0.52-1.04) mg/dL Glucose (74-99) mg/dL POC Glucose (mg/dL) 216 H 254 H (75-99) mg/dL Plasma Lactic Acid Rohit (0.7-2.0) mmol/L Calcium (8.4-10.2) mg/dL Ionized Calcium Jennifer (4.5-5.3) mg/dL Total Bilirubin (0.2-1.3) mg/dL AST (14-36) U/L ALT (4-34) U/L Alkaline Phosphatase (38-126) U/L C-Reactive Protein (<10.0) mg/L Total Protein (6.3-8.2) g/dL Albumin (3.5-5.0) g/dL 08/15/20 08/15/20 08/15/20 Range/Units 00:14 03:05 03:05 RBC 3.25 L (3.80-5.40) m/uL Hgb 8.2 L (11.4-16.0) gm/dL Hct 27.3 L (34.0-46.0) % MCH (25.0-35.0) pg MCHC 29.9 L (31.0-37.0) g/dL RDW 20.1 H (11.5-15.5) % Plt Count 88 L (150-450) k/uL Neutrophils # 9.2 H (1.3-7.7) k/uL Lymphocytes # 0.4 L (1.0-4.8) k/uL PT 20.8 H (9.0-12.0) sec INR 2.1 H (<1.2) ABG pH (7.35-7.45) ABG pCO2 (35-45) mmHg ABG pO2 (83-108) mmHg ABG HCO3 (21-25) mmol/L ABG Total CO2 (19-24) mmol/L ABG O2 Saturation (94-97) % ABG Lactic Acid 10.0 H* (0.5-1.6) mmol/L Sodium (137-145) mmol/L Potassium (3.5-5.1) mmol/L Chloride (98-107) mmol/L Carbon Dioxide (22-30) mmol/L BUN (7-17) mg/dL Creatinine (0.52-1.04) mg/dL Glucose (74-99) mg/dL POC Glucose (mg/dL) (75-99) mg/dL Plasma Lactic Acid Rohit (0.7-2.0) mmol/L Calcium (8.4-10.2) mg/dL Ionized Calcium Jennifer (4.5-5.3) mg/dL Total Bilirubin (0.2-1.3) mg/dL AST (14-36) U/L ALT (4-34) U/L Alkaline Phosphatase (38-126) U/L C-Reactive Protein (<10.0) mg/L Total Protein (6.3-8.2) g/dL Albumin (3.5-5.0) g/dL 08/15/20 08/15/20 08/15/20 Range/Units 03:05 03:05 05:48 RBC (3.80-5.40) m/uL Hgb (11.4-16.0) gm/dL Hct (34.0-46.0) % MCH (25.0-35.0) pg MCHC (31.0-37.0) g/dL RDW (11.5-15.5) % Plt Count (150-450) k/uL Neutrophils # (1.3-7.7) k/uL Lymphocytes # (1.0-4.8) k/uL PT (9.0-12.0) sec INR (<1.2) ABG pH (7.35-7.45) ABG pCO2 (35-45) mmHg ABG pO2 (83-108) mmHg ABG HCO3 (21-25) mmol/L ABG Total CO2 (19-24) mmol/L ABG O2 Saturation (94-97) % ABG Lactic Acid (0.5-1.6) mmol/L Sodium 130 L (137-145) mmol/L Potassium (3.5-5.1) mmol/L Chloride 94 L (98-107) mmol/L Carbon Dioxide 19 L (22-30) mmol/L BUN 63 H (7-17) mg/dL Creatinine 3.75 H (0.52-1.04) mg/dL Glucose 203 H (74-99) mg/dL POC Glucose (mg/dL) 197 H (75-99) mg/dL Plasma Lactic Acid Rohit 8.4 H* (0.7-2.0) mmol/L Calcium 6.4 L* (8.4-10.2) mg/dL Ionized Calcium Jennifer (4.5-5.3) mg/dL Total Bilirubin 2.9 H (0.2-1.3) mg/dL AST 962 H (14-36) U/L ALT 340 H (4-34) U/L Alkaline Phosphatase 172 H (38-126) U/L C-Reactive Protein 46.5 H (<10.0) mg/L Total Protein 5.6 L (6.3-8.2) g/dL Albumin 2.8 L (3.5-5.0) g/dL Microbiology - Last 24 Hours (Table) 08/13/20 22:11 Blood Culture - Preliminary Blood No Growth after 24 hours Assessment and Plan Assessment: Possible septic shock, aspiration pneumonia is suspected Acute hypoxic respiratory failure needing intubation and mechanical ventilation Acute systolic on chronic CHF with ejection fraction 40-45% Acute hematuria, secondary to UTI. Culture growing group D enterococcus. Finish treatment with Zyvox Acute blood loss anemia Coagulopathy secondary to Coumadin. Improved Acute kidney injury, could be a combination of infection, cardiorenal syndrome, hypotension Hyponatremia Paroxysmal atrial fibrillation with RVR, was on Coumadin Valvular heart disease with severe tricuspid regurgitation and moderate mitral regurgitation Moderate pulmonary hypertension Acute and chronic hypoxic respiratory failure secondary to above. Improved Anemia, Rule out GI bleed History of gastric ulcer in 2018 History of CVA/TIA Plan: This is a pleasant 80 years old female who presents with A. fib and low hemoglobin suspicious for blood in urine and Zayas catheter. Currently patient in the ICU needing mechanical ventilation and pressors, sever consultants on the case including pulmonary/critical care team, cardiology, nephrology, infectious disease. Also urology team. Patient is on cefepime, we added Zyvox and Flagyl. Continue with her orogastric tube under suction for distended abdomen. Continue with Zayas catheter Continue with amiodarone drip. continue to hold Coumadin, hold metformin and beta stacie Labs and medication were reviewed.. Continue same treatment. Continue with symptomatic treatment. Resume home medication. Monitor lytes and vitals. DVT and GI prophylaxis. Further recommendations as per clinical course of the patient DVT prophylaxis: Coumadine with supratherapeutic INR GI Prophylaxis: Ppi Prognosis is guarded
[2020-08-15] MEDS: ATORVASTATIN 40 MG TAB PO SCH (21:57)
--- NOTE | 2020-08-15 22:39 | PN ---
PROGRESS NOTE DATE OF SERVICE: 08/15/2020 REASON FOR FOLLOWUP: Sepsis and pneumonia. INTERVAL HISTORY: The patient is currently afebrile. The patient remains intubated on the vent. FiO2 was cut down to 65%. No significant purulent secretions through the ET tube reported by the nursing staff. On low-dose pressor support. No diarrhea. Minimal output in the tube. PHYSICAL EXAMINATION: Blood pressure 98/45 with a pulse of 104, temperature 98. She is 91% on 65% FiO2. General description is an elderly female lying in bed in no distress. RESPIRATORY SYSTEM: Unlabored breathing. Clear to auscultation anteriorly. HEART: S1, S2. Regular rate and rhythm. ABDOMEN: Soft. EXTREMITIES: Two plus edema of the feet. LABS: BUN of 59, creatinine is 3.46. Liver enzymes are elevated. DIAGNOSTIC IMPRESSION AND PLAN: Patient with sepsis and concern for possible aspiration pneumonia. Sputum culture is currently pending. Blood culture negative. Patient is covered with Zyvox, cefepime and Flagyl; to continue and monitor clinical course closely. MMODL / IJN: [id number] /
[2020-08-16 00:46] LABS: Glucose,Whole Blood 135 mg/dL (75-99)
[2020-08-16] MEDS: INSULIN ASPART (NovoLOG) 100 UNIT/ML VIAL SQ SCH ×4 (00:48→18:49)
[2020-08-16] MEDS: SODIUM CHLORIDE 0.9% IRRIG 3,000 ML BAG IRRIGATION PRN ×3 (01:18→20:32)
[2020-08-16] MEDS: SODIUM CHLORIDE 0.9% 1,000 ML IV SCH (01:58)
[2020-08-16 02:32] LABS: INR 1.8 (<1.2); Prothrombin Time 17.2 sec (9.0-12.0)
[2020-08-16 02:40] LABS: Calcium 6.5 mg/dL (8.4-10.2); Potassium 3.3 mmol/L (3.5-5.1)
[2020-08-16 02:46] LABS: Anisocytosis Moderate; Basophils % (A) 0 %; Eosinophils # (A) 0.1 k/uL (0-0.7); Eosinophils % (A) 0 %; HCT 26.5 % (34.0-46.0); HGB 8.5 gm/dL (11.4-16.0); Hypochromasia Marked; Lymphocytes # (A) 0.4 k/uL (1.0-4.8); Lymphocytes % (A) 3 %; MCH 25.7 pg (25.0-35.0); MCHC 31.9 g/dL (31.0-37.0); MCV 80.4 fL (80.0-100.0); Mean Platelet Volume 10.9; Microcytosis Slight; Monocytes # (A) 0.2 k/uL (0-1.0); Monocytes % (A) 1 %; Neutrophils # (A) 13.7 k/uL (1.3-7.7); Neutrophils % (A) 95 %; Poikilocytosis Moderate; RDW 20.3 % (11.5-15.5); WBC 14.4 k/uL (3.8-10.6)
[2020-08-16 02:47] LABS: Platelet Count 55 k/uL (150-450)
[2020-08-16] MEDS: NOREPINEPHRINE 32 MG in SODIUM CHLORIDE 0.9% 218 ML IV SCH (02:51)
[2020-08-16] MEDS: POTASSIUM CHLORIDE 20 MEQ in WATER FOR INJECTION 1 100ML.BAG IVPB SCH ×2 (04:05→06:05)
[2020-08-16] MEDS: AMIODARONE 300 MG in DEXTROSE 5% IN WATER 250 ML IV SCH ×4 (05:13→15:47)
[2020-08-16 05:52] LABS: Glucose,Whole Blood 116 mg/dL (75-99)
[2020-08-16 05:55] LABS: ABG Base Excess 2.7 mmol/L; ABG HCO3 27 mmol/L (21-25); ABG Oxygen Saturation 96.2 % (94-97); ABG PCO2 38 mmHg (35-45); ABG PH 7.46 (7.35-7.45); ABG PO2 75 mmHg (83-108); ABG TCO2 28 mmol/L (19-24); Allen Test Performed? Yes
--- NOTE | 2020-08-16 07:17 | P.PN ---
Subjective Progress Note Date: 08/16/20 80-year-old female patient was having lower blood pressure for quite some time, further this evening and the patient was asked to be seen by intensive care services. She is 80. She has chronic atrial fibrillation. She is chronic systolic heart failure with an ejection fraction of 40-45%. She has also valvular heart disease with moderate MR, CVAs tricuspid regurgitation moderate degree of pulmonary hypertension. She has previous history of CVA. She came in to the hospital and she had a enterococcal group D UTI and the patient was treated with antibiotics and she was getting Zyvox which was subsequently discontinued. During the course of her hospitalization, the patient developed an acute kidney injury. There has been further compromised the patient's renal function got worse and the patient developed also hypotension the patient was started on midodrine. This evening, systolic blood pressures the mid 70s. The patient is hypothermic with temperature 90.3. Blood work shows a component of acute on chronic kidney injury due to creatinine being up to 3.51 and the sodium is down to 129 and the patient has an anion gap of 16 with a serum bicarb of 16. Glucose at 120. INR is at 6.6. She was given 5 of vitamin K to reverse her coagulopathy. The white cell count is at 3.3. Hemoglobin is 9.7. Platelets are 108. She is hypothermic. She is on no antibiotics for now. Chest x-ray from yesterday shows pulmonary vessel congestion and small bilateral pleural effusion addition to cardiomegaly. The rousseau virus covid 19 evaluation came back negative.the patient overnight became hypotensive. The patient is currently the intensive care unit. Currently she is on norepinephrine infusion running at 0.2 g per KG per minute. She has a Hayes catheter in place and there is bloody output at this point in time. Irrigation was done throughout the night and the patient was producing clots. Her abdomen is distended. There is some urinary retention and the bladder scan showed at least 300cc of material collecting in her bladder. She was given another dose of vitamin K this morning for an INR of 5.9. Morning blood. showed a pH of 7.24 with a pCO2 of 28 and pO2 of 245patient is currently on oxygen at 3 L per minute. Lactic acid level is at 9.4. Overnight, the patient was given IV cefepime. Chest x-ray showing interstitial edema and worsening consolidation of the right lung.the patient was given another bolus of IV fluids and overall 2 L of IV fluids yesterday was given and the patient is currently on a bicarb infusion. She is in atrial fibrillation with rapid ventricular response and she is on amiodarone po on today's evaluation of 08/15/2020, the patient is being seen in follow-up in the intensive care unit. Events from yesterday was noted. The patient was in shock and she was profoundly hypotensive. She was started on IV fluids. Her coagulation profile was being reversed and the patient was having extensive hematuria. Meanwhile, the patient went into respiratory failure. I had to intubate the patient she's been intubated since. She is currently sedated with propofol running at 40 g per KG per minute. She is an assist-control mode at the rate of 80 with a tidal volume of 400 and FiO2 of 65% with a PEEP of 5. The blood gases from today showed a pH of 7.4 with a pCO2 of 35 and a pO2 of 87. His chest x-ray from today is showing adequate positioning of the ET tube and orogastric tube. The patient has bilateral pulmonary infiltrates consistent with interstitial edema. There was some worsening consolidation of the right lung and the right lung is still consolidated both in the lower lobe and the upper lobe. Upper lobe and left consolidated. Left lower lobe infiltrates and airspace disease also suspected. Hemodynamically, the patient is still requiring pressors. The patient is on bicarb infusion which is running at 75 mL an hour and she is on norepinephrine infusion running at 0.34 mcg/kg per minute. Her white cell count was at 9.9. Hemoglobin is at 8.2. The temperature has regulated and the patient's temperature has normalized and the patient received external warming. Her INR is down to 2.1 after being given 2 units of fresh frozen plasma and vitamin K. Her lactic acid level is down to 8.4 with a highest level of 11.7.Creatinine is on the rise. The patient's BUN is up to 63 with a creatinine of 3.7. Sodium is1 30. LFTs are abnormal with a AST of 962, ALT of 340. The patienthad a CAT scan of the abdomen yesterday that showed some anasarca in addition to some ascites. No acute intra-abdominal abnormalities. Lung bases were atelectatic. The gallbladder was contracted. There was bilateral perinephric fluids. No hydronephrosis was seen. There was small amount of air in the urinary bladder. No evidence of any bladder mass. No evidence of any pelvic mass. The patient continues to have a three-way 22- Portuguese Hayes catheter with irrigation. On 08/16/2020, the patient remains in intensive care unit. Currently she is sedated with propofol 40 g per KG per minute. His minimal symptoms the mechanical ventilator. At this point in time she is an assist-control mode at the rate of 18 with a tidal volume of 400 and a PEEP of 5 with an FiO2 of 65%. Her blood pressure with a pH of 7.46 with a pCO2 of 38 and pO2 of 75. The chest x-ray showing no major interval change. There is bilateral pulmonary infiltrates significantly worse on the right compared to the left. Consider pneumonia versus pulmonary edema. ET tube is in a good location. NG tube is in a good location. The patient is currently receiving IV fluids in the form of 0.9 and the bicarb drip was discontinued yesterday. Her net fluid balance is another 4.1 L positive over the past 24 hours. Actinic input output cannot be established as the patient was having continuous bladder irrigation. Her hematuria has subsided significantly and the urine output is clearing up. The patient was reversed in terms of her coagulopathy and her INR is down to 1.8. The patient received fresh frozen plasma and vitamin K yesterday. Her creatinine is down to 3.2 compared to yesterday. His serum bicarb is up to 28. Lactic acid level is down to 4.8 from a highest maximum level of 12. The patient is on IV cefepime as an empiric antibiotic coverage. She is afebrile. She was hypothermic which improves and she is normothermic for now. Meanwhile, she had a shock liver with an AST of 1287 and an ALT of 503 and a alkaline ph osphatase of 226. Hemodynamically, she remains in atrial fibrillation. Earlier this morning, the patient was on a combination of amiodarone drip and Cardizem drip. Based on her hemodynamic instability and high pressor requirements, the patient was given a trial of cardioversion which failed. Nevertheless, her headache is under better control for now and if in the mid 90s. She is in atrial fibrillation. She is on amiodarone drip. Cardizem drip was discontinued. The patient on norepinephrine infusion running at 0.74 g per KG per minute. She is easily arousable. She has developed significant edema in all 4 extremities. There is also some ascites and some mild abdominal distention. She remains nothing by mouth. NG tube is to low intermittent suction. Objective - Vital Signs Vital signs: Vital Signs Temp 97.6 F 08/16/20 04:00 Pulse 129 H 08/16/20 06:30 Resp 24 08/16/20 06:30 BP 113/62 08/15/20 12:07 Pulse Ox 93 L 08/16/20 06:30 Intake & Output 08/15/20 08/16/20 08/16/20 18:59 06:59 18:59 Intake Total 17035.413 4354.750 Output Total 95514 7150 Balance 188.413 -2795.250 Weight 85.5 kg [place]: [place] [address] 3716 Cefepime 1 gm In Sodium 50 Chloride 0.9% 50 ml @ 12. 5 mls/hr IVPB Q12HR [facility] Rx#:[id number] Continuous Bladder 15900 3000 Irrigation Dextrose 5% in Water 1, 825 000 ml @ 75 mls/hr IV . [id number] [facility] with Sodium Bicarb (1 Meq/ml) 150 ml Rx#:[id number] Potassium Chloride 20 meq 100 100 In Water For Injection 1 100ml.bag @ 50 mls/hr IVPB Q2H [facility] Rx#: [id number] Sodium Chloride 0.9% 1, 260 480 000 ml @ 20 mls/hr IV . Q24H [facility] Rx#:[id number] metroNIDAZOLE-NS PMX 500 200 100 mg In Saline 1 100ml.bag @ 100 mls/hr IVPB Q8HR [facility] Rx#:[id number] pressure bag' 36 36 Intake, IV Titration 511.413 638.750 Amount Amiodarone 300 mg In 220.417 250 Dextrose 5% in Water 250 ml @ 0.5 MG/MIN 25 mls/hr IV .Q10H [facility] Rx#: [id number] Norepinephrine 32 mg In 148.019 198.228 Sodium Chloride 0.9% 218 ml @ 0.05 MCG/KG/MIN 1. 737 mls/hr IV .Q24H [facility] Rx#:[id number] propofoL 1,000 mg In 142.977 190.522 Empty Bag 1 bag @ Titrate IV .Q0M [facility] Rx#: [id number] Blood Product 606 Ffp 24 Cpd Unit 296 [id number] Ffp 24 Cpd Unit 310 [id number] Output: Urine 18516 7150 Other: Voiding Method Indwelling Catheter Indwelling Catheter ABP, PAP, CO, CI - Last Documented Arterial Blood Pressure 90/48 - Exam Gen: This is an 80-year-old female. the patient is currently intubated on mechanical ventilator. The patient is sedated and the patient is calm and comfortable. Head exam was generally normal. There was no scleral icterus or corneal arcus. Mucous membranes were moist. HEENT: Head is atraumatic, normocephalic. Pupils equal, round. Sclerae is anicteric. Oral mucous members slightly dry. NECK: Supple. No JVD. No lymphadenopathy. No thyromegaly. LUNGS: Clear to auscultation. No wheezes or rhonchi. No intercostal retractions. Crackles are present in lung bases bilaterally. HEART: Irregular rate and rhythm. Systolic murmur. the patient's rate is under better control and the heart is demented IDs in the form of atrial fibrillation. ABDOMEN: Soft. Bowel sounds are present. No masses. No tenderness.he abdomen is less distended compared to yesterday. EXTREMITIES: there is bilateral lower extremity edemaand erythema significantly worsen all 4 extremities... No calf tenderness. Dorsalis pedis +1 bilaterally. NEUROLOGICAL: Patient is sedated, comfortable symptoms of the mechanical ventilator currently on propofol Examination of the skin revealed no evidence of significant rashes, suspicious appearing nevi or other concerning lesions. - Labs CBC & Chem 7: 08/16/20 02:00 08/16/20 02:00 Labs: Abnormal Lab Results - Last 24 Hours (Table) 08/15/20 08/15/20 08/15/20 Range/Units 03:05 11:26 12:56 WBC (3.8-10.6) k/uL RBC (3.80-5.40) m/uL Hgb (11.4-16.0) gm/dL Hct (34.0-46.0) % RDW (11.5-15.5) % Plt Count (150-450) k/uL Neutrophils # (1.3-7.7) k/uL Lymphocytes # (1.0-4.8) k/uL PT (9.0-12.0) sec INR (<1.2) ABG pH (7.35-7.45) ABG pO2 (83-108) mmHg ABG HCO3 (21-25) mmol/L ABG Total CO2 (19-24) mmol/L Sodium (137-145) mmol/L Potassium (3.5-5.1) mmol/L Chloride (98-107) mmol/L BUN (7-17) mg/dL Creatinine (0.52-1.04) mg/dL Glucose (74-99) mg/dL POC Glucose (mg/dL) 172 H (75-99) mg/dL Plasma Lactic Acid Rohit 4.7 H* (0.7-2.0) mmol/L Calcium (8.4-10.2) mg/dL Total Bilirubin (0.2-1.3) mg/dL AST (14-36) U/L ALT (4-34) U/L Alkaline Phosphatase (38-126) U/L Total Protein (6.3-8.2) g/dL Albumin (3.5-5.0) g/dL Procalcitonin 9.04 H (0.02-0.09) ng/mL 08/15/20 08/15/20 08/15/20 Range/Units 15:33 15:33 16:33 WBC (3.8-10.6) k/uL RBC (3.80-5.40) m/uL Hgb (11.4-16.0) gm/dL Hct (34.0-46.0) % RDW (11.5-15.5) % Plt Count (150-450) k/uL Neutrophils # (1.3-7.7) k/uL Lymphocytes # (1.0-4.8) k/uL PT 17.2 H (9.0-12.0) sec INR 1.8 H (<1.2) ABG pH (7.35-7.45) ABG pO2 (83-108) mmHg ABG HCO3 (21-25) mmol/L ABG Total CO2 (19-24) mmol/L Sodium 132 L (137-145) mmol/L Potassium 3.0 L (3.5-5.1) mmol/L Chloride 92 L (98-107) mmol/L BUN 59 H (7-17) mg/dL Creatinine 3.46 H (0.52-1.04) mg/dL Glucose 190 H (74-99) mg/dL POC Glucose (mg/dL) (75-99) mg/dL Plasma Lactic Acid Rohit 4.9 H* (0.7-2.0) mmol/L Calcium 6.5 L (8.4-10.2) mg/dL Total Bilirubin 3.5 H (0.2-1.3) mg/dL AST 1287 H (14-36) U/L ALT 503 H (4-34) U/L Alkaline Phosphatase 226 H (38-126) U/L Total Protein 6.0 L (6.3-8.2) g/dL Albumin 3.1 L (3.5-5.0) g/dL Procalcitonin (0.02-0.09) ng/mL 08/15/20 08/16/20 08/16/20 Range/Units 17:00 00:44 02:00 WBC (3.8-10.6) k/uL RBC (3.80-5.40) m/uL Hgb (11.4-16.0) gm/dL Hct (34.0-46.0) % RDW (11.5-15.5) % Plt Count (150-450) k/uL Neutrophils # (1.3-7.7) k/uL Lymphocytes # (1.0-4.8) k/uL PT (9.0-12.0) sec INR (<1.2) ABG pH (7.35-7.45) ABG pO2 (83-108) mmHg ABG HCO3 (21-25) mmol/L ABG Total CO2 (19-24) mmol/L Sodium 133 L (137-145) mmol/L Potassium 3.3 L (3.5-5.1) mmol/L Chloride 93 L (98-107) mmol/L BUN 61 H (7-17) mg/dL Creatinine 3.23 H (0.52-1.04) mg/dL Glucose 116 H (74-99) mg/dL POC Glucose (mg/dL) 231 H 135 H (75-99) mg/dL Plasma Lactic Acid Rohit (0.7-2.0) mmol/L Calcium 6.5 L (8.4-10.2) mg/dL Total Bilirubin (0.2-1.3) mg/dL AST (14-36) U/L ALT (4-34) U/L Alkaline Phosphatase (38-126) U/L Total Protein (6.3-8.2) g/dL Albumin (3.5-5.0) g/dL Procalcitonin (0.02-0.09) ng/mL 08/16/20 08/16/20 08/16/20 Range/Units 02:00 02:00 02:00 WBC 14.4 H (3.8-10.6) k/uL RBC 3.30 L (3.80-5.40) m/uL Hgb 8.5 L (11.4-16.0) gm/dL Hct 26.5 L (34.0-46.0) % RDW 20.3 H (11.5-15.5) % Plt Count 55 L (150-450) k/uL Neutrophils # 13.7 H (1.3-7.7) k/uL Lymphocytes # 0.4 L (1.0-4.8) k/uL PT 17.2 H (9.0-12.0) sec INR 1.8 H (<1.2) ABG pH (7.35-7.45) ABG pO2 (83-108) mmHg ABG HCO3 (21-25) mmol/L ABG Total CO2 (19-24) mmol/L Sodium (137-145) mmol/L Potassium (3.5-5.1) mmol/L Chloride (98-107) mmol/L BUN (7-17) mg/dL Creatinine (0.52-1.04) mg/dL Glucose (74-99) mg/dL POC Glucose (mg/dL) (75-99) mg/dL Plasma Lactic Acid Rohit 4.8 H* (0.7-2.0) mmol/L Calcium (8.4-10.2) mg/dL Total Bilirubin (0.2-1.3) mg/dL AST (14-36) U/L ALT (4-34) U/L Alkaline Phosphatase (38-126) U/L Total Protein (6.3-8.2) g/dL Albumin (3.5-5.0) g/dL Procalcitonin (0.02-0.09) ng/mL 08/16/20 08/16/20 Range/Units 05:48 05:51 WBC (3.8-10.6) k/uL RBC (3.80-5.40) m/uL Hgb (11.4-16.0) gm/dL Hct (34.0-46.0) % RDW (11.5-15.5) % Plt Count (150-450) k/uL Neutrophils # (1.3-7.7) k/uL Lymphocytes # (1.0-4.8) k/uL PT (9.0-12.0) sec INR (<1.2) ABG pH 7.46 H (7.35-7.45) ABG pO2 75 L (83-108) mmHg ABG HCO3 27 H (21-25) mmol/L ABG Total CO2 28 H (19-24) mmol/L Sodium (137-145) mmol/L Potassium (3.5-5.1) mmol/L Chloride (98-107) mmol/L BUN (7-17) mg/dL Creatinine (0.52-1.04) mg/dL Glucose (74-99) mg/dL POC Glucose (mg/dL) 116 H (75-99) mg/dL Plasma Lactic Acid Rohit (0.7-2.0) mmol/L Calcium (8.4-10.2) mg/dL Total Bilirubin (0.2-1.3) mg/dL AST (14-36) U/L ALT (4-34) U/L Alkaline Phosphatase (38-126) U/L Total Protein (6.3-8.2) g/dL Albumin (3.5-5.0) g/dL Procalcitonin (0.02-0.09) ng/mL Microbiology - Last 24 Hours (Table) 08/13/20 22:11 Blood Culture - Preliminary Blood No Growth after 48 hours 08/14/20 20:07 Blood Culture - Preliminary Blood No Growth after 24 hours 08/14/20 23:50 Gram Stain - Preliminary Sputum Sputum Culture - Preliminary Assessment and Plan Plan: 1 acute hypoxic respiratory failure due to septic shock and multisystem organ failure. The patient is currently intubated on a mechanical ventilator. 2 shock with secondary hypotension, subacute, consider septic shock . The patient was hypothermic and local clinic and the patient has also developed an acute kidney injury with acute anion gap metabolic acidosis..patient is cur rently covered with IV cefepime. The patient was aggressively resuscitated with fluids. The fluid balance has been positive and the patient currently remains on pressors and norepinephrine infusion is running at 0.74 Chidi respiratory KG per minute. She is afebrile. Temperature as regulated. The cultures of been negative. 2 acute on chronic kidney injury in the creatinine is rising at 3.23. The patient also had hematuria causing obstructive uropathy. A three-way irrigation Hayes catheter has been inserted and the patient is receiving continuous bladder irrigation. Coagulopathy has been reversed as much as possible with an INR being down to 1.8, and hematuria is also improving 3 chronic systolic congestive heart failure with an ejection fraction of 40-45% 4 UTI secondary to enterococcus group D completed course of Zyvox 5 chronicatrial fibrillation,, currently in atrial fibrillation with rapid ventricular the patient is currently on amiodarone at 0.5 mg per minute maintena ncehim off the Cardizem drip for now and the rate is under good control 6 Coumadin toxicity,, being reversed, reversed and the INR is down to 1.8 7 valvular heart disease with severe tricuspid regurgitation moderate mitral regurgitation secondary pulmonary hypertension moderate in severity 8 massive hematuria with coagulopathy with a 3-way Hayes catheter in place for constant irrigation 9 chronic anemia 10 history of gastric ulcers 2017 11 history of CVA/TIA 12 severe lactic acidosis, Currently at 4.8 in follow-up levels are improving 13 obstructive uropathy and the patient is a Hayes catheter in place and the patient has multiple clots being irrigated from the Hayes catheter with some ongoing urinary retention. Plan continue vent support and no ventilator changes will be done for today. Chest x-ray was reviewed. Blood gases was reviewed. Keep the Hayes irrigated and this possibly can be stopped today as the majority is clearing. This will be discussed with urology the patient's INR is down to 1.8 temperature has normalized Continue IV cefepime and the cultures are negative for now Check lactic acid level monitor the progress, and repeat lactic acid levels, Is a improving and the lactic acid level is down to 4.8 Echo was was done and the patient has an ejection fraction of 40-45% along with mitral regurgitation. The patient also had a CAT scan of the abdomen that showed some ascites. Otherwise no acute intra-abdominal abnormalities noted. nephrology and urology on the case attempts to wean off the pressors if possible. The patient has high pressor requirements at this point in time. We'll check a serum cortisol level. We'll add vasopressin and gradually wean off the norepinephrine infusion if possible. Obviously prognosis poor baseline above-mentioned comorbidities.condition is critical. We'll continue to follow.condition remains critical. This is a critically care evaluation was done and more than 30 minutes. Time with Patient: Greater than 30
[2020-08-16] MEDS: MIDODRINE 5 MG TAB PO SCH ×3 (07:39→16:07)
[2020-08-16] MEDS: FERROUS SULFATE 325 MG TAB PO SCH ×2 (07:39→16:07)
[2020-08-16 07:44] LABS: ALT 709 U/L (4-34)
[2020-08-16] MEDS: SODIUM CHLORIDE 0.9% 150 ML with VASOPRESSIN 60 UNIT IV SCH ×2 (08:05)
[2020-08-16] MEDS: metroNIDAZOLE-NS PMX 500 MG in SALINE 1 100ML.BAG IVPB SCH ×2 (08:05→16:44)
[2020-08-16 08:06] LABS: AST 1814 U/L (14-36)
[2020-08-16] MEDS: allopurinoL 100 MG TAB PO SCH (08:06)
[2020-08-16] MEDS: CEFEPIME 1 GM in SODIUM CHLORIDE 0.9% 50 ML IVPB SCH (08:06)
[2020-08-16] MEDS: HYDROCORTISONE SUCCINATE 100 MG/2 ML VIAL IV SCH ×2 (08:06→17:41)
[2020-08-16] MEDS: PANTOPRAZOLE 40 MG/10 ML VIAL IVP SCH ×2 (08:06→20:13)
[2020-08-16] MEDS: CHLORHEXIDINE GLUCONATE 15 ML CUP MUCOUS MEM SCH ×2 (08:06→20:14)
[2020-08-16] MEDS: CLOPIDOGREL 75 MG TAB PO SCH (08:07)
[2020-08-16] MEDS: CHOLECALCIFEROL 400 UNIT TAB PO SCH (08:07)
[2020-08-16] MEDS: polyethylene glycoL 3350 17 GM POWD.PACK PO SCH (08:07)
[2020-08-16] MEDS: SODIUM BICARBONATE TAB 650 MG TAB PO SCH (08:07)
[2020-08-16] MEDS: LINEZOLID 600 MG in DEXTROSE/WATER 1 300ML.BAG IVPB SCH ×2 (08:07→20:13)
[2020-08-16] MEDS: METOPROLOL TARTRATE 25 MG TAB PO SCH ×2 (08:07→20:14)
[2020-08-16] MEDS ORDERED: DEXTROSE 5% IN WATER 100 ML with AMIODARONE 150 MG IV ONE (09:18)
--- NOTE | 2020-08-16 09:32 | PN ---
PROGRESS NOTE Mrs. Hull has been in atrial fibrillation, rapid rate, requiring amiodarone and Cardizem with hypotension and was on Levophed. I performed electrical cardioversion unsuccessfully. I believe we will discontinue Cardizem altogether, place her only on amiodarone intravenously and see how she does. We will try rate control and her INR was 1.8. She has had Coumadin toxicity before. S1-S2 heard normally, regular rhythm noted, short systolic murmur noted. Lungs reveal ventilator-assisted breath sounds. Prognosis remains poor. Electrical cardioversion was unsuccessful. MMODL / IJN: [id number] /
--- NOTE | 2020-08-16 10:34 | XR ---
EXAMINATION TYPE: XR chest 1V portable DATE OF EXAM: 08/16/2020 COMPARISON: 08/15/2020 HISTORY: Tube placement TECHNIQUE: Single frontal view of the chest is obtained. FINDINGS: ET and NG tube stable in appearance and position. Heart is enlarged. Patient rotated diffu se bilateral airspace disease. Ingestion previous surgery in the left perihilar region. Small bilater al effusions. No pneumothorax. IMPRESSION: 1. Diffuse bilateral airspace disease is stable correlate for diffuse pneumonia, ARDS or pulmonary ed gian.
--- NOTE | 2020-08-16 10:38 | CE ---
CARDIAC ELECTROPHYSIOLOGY REPORT PROCEDURE: Electrical cardioversion. INDICATION: Persistent atrial fibrillation with hemodynamic impairment requiring high doses of Levophed. CLINICAL INFORMATION: Mrs. Jackie Hull is an 80-year-old lady with Coumadin toxicity, GI bleeding, bleeding from the suprapubic catheter, persistent atrial fib rapid rate with hypotension requiring high doses of Levophed. She was advised electrical cardioversion and the patient's family was consulted. Consent was obtained. PROCEDURE NOTE: The patient was deeply sedated with Diprivan. She was bagged with the Ambu bag. Anterior and posterior patches were placed. Initially a 200 joule shock was delivered to the chest wall, but patient remained in atrial fibrillation. A second shock of 250 joules was delivered and at this point, she converted to sinus rhythm for maybe 15-20 seconds and then went back into atrial fibrillation with a rate of about 90-120 beats per minute. This was an unsuccessful electrical cardioversion. Details were discussed with the patient and family will be informed. We will pursue rate control with amiodarone only and discontinue Cardizem in view of hypotension and continue Levophed to support her blood pressure. Prognosis remains poor. MMODL / IJN: [id number] /
[2020-08-16 11:01] LABS: Glucose,Whole Blood 171 mg/dL (75-99)
[2020-08-16 11:33] LABS: Albumin 2.9 g/dL (3.5-5.0); Potassium 3.5 mmol/L (3.5-5.1); Total Bilirubin 4.7 mg/dL (0.2-1.3); Total Protein 5.7 g/dL (6.3-8.2)
[2020-08-16 11:43] LABS: Calcium 6.3 mg/dL (8.4-10.2)
--- NOTE | 2020-08-16 11:51 | P.PN ---
Progress Note - Text Progress Note Date: 08/16/20 The Hayes catheter is draining urine which is essentially clear in color with continuous bladder irrigation running slowly. The patient is to be placed on anticoagulants. This will need to be held if the hematuria worsens. Continuous bladder irrigation will be continued at this time.
--- NOTE | 2020-08-16 12:21 | P.PN ---
Subjective 78-year-old pleasant female with history of atrial fibrillation on the anticoagulation with Xarelto, previous history of GI bleed and gastric ulcer, CVA/TIA. Patient follow-up with Dr. Birch who is recently retired at [place] and she is looking for a new PCP now. She went to [facility] for right leg pain were stent was placed, she was discharged home 3 days ago, last Thursday, at [facility] Zayas catheter was placed and states it was bloody at that time. She was sent home with a Zayas catheter, however she started feeling uncomfortable in her bladder where the Zayas felt like hurting but she denies any abdominal pain, she felt that she has to P old time and there was blood in the urine catheter so she decided to come to the hospital. She denies any nausea vomiting. No chest pain or dyspnea. She is on 2 L oxygen via nasal cannula at home, it was bumped up to 4 L at [facility] as per patient, she has chronic hypoxic respiratory failure related to her COPD. She denies chest pain or headache or weakness. Originally she was on aspirin daily however she states the last of added to her and [place]. Patient was noted to be on Plavix 75 mg and aspirin 81 mg at home. She denies smoking, she drinks couple cups of wine every week. No illicit drugs On admission her blood pressure was 101/88, this morning was 83/63. However repeat blood pressure went up to 101/59, heart rate on admission was 138, currently is 108, she is saturating 95% on 4 L oxygen via nasal cannula Labs on admission showed hemoglobin of 7.4, rest of the CBC is unremarkable. INR is 1.2. EKG showing atrial fibrillation's with RVR at 133. 08/01/2020 Patient is lying in bed comfortable. No distress. She is not tachypneic. However she still on 4 L oxygen via nasal cannula compared to his doctor at home. No coughing or chest pain but she has bilateral basal crepitation.. Patient feels generally better today, she was admitted mainly for discomfort in her urinary bladder area which is improved today She is hemodynamically stable other than that. Labs from today are still pending. Sugars controlled. Iron study showing iron deficiency anemia with iron low at 21, normal TIBC at 397 and low iron saturation at 5.2%. And normal ferritin at 45. 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 No abdominal pain. And she tolerates diet. She is on Protonix IV daily. Occult blood in stool still pending There is blood in the urine. Urinalysis showing urine RBC more than 182, urine WBC of more than 182. Urine culture is ordered and is pending, patient will be started on Levaquin empirically for possible UTI pending UC, patient is ALLERGIC to penicillin Dr. Elias evaluated the patient and recommended to discontinue Zayas catheter and check PVR. Also recommended to follow up as an outpatient for possible cystoscopy. Patient informed and she agrees. Risks including but not limited to cancer explained to him and she verbalized understanding. Also she has acute kidney injury from yesterday with creatinine 1.7, could be related to her CHF exacerbation in view of basal crepitation and more oxygen requirement. Chest x-ray also was abnormal. We changed her Lasix from 40 mg orally to intravenously today. Echocardiogram is still pending. Heart rate is controlled on oral medication. Xarelto is on hold for hematuria 08/02/2020 Patient still feels generally weak. She still have hematuria through the Zayas catheter. No chest pain or significant dyspnea at rest. She saturating 98% 4 L oxygen via nasal cannula. Her creatinine is down to 1.8 today however her potassium is 2.4 and his been replaced, morning dose of Lasix is been held because of the significantly low potassium. Sodium 131. Blood pressure is a stable, is chronically low while the patient is asymptomatic.Occult blood in the stool is negative. Xarelto still on hold. Patient still on Plavix but aspirin is still on hold as well. Hemoglobin stable at 9.1 She continue on Levaquin for possible UTI, urine cultures pending. 08/03/2020 Today clinically the same, she feels generally weak, however she is breathing quietly and she saturating 99% and a 3 L oxygen via nasal cannula, no much basal crepitation after she was started on IV fluids. She still have the Zayas catheter with some blood in it although it's less severe compared to yesterday. Hemoglobin only slightly lower than yesterday from 9.1 down to 8.1. Patient is on iron panel added yesterday. Also she is on the Plavix however aspirin is on hold. Urine analysis is suspicious for infection, urine culture has been sent and the result is pending, first urine culture is negative but we are going to repeat it.o OxyContinnin is appreciated and they lowered dose of Cardizem from 180 down to 120. Blood pressure today slightly stable at 103/61. Heart rate is 88. Also normal saline at 50 mL per hour was added and creatinine slightly better today at 1.6. 08/04/2020 Patient is awake, clinically the same. It looks like her blood pressure is stable and her sodium is improving gradually to 1.5 with initiation of normal saline, sewed it was also improved 133. Oxygen requirement and stabilized 3-4 L/m. No pulmonary congestion on examination. Heart rate is regular to be controlled while on metoprolol. Eliquis was initiated per neurology team recommendation and store associate team input. Also nephrology recommended to discontinue Zayas catheter and monitor PVR. Her urine was tea color today today showing improvement. Urine culture is growing group D enterococcus. She remains on Levaquin pending the final sensitivity. 08/05/2020 pt is still clinically with weakness, zayas catheter is in place with tea colored urine, urine culture is growing enterococcus resistant to Levaquin which is a stopped, it is sensitive to vancomycin, linezolid and other medication. Patient was started on linezolid and lipase are consult for infectious disease team for further recommendation. Nephrology team recommended to discontinue Zayas catheter however due to resistant bacteria and undergoing infection we will keep it for now total sensitive to antibiotic is started. Chest x-ray is suspicious for CHF versus some chronic or fibrotic changes (similar to 5 days ago ) with no worsening despite IV fluids for more than 48 hours but clinically patient does not behave slightly CHF however she stated bed most of the time. Swabber recommended to increase metoprolol to 3 times a day. Creatinine is stable at 1.5, blood pressure is a stable 08/06/2020 Patient is generally weak, yesterday patient was started on Zyvox for enterococcus in the urine based on culture and sensitivity. Vancomycin is try to be avoided cause of her hematuria and risk of nephrotoxicity. Infectious disease were consulted and they recommended to continue with Zyvox for 2 weeks upon discharge. Zayas catheter was removed today, we will keep monitoring for bladder scan. Patient is on fluid restriction 1500 mL per day. Patient creatinine is slightly up to 1.7, sodium is stable at 1:30, oxygen requirement came down to 50 L/m which is her baseline, blood pressure slightly on the low normal side at 90/52 after metoprolol was increased to 3 times daily per cardiology recommendation. Patient remains on Eliquis for her history of A. fib with RVR, currently her heart rate is controlled. She remains on Zyvox and Eliquis as above Prognosis is guarded PT/OT recommended home health care 08/07/2020 Patient weakness improving, this is the first day we see her sitting in the chair. She is being treated in currently with Zyvox for her to deal cocci UTI, his hematuria significantly improved, Zayas catheter was discontinued. We will monitor her PVR very closely. As per documentation of a copy for Zyvox is 69 and I discussed with the patient and she agrees with taking it for up to 2 weeks. Patient instructed to follow up with Dr. Elias in 2 weeks to check for cystoscopy at his office for the patient. Patient also informed and she agrees also showing heparin sodium 2126 and decrease in creatinine to 1.9. 1 dose of Lasix is provided for the patient. Iv fluids are on hold 08/08/2020 Patient feels generally more week today with no specific symptoms. She still have difficulty urination. Zayas catheter is out and we checked a bladder scan. Her creatinine trended up to 2.2 today and she was hypotensive last night, metoprolol which was recently increased by cardiology team to 25 mg 3 times a day was lowered back again to twice daily Staff Nurse [facility] [employer] Team on the case and recommended 1 dose of Lasix. Blood pressure still borderline so we'll keep her in telemetry bed and selective unit Today the Eliquis co-pay was found to be over $450, Eliquis was stopped and started on Coumadin with Lovenox bridgi per pharmacy to dose Prognosis remains guarded 08/09/2020 Patient feels better today, she states that she is voiding easier than yesterday although she still have some difficulty. No abdominal pain and no other sym ptoms. Her blood pressure is better today, after medial drain has been added. Systolic blood pressure is ranging between 100-105 She has worsening creatinine today to 2.3. Sodium slightly improved at 129. INR is 1.5 after Coumadin started with Lovenox bridging. She remains on Zyvox for enterococcus UTI, also on Coumadin with Lovenox bridging. She continued medial drain and metoprolol 25 mg twice daily. Metformin as an hold and sugars controlled. 08/10/2020 This is a pleasant 80 years old female who was originally admitted for hematuria and A. fib with RVR. Hematuria secondary to UTI with enterococcus on Zyvox was started, his urinary symptoms were improving, she had a Zayas catheter and Dr. Elias was following her, eventually Zayas catheter was removed and patient continued with bladder scan monitoring. On admission her creatinine was 1.7 start worsening with continuation of home Lasix to 2.2, then IV fluid was started gently and her creatinine started improving to 1.5. At that point cardiology team increased metoprolol dose to 3 times daily for better control of A. fib, with creatinines start trending up again. Then IV fluids were stopped and patient was getting Lasix intravenously for the last few days however creatinine only showing slight improved today to 2.1, also today patient clinically she is in acute CHF as she has more leg swelling more short of breath. Her metoprolol is currently twice daily , medodrain was admitted for better blood pressure control. Metformin is on hold.Her blood pressure this morning was 92/66-110/66. Heart rate around 100. Oxygen saturation 97% on 2 L oxygen nasal cannula. Patient Eliquis co-pay was more than $450, so patient was started on Coumadin with Lovenox bridging. Echocardiogram: Ejection fraction 40-45%. Severe tricuspid regurgitation, moderate pulmonary hypertension, moderate mitral regurgitation Labs showing WBC 3.6K, hemoglobin 8.8, platelets 145k, sodium 129, creatinine 2.1, glucose control.INR is 1.6 all she is on Coumadin 08/14/2020, patient was been followed by my colleague over the last 3 days Yesterday patient became hypotensive and hypothermic and she was transferred to the ICU. And this morning patient was found more lethargic and she got intubated by pulmonary/critical care team, patient could not provide information today. Her temperature yesterday was 93.3, currently is 97.5 on Armand hugger. Also she was hypotensive yesterday like 66/32 currently she is on Levothroid 0.05 g per KG per minute. Her lactic acid was elevated 8.8 and currently 12.1. She is quite acidotic with pH of 7.1, pCO2 low 32 and pO2 of 148. She is on sodium bicarb drip. Also she is on amiodarone drip for A. fib and RVR, metoprolol was stopped. Asked the staff to call cardiology team for further recommendation Abdomen is distended and KUB so suspicious of ileus. Zayas catheter has been changed to reverse arteries and there is hematuria, not much urine output. She was already started on cefepime yesterday, we added Zyvox and Flagyl to cover gram-negative, gram-positive bacteria and anaerobes. Also I talked with the son Mr. Eleno Hull at [phone] and he is aware of his critical condition of his mother and all his questions were answered 08/15/2020 Patient is intubated and sedated in the ICU with pulmonary/critical care team are following. Patient remains in critical condition although there is some improvement and some improvement in lab numbers. No plans for weaning trial currently. She still needs pressors for blood pressure support. She remains on broad-spectrum antibiotics with cefepime, Flagyl and Zyvox. Aspiration pneumonia is suspected. Her creatinine is still elevated at 3.4, deputy court team R following closely. Sodium 132, INR is improving to 1.8. Lactic acid improvement 4.9 but still elevated. Her hyperthermia improved. She still has Zyaas catheter with irrigation and decent urine output. Several consultants on the case including pulmonary, nephrology, cardiology and neurology as well as infectious disease. 08/16/2020 Patient remains in the ICU intubated and sedated, she remains in critical condition. Pulmonary/critical care team R following the case very closely. Today she needs higher doses of pressors, Levophed was maximized at 0.75, then passed percent was added and the dose of Levophed lowered currently to 0.6. Cardiology team managed to cardiovert her however she remained on atrial fibrillation, a bolus of amiodarone was provided and then she converted to sinus rhythm. Cardizem is off now. She has leukocytosis of 14.4 K. INR is 1.8. PH is slightly alkalotic with 7.46, pCO2 is within reference range at 38 and low pO2 at 75. Creatinine is around the same at 3.15. Sodium 131, potassium 3.5, glucose is controlled. Calcium 6.3 which is low. Lactic acid still elevated over the last couple days that is around the same at 4.8 today. Sputum culture is growing gram-negative bacilli. Chest x-ray showing diffuse bilateral airspace disease is a stable correlate for diffuse pneumonitis, ARDS or pulmonary edema She is a still on broad-spectrum antibiotics with cefepime, Zyvox and IV Flagyl. reView of systems: n/a Active Medications Generic Name Dose Route Start Last Admin Trade Name Freq PRN Reason Stop Dose Admin Acetaminophen 325 mg 07/31/20 09:28 08/12/20 00:01 Acetaminophen Tab 325 Mg Tab PO 325 mg Q6HR PRN Administration Fever and/ or Pain Allopurinol 100 mg 08/02/20 09:00 08/16/20 08:06 Allopurinol 100 Mg Tab PO Not Given DAILY MERRICK Alprazolam 0.5 mg 08/04/20 20:59 08/12/20 00:02 Alprazolam 0.5 Mg Tab PO 0.5 mg BID PRN Administration Anxiety Atorvastatin Calcium 40 mg 07/31/20 21:00 08/15/20 21:57 Atorvastatin 40 Mg Tab PO Not Given HS MERRICK Chlorhexidine Gluconate 15 ml 08/14/20 21:00 08/16/20 08:06 Chlorhexidine Gluconate 15 Ml Cup MUCOUS MEM 15 ml BID MERRICK Administration Cholecalciferol 400 unit 07/31/20 10:00 08/16/20 08:07 Cholecalciferol 400 Unit Tab PO Not Given DAILY MERRICK Clopidogrel Bisulfate 75 mg 07/31/20 09:00 08/16/20 08:07 Clopidogrel 75 Mg Tab PO Not Given DAILY MERRICK Ferrous Sulfate 325 mg 08/01/20 08:15 08/16/20 07:39 Ferrous Sulfate 325 Mg Tab PO Not Given BID-W/MEALS MERRICK Hydrocortisone Sodium Succinate 50 mg 08/13/20 09:00 08/16/20 08:06 Hydrocortisone Succinate 100 Mg/2 Ml Vial IV 50 mg DAILY MERRICK Administration Sodium Chloride 1,000 mls @ 20 mls/hr 07/31/20 00:30 08/16/20 01:58 Saline 0.9% IV 20 mls/hr .Q24H MERRICK Administration Propofol 1,000 mg/ IV Solution 100 mls @ 0 mls/hr 08/14/20 10:15 08/16/20 08:14 IV 45 mcg/kg/min .Q0M MERRICK 22.842 mls/hr Administration Protocol Titrate Linezolid 600 mg/ IV Solution 300 mls @ 150 mls/hr 08/14/20 10:30 08/16/20 08:07 IVPB 150 mls/hr Q12HR MERRICK Administration Protocol Metronidazole 500 mg/ IV 100 mls @ 100 mls/hr 08/14/20 10:30 08/16/20 08:05 Solution IVPB 100 mls/hr Q8HR MERRICK Administration Norepinephrine Bitartrate 32 250 mls @ 1.737 mls/hr 08/14/20 12:45 08/16/20 10:05 mg/ Sodium Chloride IV 0.6 mcg/kg/min .Q24H MERRICK 20.841 mls/hr Titration Protocol 0.05 MCG/KG/MIN Cefepime HCl 1 gm/ Sodium 50 mls @ 12.5 mls/hr 08/15/20 09:00 08/16/20 08:06 Chloride IVPB 12.5 mls/hr Q24HR MERRICK Administration Diltiazem HCl 125 mg/ Sodium 125 mls @ 0 mls/hr 08/15/20 07:15 08/16/20 07:00 Chloride IV Infused .Q0M MERRICK Titration Protocol Per Protocol Amiodarone HCl 300 mg/ 250 mls @ 25 mls/hr 08/15/20 08:00 08/16/20 05:13 Dextrose/Water IV 0.5 mg/min .Q10H MERRICK 25 mls/hr Administration 0.5 MG/MIN Vasopressin 60 unit/ Sodium 153 mls @ 4.59 mls/hr 08/16/20 07:30 08/16/20 08:05 Chloride IV 4.59 mls/hr .Q24H MERRICK Administration 0.03 UNITS/MIN Insulin Aspart 0 unit 08/15/20 00:00 08/16/20 11:20 Insulin Aspart (Novolog) 100 Unit/Ml Vial SQ 2 unit Q6H MERRICK Administration Protocol Metoprolol Tartrate 25 mg 08/08/20 09:00 08/16/20 08:07 Metoprolol Tartrate 25 Mg Tab PO Not Given BID MERRICK Midodrine 10 mg 08/08/20 09:21 08/16/20 11:28 Midodrine 5 Mg Tab PO Not Given AC-TID MERRICK Miscellaneous Information 1 each 08/03/20 15:58 Potassium Replacement Protocol 1 Each Misc MISCELLANE DAILY PRN Per Protocol Protocol Miscellaneous Information 0 each 08/08/20 15:05 Warfarin Per Pharmacy MISCELLANE DIRECTED PRN Per protocol Morphine Sulfate 2 mg 08/01/20 17:29 08/13/20 11:55 Morphine Sulfate 2 Mg/Ml Syringe IV 2 mg Q4HR PRN Administration Severe Pain Naloxone HCl 0.2 mg 07/31/20 00:23 Naloxone 0.4 Mg/Ml 1 Ml Vial IV Q2M PRN Opioid Reversal Nitroglycerin 0.4 mg 07/31/20 09:30 Nitroglycerin Sl Tabs 0.4 Mg Tab SUBLINGUAL Q5M PRN Chest Pain Pantoprazole Sodium 40 mg 08/14/20 13:15 08/16/20 08:06 Pantoprazole 40 Mg/10 Ml Vial IVP 40 mg BID MERRICK Administration Polyethylene Glycol 17 gm 07/31/20 09:45 08/16/20 08:07 Polyethylene Glycol 3350 17 Gm Powd.Pack PO Not Given DAILY MERRICK Sodium Chloride 3,000 ml 08/14/20 17:15 08/16/20 10:38 Sodium Chloride 0.9% Irrig 3,000 Ml Bag IRRIGATION 3,000 ml Q1HR PRN Administration IRRIGATION Trazodone HCl 50 mg 07/31/20 09:30 08/07/20 20:29 Trazodone Hcl 50 Mg Tab PO 50 mg HS PRN Administration Insomnia Warfarin Sodium 1 mg 08/16/20 18:00 Warfarin 1 Mg Tab PO 08/16/20 18:01 ONCE@1800 ONE Objective - Vital Signs Vital signs: Vital Signs Temp 97.2 F L 08/16/20 08:00 Pulse 79 08/16/20 11:15 Resp 21 08/16/20 11:15 BP 105/82 08/16/20 07:45 Pulse Ox 90 L 08/16/20 11:15 Intake & Output 08/15/20 08/16/20 08/16/20 18:59 06:59 18:59 Intake Total 58749.413 4354.750 3996.351 Output Total 88574 7150 2225 Balance 188.413 -2795.250 1771.351 Weight 85.5 [place]: [place] [address] 3716 3683.0 Cefepime 1 gm In Sodium 50 50 Chloride 0.9% 50 ml @ 12. 5 mls/hr IVPB Q12HR [facility] Rx#:[id number] Continuous Bladder 94747 3000 3000 Irrigation Dextrose 5% in Water 1, 825 000 ml @ 75 mls/hr IV . [id number] MERRICK with Sodium Bicarb (1 Meq/ml) 150 ml Rx#:[id number] Linezolid 600 mg In 300 Dextrose/Water 1 300ml. bag @ 150 mls/hr IVPB Q12HR [facility] Rx#:[id number] Potassium Chloride 20 meq 100 100 In Water For Injection 1 100ml.bag @ 50 mls/hr IVPB Q2H [facility] Rx#: [id number] Sodium Chloride 0.9% 1, 260 480 200 000 ml @ 20 mls/hr IV . Q24H [facility] Rx#:[id number] Sodium Chloride 0.9% 150 18.0 ml @ 0.03 UNITS/MIN 4.59 mls/hr IV .Q24H MERRICK with Vasopressin 60 unit Rx#: [id number] metroNIDAZOLE-NS PMX 500 200 100 100 mg In Saline 1 100ml.bag @ 100 mls/hr IVPB Q8HR [facility] Rx#:[id number] pressure bag' 36 36 15 Intake, IV Titration 511.413 638.750 313.351 Amount Amiodarone 300 mg In 220.417 250 Dextrose 5% in Water 250 ml @ 0.5 MG/MIN 25 mls/hr IV .Q10H [facility] Rx#: [id number] Diltiazem 125 mg In 125 Sodium Chloride 0.9% 100 ml @ Per Protocol IV .Q0M [facility] Rx#:[id number] Norepinephrine 32 mg In 148.019 198.228 88.351 Sodium Chloride 0.9% 218 ml @ 0.05 MCG/KG/MIN 1. 737 mls/hr IV .Q24H [facility] Rx#:[id number] propofoL 1,000 mg In 142.977 190.522 100 Empty Bag 1 bag @ Titrate IV .Q0M [facility] Rx#: [id number] Blood Product 606 Ffp 24 Cpd Unit 296 [id number] Ffp 24 Cpd Unit 310 [id number] Output: Urine 16309 7150 2225 Other: Voiding Method Indwelling Catheter Indwelling Catheter Indwelling Catheter ABP, PAP, CO, CI - Last Documented Arterial Blood Pressure 104/44 - Exam -GENERAL: The patient is intubated and sedated HEENT: Pupils are round and equally reacting to light. EOMI. No scleral icterus. No conjunctival pallor. Normocephalic, atraumatic. No pharyngeal erythema. No thyromegaly. CARDIOVASCULAR: S1 and S2 present. No murmurs, rubs, or gallops. -PULMONARY: Chest is clear to auscultation, no wheezing or crackles. Bilateral basal crepitation -ABDOMEN: Soft, nontender, nondistended, normoactive bowel sounds. No palpable organomegaly. Zayas catheter is in place with blood-colored urine MUSCULOSKELETAL: No joint swelling or deformity. -EXTREMITIES: No cyanosis, clubbing, bilateral leg edema. NEUROLOGICAL: Gross neurological examination did not reveal any focal deficits. SKIN: No rashes. No petechiae - Labs CBC & Chem 7: 08/16/20 02:00 08/16/20 10:56 Labs: Abnormal Lab Results - Last 24 Hours (Table) 08/15/20 08/15/20 08/15/20 Range/Units 12:56 15:33 15:33 WBC (3.8-10.6) k/uL RBC (3.80-5.40) m/uL Hgb (11.4-16.0) gm/dL Hct (34.0-46.0) % RDW (11.5-15.5) % Plt Count (150-450) k/uL Neutrophils # (1.3-7.7) k/uL Lymphocytes # (1.0-4.8) k/uL PT (9.0-12.0) sec INR (<1.2) ABG pH (7.35-7.45) ABG pO2 (83-108) mmHg ABG HCO3 (21-25) mmol/L ABG Total CO2 (19-24) mmol/L Sodium 132 L (137-145) mmol/L Potassium 3.0 L (3.5-5.1) mmol/L Chloride 92 L (98-107) mmol/L BUN 59 H (7-17) mg/dL Creatinine 3.46 H (0.52-1.04) mg/dL Glucose 190 H (74-99) mg/dL POC Glucose (mg/dL) (75-99) mg/dL Plasma Lactic Acid Rohit 4.7 H* 4.9 H* (0.7-2.0) mmol/L Calcium 6.5 L (8.4-10.2) mg/dL Total Bilirubin 3.5 H (0.2-1.3) mg/dL AST 1287 H (14-36) U/L ALT 503 H (4-34) U/L Alkaline Phosphatase 226 H (38-126) U/L Total Protein 6.0 L (6.3-8.2) g/dL Albumin 3.1 L (3.5-5.0) g/dL 08/15/20 08/15/20 08/16/20 Range/Units 16:33 17:00 00:44 WBC (3.8-10.6) k/uL RBC (3.80-5.40) m/uL Hgb (11.4-16.0) gm/dL Hct (34.0-46.0) % RDW (11.5-15.5) % Plt Count (150-450) k/uL Neutrophils # (1.3-7.7) k/uL Lymphocytes # (1.0-4.8) k/uL PT 17.2 H (9.0-12.0) sec INR 1.8 H (<1.2) ABG pH (7.35-7.45) ABG pO2 (83-108) mmHg ABG HCO3 (21-25) mmol/L ABG Total CO2 (19-24) mmol/L Sodium (137-145) mmol/L Potassium (3.5-5.1) mmol/L Chloride (98-107) mmol/L BUN (7-17) mg/dL Creatinine (0.52-1.04) mg/dL Glucose (74-99) mg/dL POC Glucose (mg/dL) 231 H 135 H (75-99) mg/dL Plasma Lactic Acid Rohit (0.7-2.0) mmol/L Calcium (8.4-10.2) mg/dL Total Bilirubin (0.2-1.3) mg/dL AST (14-36) U/L ALT (4-34) U/L Alkaline Phosphatase (38-126) U/L Total Protein (6.3-8.2) g/dL Albumin (3.5-5.0) g/dL 08/16/20 08/16/20 08/16/20 Range/Units 02:00 02:00 02:00 WBC 14.4 H (3.8-10.6) k/uL RBC 3.30 L (3.80-5.40) m/uL Hgb 8.5 L (11.4-16.0) gm/dL Hct 26.5 L (34.0-46.0) % RDW 20.3 H (11.5-15.5) % Plt Count 55 L (150-450) k/uL Neutrophils # 13.7 H (1.3-7.7) k/uL Lymphocytes # 0.4 L (1.0-4.8) k/uL PT 17.2 H (9.0-12.0) sec INR 1.8 H (<1.2) ABG pH (7.35-7.45) ABG pO2 (83-108) mmHg ABG HCO3 (21-25) mmol/L ABG Total CO2 (19-24) mmol/L Sodium 133 L (137-145) mmol/L Potassium 3.3 L (3.5-5.1) mmol/L Chloride 93 L (98-107) mmol/L BUN 61 H (7-17) mg/dL Creatinine 3.23 H (0.52-1.04) mg/dL Glucose 116 H (74-99) mg/dL POC Glucose (mg/dL) (75-99) mg/dL Plasma Lactic Acid Rohit (0.7-2.0) mmol/L Calcium 6.5 L (8.4-10.2) mg/dL Total Bilirubin (0.2-1.3) mg/dL AST (14-36) U/L ALT (4-34) U/L Alkaline Phosphatase (38-126) U/L Total Protein (6.3-8.2) g/dL Albumin (3.5-5.0) g/dL 08/16/20 08/16/20 08/16/20 Range/Units 02:00 02:00 05:48 WBC (3.8-10.6) k/uL RBC (3.80-5.40) m/uL Hgb (11.4-16.0) gm/dL Hct (34.0-46.0) % RDW (11.5-15.5) % Plt Count (150-450) k/uL Neutrophils # (1.3-7.7) k/uL Lymphocytes # (1.0-4.8) k/uL PT (9.0-12.0) sec INR (<1.2) ABG pH 7.46 H (7.35-7.45) ABG pO2 75 L (83-108) mmHg ABG HCO3 27 H (21-25) mmol/L ABG Total CO2 28 H (19-24) mmol/L Sodium (137-145) mmol/L Potassium (3.5-5.1) mmol/L Chloride (98-107) mmol/L BUN (7-17) mg/dL Creatinine (0.52-1.04) mg/dL Glucose (74-99) mg/dL POC Glucose (mg/dL) (75-99) mg/dL Plasma Lactic Acid Rohit 4.8 H* (0.7-2.0) mmol/L Calcium (8.4-10.2) mg/dL Total Bilirubin (0.2-1.3) mg/dL AST 1814 H (14-36) U/L ALT 709 H (4-34) U/L Alkaline Phosphatase (38-126) U/L Total Protein (6.3-8.2) g/dL Albumin (3.5-5.0) g/dL 08/16/20 08/16/20 08/16/20 Range/Units 05:51 10:56 10:59 WBC (3.8-10.6) k/uL RBC (3.80-5.40) m/uL Hgb (11.4-16.0) gm/dL Hct (34.0-46.0) % RDW (11.5-15.5) % Plt Count (150-450) k/uL Neutrophils # (1.3-7.7) k/uL Lymphocytes # (1.0-4.8) k/uL PT (9.0-12.0) sec INR (<1.2) ABG pH (7.35-7.45) ABG pO2 (83-108) mmHg ABG HCO3 (21-25) mmol/L ABG Total CO2 (19-24) mmol/L Sodium 131 L (137-145) mmol/L Potassium (3.5-5.1) mmol/L Chloride 92 L (98-107) mmol/L BUN 56 H (7-17) mg/dL Creatinine 3.15 H (0.52-1.04) mg/dL Glucose 157 H (74-99) mg/dL POC Glucose (mg/dL) 116 H 171 H (75-99) mg/dL Plasma Lactic Acid Rohit (0.7-2.0) mmol/L Calcium 6.3 L* (8.4-10.2) mg/dL Total Bilirubin 4.7 H (0.2-1.3) mg/dL AST (14-36) U/L ALT 792 H (4-34) U/L Alkaline Phosphatase 290 H (38-126) U/L Total Protein 5.7 L (6.3-8.2) g/dL Albumin 2.9 L (3.5-5.0) g/dL Microbiology - Last 24 Hours (Table) 08/14/20 23:50 Gram Stain - Preliminary Sputum Sputum Culture - Preliminary Gram Neg Bacilli 08/13/20 22:11 Blood Culture - Preliminary Blood No Growth after 48 hours 08/14/20 20:07 Blood Culture - Preliminary Blood No Growth after 24 hours Assessment and Plan Assessment: Possible septic shock, aspiration pneumonia is suspected Acute hypoxic respiratory failure needing intubation and mechanical ventilation Acute systolic on chronic CHF with ejection fraction 40-45% Acute hematuria, secondary to UTI. Culture growing group D enterococcus. Finish treatment with Zyvox Acute blood loss anemia Coagulopathy secondary to Coumadin. Improved Acute kidney injury, could be a combination of infection, cardiorenal syndrome, hypotension Hyponatremia Paroxysmal atrial fibrillation with RVR, was on Coumadin Valvular heart disease with severe tricuspid regurgitation and moderate mitral regurgitation Moderate pulmonary hypertension Acute and chronic hypoxic respiratory failure secondary to above. Improved Anemia, Rule out GI bleed History of gastric ulcer in 2018 History of CVA/TIA Plan: This is a pleasant 80 years old female who presents with A. fib and low hemoglobin suspicious for blood in urine and Zayas catheter. Currently patient in the ICU needing mechanical ventilation and pressors, sever consultants on the case including pulmonary/critical care team, cardiology, nephrology, infectious disease. Also urology team. Patient is on cefepime, we added Zyvox and Flagyl. Continue with her orogastric tube under suction for distended abdomen. Continue with Zayas catheter Continue with amiodarone drip. continue to hold Coumadin, hold metformin and beta stacie Labs and medication were reviewed.. Continue same treatment. Continue with symptomatic treatment. Resume home medication. Monitor lytes and vitals. DVT and GI prophylaxis. Further recommendations as per clinical course of the patient DVT prophylaxis: Coumadine with supratherapeutic INR GI Prophylaxis: Ppi Prognosis is guarded
--- NOTE | 2020-08-16 15:20 | PN ---
PROGRESS NOTE Patient is seen for followup for acute kidney injury. This morning patient's renal function has slightly improved with improvement in her actual urine output. She remains with irrigation. Hematuria has improved as well. Overall, patient's hemodynamics status has not improved significantly. She remains on large doses of Levophed and vasopressin was added as well. The patient is sedated. She is on the vent. Blood pressure this morning was 100/43, heart rate 91 per minute, she is afebrile. Examination of the heart S1, S2. Examination of the lungs, bilateral breath sounds are heard. Abdomen is soft. Examination of the lower extremities shows edema 2 to 3+ bilaterally upper and lower extremities. [employer] [facility] exam cannot be performed. LABS: Show hemoglobin 8.5, white cell count 14.4, sodium 131, potassium 3.5, chloride 92. BUN 56, serum creatinine 3.1, calcium is 6.3, lactic acid 4.8. ASSESSMENT: 1. Acute kidney injury secondary to hypotension, sepsis, currently improving. No need for renal replacement therapy. 2. Hypokalemia, being replaced. 3. Shock from sepsis, etiology possible pneumonia. Initially patient grew Enterococcus faecalis in the urine on 08/03/2020. However, this was treated. Sputum culture. Current sputum culture is growing Gram-negative bacilli. 4. Metabolic acidosis secondary to sepsis, lactic acidosis, currently off bicarb drip. 5. Atrial fibrillation with RVR maintained on amiodarone, status post cardioversion this morning. Also, maintained on Cardizem drip. PLAN: Continue IV antibiotics. Continue off IV fluids. The patient is volume overloaded. Repeat labs in a.m. Monitor electrolytes. Replace potassium. No need for renal replacement therapy at this time. MMODL / IJN: [id number] /
[2020-08-16] MEDS ORDERED: WARFARIN 1 MG TAB PO ONE (18:00)
[2020-08-16 18:38] LABS: Glucose,Whole Blood 132 mg/dL (75-99)
[2020-08-16] MEDS: ATORVASTATIN 40 MG TAB PO SCH (20:14)
[2020-08-16] MEDS ORDERED: APIXABAN 2.5 MG TABLET PO SCH (21:00)
--- NOTE | 2020-08-16 21:46 | PN ---
PROGRESS NOTE DATE OF SERVICE: 08/16/2020 REASON FOR FOLLOWUP: Sepsis and possible aspiration pneumonia. INTERVAL HISTORY: The patient is currently afebrile. The patient is on pressor support. Vasopressor had to be added. No significant purulent secretions in the ET have been reported or any diarrhea. She still has significant swelling in the legs. Urine is clearing out with the continuous flush. PHYSICAL EXAMINATION: Blood pressure 104/49 with a pulse of 104, temperature 99. She is 91% on 65% FiO2. General description is an elderly female lying in bed in no distress. RESPIRATORY SYSTEM: Unlabored breathing with decreased breath sounds at the base. No wheeze. HEART: S1, S2. Regular rate and rhythm. ABDOMEN: Soft. No tenderness. LABS: Hemoglobin is 8.5, white count 14.4. BUN of 56, creatinine 3.15. DIAGNOSTIC IMPRESSION AND PLAN: Patient with acute respiratory failure which is likely multifactorial with concern for likely aspiration etiology. Sputum showing Gram-negative. Patient is covered with cefepime, Flagyl as well as Zyvox. If no Gram-positive, Zyvox will be discontinued. Continue supportive care. MMODL / IJN: [id number] /
[2020-08-17] MEDS: AMIODARONE 300 MG in DEXTROSE 5% IN WATER 250 ML IV SCH ×4 (00:03→09:51)
[2020-08-17] MEDS: NOREPINEPHRINE 32 MG in SODIUM CHLORIDE 0.9% 218 ML IV SCH (00:03)
[2020-08-17 00:08] LABS: Glucose,Whole Blood 210 mg/dL (75-99)
[2020-08-17] MEDS: INSULIN ASPART (NovoLOG) 100 UNIT/ML VIAL SQ SCH ×3 (00:11→12:15)
[2020-08-17] MEDS: HYDROCORTISONE SUCCINATE 100 MG/2 ML VIAL IV SCH ×3 (00:11→16:53)
[2020-08-17] MEDS: metroNIDAZOLE-NS PMX 500 MG in SALINE 1 100ML.BAG IVPB SCH ×3 (00:12→16:18)
[2020-08-17 04:19] LABS: Anisocytosis Moderate; Basophils % (A) 0 %; Eosinophils % (A) 0 %; HCT 26.2 % (34.0-46.0); HGB 8.1 gm/dL (11.4-16.0); Hypochromasia Marked; Lymphocytes # (A) 0.1 k/uL (1.0-4.8); Lymphocytes % (A) 1 %; MCH 26.3 pg (25.0-35.0); MCHC 30.8 g/dL (31.0-37.0); Mean Platelet Volume 11.6; Microcytosis Slight; Monocytes # (A) 0.2 k/uL (0-1.0); Monocytes % (A) 1 %; Neutrophils # (A) 18.3 k/uL (1.3-7.7); Neutrophils % (A) 98 %; Poikilocytosis Moderate; RBC 3.07 m/uL (3.80-5.40); RDW 20.2 % (11.5-15.5); WBC 18.7 k/uL (3.8-10.6)
[2020-08-17 04:30] LABS: Prothrombin Time 19.9 sec (9.0-12.0)
[2020-08-17 04:40] LABS: MCV 85.5 fL (80.0-100.0); Platelet Count 33 k/uL (150-450)
[2020-08-17 05:01] LABS: Albumin 2.7 g/dL (3.5-5.0); Bilirubin, Conjugated 2.2 mg/dL (0.0-0.3); Bilirubin, Delta 1.9 mg/dL (0.0-0.2); Bilirubin,Unconjugated 0.5 mg/dL (0.0-1.1); Potassium 3.8 mmol/L (3.5-5.1); Total Bilirubin 4.6 mg/dL (0.2-1.3); Total Protein 5.5 g/dL (6.3-8.2)
[2020-08-17 05:09] LABS: Calcium 6.1 mg/dL (8.4-10.2)
[2020-08-17] MEDS ORDERED: POTASSIUM BICARBONATE/CIT AC 20 MEQ TABLET.EFF NG-TUBE SCH (06:00)
[2020-08-17 06:08] LABS: ABG HCO3 16 mmol/L (21-25); ABG PCO2 41 mmHg (35-45); ABG PO2 67 mmHg (83-108); ABG TCO2 17 mmol/L (19-24); Allen Test Performed? Yes
[2020-08-17] MEDS: MIDODRINE 5 MG TAB PO SCH ×3 (06:43→16:53)
[2020-08-17] MEDS: FERROUS SULFATE 325 MG TAB PO SCH ×2 (06:43→16:53)
[2020-08-17] MEDS: SODIUM CHLORIDE 0.9% 1,000 ML IV SCH (06:44)
[2020-08-17 06:59] LABS: Glucose,Whole Blood 185 mg/dL (75-99)
[2020-08-17] MEDS: SODIUM CHLORIDE 0.9% IRRIG 3,000 ML BAG IRRIGATION PRN ×2 (06:59→16:10)
[2020-08-17 07:12] VITALS: TEMP 90.5
--- NOTE | 2020-08-17 07:55 | P.PN ---
Subjective Progress Note Date: 08/17/20 80-year-old female patient was having lower blood pressure for quite some time, further this evening and the patient was asked to be seen by intensive care services. She is 80. She has chronic atrial fibrillation. She is chronic systolic heart failure with an ejection fraction of 40-45%. She has also valvular heart disease with moderate MR, CVAs tricuspid regurgitation moderate degree of pulmonary hypertension. She has previous history of CVA. She came in to the hospital and she had a enterococcal group D UTI and the patient was treated with antibiotics and she was getting Zyvox which was subsequently discontinued. During the course of her hospitalization, the patient developed an acute kidney injury. There has been further compromised the patient's renal function got worse and the patient developed also hypotension the patient was started on midodrine. This evening, systolic blood pressures the mid 70s. The patient is hypothermic with temperature 90.3. Blood work shows a component of acute on chronic kidney injury due to creatinine being up to 3.51 and the sodium is down to 129 and the patient has an anion gap of 16 with a serum bicarb of 16. Glucose at 120. INR is at 6.6. She was given 5 of vitamin K to reverse her coagulopathy. The white cell count is at 3.3. Hemoglobin is 9.7. Platelets are 108. She is hypothermic. She is on no antibiotics for now. Chest x-ray from yesterday shows pulmonary vessel congestion and small bilateral pleural effusion addition to cardiomegaly. The rousseau virus covid 19 evaluation came back negative.the patient overnight became hypotensive. The patient is currently the intensive care unit. Currently she is on norepinephrine infusion running at 0.2 g per KG per minute. She has a Hayes catheter in place and there is bloody output at this point in time. Irrigation was done throughout the night and the patient was producing clots. Her abdomen is distended. There is some urinary retention and the bladder scan showed at least 300cc of material collecting in her bladder. She was given another dose of vitamin K this morning for an INR of 5.9. Morning blood. showed a pH of 7.24 with a pCO2 of 28 and pO2 of 245patient is currently on oxygen at 3 L per minute. Lactic acid level is at 9.4. Overnight, the patient was given IV cefepime. Chest x-ray showing interstitial edema and worsening consolidation of the right lung.the patient was given another bolus of IV fluids and overall 2 L of IV fluids yesterday was given and the patient is currently on a bicarb infusion. She is in atrial fibrillation with rapid ventricular response and she is on amiodarone po on today's evaluation of 08/15/2020, the patient is being seen in follow-up in the intensive care unit. Events from yesterday was noted. The patient was in shock and she was profoundly hypotensive. She was started on IV fluids. Her coagulation profile was being reversed and the patient was having extensive hematuria. Meanwhile, the patient went into respiratory failure. I had to intubate the patient she's been intubated since. She is currently sedated with propofol running at 40 g per KG per minute. She is an assist-control mode at the rate of 80 with a tidal volume of 400 and FiO2 of 65% with a PEEP of 5. The blood gases from today showed a pH of 7.4 with a pCO2 of 35 and a pO2 of 87. His chest x-ray from today is showing adequate positioning of the ET tube and orogastric tube. The patient has bilateral pulmonary infiltrates consistent with interstitial edema. There was some worsening consolidation of the right lung and the right lung is still consolidated both in the lower lobe and the upper lobe. Upper lobe and left consolidated. Left lower lobe infiltrates and airspace disease also suspected. Hemodynamically, the patient is still requiring pressors. The patient is on bicarb infusion which is running at 75 mL an hour and she is on norepinephrine infusion running at 0.34 mcg/kg per minute. Her white cell count was at 9.9. Hemoglobin is at 8.2. The temperature has regulated and the patient's temperature has normalized and the patient received external warming. Her INR is down to 2.1 after being given 2 units of fresh frozen plasma and vitamin K. Her lactic acid level is down to 8.4 with a highest level of 11.7.Creatinine is on the rise. The patient's BUN is up to 63 with a creatinine of 3.7. Sodium is1 30. LFTs are abnormal with a AST of 962, ALT of 340. The patienthad a CAT scan of the abdomen yesterday that showed some anasarca in addition to some ascites. No acute intra-abdominal abnormalities. Lung bases were atelectatic. The gallbladder was contracted. There was bilateral perinephric fluids. No hydronephrosis was seen. There was small amount of air in the urinary bladder. No evidence of any bladder mass. No evidence of any pelvic mass. The patient continues to have a three-way 22- Upper [employer] Hayes catheter with irrigation. On 08/16/2020, the patient remains in intensive care unit. Currently she is sedated with propofol 40 g per KG per minute. His minimal symptoms the mechanical ventilator. At this point in time she is an assist-control mode at the rate of 18 with a tidal volume of 400 and a PEEP of 5 with an FiO2 of 65%. Her blood pressure with a pH of 7.46 with a pCO2 of 38 and pO2 of 75. The chest x-ray showing no major interval change. There is bilateral pulmonary infiltrates significantly worse on the right compared to the left. Consider pneumonia versus pulmonary edema. ET tube is in a good location. NG tube is in a good location. The patient is currently receiving IV fluids in the form of 0.9 and the bicarb drip was discontinued yesterday. Her net fluid balance is another 4.1 L positive over the past 24 hours. Actinic input output cannot be established as the patient was having continuous bladder irrigation. Her hematuria has subsided significantly and the urine output is clearing up. The patient was reversed in terms of her coagulopathy and her INR is down to 1.8. The patient received fresh frozen plasma and vitamin K yesterday. Her creatinine is down to 3.2 compared to yesterday. His serum bicarb is up to 28. Lactic acid level is down to 4.8 from a highest maximum level of 12. The patient is on IV cefepime as an empiric antibiotic coverage. She is afebrile. She was hypothermic which improves and she is normothermic for now. Meanwhile, she had a shock liver with an AST of 1287 and an ALT of 503 and a alkaline ph osphatase of 226. Hemodynamically, she remains in atrial fibrillation. Earlier this morning, the patient was on a combination of amiodarone drip and Cardizem drip. Based on her hemodynamic instability and high pressor requirements, the patient was given a trial of cardioversion which failed. Nevertheless, her headache is under better control for now and if in the mid 90s. She is in atrial fibrillation. She is on amiodarone drip. Cardizem drip was discontinued. The patient on norepinephrine infusion running at 0.74 g per KG per minute. She is easily arousable. She has developed significant edema in all 4 extremities. There is also some ascites and some mild abdominal distention. She remains nothing by mouth. NG tube is to low intermittent suction. On 08/17/2020 on seeing the patient for a follow-up. The patient remains critically ill. The patient is still on propofol running at 40 g per KG per minute. She remains on a mechanical ventilator. She is significant for a m [employer] ventilator. She is an assist-control mode at the rate of 16 with a tidal volume of 400 and FiO2 of 80% and a PEEP of 5. Blood gas showed a pH of 7.2 with a pCO2 of 40 and pO2 of 66. The patient is having bloody output from her ET tube. I saw probably 200 mL of blood aspirated from her lungs. Chest x- ray showed diffuse but the pulmonary infiltrates with extensive airspace disease involving both lungs more so on the right and there is interval progression and worsening. Consider the possibility of an alveolar hemorrhage. He was, the patient still having some hematuria. Cardiology decided on restarting anticoagulation yesterday and this exacerbated her hematuria and we have made recommendations to hold anticoagulation for now. Meanwhile, the patient remains in shock, she is requiring high-dose pressors. She is on examination vasopressin physiologic dose and norepinephrine drip which is running at 1.0 g per KG per minute. The urine output is normal to 40 mL an hour. The creatinine for today is at 3.25 and the patient developed again a component of acidosis with a serum bicarbonate dropping down to 16 and anion gap is currently at 23. The patient's has an INR today of 2.0. LFTs are slightly improved compared to yesterday, as the patient has developed a shock liver. She remains nothing by mouth and she has not incidentally enteral feeding for nutritional support for now. Her antibiotic coverage includes a combination of IV cefepime, Zyvox and Flagyl. Nevertheless, cultures of been all negative for now. She bounced out of atrial fibrillation currently she is in a normal sinus rhythm with frequent PACs. She remains on amiodarone drip at 0.5 mg per minute. Objective - Vital Signs Vital signs: Vital Signs Temp 90.5 F L 12/11/20 04:45 Pulse 68 08/17/20 07:00 Resp 8 L 08/17/20 07:00 BP 105/82 08/16/20 23:00 Pulse Ox 90 L 08/17/20 07:00 Intake & Output 08/16/20 08/17/20 08/17/20 18:59 06:59 18:59 Intake Total 4726.351 7323.531 47.5 Output Total 5100 3900 300 Balance -293.761 2879.531 -252.5 Weight 88.1 kg Intake: IV 4063.0 6772.5 47.5 Cefepime 1 gm In Sodium 50 Chloride 0.9% 50 ml @ 12. 5 mls/hr IVPB Q12HR MERRICK Rx#:[id number] Continuous Bladder 3000 6000 Irrigation Linezolid 600 mg In 300 150 Dextrose/Water 1 300ml. bag @ 150 mls/hr IVPB Q12HR [facility]ERRICK Rx#:[id number] Sodium Chloride 0.9% 1, 520 440 40 000 ml @ 20 mls/hr IV . Q24H [facility]ERRICK Rx#:[id number] Sodium Chloride 0.9% 150 54.0 49.5 4.5 ml @ 0.03 UNITS/MIN 4.59 mls/hr IV .Q24H [facility]ERRICK with Vasopressin 60 unit Rx#: [id number] metroNIDAZOLE-NS PMX 500 100 100 mg In Saline 1 100ml.bag @ 100 mls/hr IVPB Q8HR [facility]ERRICK Rx#:[id number] pressure bag' 39 33 3 Intake, IV Titration 663.351 551.031 Amount Amiodarone 300 mg In 250 206.667 Dextrose 5% in Water 250 ml @ 0.5 MG/MIN 25 mls/hr IV .Q10H [facility]ERRICK Rx#: [id number] Diltiazem 125 mg In 125 Sodium Chloride 0.9% 100 ml @ Per Protocol IV .Q0M [facility]ICK Rx#:[id number] Norepinephrine 32 mg In 88.351 244.364 Sodium Chloride 0.9% 218 ml @ 0.05 MCG/KG/MIN 1. 737 mls/hr IV .Q24H [facility]ICK Rx#:[id number] propofoL 1,000 mg In 200 100 Empty Bag 1 bag @ Titrate IV .Q0M [facility]ICK Rx#: [id number] Output: Urine 5100 3900 300 Other: Voiding Method Indwelling Catheter Indwelling Catheter ABP, PAP, CO, CI - Last Documented Arterial Blood Pressure 94/50 - Exam Gen: This is an 80-year-old female. the patient is currently intubated on mechanical ventilator. The patient is sedated and the patient is calm and comfortable.the patient is having bloody output from her orotracheal tu be. Head exam was generally normal. There was no scleral icterus or corneal arcus. Mucous membranes were moist. HEENT: Head is atraumatic, normocephalic. Pupils equal, round. Sclerae is anicteric. Oral mucous members slightly dry. NECK: Supple. No JVD. No lymphadenopathy. No thyromegaly. LUNGS: Clear to auscultation. No wheezes or rhonchi. No intercostal retractions. Crackles are present in lung bases bilaterally. HEART: Irregular rate and rhythm. Systolic murmur. the patient's rate is under better control and the heart is demented IDs in the form of atrial fibrillation. ABDOMEN: Soft. Bowel sounds are present. No masses. No tenderness.he abdomen is less distended compared to yesterday.the Hayes catheter is in place and the patient is having some bloody urine output. EXTREMITIES: there is bilateral lower extremity edemaand erythema significantly worsen all 4 extremities... No calf tenderness. Dorsalis pedis +1 bilaterally. NEUROLOGICAL: Patient is sedated, comfortable symptoms of the mechanical ventilator currently on propofol Examination of the skin revealed no evidence of significant rashes, suspicious appearing nevi or other concerning lesions.the patient has developed increased edema in all 4 extremities//in the legs. No open wounds or sores. - Labs CBC & Chem 7: 08/17/20 04:00 08/17/20 04:00 Labs: Abnormal Lab Results - Last 24 Hours (Table) 08/16/20 08/16/20 08/16/20 Range/Units 02:00 10:56 10:59 WBC (3.8-10.6) k/uL RBC (3.80-5.40) m/uL Hgb (11.4-16.0) gm/dL Hct (34.0-46.0) % MCHC (31.0-37.0) g/dL RDW (11.5-15.5) % Plt Count (150-450) k/uL Neutrophils # (1.3-7.7) k/uL Lymphocytes # (1.0-4.8) k/uL PT (9.0-12.0) sec INR (<1.2) ABG pH (7.35-7.45) ABG pO2 (83-108) mmHg ABG HCO3 (21-25) mmol/L ABG Total CO2 (19-24) mmol/L ABG O2 Saturation (94-97) % Sodium 131 L (137-145) mmol/L Chloride 92 L (98-107) mmol/L Carbon Dioxide (22-30) mmol/L BUN 56 H (7-17) mg/dL Creatinine 3.15 H (0.52-1.04) mg/dL Glucose 157 H (74-99) mg/dL POC Glucose (mg/dL) 171 H (75-99) mg/dL Calcium 6.3 L* (8.4-10.2) mg/dL Total Bilirubin 4.7 H (0.2-1.3) mg/dL Conjugated Bilirubin (0.0-0.3) mg/dL Delta Bilirubin (0.0-0.2) mg/dL AST 1814 H 2074 H (14-36) U/L ALT 709 H 792 H (4-34) U/L Alkaline Phosphatase 290 H (38-126) U/L Total Protein 5.7 L (6.3-8.2) g/dL Albumin 2.9 L (3.5-5.0) g/dL 08/16/20 08/17/20 08/17/20 Range/Units 18:37 00:07 04:00 WBC (3.8-10.6) k/uL RBC (3.80-5.40) m/uL Hgb (11.4-16.0) gm/dL Hct (34.0-46.0) % MCHC (31.0-37.0) g/dL RDW (11.5-15.5) % Plt Count (150-450) k/uL Neutrophils # (1.3-7.7) k/uL Lymphocytes # (1.0-4.8) k/uL PT 19.9 H (9.0-12.0) sec INR 2.0 H (<1.2) ABG pH (7.35-7.45) ABG pO2 (83-108) mmHg ABG HCO3 (21-25) mmol/L ABG Total CO2 (19-24) mmol/L ABG O2 Saturation (94-97) % Sodium (137-145) mmol/L Chloride (98-107) mmol/L Carbon Dioxide (22-30) mmol/L BUN (7-17) mg/dL Creatinine (0.52-1.04) mg/dL Glucose (74-99) mg/dL POC Glucose (mg/dL) 132 H 210 H (75-99) mg/dL Calcium (8.4-10.2) mg/dL Total Bilirubin (0.2-1.3) mg/dL Conjugated Bilirubin (0.0-0.3) mg/dL Delta Bilirubin (0.0-0.2) mg/dL AST (14-36) U/L ALT (4-34) U/L Alkaline Phosphatase (38-126) U/L Total Protein (6.3-8.2) g/dL Albumin (3.5-5.0) g/dL 08/17/20 08/17/20 08/17/20 Range/Units 04:00 04:00 06:00 WBC 18.7 H (3.8-10.6) k/uL RBC 3.07 L (3.80-5.40) m/uL Hgb 8.1 L (11.4-16.0) gm/dL Hct 26.2 L (34.0-46.0) % MCHC 30.8 L (31.0-37.0) g/dL RDW 20.2 H (11.5-15.5) % Plt Count 33 L (150-450) k/uL Neutrophils # 18.3 H (1.3-7.7) k/uL Lymphocytes # 0.1 L (1.0-4.8) k/uL PT (9.0-12.0) sec INR (<1.2) ABG pH 7.20 L (7.35-7.45) ABG pO2 67 L (83-108) mmHg ABG HCO3 16 L (21-25) mmol/L ABG Total CO2 17 L (19-24) mmol/L ABG O2 Saturation 90.0 L (94-97) % Sodium 132 L (137-145) mmol/L Chloride 93 L (98-107) mmol/L Carbon Dioxide 16 L (22-30) mmol/L BUN 54 H (7-17) mg/dL Creatinine 3.25 H (0.52-1.04) mg/dL Glucose 170 H (74-99) mg/dL POC Glucose (mg/dL) (75-99) mg/dL Calcium 6.1 L* (8.4-10.2) mg/dL Total Bilirubin 4.6 H (0.2-1.3) mg/dL Conjugated Bilirubin 2.2 H (0.0-0.3) mg/dL Delta Bilirubin 1.9 H (0.0-0.2) mg/dL AST 1943 H (14-36) U/L ALT 880 H (4-34) U/L Alkaline Phosphatase 286 H (38-126) U/L Total Protein 5.5 L (6.3-8.2) g/dL Albumin 2.7 L (3.5-5.0) g/dL 08/17/20 Range/Units 06:58 WBC (3.8-10.6) k/uL RBC (3.80-5.40) m/uL Hgb (11.4-16.0) gm/dL Hct (34.0-46.0) % MCHC (31.0-37.0) g/dL RDW (11.5-15.5) % Plt Count (150-450) k/uL Neutrophils # (1.3-7.7) k/uL Lymphocytes # (1.0-4.8) k/uL PT (9.0-12.0) sec INR (<1.2) ABG pH (7.35-7.45) ABG pO2 (83-108) mmHg ABG HCO3 (21-25) mmol/L ABG Total CO2 (19-24) mmol/L ABG O2 Saturation (94-97) % Sodium (137-145) mmol/L Chloride (98-107) mmol/L Carbon Dioxide (22-30) mmol/L BUN (7-17) mg/dL Creatinine (0.52-1.04) mg/dL Glucose (74-99) mg/dL POC Glucose (mg/dL) 185 H (75-99) mg/dL Calcium (8.4-10.2) mg/dL Total Bilirubin (0.2-1.3) mg/dL Conjugated Bilirubin (0.0-0.3) mg/dL Delta Bilirubin (0.0-0.2) mg/dL AST (14-36) U/L ALT (4-34) U/L Alkaline Phosphatase (38-126) U/L Total Protein (6.3-8.2) g/dL Albumin (3.5-5.0) g/dL Microbiology - Last 24 Hours (Table) 08/13/20 22:11 Blood Culture - Preliminary Blood No Growth after 72 hours 08/14/20 20:07 Blood Culture - Preliminary Blood No Growth after 48 hours 08/14/20 23:50 Gram Stain - Preliminary Sputum Sputum Culture - Preliminary Gram Neg Bacilli Assessment and Plan Plan: 1 acute hypoxic respiratory failure due to septic shock and multisystem organ failure. The patient is currently intubated on a mechanical ventilator.the chest x-ray showed worsening in the bilateral pulmonary infiltrates. There is also evidence of bloody secretions from her orotracheal tube. Consider underlying alveolar hemorrhage Consider superimposed pneumonia. The patient is currently on broad-spectrum antibiotics utilizing a combination of cefepime, Flagyl and Zyvox. 2 shock with secondary hypotension, subacute, consider septic shock . the patient is on broad-spectrum antibiotics. The patient is also on high-dose pressors including a combination of norepinephrine and physiologic dose of a suppressant. 2 acute on chronic kidney injury in the creatinine is rising at 3.2aand is stable compared to yesterday.. ppatient is still having some hematuria. Consider pulmonary renal syndrome where the patient is having hematuria and b loody output from her lungs. Consider vasculitis. 3 chronic systolic congestive heart failure with an ejection fraction of 40-45% 4 UTI secondary to enterococcus group D completed course of Zyvox 5 chronic atrial fibrillation,, currently in atrial fibrillation with rapid ventricular the patient is currently on amiodarone at 0.5 mg per minute And this morning the patient has converted to normal sinus mechanism 6 Coumadin toxicity,, being reversed, reversed and the INR is 2.0 7 valvular heart disease with severe tricuspid regurgitation moderate mitral regurgitation secondary pulmonary hypertension moderate in severity 8 massive hematuria with coagulopathy with a 3-way Hayes catheter in place for constant irrigation 9 chronic anemia 10 history of gastric ulcers 2017 11 history of CVA/TIA 12 severe lactic acidosis, 13 obstructive uropathy and the patient is a Hayes catheter in place and the patient has multiple clots being irrigated from the Hayes catheter with some ongoing urinary retention. 14 shock liver Plan continue vent support and no ventilator changes will be done for today. Chest x-ray was reviewed. Blood gases was reviewed. check MICHEAL level levels both P/C Keep the Hayes irrigated no anticoagulation for now. Stop Eliquis. Stop Plavix. give 2 units of fresh frozen plasma temperature is being monitored and the patient is slightly hypothermic again Continue IV cefepime and and Zyvox and Flagyl Check lactic acid level monitor the progress, and repeat lactic acid levels, Echo was was done and the patient has an ejection fraction of 40-45% along with mitral regurgitation. The patient also had a CAT scan of the abdomen that showed some ascites. Otherwise no acute intra-abdominal abnormalities noted. nephrology and urology on the case cardiac rhythm is back to sinus she is a DNR/CODE STATUS Obviously prognosis poor baseline above-mentioned comorbidities.condition is critical. We'll continue to follow.condition remains critical. This is a critically care evaluation was done and more than 30 minutes.
[2020-08-17] MEDS: SODIUM CHLORIDE 0.9% 150 ML with VASOPRESSIN 60 UNIT IV SCH ×4 (08:09→09:31)
[2020-08-17] MEDS: CEFEPIME 1 GM in SODIUM CHLORIDE 0.9% 50 ML IVPB SCH (08:13)
[2020-08-17] MEDS: allopurinoL 100 MG TAB PO SCH (08:13)
[2020-08-17] MEDS: CHOLECALCIFEROL 400 UNIT TAB PO SCH (08:13)
[2020-08-17] MEDS: CHLORHEXIDINE GLUCONATE 15 ML CUP MUCOUS MEM SCH (08:13)
[2020-08-17] MEDS: LINEZOLID 600 MG in DEXTROSE/WATER 1 300ML.BAG IVPB SCH (08:14)
--- NOTE | 2020-08-17 08:45 | P.PN ---
Progress Note - Text Progress Note Date: 08/17/20 The patient continues to receive continuous bladder irrigation. There is evidence of increased hematuria today, though no clots are seen. The catheter is draining well, and I do not intend to make any changes at this time. However, I am reluctant for her to receive anticoagulants in the face of active bleeding, as there is nothing I can do to resolve this other than cystoscopy with cauterization under anesthesia.
--- NOTE | 2020-08-17 09:06 | XR ---
EXAMINATION TYPE: XR chest 1V portable DATE OF EXAM: 08/17/2020 COMPARISON: Prior chest x-ray 08/16/2020 HISTORY: Intubated TECHNIQUE: Single frontal view of the chest is obtained. FINDINGS: Endotracheal tube, NG tube are overlying appropriate positions. Bilateral airspace disease persists. Heart is obscured. No evident pneumothorax. Difficult to exclude effusion. Patient is rota alycia. IMPRESSION: Correlate for pneumonia, edema, ARDS.
[2020-08-17] MEDS: METOPROLOL TARTRATE 25 MG TAB PO SCH (09:12)
[2020-08-17] MEDS: polyethylene glycoL 3350 17 GM POWD.PACK PO SCH (09:12)
[2020-08-17] MEDS: PANTOPRAZOLE 40 MG/10 ML VIAL IVP SCH (09:12)
--- NOTE | 2020-08-17 09:54 | PN ---
PROGRESS NOTE Mrs. Hull has converted to sinus rhythm and she is going in and out of atrial fibrillation. However, she is on a high dose of Levophed. She has hypothermia. She is in sinus rhythm with PACs making very less amount of urine. Prognosis looks very bad. I would recommend comfort care. She has multiple comorbid conditions. Blood pressure is about 100 systolic on a high dose of Levophed S1-S2 heard normally short systolic murmur noted lungs reveal diminished air entry. Abdomen and lower extremity exam are unchanged. Prognosis remains poor. I would recommend comfort care. MMODL / IJN: [id number] /
[2020-08-17 12:10] LABS: Glucose,Whole Blood 199 mg/dL (75-99)
[2020-08-17 12:27] VITALS: RESP 18
[2020-08-17] MEDS ORDERED: CISATRACURIUM 200 MG in SODIUM CHLORIDE 0.9% 180 ML IV SCH (12:30)
[2020-08-17 12:32] LABS: ABG Base Excess -12.8 mmol/L; ABG HCO3 16 mmol/L (21-25); ABG Oxygen Saturation 80.7 % (94-97); ABG PCO2 41 mmHg (35-45); ABG TCO2 17 mmol/L (19-24); Allen Test Performed? Yes
[2020-08-17 12:34] LABS: ABG PH 7.18 (7.35-7.45)
[2020-08-17 12:35] LABS: ABG PO2 54 mmHg (83-108)
--- NOTE | 2020-08-17 12:45 | PN ---
PROGRESS NOTE Patient is seen for followup for acute kidney injury, currently nonoliguric with some improvement in renal function over the last couple of days. Patient; however, remains significantly hemodynamically unstable with the worsening shock status. Her Levophed is up to 70 mcg. She is also on the vasopressin. Sputum cultures are growing Gram- negative bacilli. The patient is maintained on multiple antibiotics. She has underlying coagulopathy and has received FFP, vitamin K. Patient was also in atrial fibrillation with RVR status post cardioversion. Heart rate seems to be better controlled. Anticoagulation was restarted but stopped again secondary to worsening bleeding. Overnight, patient developed worsening hypoxia and FiO2 is now maintain at 100%. She did have a bronch done this morning which did not show any bleeding within the alveoli. Serologies for possible underlying vasculitis have been ordered today. PHYSICAL EXAMINATION: On examination today, patient is sedated, she is on the vent. Blood pressure 82/44, heart rate 98 per minute she is afebrile. Examination shows the examination of the heart. Heart sounds are heard. Examination of the lungs, bilateral breath sounds are heard. Abdomen is soft. Examination of the lower extremities shows edema 2+ bilaterally upper and lower extremities. [employer] exam cannot be performed. LABS: Show hemoglobin 8.1 g/dL. Platelet count is low at 33. Sodium 132, potassium 3.8, chloride 93, CO2 is 16, BUN 54, serum creatinine 3.25. Lactic acid is again elevated at 11.8. ASSESSMENT: 1. Acute kidney injury, most likely acute tubular necrosis. The patient has had hematuria. She had significant coagulopathy with elevated INR at about 7. Initial urine culture grew Enterococcus faecalis for which patient was maintained on Zyvox. I doubt underlying acute GN. However, serologies have been sent out. 2. Acute hypoxic respiratory failure associated with underlying pneumonia, sepsis. 3. Septic shock with severe lactic acidosis maintained on high-dose pressors. 4. Persistent hypoxia, currently FiO2 is at 100%. 5. Thrombocytopenia, most likely associated with consumptive coagulopathy. Anticoagulation is on hold. Again, plan continue with empiric antibiotics. Overall prognosis is poor. Renal function fairly stable for the last couple of days with improvement in actual urine output. I will also order membrane antibodies and rest of the serologies have been ordered today. We will follow up on that. MMODL / IJN: [id number] /
[2020-08-17] MEDS ORDERED: SODIUM BICARB 8.4% 50 ML SYR (1 MEQ/ML) ONE (12:47)
[2020-08-17] MEDS ORDERED: SODIUM BICARB 8.4% 50 ML SYR (1 MEQ/ML) IV STA (12:48)
[2020-08-17 12:57] VITALS: BMI 34.4
[2020-08-17] MEDS ORDERED: DEXTROSE 5% IN WATER 1,000 ML with SODIUM BICARB (1 MEQ/ML) 150 ML IV SCH (13:00)
[2020-08-17 13:32] LABS: Appearance,BF Bloody
[2020-08-17 13:33] LABS: Nucleated Cells, Body Fluid 250 /uL; RBC, Body Fluid 180500 /uL
[2020-08-17 13:36] VITALS: BP 84/44
[2020-08-17 13:39] LABS: Mononuclear WBC,Body Fluid 12 %; Polynuclear WBC,Body Fluid 88 %; Total Cells Counted,Body Fluid 100
[2020-08-17] MEDS ORDERED: LORazepam 2 MG/ML INJ IV PRN (17:59)
[2020-08-17] MEDS ORDERED: MORPHINE SULFATE 4 MG/ML SYRINGE IV PRN (17:59)
[2020-08-17] MEDS ORDERED: MORPHINE SULFATE 4 MG/ML SYRINGE ONE (18:07)
[2020-08-17 18:08] LABS: Hepatitis B Surface Antigen Non-Reactive (Non-Reactive)
[2020-08-17 18:34] LABS: Hepatitis B Surface AB- Quant 3.5 mIU/mL; Hepatitis B Surface Antibody Non-Reactive (Non-Reactive); Hepatitis C IgG Antibody Non-Reactive (Non-Reactive)
[2020-08-17 18:41] VITALS: PULSE 67
--- NOTE | 2020-08-17 19:25 | P.PCN ---
Date of Procedure: 08/17/20 Preoperative Diagnosis: Extensive bilateral pulmonary infiltrates, suspect pulmonary hemorrhage Postoperative Diagnosis: Loose bloody respiratory secretions, bronchioloalveolar lavage of the right middle lobe was done Procedure(s) Performed: Flexible bronchoscopy, bronchioloalveolar lavage of the right middle lobe Anesthesia: MAC Surgeon: Ila Flores Estimated Blood Loss (ml): 0 Condition: critical Disposition: ICU Operative Findings: This procedure was done in the intensive care unit. The patient was already sedated. The patient was on on propofol. While the patient being on a mechanical ventilator, the patient was present on the percent FiO2 and following that the flexible bronchoscope was used with orotracheal tube. The bronchoscope was then to the lower trachea. The distal trachea showed some looseness for secretions that were somewhat bloody. No clots. No active sign of bleeding was identified coming from the right or the left. Airway inspection was done. Visualized airways into a better mainstem bronchi, right upper lobe bronchus, right middle lobe bronchus, right lower lobe bronchus and the various segments. The examination of the left side included left upper lobe bronchus, left lower lobe bronchus, lingular segment and the various subsegments. All of these air ways were within normal limits.. Regular suctioning was done. No loose respiratory secretions that were blood tinged were aspirated from the airways. Following that, the bronchoscope was white into the right middle lobe. A total of 60 to fluid was infused and 20 mL of bloody aspirate was obtained. The aspirate was not getting progressively more bloody. As such, I do not think that the patient has an alveolar hemorrhage. Consider underlying pneumonia. No active source of bleeding. No endobronchial tumors or lesions. No foreign bodies. Bronchoscope was removed. The bronchioloalveolar lavage from the right middle lobe was sent for microbial cultures and analysis.
--- NOTE | 2020-08-17 21:55 | P.PN ---
Subjective 78-year-old pleasant female with history of atrial fibrillation on the anticoagulation with Xarelto, previous history of GI bleed and gastric ulcer, CVA/TIA. Patient follow-up with Dr. Birch who is recently retired at [employer] and she is looking for a new PCP now. She went to [facility] for right leg pain were stent was placed, she was discharged home 3 days ago, last Thursday, at [facility] Zayas catheter was placed and states it was bloody at that time. She was sent home with a Zayas catheter, however she started feeling uncomfortable in her bladder where the Zayas felt like hurting but she denies any abdominal pain, she felt that she has to P old time and there was blood in the urine catheter so she decided to come to the hospital. She denies any nausea vomiting. No chest pain or dyspnea. She is on 2 L oxygen via nasal cannula at home, it was bumped up to 4 L at [facility] as per patient, she has chronic hypoxic respiratory failure related to her COPD. She denies chest pain or headache or weakness. Originally she was on aspirin daily however she states the last of added to her and [place]. Patient was noted to be on Plavix 75 mg and aspirin 81 mg at home. She denies smoking, she drinks couple cups of wine every week. No illicit drugs On admission her blood pressure was 101/88, this morning was 83/63. However repeat blood pressure went up to 101/59, heart rate on admission was 138, currently is 108, she is saturating 95% on 4 L oxygen via nasal cannula Labs on admission showed hemoglobin of 7.4, rest of the CBC is unremarkable. INR is 1.2. EKG showing atrial fibrillation's with RVR at 133. 08/01/2020 Patient is lying in bed comfortable. No distress. She is not tachypneic. However she still on 4 L oxygen via nasal cannula compared to his doctor at home. No coughing or chest pain but she has bilateral basal crepitation.. Patient feels generally better today, she was admitted mainly for discomfort in her urinary bladder area which is improved today She is hemodynamically stable other than that. Labs from today are still pending. Sugars controlled. Iron study showing iron deficiency anemia with iron low at 21, normal TIBC at 397 and low iron saturation at 5.2%. And normal ferritin at 45. 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 No abdominal pain. And she tolerates diet. She is on Protonix IV daily. Occult blood in stool still pending There is blood in the urine. Urinalysis showing urine RBC more than 182, urine WBC of more than 182. Urine culture is ordered and is pending, patient will be started on Levaquin empirically for possible UTI pending UC, patient is ALLERGIC to penicillin Dr. Elias evaluated the patient and recommended to discontinue Zayas catheter and check PVR. Also recommended to follow up as an outpatient for possible cystoscopy. Patient informed and she agrees. Risks including but not limited to cancer explained to him and she verbalized understanding. Also she has acute kidney injury from yesterday with creatinine 1.7, could be related to her CHF exacerbation in view of basal crepitation and more oxygen requirement. Chest x-ray also was abnormal. We changed her Lasix from 40 mg orally to intravenously today. Echocardiogram is still pending. Heart rate is controlled on oral medication. Xarelto is on hold for hematuria 08/02/2020 Patient still feels generally weak. She still have hematuria through the Zayas catheter. No chest pain or significant dyspnea at rest. She saturating 98% 4 L oxygen via nasal cannula. Her creatinine is down to 1.8 today however her potassium is 2.4 and his been replaced, morning dose of Lasix is been held because of the significantly low potassium. Sodium 131. Blood pressure is a stable, is chronically low while the patient is asymptomatic.Occult blood in the stool is negative. Xarelto still on hold. Patient still on Plavix but aspirin is still on hold as well. Hemoglobin stable at 9.1 She continue on Levaquin for possible UTI, urine cultures pending. 08/03/2020 Today clinically the same, she feels generally weak, however she is breathing quietly and she saturating 99% and a 3 L oxygen via nasal cannula, no much basal crepitation after she was started on IV fluids. She still have the Zayas catheter with some blood in it although it's less severe compared to yesterday. Hemoglobin only slightly lower than yesterday from 9.1 down to 8.1. Patient is on iron panel added yesterday. Also she is on the Plavix however aspirin is on hold. Urine analysis is suspicious for infection, urine culture has been sent and the result is pending, first urine culture is negative but we are going to repeat it.o OxyContinnin is appreciated and they lowered dose of Cardizem from 180 down to 120. Blood pressure today slightly stable at 103/61. Heart rate is 88. Also normal saline at 50 mL per hour was added and creatinine slightly better today at 1.6. 08/04/2020 Patient is awake, clinically the same. It looks like her blood pressure is stable and her sodium is improving gradually to 1.5 with initiation of normal saline, sewed it was also improved 133. Oxygen requirement and stabilized 3-4 L/m. No pulmonary congestion on examination. Heart rate is regular to be controlled while on metoprolol. Eliquis was initiated per neurology team recommendation and upper caser team input. Also nephrology recommended to discontinue Zayas catheter and monitor PVR. Her urine was tea color today today showing improvement. Urine culture is growing group D enterococcus. She remains on Levaquin pending the final sensitivity. 08/05/2020 pt is still clinically with weakness, zayas catheter is in place with tea colored urine, urine culture is growing enterococcus resistant to Levaquin which is a stopped, it is sensitive to vancomycin, linezolid and other medication. Patient was started on linezolid and lipase are consult for infectious disease team for further recommendation. Nephrology team recommended to discontinue Zayas catheter however due to resistant bacteria and undergoing infection we will keep it for now total sensitive to antibiotic is started. Chest x-ray is suspicious for CHF versus some chronic or fibrotic changes (similar to 5 days ago ) with no worsening despite IV fluids for more than 48 hours but clinically patient does not behave slightly CHF however she stated bed most of the time. Test Lab Technician recommended to increase metoprolol to 3 times a day. Creatinine is stable at 1.5, blood pressure is a stable 08/06/2020 Patient is generally weak, yesterday patient was started on Zyvox for enterococcus in the urine based on culture and sensitivity. Vancomycin is try to be avoided cause of her hematuria and risk of nephrotoxicity. Infectious disease were consulted and they recommended to continue with Zyvox for 2 weeks upon discharge. Zayas catheter was removed today, we will keep monitoring for bladder scan. Patient is on fluid restriction 1500 mL per day. Patient creatinine is slightly up to 1.7, sodium is stable at 1:30, oxygen requirement came down to 50 L/m which is her baseline, blood pressure slightly on the low normal side at 90/52 after metoprolol was increased to 3 times daily per cardiology recommendation. Patient remains on Eliquis for her history of A. fib with RVR, currently her heart rate is controlled. She remains on Zyvox and Eliquis as above Prognosis is guarded PT/OT recommended home health care 08/07/2020 Patient weakness improving, this is the first day we see her sitting in the chair. She is being treated in currently with Zyvox for her to deal cocci UTI, his hematuria significantly improved, Zayas catheter was discontinued. We will monitor her PVR very closely. As per documentation of a copy for Zyvox is 69 and I discussed with the patient and she agrees with taking it for up to 2 weeks. Patient instructed to follow up with Dr. Elias in 2 weeks to check for cystoscopy at his office for the patient. Patient also informed and she agrees also showing heparin sodium 2126 and decrease in creatinine to 1.9. 1 dose of Lasix is provided for the patient. Iv fluids are on hold 08/08/2020 Patient feels generally more week today with no specific symptoms. She still have difficulty urination. Zayas catheter is out and we checked a bladder scan. Her creatinine trended up to 2.2 today and she was hypotensive last night, metoprolol which was recently increased by cardiology team to 25 mg 3 times a day was lowered back again to twice daily Baby Attendant on the case and recommended 1 dose of Lasix. Blood pressure still borderline so we'll keep her in telemetry bed and selective unit Today the Eliquis co-pay was found to be over $450, Eliquis was stopped and started on Coumadin with Lovenox bridgi per pharmacy to dose Prognosis remains guarded 08/09/2020 Patient feels better today, she states that she is voiding easier than yesterday although she still have some difficulty. No abdominal pain and no other sym ptoms. Her blood pressure is better today, after medial drain has been added. Systolic blood pressure is ranging between 100-105 She has worsening creatinine today to 2.3. Sodium slightly improved at 129. INR is 1.5 after Coumadin started with Lovenox bridging. She remains on Zyvox for enterococcus UTI, also on Coumadin with Lovenox bridging. She continued medial drain and metoprolol 25 mg twice daily. Metformin as an hold and sugars controlled. 08/10/2020 This is a pleasant 80 years old female who was originally admitted for hematuria and A. fib with RVR. Hematuria secondary to UTI with enterococcus on Zyvox was started, his urinary symptoms were improving, she had a Zayas catheter and Dr. Elias was following her, eventually Zayas catheter was removed and patient continued with bladder scan monitoring. On admission her creatinine was 1.7 start worsening with continuation of home Lasix to 2.2, then IV fluid was started gently and her creatinine started improving to 1.5. At that point cardiology team increased metoprolol dose to 3 times daily for better control of A. fib, with creatinines start trending up again. Then IV fluids were stopped and patient was getting Lasix intravenously for the last few days however creatinine only showing slight improved today to 2.1, also today patient clinically she is in acute CHF as she has more leg swelling more short of breath. Her metoprolol is currently twice daily , medodrain was admitted for better blood pressure control. Metformin is on hold.Her blood pressure this morning was 92/66-110/66. Heart rate around 100. Oxygen saturation 97% on 2 L oxygen nasal cannula. Patient Eliquis co-pay was more than $450, so patient was started on Coumadin with Lovenox bridging. Echocardiogram: Ejection fraction 40-45%. Severe tricuspid regurgitation, moderate pulmonary hypertension, moderate mitral regurgitation Labs showing WBC 3.6K, hemoglobin 8.8, platelets 145k, sodium 129, creatinine 2.1, glucose control.INR is 1.6 all she is on Coumadin 08/14/2020, patient was been followed by my colleague over the last 3 days Yesterday patient became hypotensive and hypothermic and she was transferred to the ICU. And this morning patient was found more lethargic and she got intubated by pulmonary/critical care team, patient could not provide information today. Her temperature yesterday was 93.3, currently is 97.5 on Armand hugger. Also she was hypotensive yesterday like 66/32 currently she is on Levothroid 0.05 g per KG per minute. Her lactic acid was elevated 8.8 and currently 12.1. She is quite acidotic with pH of 7.1, pCO2 low 32 and pO2 of 148. She is on sodium bicarb drip. Also she is on amiodarone drip for A. fib and RVR, metoprolol was stopped. Asked the staff to call cardiology team for further recommendation Abdomen is distended and KUB so suspicious of ileus. Zayas catheter has been changed to reverse arteries and there is hematuria, not much urine output. She was already started on cefepime yesterday, we added Zyvox and Flagyl to cover gram-negative, gram-positive bacteria and anaerobes. Also I talked with the son Mr. Eleno Hull at [phone] and he is aware of his critical condition of his mother and all his questions were answered 08/15/2020 Patient is intubated and sedated in the ICU with pulmonary/critical care team are following. Patient remains in critical condition although there is some improvement and some improvement in lab numbers. No plans for weaning trial currently. She still needs pressors for blood pressure support. She remains on broad-spectrum antibiotics with cefepime, Flagyl and Zyvox. Aspiration pneumonia is suspected. Her creatinine is still elevated at 3.4, culture media laboratory assistant team R following closely. Sodium 132, INR is improving to 1.8. Lactic acid improvement 4.9 but still elevated. Her hyperthermia improved. She still has Zayas catheter with irrigation and decent urine output. Several consultants on the case including pulmonary, nephrology, cardiology and neurology as well as infectious disease. 08/16/2020 Patient remains in the ICU intubated and sedated, she remains in critical condition. Pulmonary/critical care team R following the case very closely. Today she needs higher doses of pressors, Levophed was maximized at 0.75, then passed percent was added and the dose of Levophed lowered currently to 0.6. Cardiology team managed to cardiovert her however she remained on atrial fibrillation, a bolus of amiodarone was provided and then she converted to sinus rhythm. Cardizem is off now. She has leukocytosis of 14.4 K. INR is 1.8. PH is slightly alkalotic with 7.46, pCO2 is within reference range at 38 and low pO2 at 75. Creatinine is around the same at 3.15. Sodium 131, potassium 3.5, glucose is controlled. Calcium 6.3 which is low. Lactic acid still elevated over the last couple days that is around the same at 4.8 today. Sputum culture is growing gram-negative bacilli. Chest x-ray showing diffuse bilateral airspace disease is a stable correlate for diffuse pneumonitis, ARDS or pulmonary edema She is a still on broad-spectrum antibiotics with cefepime, Zyvox and IV Flagyl. 08/17/2020 She remains intubated and ventilated management as per pulmonary/critical care team Patient underwent bronchoscopy today and loose bloody respiratory secretion found with BAL of the right middle lobe was done she remains on the same antibiotics of cefepime, Zyvox and Flagyl, Levaquin was added based on her respiratory secretions with final culture results showing stenotrophomonas maltophilia and helen . She is not on any anticoagulation currently. ABG she'll showing acidosis with pH of 7.1, pCO2 of 41 and pO2 was low and 54. Lactic acid is elevated at 11.8. Other labs showing worsening leukocytosis of 18.7 K, low platelet count and 33 with hemoglobin of 8.1. Creatinine is still elevated at 3.2, sodium 132. Glucose controlled. Liver enzymes elevated. She still needs significant amount of pressors Patient is followed closely by several consultants including numbness/critical care team, infectious disease, nephrology and cardiology teams. Prognosis remains poor reView of systems: n/a Active Medications Generic Name Dose Route Start Last Admin Trade Name Freq PRN Reason Stop Dose Admin Acetaminophen 325 mg 07/31/20 09:28 08/12/20 00:01 Acetaminophen Tab 325 Mg Tab PO 325 mg Q6HR PRN Administration Fever and/ or Pain Allopurinol 100 mg 08/02/20 09:00 08/17/20 08:13 Allopurinol 100 Mg Tab PO 100 mg DAILY MERRICK Administration Alprazolam 0.5 mg 08/04/20 20:59 08/12/20 00:02 Alprazolam 0.5 Mg Tab PO 0.5 mg BID PRN Administration Anxiety Atorvastatin Calcium 40 mg 07/31/20 21:00 08/16/20 20:14 Atorvastatin 40 Mg Tab PO 40 mg HS MERRICK Administration Chlorhexidine Gluconate 15 ml 08/14/20 21:00 08/17/20 08:13 Chlorhexidine Gluconate 15 Ml Cup MUCOUS MEM 15 ml BID MERRICK Administration Cholecalciferol 400 unit 07/31/20 10:00 08/17/20 08:13 Cholecalciferol 400 Unit Tab PO 400 unit DAILY MERRICK Administration Ferrous Sulfate 325 mg 08/01/20 08:15 08/17/20 16:53 Ferrous Sulfate 325 Mg Tab PO 325 mg BID-W/MEALS MERRICK Administration Hydrocortisone Sodium Succinate 100 mg 08/16/20 17:30 08/17/20 16:53 Hydrocortisone Succinate 100 Mg/2 Ml Vial IV 100 mg Q8HR MERRICK Administration Sodium Chloride 1,000 mls @ 20 mls/hr 07/31/20 00:30 08/17/20 06:44 Saline 0.9% IV 20 mls/hr .Q24H MERRICK Administration Propofol 1,000 mg/ IV Solution 100 mls @ 0 mls/hr 08/14/20 10:15 08/17/20 18:00 IV Infused .Q0M MERRICK Titration Protocol Titrate Linezolid 600 mg/ IV Solution 300 mls @ 150 mls/hr 08/14/20 10:30 08/17/20 08:14 IVPB 150 mls/hr Q12HR MERRICK Administration Protocol Metronidazole 500 mg/ IV 100 mls @ 100 mls/hr 08/14/20 10:30 08/17/20 16:18 Solution IVPB 100 mls/hr Q8HR MERRICK Administration Norepinephrine Bitartrate 32 250 mls @ 1.737 mls/hr 08/14/20 12:45 08/17/20 18:00 mg/ Sodium Chloride IV Infused .Q24H MERRICK Titration Protocol 0.05 MCG/KG/MIN Cefepime HCl 1 gm/ Sodium 50 mls @ 12.5 mls/hr 08/15/20 09:00 08/17/20 08:13 Chloride IVPB 12.5 mls/hr Q24HR MERRICK Administration Diltiazem HCl 125 mg/ Sodium 125 mls @ 0 mls/hr 08/15/20 07:15 08/16/20 07:00 Chloride IV Infused .Q0M MERRICK Titration Protocol Per Protocol Amiodarone HCl 300 mg/ 250 mls @ 25 mls/hr 08/15/20 08:00 08/17/20 18:00 Dextrose/Water IV 0 mg/min .Q10H MERRICK 0 mls/hr Infusion 0.5 MG/MIN Vasopressin 60 unit/ Sodium 153 mls @ 4.59 mls/hr 08/16/20 07:30 08/17/20 09:31 Chloride IV 4.59 mls/hr .Q24H MERRICK Administration 0.03 UNITS/MIN Cisatracurium Besylate 200 mg/ 200 mls @ 10.572 mls/hr 08/17/20 12:30 08/17/20 18:14 Sodium Chloride IV 0 mcg/kg/min .[id number] MERRICK 0 mls/hr Titration Protocol 2 MCG/KG/MIN Sodium Bicarbonate 150 ml/ 1,150 mls @ 75 mls/hr 08/17/20 13:00 08/17/20 13:28 Dextrose/Water IV 75 mls/hr .[id number] MERRICK Administration Levofloxacin 750 mg/ IV 150 mls @ 100 mls/hr 08/17/20 22:00 Solution IVPB Q48H MERRICK Insulin Aspart 0 unit 08/15/20 00:00 08/17/20 12:15 Insulin Aspart (Novolog) 100 Unit/Ml Vial SQ 2 unit Q6H MERRICK Administration Protocol Lorazepam 1 mg 08/17/20 17:59 Lorazepam 2 Mg/Ml Inj IV Q6HR PRN Anxiety Metoprolol Tartrate 25 mg 08/08/20 09:00 08/17/20 09:12 Metoprolol Tartrate 25 Mg Tab PO Not Given BID MERRICK Midodrine 10 mg 08/08/20 09:21 08/17/20 16:53 Midodrine 5 Mg Tab PO 10 mg AC-TID MERRICK Administration Miscellaneous Information 1 each 08/03/20 15:58 Potassium Replacement Protocol 1 Each Misc MISCELLANE DAILY PRN Per Protocol Protocol Morphine Sulfate 4 mg 08/17/20 17:59 08/17/20 18:09 Morphine Sulfate 4 Mg/Ml Syringe IV 4 mg Q15M PRN Administration Breakthrough Pain Naloxone HCl 0.2 mg 07/31/20 00:23 Naloxone 0.4 Mg/Ml 1 Ml Vial IV Q2M PRN Opioid Reversal Nitroglycerin 0.4 mg 07/31/20 09:30 Nitroglycerin Sl Tabs 0.4 Mg Tab SUBLINGUAL Q5M PRN Chest Pain Pantoprazole Sodium 40 mg 08/14/20 13:15 08/17/20 09:12 Pantoprazole 40 Mg/10 Ml Vial IVP 40 mg BID MERRICK Administration Polyethylene Glycol 17 gm 07/31/20 09:45 08/17/20 09:12 Polyethylene Glycol 3350 17 Gm Powd.Pack PO 17 gm DAILY MERRICK Administration Sodium Chloride 3,000 ml 08/14/20 17:15 08/17/20 16:10 Sodium Chloride 0.9% Irrig 3,000 Ml Bag IRRIGATION 3,000 ml Q1HR PRN Administration IRRIGATION Trazodone HCl 50 mg 07/31/20 09:30 08/07/20 20:29 Trazodone Hcl 50 Mg Tab PO 50 mg HS PRN Administration Insomnia Objective - Vital Signs Vital signs: Vital Signs Temp 90.5 F L 08/17/20 04:45 Pulse 67 08/17/20 18:00 Resp 18 08/17/20 18:00 BP 84/44 08/17/20 12:22 Pulse Ox 76 L 08/17/20 18:00 Intake & Output 08/17/20 08/17/20 08/18/20 06:59 18:59 06:59 Intake Total 7323.531 1850.722 Output Total 3900 4675 Balance 3423.531 -2824.278 Weight 88.1 kg 88.1 kg Intake: IV 6772.5 480.5 Continuous Bladder 6000 Irrigation Linezolid 600 mg In 150 Dextrose/Water 1 300ml. bag @ 150 mls/hr IVPB Q12HR [facility] Rx#:[id number] Sodium Chloride 0.9% 1, 440 440 000 ml @ 20 mls/hr IV . Q24H MERRICK Rx#:[id number] Sodium Chloride 0.9% 150 49.5 4.5 ml @ 0.03 UNITS/MIN 4.59 mls/hr IV .Q24H MERRICK with Vasopressin 60 unit Rx#: [id number] metroNIDAZOLE-NS PMX 500 100 mg In Saline 1 100ml.bag @ 100 mls/hr IVPB Q8HR [facility] Rx#:[id number] pressure bag' 33 36 Intake, IV Titration 551.031 712.222 Amount Amiodarone 300 mg In 206.667 448.75 Dextrose 5% in Water 250 ml @ 0.5 MG/MIN 25 mls/hr IV .Q10H [facility]ERRICK Rx#: [id number] Cisatracurium 200 mg In 57.794 Sodium Chloride 0.9% 180 ml @ 2 MCG/KG/MIN 10.572 mls/hr IV .[id number] [facility] Rx #:[id number] Norepinephrine 32 mg In 244.364 105.678 Sodium Chloride 0.9% 218 ml @ 0.05 MCG/KG/MIN 1. 737 mls/hr IV .Q24H [facility] Rx#:[id number] propofoL 1,000 mg In 100 100 Empty Bag 1 bag @ Titrate IV .Q0M [facility]ERR[facility] Rx#: [id number] Tube Feeding 50 Blood Product 608 Ffp 24 Cp2d Unit 302 [id number] Ffp 24 Cpd Unit 306 [id number] Output: Urine 3900 4675 Other: Voiding Method Indwelling Catheter Indwelling Catheter ABP, PAP, CO, CI - Last Documented Arterial Blood Pressure 67/39 - Exam -GENERAL: The patient is intubated and sedated HEENT: Pupils are round and equally reacting to light. EOMI. No scleral icterus. No conjunctival pallor. Normocephalic, atraumatic. No pharyngeal erythema. No t hyromegaly. CARDIOVASCULAR: S1 and S2 present. No murmurs, rubs, or gallops. -PULMONARY: Chest is clear to auscultation, no wheezing or crackles. Bilateral basal crepitation -ABDOMEN: Soft, nontender, nondistended, normoactive bowel sounds. No palpable organomegaly. Zayas catheter is in place with blood-colored urine MUSCULOSKELETAL: No joint swelling or deformity. -EXTREMITIES: No cyanosis, clubbing, bilateral leg edema. NEUROLOGICAL: Gross neurological examination did not reveal any focal deficits. SKIN: No rashes. No petechiae - Labs CBC & Chem 7: 08/17/20 04:00 08/17/20 04:00 Labs: Abnormal Lab Results - Last 24 Hours (Table) 07/31/20 08/17/20 08/17/20 Range/Units 00:31 00:07 04:00 WBC (3.8-10.6) k/uL RBC (3.80-5.40) m/uL Hgb (11.4-16.0) gm/dL Hct (34.0-46.0) % MCHC (31.0-37.0) g/dL RDW (11.5-15.5) % Plt Count (150-450) k/uL Neutrophils # (1.3-7.7) k/uL Lymphocytes # (1.0-4.8) k/uL ESR (0-20) mm/hr PT 19.9 H (9.0-12.0) sec INR 2.0 H (<1.2) ABG pH (7.35-7.45) ABG pO2 (83-108) mmHg ABG HCO3 (21-25) mmol/L ABG Total CO2 (19-24) mmol/L ABG O2 Saturation (94-97) % ABG Lactic Acid (0.5-1.6) mmol/L Sodium (137-145) mmol/L Chloride (98-107) mmol/L Carbon Dioxide (22-30) mmol/L BUN (7-17) mg/dL Creatinine (0.52-1.04) mg/dL Glucose (74-99) mg/dL POC Glucose (mg/dL) 210 H (75-99) mg/dL Calcium (8.4-10.2) mg/dL Total Bilirubin (0.2-1.3) mg/dL Conjugated Bilirubin (0.0-0.3) mg/dL Delta Bilirubin (0.0-0.2) mg/dL AST (14-36) U/L ALT (4-34) U/L Alkaline Phosphatase (38-126) U/L Total Protein (6.3-8.2) g/dL Albumin (3.5-5.0) g/dL Rheumatoid Factor (0-15) IU/mL Crossmatch See Detail 08/17/20 08/17/20 08/17/20 Range/Units 04:00 04:00 06:00 WBC 18.7 H (3.8-10.6) k/uL RBC 3.07 L (3.80-5.40) m/uL Hgb 8.1 L (11.4-16.0) gm/dL Hct 26.2 L (34.0-46.0) % MCHC 30.8 L (31.0-37.0) g/dL RDW 20.2 H (11.5-15.5) % Plt Count 33 L (150-450) k/uL Neutrophils # 18.3 H (1.3-7.7) k/uL Lymphocytes # 0.1 L (1.0-4.8) k/uL ESR (0-20) mm/hr PT (9.0-12.0) sec INR (<1.2) ABG pH 7.20 L (7.35-7.45) ABG pO2 67 L (83-108) mmHg ABG HCO3 16 L (21-25) mmol/L ABG Total CO2 17 L (19-24) mmol/L ABG O2 Saturation 90.0 L (94-97) % ABG Lactic Acid (0.5-1.6) mmol/L Sodium 132 L (137-145) mmol/L Chloride 93 L (98-107) mmol/L Carbon Dioxide 16 L (22-30) mmol/L BUN 54 H (7-17) mg/dL Creatinine 3.25 H (0.52-1.04) mg/dL Glucose 170 H (74-99) mg/dL POC Glucose (mg/dL) (75-99) mg/dL Calcium 6.1 L* (8.4-10.2) mg/dL Total Bilirubin 4.6 H (0.2-1.3) mg/dL Conjugated Bilirubin 2.2 H (0.0-0.3) mg/dL Delta Bilirubin 1.9 H (0.0-0.2) mg/dL AST 1943 H (14-36) U/L ALT 880 H (4-34) U/L Alkaline Phosphatase 286 H (38-126) U/L Total Protein 5.5 L (6.3-8.2) g/dL Albumin 2.7 L (3.5-5.0) g/dL Rheumatoid Factor (0-15) IU/mL Crossmatch 08/17/20 08/17/20 08/17/20 Range/Units 06:58 08:41 08:41 WBC (3.8-10.6) k/uL RBC (3.80-5.40) m/uL Hgb (11.4-16.0) gm/dL Hct (34.0-46.0) % MCHC (31.0-37.0) g/dL RDW (11.5-15.5) % Plt Count (150-450) k/uL Neutrophils # (1.3-7.7) k/uL Lymphocytes # (1.0-4.8) k/uL ESR 44 H (0-20) mm/hr PT (9.0-12.0) sec INR (<1.2) ABG pH (7.35-7.45) ABG pO2 (83-108) mmHg ABG HCO3 (21-25) mmol/L ABG Total CO2 (19-24) mmol/L ABG O2 Saturation (94-97) % ABG Lactic Acid (0.5-1.6) mmol/L Sodium (137-145) mmol/L Chloride (98-107) mmol/L Carbon Dioxide (22-30) mmol/L BUN (7-17) mg/dL Creatinine (0.52-1.04) mg/dL Glucose (74-99) mg/dL POC Glucose (mg/dL) 185 H (75-99) mg/dL Calcium (8.4-10.2) mg/dL Total Bilirubin (0.2-1.3) mg/dL Conjugated Bilirubin (0.0-0.3) mg/dL Delta Bilirubin (0.0-0.2) mg/dL AST (14-36) U/L ALT (4-34) U/L Alkaline Phosphatase (38-126) U/L Total Protein (6.3-8.2) g/dL Albumin (3.5-5.0) g/dL Rheumatoid Factor 32 H (0-15) IU/mL Crossmatch 08/17/20 08/17/20 08/17/20 Range/Units 08:41 12:08 12:29 WBC (3.8-10.6) k/uL RBC (3.80-5.40) m/uL Hgb (11.4-16.0) gm/dL Hct (34.0-46.0) % MCHC (31.0-37.0) g/dL RDW (11.5-15.5) % Plt Count (150-450) k/uL Neutrophils # (1.3-7.7) k/uL Lymphocytes # (1.0-4.8) k/uL ESR (0-20) mm/hr PT (9.0-12.0) sec INR (<1.2) ABG pH 7.18 L* (7.35-7.45) ABG pO2 54 L* (83-108) mmHg ABG HCO3 16 L (21-25) mmol/L ABG Total CO2 17 L (19-24) mmol/L ABG O2 Saturation 80.7 L (94-97) % ABG Lactic Acid 11.8 H* (0.5-1.6) mmol/L Sodium (137-145) mmol/L Chloride (98-107) mmol/L Carbon Dioxide (22-30) mmol/L BUN (7-17) mg/dL Creatinine (0.52-1.04) mg/dL Glucose (74-99) mg/dL POC Glucose (mg/dL) 199 H (75-99) mg/dL Calcium (8.4-10.2) mg/dL Total Bilirubin (0.2-1.3) mg/dL Conjugated Bilirubin (0.0-0.3) mg/dL Delta Bilirubin (0.0-0.2) mg/dL AST (14-36) U/L ALT (4-34) U/L Alkaline Phosphatase (38-126) U/L Total Protein (6.3-8.2) g/dL Albumin (3.5-5.0) g/dL Rheumatoid Factor (0-15) IU/mL Crossmatch Microbiology - Last 24 Hours (Table) 08/17/20 08:28 Bronchial Washings Culture - Preliminary Bronchial Washings - Right 08/17/20 08:28 Acid Fast Bacilli Culture - Preliminary Bronchial Washings - Right 08/17/20 08:28 Fungal Culture - Preliminary Bronchial Washings - Right 08/14/20 23:50 Gram Stain - Final Sputum Sputum Culture - Final Stenotrophomonas maltophilia Helen sp,not albicans/galbr 08/13/20 22:11 Blood Culture - Preliminary Blood No Growth after 72 hours 08/14/20 20:07 Blood Culture - Preliminary Blood No Growth after 48 hours Assessment and Plan Assessment: Possible septic shock, aspiration pneumonia is suspected Acute hypoxic respiratory failure needing intubation and mechanical ventilation Acute systolic on chronic CHF with ejection fraction 40-45% Acute hematuria, secondary to UTI. Culture growing group D enterococcus. Finish treatment with Zyvox Acute blood loss anemia Coagulopathy secondary to Coumadin. Improved Acute kidney injury, could be a combination of infection, cardiorenal syndrome, hypotension Hyponatremia Paroxysmal atrial fibrillation with RVR, was on Coumadin Valvular heart disease with severe tricuspid regurgitation and moderate mitral regurgitation Moderate pulmonary hypertension Acute and chronic hypoxic respiratory failure secondary to above. Improved Anemia, Rule out GI bleed History of gastric ulcer in 2018 History of CVA/TIA Plan: This is a pleasant 80 years old female who presents with A. fib and low hemoglobin suspicious for blood in urine and Zayas catheter. Currently patient in the ICU needing mechanical ventilation and pressors, sever consultants on the case including pulmonary/critical care team, cardiology, nephrology, infectious disease. Also urology team. Patient is on cefepime, we added Zyvox and Flagyl. Levaquin and it Continue with her orogastric tube under suction for distended abdomen. Continue with Zayas catheter Continue with amiodarone drip. continue to hold Coumadin, hold metformin and beta stacie. No anticoagulation or Plavix Labs and medication were reviewed.. Continue same treatment. Continue with symptomatic treatment. Resume home medication. Monitor lytes and vitals. DVT and GI prophylaxis. Further recommendations as per clinical course of the patient DVT prophylaxis: No anticoagulation. Plavix is on hold as well GI Prophylaxis: Ppi Prognosis is guarded
[2020-08-17] MEDS ORDERED: LEVOFLOXACIN 750MG-D5W PMX 750 MG in DEXTROSE/WATER 1 150ML.BAG IVPB SCH (22:00)
--- NOTE | 2020-08-17 22:21 | PN ---
PROGRESS NOTE DATE OF SERVICE: 08/17/2020 REASON FOR FOLLOWUP: Pneumonia and sepsis. INTERVAL HISTORY: The patient is afebrile. The patient has been maxed out on the pressors. The patient remains on 100% FiO2. No significant purulent secretion through the ET has been reported or any diarrhea. PHYSICAL EXAMINATION: Blood pressure: 71/41 with a pulse of 72, temperature of 90. She is only 77% on 100% FiO2. General description is an elderly female lying in bed in no distress. RESPIRATORY SYSTEM: Unlabored breathing with decreased intensity of breath sounds. No wheeze. HEART: S1, S2. Regular rate and rhythm. ABDOMEN: Soft. No tenderness. LABS: Hemoglobin 8.1, white count 18.7, BUN of 54, creatinine 3.25. Sputum has been finalized with stenotrophomonas. DIAGNOSTIC IMPRESSION AND PLAN: Patient with acute respiratory failure and sepsis in this patient whose sputum is showing a stenotrophomonas. Patient with kidney function use of the Bactrim at the same time she is on amiodarone. That will cause concern for QT prolongation with the Levaquin and the is resistant to cefepime. We will give her one dose of Levaquin, though overall prognosis remains very guarded in view of the overall poor clinical condition. Continue with supportive care. MMODL / IJN: [id number] /
[2020-08-20 13:24] LABS: APTT 105 Sec(s) (<43); APTT 1:1 Mix 57 Sec(s) (<43); DRVVT 1:1 Mix 54 Sec(s) (<44); DRVVT Confirmation Positive (Negative); Dilute Russell Viper Venom 162 Sec(s) (<44); Hexagonal Phase Neutralization Positive (Negative)
[2020-08-20 14:29] LABS: C-ANCA <1:20 Titer (<1:20)
--- NOTE | 2020-08-21 10:38 | CDI ---
Documentation Clarification Form Date: 08/21/2020 10:31:56 AM From: Ladi Chavez RN, CCDS Admit Date: 07/31/2020 12:23:00 AM Patient Name: Jackie Hull Visit Number: [id number] Discharge Date: 08/17/2020 11:17:00 PM ATTENTION: The Clinical Documentation Specialists (CDI) and [facility] Coding Staff appreciate your assistance in clarifying documentation. Please respond to the clarification below the line at the bottom and electronically sign. The CDI & [facility] Coding staff will review the response and follow-up if needed. Please note: Queries are made part of the Legal Health Record. If you have any questions, please contact the author of this message via ITS. Dr. Moshe Herbert CKD is documented in the starting in the 08/09-08/17 Nephrology and Pulmonary progress notes. As the documenting provider, can you please provide further specificity? History/Risk Factors: 07/11/18 Patients Historical BUN/CR/GFR 18/.94/58 No documented Hx of CKD Chronic Atrial Fib with Xarelto, recent right leg stenting, CVVA, Anemia, chronic hypoxic respiratory failure with home O2, urinary retention w/ chronic IDC Clinical Indicators: 08/02 Nephrology Consult: "nonoliguric acute kidney injury secondary to ischemic ATN with low blood pressures." 08/09-08/12 Nephrology progress notes: "Rule out chronic kidney disease. Creatinine in July 2018 was near 1." 08/14 Pulmonary Consult to 08/17 Pulmonary progress notes: "acute on chronic kidney injury in the creatinine is rising the patient is oliguric at this point in time. Creatinine today is up to 3.96." 07/31-08/17 Current BUN: 49/60/52/39/37/36/37/44/42/41/43/48/58/46/58/46/59/56/54 CR: 1.73/2.28/1.87/1.6/1.56/1.57/1.74/1.91/2.22/2.37/2.17/2.42/2.79/3.51/2.89/3.51/2 .89/3.46/3.15/3.25 GFR: ///////////08/21/08/21// Treatment: Consults: nephrology following- 08/17 Progress note: Acute kidney injury, most likely acute tubular necrosis. The patient has had hematuria. She had significant coagulopathy with elevated INR at about 7. Initial urine culture grew Enterococcus faecalis for which patient was maintained on Zyvox. I doubt underlying acute GN. However, serologies have been sent out. 08/13-08/17 Levophed gtt titrate for B/P above 85 systolic 08/16-08/17 Vasopressin gtt 07/31 Lasix 40 mg Po BID 08/01, 08/07-08/09 Lasix 40 mg IVP OT 08/10 0.9% NS IVF Bolus 200 ML 08/13 & 08/14 1l 0.9% NS IVF Bolus 08/08-08/17 Midodrine 10 mg PO AC TID In order to capture the severity of condition, please clarify the stage of the CKD, if known: CKD ruled out CKD Stage 1 (GFR > 90) CKD Stage 2 (GFR 60-89) CKD Stage 3a (GFR 45-59) CKD Stage 3b (GFR 30-44) CKD Stage 4 (GFR 15-29) CKD Stage 5 (GFR <15) ESRD Other, please specify Unable to determine [Template last reviewed: May 2020] AKI, ATN; CKD, unable to determine stage MTDD
--- NOTE | 2020-08-21 10:52 | CDI ---
Documentation Clarification Form Date: 08/21/2020 10:40:40 AM From: Ladi Chavez RN, CCDS Admit Date: 07/31/2020 12:23:00 AM Patient Name: Jackie Hull Visit Number: [id number] Discharge Date: 08/17/2020 11:17:00 PM ATTENTION: The Clinical Documentation Specialists (CDI) and [facility] Coding Staff appreciate your assistance in clarifying documentation. Please respond to the clarification below the line at the bottom and electronically sign. The CDI & [facility] Coding staff will review the response and follow-up if needed. Please note: Queries are made part of the Legal Health Record. If you have any questions, please contact the author of this message via ITS. Dr. Taylor E Keren GI bleed is documented in the Attending progress notes as Improved Anemia, Rule out GI bleed History of gastric ulcer in 2018". Please review and document if this diagnosis has been ruled in or ruled out. Patient history/risk factors: Gastric ulcer 2018, recent right leg vascular stenting on ASA, Chronic atrial fib on Xarelto Clinical Indicators: 08/14 CT AP: "Subcutaneous edema. Abdominal ascites. Cardiomegaly with pleural effusions and bilateral lower lobe pulmonary consolidation or atelectasis. This could all relate to congestive chronic heart failure. No bowel obstruction." EGD/colonoscopy not performed Labs: Hgb: 7.4/9/9.1/8.8/9/8.5/10.2/8.9/8.1 07/31 0028 Admission Vital Signs: Temp 98.1, HR 122, RR 17, B/P 116/79 Spo2 100% on room air Treatment: 2 Units PRBC's, 6 Units FFP transfused throughout stay Consults: GI Consult: "ABLA with hematuria- denies any s/sx of GI bleeding at this time." there are no further GI progress notes Other treatment: In your professional opinion, can you please clarify if GI bleeding was ruled in or out and the underlying cause if known if known? GIB ruled in (please specify cause if known) GIB ruled out Other, please specify Unable to determine (Last Revision: June 2017) pt occult blood in stool was negative ,but the pt main problem was hematuria and others, there was not strong evidence for GI bleed. besides GI team saw the pt and you can refer to their notes MTDD
--- NOTE | 2020-08-22 11:17 | P.DS ---
Providers Date of admission: 07/31/20 00:23 Attending physician: Christen Quijano Consults: 07/31/20 07:53 Consult Physician Routine Consulting Provider: Fara Torres Consult Reason/Comments: a fib anf rvr,recent right leg stent Do you want consulting provider notified?: Yes 07/31/20 09:29 Consult Physician ONCE Consulting Provider: Mervin Longoria Consult Reason/Comments: Hematuria Do you want consulting provider notified?: Yes 08/01/20 14:47 Consult Physician Routine Consulting Provider: Tammie Schrader Consult Reason/Comments: knew the pt Do you want consulting provider notified?: Yes 08/01/20 17:26 Consult Physician Urgent Consulting Provider: Moshe Herbert Consult Reason/Comments: salvador Do you want consulting provider notified?: Yes 08/05/20 18:14 Consult Physician Urgent Consulting Provider: Lucrecia Shafer Consult Reason/Comments: resistant enterococcus with complicated UTI Do you want consulting provider notified?: Yes 08/14/20 07:49 Consult Physician Stat Consulting Provider: Nenita Tineo Consult Reason/Comments: a-fib RVR Do you want consulting provider notified?: Already Contacted Primary care physician: Tammie Schrader [facility] Course: Diagnoses: septic shock, aspiration pneumonia is suspected, versus others Acute hypoxic respiratory failure needing intubation and mechanical ventilation Acute systolic on chronic CHF with ejection fraction 40-45% Acute hematuria, secondary to UTI. Culture growing group D enterococcus. Finish treatment with Zyvox, however hematuria persist Status post Bronchoscopy with bronchoalveolar lavage showing bloody specimen. 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 Improved Acute kidney injury, could be a combination of infection, cardiorenal syndrome, hypotension Hyponatremia Paroxysmal atrial fibrillation with RVR, was on Coumadin Valvular heart disease with severe tricuspid regurgitation and moderate mitral regurgitation Moderate pulmonary hypertension Acute and chronic hypoxic respiratory failure secondary to above. Improved Anemia, Rule out GI bleed History of gastric ulcer in 2018 History of CVA/TIA Hospital course: 78-year-old pleasant female with history of atrial fibrillation on the anticoagulation with Xarelto, previous history of GI bleed and gastric ulcer, CVA/TIA. Patient follow-up with Dr. Birch who is recently retired at [employer] and she is looking for a new PCP. She went to [facility] for right leg pain were stent was placed, she was discharged home 3 days prior, at [facility] Hayes catheter was placed and states it was bloody at that time. She presents with hematuria. Patient found to have UTI secondary to group D enterococcus. She specifically Zyvox. Several consultants were on the case early on admission including urologist, medical instrument technician, mental health aide, spot billing clerk, pulmonary and critical care team, and management of patient problems continued upon there recommendations Patient initially showed improvement.her urinary symptoms were improving, she had a Hayes catheter and uroloigist Dr. Elias was following her, eventually Hayes catheter was removed and patient continued with bladder scan monitoring. On admission her creatinine was 1.7 start worsening with continuation of home Lasix to 2.2, then IV fluid was started gently and her creatinine started improving to 1.5. At that point cardiology team increased metoprolol dose to 3 times daily for better control of A. fib, with creatinines start trending up again. Then IV fluids were stopped and patient was getting Lasix intravenously for the last few days however creatinine only showed slight improvement to 2.1,but over the following 3-4 days her creatinine was trending up. She had symptoms of heart failure. Patient hospital course was complicated with hypotension and hypothermia. Patient become more lethargic and she got intubated by pulmonary/critical care team and sent to the ICU At that point she needed pressors with Levophed and vasopressor, aspiration pneumonia was suspected and patient was covered with 3-4 different antibiotics for broad-spectrum bacterial coverage, under the recommendation of infectious disease team. She was acidotic and received bicarb troponin, she developed A. fib and RVR and she was on amiodarone drip. She continued to have hematuria through her Hayes catheter. She had coagulopathy secondary to Coumadin which was corrected. Patient also had continuous bladder irrigation. Acute kidney injury, possible pulmonary renal syndrome, possible vasculitis. Shock liver. Severe lactic acidosis.Patient had a prolonged course in the hospital. Patient also had Bronchoscopy with bronchoalveolar lavage showing bloody specimen. Eventually patient was on 08/17. Please refer to the nursing note for more detail Patient Condition at Discharge: Fair Plan - Discharge Summary Discharge Rx Participant: No New Discharge Prescriptions: New Apixaban [Eliquis] 2.5 mg PO BID 30 Days #60 tab No Action RX: traZODone HCL 50 mg PO HS PRN PRN Reason: Insomnia RX: Thiamine [Vitamin B-1] 50 mg PO DAILY RX: Levothyroxine Sodium [Synthroid] 112 mcg PO DAILY RX: Cholecalciferol [Vitamin D3] 400 unit PO DAILY RX: Nitroglycerin Sl Tabs [Nitrostat] 0.4 mg SUBLINGUAL Q5M PRN PRN Reason: Chest Pain RX: Magnesium Oxide [Mag-Oxide] 200 mg PO DAILY RX: allopurinoL [Zyloprim] 300 mg PO DAILY Potassium Chloride ER [K-Dur 20] 40 meq PO HS metOLazone [Zaroxolyn] 5 mg PO DAILY PRN PRN Reason: Blood Pressure - High metFORMIN HCL [metFORMIN HCL ER] 750 mg PO DAILY Aspirin EC [Ecotrin Low Dose] 81 mg PO DAILY Diltiazem HCl [Cartia Xt] 180 mg PO DAILY Clopidogrel [Plavix] 75 mg PO DAILY Atorvastatin [Lipitor] 40 mg PO HS ALPRAZolam [Xanax] 0.5 mg PO BID RX: Potassium Chloride ER [K-Dur 20] 20 meq PO DAILY RX: Omeprazole 20 mg PO DAILY RX: Furosemide [Lasix] 40 mg PO BID Discharge Medication List RX: Cholecalciferol [Vitamin D3] 400 unit PO DAILY 07/08/18 [History] RX: Levothyroxine Sodium [Synthroid] 112 mcg PO DAILY 07/08/18 [History] RX: Magnesium Oxide [Mag-Oxide] 200 mg PO DAILY 07/08/18 [History] RX: Nitroglycerin Sl Tabs [Nitrostat] 0.4 mg SUBLINGUAL Q5M PRN 07/08/18 [History] RX: Thiamine [Vitamin B-1] 50 mg PO DAILY 07/08/18 [History] RX: allopurinoL [Zyloprim] 300 mg PO DAILY 07/08/18 [History] RX: traZODone HCL 50 mg PO HS PRN 07/08/18 [History] ALPRAZolam [Xanax] 0.5 mg PO BID 07/31/20 [History] Aspirin EC [Ecotrin Low Dose] 81 mg PO DAILY 07/31/20 [History] Atorvastatin [Lipitor] 40 mg PO HS 07/31/20 [History] Clopidogrel [Plavix] 75 mg PO DAILY 07/31/20 [History] Diltiazem HCl [Cartia Xt] 180 mg PO DAILY 07/31/20 [History] Potassium Chloride ER [K-Dur 20] 40 meq PO HS 07/31/20 [History] RX: Furosemide [Lasix] 40 mg PO BID 07/31/20 [History] RX: Omeprazole 20 mg PO DAILY 07/31/20 [History] RX: Potassium Chloride ER [K-Dur 20] 20 meq PO DAILY 07/31/20 [History] metFORMIN HCL [metFORMIN HCL ER] 750 mg PO DAILY 07/31/20 [History] metOLazone [Zaroxolyn] 5 mg PO DAILY PRN 07/31/20 [History] Apixaban [Eliquis] 2.5 mg PO BID 30 Days #60 tab 08/08/20 [Rx] Follow up Appointment(s)/Referral(s): Tammie Schrader MD [Primary Care Provider] - 1-2 days [facility], [NON-STAFF] - Tyrell Stacy MD [STAFF PHYSICIAN] - 2 Weeks (cysto) Discharge Disposition: - Preliminary Cause of Preliminary Cause of : septic shock
== END 2020-08-17 23:17 | disposition expired | DRG 698 ==
LOC: EC 00:10 → 3SCARD 00:23 → 2SICU 08-13 22:26
PROVIDERS: ADMIT Hospitalist; ATTEND Hospitalist
PROC: 30243N1 Transfusion of Nonautologous Red Blood Cells into Central Vein, Percutaneous Approach (ICD-10-PCS; 2020-07-31)
PROC: 3E033XZ Introduction of Vasopressor into Peripheral Vein, Percutaneous Approach (ICD-10-PCS; 2020-08-13)
PROC: 30243K1 Transfusion of Nonautologous Frozen Plasma into Central Vein, Percutaneous Approach (ICD-10-PCS; 2020-08-14)
PROC: 4A133B1 Monitoring of Arterial Pressure, Peripheral, Percutaneous Approach (ICD-10-PCS; 2020-08-14)
PROC: 03HY32Z Insertion of Monitoring Device into Upper Artery, Percutaneous Approach (ICD-10-PCS; 2020-08-14)
PROC: 4A133J1 Monitoring of Arterial Pulse, Peripheral, Percutaneous Approach (ICD-10-PCS; 2020-08-14)
PROC: 06HM33Z Insertion of Infusion Device into Right Femoral Vein, Percutaneous Approach (ICD-10-PCS; 2020-08-14)
PROC: 0D9670Z Drainage of Stomach with Drainage Device, Via Natural or Artificial Opening (ICD-10-PCS; 2020-08-14)
PROC: 0BH17EZ Insertion of Endotracheal Airway into Trachea, Via Natural or Artificial Opening (ICD-10-PCS; principal; 2020-08-15)
PROC: 5A1945Z Respiratory Ventilation, 24-96 Consecutive Hours (ICD-10-PCS; principal; 2020-08-15)
PROC: 5A2204Z Restoration of Cardiac Rhythm, Single (ICD-10-PCS; 2020-08-16)
PROC: 0B9D8ZX Drainage of Right Middle Lung Lobe, Via Natural or Artificial Opening Endoscopic, Diagnostic (ICD-10-PCS; 2020-08-17)
PROC: 0B9L8ZZ Drainage of Left Lung, Via Natural or Artificial Opening Endoscopic (ICD-10-PCS; 2020-08-17)
DX: T83.511A Infection and inflammatory reaction due to indwelling urethral catheter, initial encounter (principal); D65 Disseminated intravascular coagulation [defibrination syndrome]; A41.9 Sepsis, unspecified organism; I50.23 Acute on chronic systolic (congestive) heart failure; J69.0 Pneumonitis due to inhalation of food and vomit; J96.21 Acute and chronic respiratory failure with hypoxia; K72.00 Acute and subacute hepatic failure without coma; N17.0 Acute kidney failure with tubular necrosis; R65.21 Severe sepsis with septic shock; J15.6 Pneumonia due to other Gram-negative bacteria; D62 Acute posthemorrhagic anemia; E87.1 Hypo-osmolality and hyponatremia; E87.4 Mixed disorder of acid-base balance; I42.9 Cardiomyopathy, unspecified; I48.19 Other persistent atrial fibrillation; R18.8 Other ascites; Z16.23 Resistance to quinolones and fluoroquinolones; N39.0 Urinary tract infection, site not specified; Z20.828 Contact with and (suspected) exposure to other viral communicable diseases; Z66 Do not resuscitate; Z51.5 Encounter for palliative care; I27.20 Pulmonary hypertension, unspecified; E11.51 Type 2 diabetes mellitus with diabetic peripheral angiopathy without gangrene; J43.9 Emphysema, unspecified; T83.83XA Hemorrhage due to genitourinary prosthetic devices, implants and grafts, initial encounter; R31.0 Gross hematuria; B95.2 Enterococcus as the cause of diseases classified elsewhere; E03.9 Hypothyroidism, unspecified; E78.5 Hyperlipidemia, unspecified; E86.0 Dehydration; E87.6 Hypokalemia; F41.9 Anxiety disorder, unspecified; G47.00 Insomnia, unspecified; I08.1 Rheumatic disorders of both mitral and tricuspid valves; I25.10 Atherosclerotic heart disease of native coronary artery without angina pectoris; I45.10 Unspecified right bundle-branch block; T45.515A Adverse effect of anticoagulants, initial encounter; T50.2X5A Adverse effect of carbonic-anhydrase inhibitors, benzothiadiazides and other diuretics, initial encounter; R19.7 Diarrhea, unspecified; N13.9 Obstructive and reflux uropathy, unspecified; R32 Unspecified urinary incontinence; Z79.01 Long term (current) use of anticoagulants; Z79.02 Long term (current) use of antithrombotics/antiplatelets; Z79.82 Long term (current) use of aspirin; Z79.84 Long term (current) use of oral hypoglycemic drugs; Z79.890 Hormone replacement therapy; Z79.899 Other long term (current) drug therapy; Z88.0 Allergy status to penicillin; Z88.1 Allergy status to other antibiotic agents; Z98.61 Coronary angioplasty status; Z95.820 Peripheral vascular angioplasty status with implants and grafts; Z86.73 Personal history of transient ischemic attack (TIA), and cerebral infarction without residual deficits; Z87.11 Personal history of peptic ulcer disease; Z99.81 Dependence on supplemental oxygen; Z80.1 Family history of malignant neoplasm of trachea, bronchus and lung; Z82.49 Family history of ischemic heart disease and other diseases of the circulatory system; Y84.6 Urinary catheterization as the cause of abnormal reaction of the patient, or of later complication, without mention of misadventure at the time of the procedure
CPT/HCPCS: 31624; 36415; 36600; 71045; 74018; 74176; 76770; 80048; 80053; 80076; 81001; 82272; 82330; 82533; 82607; 82728; 82746; 82805; 83036; 83516; 83540; 83550; 83605; 83735; 83880; 83930; 83935; 84100; 84132; 84133; 84145; 84300; 85025; 85027; 85045; 85598; 85610; 85613; 85652; 85730; 85732; 86038; 86140; 86255; 86431; 86706; 86803; 86850; 86860; 86870; 86880; 86885; 86900; 86901; 86902; 86905; 86906; 86920; 86972; 87040; 87070; 87077; 87086; 87102; 87116; 87186; 87205; 87206; 87252; 87340; 87496; 87498; 87502; 87529; 87634; 87798; 88108; 88305; 89050; 93005; 93306; 94002; 94003; 94760; 96365; 96376; 99291